=== PATIENT | female | born 1940 | race Caucasian/White ===

== ENCOUNTER 2017-10-14 11:41 | Inpatient (IN) | payer MEDICARE, OTHER ==
[~2017-10-14] VITALS: Ht 165.1 cm; Wt 55.3 kg
[2017-10-14] VITALS (7 sets, daily range): BP systolic 140–175; BP diastolic 68–95; PULSE 86–112; RESP 16–20; TEMP 97.1–98.3; O2SAT 94–99
[~2017-10-14 11:41] MED LIST: ASPI325T PO; HYDR12.57 PO; PRAV40TA2 PO
[2017-10-14] MEDS ORDERED: SODIUM CHLOR 0.9% 1000 ML INJ 800 ML IV ONE (11:57)
[2017-10-14] MEDS ORDERED: SODIUM CHLOR 0.9% 1000 ML INJ 1,000 ML IV ONE (11:57)
--- NOTE | 2017-10-14 12:09 | PD ---
HPI Chief Complaint: General Weakness Time Seen by Provider: 11:57 Travel History International Travel<30 days: No Contact w/Intl Traveler<30days: No Traveled to known affect area: No History of Present Illness HPI Patient is 77-year-old female brought into the emergency department via EMS for evaluation of generalized weakness. Per their report she has been laying on her couch for the last 7 days unable to get up because she has been weak. Apparently either patient or daughter called 911. Patient states that she has not been cleaned in several days. Patient denies any pain at this time. Patient states she has not been eating well. EMS reported that living conditions were suboptimal at best. Patient smelled of feces and urine on arrival. PFSH Past Medical History Cerebrovascular Accident: Yes Tubal Ligation: Yes Past Surgical History Tonsillectomy: Yes Social History Alcohol Use: No Tobacco Use: No (quit several years ago) Substance Use: No Allergies-Medications (Allergen,Severity, Reaction): Coded Allergies: No Known Allergies (Unverified Allergy, Unknown, 10/14/17) Reported Meds & Prescriptions Reported Meds & Active Scripts Active Reported Aspirin 325 Mg Tab (Aspirin) 325 Mg Tab 325 Mg PO DAILY Pravachol 40 Mg Tab (Pravastatin Sodium) 40 Mg Tab 40 Mg PO DAILY Microzide 12.5 Mg Cap (Hydrochlorothiazide) 12.5 Mg Cap 25 Mg PO DAILY Review of Systems ROS Limitations: Poor Historian Except as stated in HPI: all other systems reviewed are Neg General / Constitutional: Positive: Other (decreased oral intake), No: Fever, Chills HENT: No: Headaches Cardiovascular: No: Chest Pain or Discomfort Respiratory: No: Shortness of Breath Gastrointestinal: No: Nausea, Vomiting, Abdominal Pain Skin: Positive Other (skin breakdown to buttocks) Neurologic: Positive: Weakness Physical Exam Narrative GENERAL: Thin, disheveled, cachectic elderly female. Resting in no acute distress. SKIN: Purple discoloration to right toes, skin break down noted to the left buttock and right buttock. HEAD: Atraumatic. Normocephalic. EYES: Pupils equal and round. No scleral icterus. No injection or drainage. ENT: No nasal bleeding or discharge. Mucous membranes pink and moist. NECK: Trachea midline. No JVD. CARDIOVASCULAR: Regular rate and rhythm. RESPIRATORY: No accessory muscle use. Clear to auscultation. Breath sounds equal bilaterally. GASTROINTESTINAL: Abdomen soft, non-tender, nondistended. Hepatic and splenic margins not palpable. MUSCULOSKELETAL: Extremities without clubbing, cyanosis, or edema. No obvious deformities. NEUROLOGICAL: Awake and alert, oriented to self and place. No obvious cranial nerve deficits. Motor grossly within normal limits. Five out of 5 muscle strength in the arms and legs. Normal speech. PSYCHIATRIC: Appropriate mood and affect; insight and judgment normal. Data Data Last Documented VS Vital Signs Date Time Temp Pulse Resp B/P (MAP) Pulse Ox O2 Delivery O2 Flow Rate FiO2 10/14/17 14:07 98.3 91 17 140/95 (110) 99 Room Air Orders Orders Sepsis Workup Initiated (10/14/17 ) Electrocardiogram (10/14/17 11:57) Complete Blood Count With Diff (10/14/17 11:57) Comprehensive Metabolic Panel (10/14/17 11:57) Prothrombin Time / Inr (Pt) (10/14/17 11:57) Act Partial Throm Time (Ptt) (10/14/17 11:57) Lactic Acid Sepsis Protocol (10/14/17 11:57) Magnesium (Mg) (10/14/17 11:57) Urinalysis - C+S If Indicated (10/14/17 11:57) Blood Culture (10/14/17 11:57) Chest, Single Ap (10/14/17 11:57) Blood Glucose (10/14/17 11:57) Ecg Monitoring (10/14/17 11:57) Iv Access Insert/Monitor (10/14/17 11:57) Oximetry (10/14/17 11:57) Oxygen Administration (10/14/17 11:57) Sodium Chlor 0.9% 1000 Ml Inj (Ns 1000 M (10/14/17 11:57) Sodium Chlor 0.9% 1000 Ml Inj (Ns 1000 M (10/14/17 11:57) Urine Culture (10/14/17 12:00) Piperacil-Tazo 4.5 Gm Premix (Zosyn 4.5 (10/14/17 12:52) Vancomycin Inj (Vancomycin Inj) (10/14/17 13:15) Creatine Kinase (Cpk) (10/14/17 14:42) Admit Order (Ed Use Only) (10/14/17 14:42) Solid Waste [employer] / Telemetry [id number] (10/14/17 14:42) Vital Signs (Adult) Q4H (10/14/17 14:42) Activity Bed Rest (10/14/17 14:42) Notify Dr: Other (10/14/17 14:42) Diet Regular Basic (10/14/17 Dinner) Labs Laboratory Tests Test 10/14/17 12:00 10/14/17 12:05 10/14/17 13:20 Urine Color LIGHT-RED Urine Turbidity HAZY Urine pH 5.5 Urine Specific [place] 1.024 Urine Protein 30 mg/dL Urine Glucose (UA) NEG mg/dL Urine Ketones 10 mg/dL Urine Occult Blood NEG Urine Nitrite POS Urine Bilirubin NEG Urine Urobilinogen 2.0 MG/DL Urine Leukocyte Esterase MOD Urine RBC 3 /hpf Urine WBC 21 /hpf Urine Squamous Epithelial Cells 2 /hpf Urine Amorphous Sediment OCC Urine Bacteria MANY /hpf Urine Mucus MANY /lpf Microscopic Urinalysis Comment CATH-CULTURE IND White Blood Count 23.2 TH/MM3 Red Blood Count 8.36 MIL/MM3 Hemoglobin 19.3 GM/DL Hematocrit 59.6 % Mean Corpuscular Volume 68.8 FL Mean Corpuscular Hemoglobin 22.3 PG Mean Corpuscular Hemoglobin Concent 32.4 % Red Cell Distribution Width 18.8 % Platelet Count 675 TH/MM3 Mean Platelet Volume 8.2 FL Neutrophils (%) (Auto) 90.5 % Lymphocytes (%) (Auto) 3.1 % Monocytes (%) (Auto) 5.4 % Eosinophils (%) (Auto) 0.9 % Basophils (%) (Auto) 0.1 % Neutrophils # (Auto) 21.0 TH/MM3 Lymphocytes # (Auto) 0.7 TH/MM3 Monocytes # (Auto) 1.2 TH/MM3 Eosinophils # (Auto) 0.2 TH/MM3 Basophils # (Auto) 0.0 TH/MM3 CBC Comment AUTO DIFF Differential Comment AUTO DIFF CONFIRMED Toxic Vacuolation PRESENT Platelet Estimate HIGH Platelet Morphology Comment ENLARGED Prothrombin Time 17.5 SEC Prothromb Time International Ratio 1.7 RATIO Activated Partial Thromboplast Time 29.9 SEC Lactic Acid Level 1.3 mmol/L Blood Urea Nitrogen 11 MG/DL Creatinine 0.73 MG/DL Random Glucose 88 MG/DL Total Protein 7.1 GM/DL Albumin 2.3 GM/DL Calcium Level 8.1 MG/DL Magnesium Level 1.9 MG/DL Alkaline Phosphatase 100 U/L Aspartate Amino Transf (AST/SGOT) 18 U/L Alanine Aminotransferase (ALT/SGPT) 9 U/L Total Bilirubin 0.9 MG/DL Sodium Level 136 MEQ/L Potassium Level 3.6 MEQ/L Chloride Level 102 MEQ/L Carbon Dioxide Level 27.9 MEQ/L Anion Gap 6 MEQ/L Estimat Glomerular Filtration Rate 78 ML/MIN MDM Medical Decision Making Medical Screen Exam Complete: Yes Emergency Medical Condition: Yes Medical Record Reviewed: Yes Interpretation(s) Last Impressions Chest X-Ray 10/14/17 1157 Signed Impressions: Service Date/Time: Saturday, October 14, 2017 13:26 - CONCLUSION: No acute cardiopulmonary disease. Lorenzo Ponce MD Laboratory Tests Test 10/14/17 12:00 10/14/17 12:05 10/14/17 13:20 Urine Color LIGHT-RED Urine Turbidity HAZY Urine pH 5.5 Urine Specific [place] 1.024 Urine Protein 30 mg/dL Urine Glucose (UA) NEG mg/dL Urine Ketones 10 mg/dL Urine Occult Blood NEG Urine Nitrite POS Urine Bilirubin NEG Urine Urobilinogen 2.0 MG/DL Urine Leukocyte Esterase MOD Urine RBC 3 /hpf Urine WBC 21 /hpf Urine Squamous Epithelial Cells 2 /hpf Urine Amorphous Sediment OCC Urine Bacteria MANY /hpf Urine Mucus MANY /lpf Microscopic Urinalysis Comment CATH-CULTURE IND White Blood Count 23.2 TH/MM3 Red Blood Count 8.36 MIL/MM3 Hemoglobin 19.3 GM/DL Hematocrit 59.6 % Mean Corpuscular Volume 68.8 FL Mean Corpuscular Hemoglobin 22.3 PG Mean Corpuscular Hemoglobin Concent 32.4 % Red Cell Distribution Width 18.8 % Platelet Count 675 TH/MM3 Mean Platelet Volume 8.2 FL Neutrophils (%) (Auto) 90.5 % Lymphocytes (%) (Auto) 3.1 % Monocytes (%) (Auto) 5.4 % Eosinophils (%) (Auto) 0.9 % Basophils (%) (Auto) 0.1 % Neutrophils # (Auto) 21.0 TH/MM3 Lymphocytes # (Auto) 0.7 TH/MM3 Monocytes # (Auto) 1.2 TH/MM3 Eosinophils # (Auto) 0.2 TH/MM3 Basophils # (Auto) 0.0 TH/MM3 CBC Comment AUTO DIFF Differential Comment AUTO DIFF CONFIRMED Toxic Vacuolation PRESENT Platelet Estimate HIGH Platelet Morphology Comment ENLARGED Prothrombin Time 17.5 SEC Prothromb Time International Ratio 1.7 RATIO Activated Partial Thromboplast Time 29.9 SEC Lactic Acid Level 1.3 mmol/L Blood Urea Nitrogen 11 MG/DL Creatinine 0.73 MG/DL Random Glucose 88 MG/DL Total Protein 7.1 GM/DL Albumin 2.3 GM/DL Calcium Level 8.1 MG/DL Magnesium Level 1.9 MG/DL Alkaline Phosphatase 100 U/L Aspartate Amino Transf (AST/SGOT) 18 U/L Alanine Aminotransferase (ALT/SGPT) 9 U/L Total Bilirubin 0.9 MG/DL Sodium Level 136 MEQ/L Potassium Level 3.6 MEQ/L Chloride Level 102 MEQ/L Carbon Dioxide Level 27.9 MEQ/L Anion Gap 6 MEQ/L Estimat Glomerular Filtration Rate 78 ML/MIN Vital Signs Date Time Temp Pulse Resp B/P (MAP) Pulse Ox O2 Delivery O2 Flow Rate FiO2 10/14/17 14:07 98.3 91 17 140/95 (110) 99 Room Air 10/14/17 13:02 95 Room Air 10/14/17 12:03 99 Room Air 10/14/17 12:03 111 18 99 Room Air 10/14/17 11:51 98.2 112 18 147/93 (111) 97 Vital Signs Date Time Temp Pulse Resp B/P (MAP) Pulse Ox O2 Delivery O2 Flow Rate FiO2 10/14/17 11:51 98.2 112 18 147/93 (111) 97 Differential Diagnosis Sepsis versus UTI versus metabolic abnormality versus neglect versus other Narrative Course Patient presented via EMS for evaluation of generalized weakness that is ongoing for at least the last 7 days. Patient is given bedbound, unable to get up. On arrival she was considerably soiled, stool in her adult diaper was caked to patient's skin. There is skin breakdown noted to her buttocks. She is tachycardic, likely secondary to dehydration however sepsis workup was initiated. Patient's heart rate is 116 vital signs are otherwise stable at this time. Patient has not been to [facility] since 2011, medical records reviewed. Initial EKG shows sinus tachycardia with occasional PVCs. Rate is 111, this was reviewed by my attending physician. Chest x-ray shows no acute disease CBC with a white count of 23.2 with left shift. H&H is 19.3/59.6 Lactic acid 1.3 Urinalysis is consistent with a urinary tract infection. Zosyn and vancomycin ordered. Reflex culture is pending. Coags reviewed, INR 1.7, PT 17.5 Patient meet sepsis criteria, patient will be admitted. Discussed with Dr. Liao who accepted admission. Orders placed. Sepsis Criteria SIRS Criteria (2 or more): Heart rate over 90, WBC > 55315, < 4000 or > 10% bands Sepsis Criteria (SIRS+source): Infect source susp/known Diagnosis Primary Impression: Sepsis Qualified Codes: A41.9 - Sepsis, unspecified organism Additional Impressions: UTI (urinary tract infection) Qualified Codes: N39.0 - Urinary tract infection, site not specified; R31.9 - Hematuria, unspecified Generalized weakness Total self-care deficit Admitting Information Admitting Physician Requests: Admit Condition: Stable Kait Martins Oct 14, 2017 12:09
[2017-10-14 12:42] LABS: BASOPHIL % 0.1 % (0.0-2.0); EOSINOPHIL # 0.2 TH/MM3 (0-0.4); EOSINOPHIL % 0.9 % (0.0-4.0); HEMATOCRIT 59.6 % (35.0-46.0); HEMOGLOBIN 19.3 GM/DL (11.6-15.3); LYMPH % 3.1 % (9.0-44.0); LYMPHOCYTE # 0.7 TH/MM3 (1.0-4.8); MEAN CELL VOLUME 68.8 FL (80.0-100.0); MEAN CORPUSCULAR HEMOGLOBIN 22.3 PG (27.0-34.0); MEAN CORPUSCULAR HGB CONC 32.4 % (32.0-36.0); MEAN PLATELET VOLUME 8.2 FL (7.0-11.0); MONO % 5.4 % (0.0-8.0); MONOCYTE # 1.2 TH/MM3 (0-0.9); NEUT % 90.5 % (16.0-70.0); PLATELET COUNT 675 TH/MM3 (150-450); RED CELL DISTRIBUTION WIDTH 18.8 % (11.6-17.2); WHITE BLOOD COUNT 23.2 TH/MM3 (4.0-11.0)
[2017-10-14 12:46] LABS: AMORPHOUS SEDIMENT, URINE OCC; BACTERIA, URINE MANY /hpf; BILIRUBIN, URINE NEG (NEG); BLOOD, URINE NEG (NEG); GLUCOSE,URINE NEG (NEG); KETONE, URINE 10 mg/dL (NEG); MUCUS URINE MANY /lpf (OCC); NITRITE,URINE POS (NEG); PH, URINE 5.5 (5.0-8.5); SQUAMOUS EPITHELIAL CELL URINE 2 /hpf (0-5); URINE LEUKOCYTE ESTERASE MOD (NEG)
[2017-10-14 12:47] LABS: URINE COLOR LIGHT-RED (YELLW/STRAW)
[2017-10-14 12:48] LABS: INTERNATIONAL NORMALIZED RATIO 1.7 RATIO; PROTHROMBIN TIME - PATIENT 17.5 SEC (9.8-11.6)
[2017-10-14] MEDS ORDERED: PIPERACIL-TAZO 4.5 GM PREMIX 100 ML IV STA (12:52)
[2017-10-14 12:55] LABS: RED BLOOD COUNT 8.36 MIL/MM3 (4.00-5.30)
[2017-10-14 13:01] LABS: ALKALINE PHOSPHATASE 100 U/L (45-117); TOTAL BILIRUBIN ADULT 0.9 MG/DL (0.2-1.0); TOTAL PROTEIN 7.1 GM/DL (6.4-8.2)
[2017-10-14] MEDS ORDERED: VANCOMYCIN INJ 1,000 MG in SODIUM CHLOR 0.9% 250 ML INJ 250 ML IV ONE (13:15)
[2017-10-14 13:28] LABS: TOXIC VACUOLATION PRESENT (NONE SEEN)
[2017-10-14 13:50] LABS: ALT (GPT) 9 U/L (10-53)
--- NOTE | 2017-10-14 13:55 | RADRPT ---
EXAM DATE/TIME: 10/14/2017 13:26 [facility] COMPARISON: No previous studies available for comparison. INDICATIONS : Cough, weakness. MEDICAL HISTORY : Unobtainable SURGICAL HISTORY : None. ENCOUNTER: Initial ACUITY: 1 day PAIN SCORE: 0/10 LOCATION: Bilateral chest FINDINGS: The heart and mediastinal structures are normal. The pulmonary vascular pattern is normal. The lungs are clear. CONCLUSION: No acute cardiopulmonary disease. Lorenzo Ponce MD on October 14, 2017 at 13:51 Board Certified Radiologist. This report was verified electronically.
[2017-10-14 14:02] LABS: BLOOD UREA NITROGEN 11 MG/DL (7-18); CREATININE 0.73 MG/DL (0.50-1.00); GLOMERULAR FILTRATION RATE 78 ML/MIN (>89)
[2017-10-14 14:03] LABS: ALBUMIN 2.3 GM/DL (3.4-5.0); AST (GOT) 18 U/L (15-37); CALCIUM 8.1 MG/DL (8.5-10.1); GLUCOSE,RANDOM 88 MG/DL (74-106); MAGNESIUM 1.9 MG/DL (1.5-2.5); SODIUM (NA) 136 MEQ/L (136-145)
[2017-10-14 14:04] LABS: BICARBONATE 27.9 MEQ/L (21.0-32.0); CHLORIDE 102 MEQ/L (98-107)
--- NOTE | 2017-10-14 14:43 | PD ---
Data Data Last Documented VS Vital Signs Date Time Temp Pulse Resp B/P (MAP) Pulse Ox O2 Delivery O2 Flow Rate FiO2 10/14/17 14:07 98.3 91 17 140/95 (110) 99 Room Air Orders Orders Sepsis Workup Initiated (10/14/17 ) Electrocardiogram (10/14/17 11:57) Complete Blood Count With Diff (10/14/17 11:57) Comprehensive Metabolic Panel (10/14/17 11:57) Prothrombin Time / Inr (Pt) (10/14/17 11:57) Act Partial Throm Time (Ptt) (10/14/17 11:57) Lactic Acid Sepsis Protocol (10/14/17 11:57) Magnesium (Mg) (10/14/17 11:57) Urinalysis - C+S If Indicated (10/14/17 11:57) Blood Culture (10/14/17 11:57) Chest, Single Ap (10/14/17 11:57) Blood Glucose (10/14/17 11:57) Ecg Monitoring (10/14/17 11:57) Iv Access Insert/Monitor (10/14/17 11:57) Oximetry (10/14/17 11:57) Oxygen Administration (10/14/17 11:57) Sodium Chlor 0.9% 1000 Ml Inj (Ns 1000 M (10/14/17 11:57) Sodium Chlor 0.9% 1000 Ml Inj (Ns 1000 M (10/14/17 11:57) Urine Culture (10/14/17 12:00) Piperacil-Tazo 4.5 Gm Premix (Zosyn 4.5 (10/14/17 12:52) Vancomycin Inj (Vancomycin Inj) (10/14/17 13:15) Labs Laboratory Tests Test 10/14/17 12:00 10/14/17 12:05 10/14/17 13:20 Urine Color LIGHT-RED Urine Turbidity HAZY Urine pH 5.5 Urine Specific [place] 1.024 Urine Protein 30 mg/dL Urine Glucose (UA) NEG mg/dL Urine Ketones 10 mg/dL Urine Occult Blood NEG Urine Nitrite POS Urine Bilirubin NEG Urine Urobilinogen 2.0 MG/DL Urine Leukocyte Esterase MOD Urine RBC 3 /hpf Urine WBC 21 /hpf Urine Squamous Epithelial Cells 2 /hpf Urine Amorphous Sediment OCC Urine Bacteria MANY /hpf Urine Mucus MANY /lpf Microscopic Urinalysis Comment CATH-CULTURE IND White Blood Count 23.2 TH/MM3 Red Blood Count 8.36 MIL/MM3 Hemoglobin 19.3 GM/DL Hematocrit 59.6 % Mean Corpuscular Volume 68.8 FL Mean Corpuscular Hemoglobin 22.3 PG Mean Corpuscular Hemoglobin Concent 32.4 % Red Cell Distribution Width 18.8 % Platelet Count 675 TH/MM3 Mean Platelet Volume 8.2 FL Neutrophils (%) (Auto) 90.5 % Lymphocytes (%) (Auto) 3.1 % Monocytes (%) (Auto) 5.4 % Eosinophils (%) (Auto) 0.9 % Basophils (%) (Auto) 0.1 % Neutrophils # (Auto) 21.0 TH/MM3 Lymphocytes # (Auto) 0.7 TH/MM3 Monocytes # (Auto) 1.2 TH/MM3 Eosinophils # (Auto) 0.2 TH/MM3 Basophils # (Auto) 0.0 TH/MM3 CBC Comment AUTO DIFF Differential Comment AUTO DIFF CONFIRMED Toxic Vacuolation PRESENT Platelet Estimate HIGH Platelet Morphology Comment ENLARGED Prothrombin Time 17.5 SEC Prothromb Time International Ratio 1.7 RATIO Activated Partial Thromboplast Time 29.9 SEC Lactic Acid Level 1.3 mmol/L Blood Urea Nitrogen 11 MG/DL Creatinine 0.73 MG/DL Random Glucose 88 MG/DL Total Protein 7.1 GM/DL Albumin 2.3 GM/DL Calcium Level 8.1 MG/DL Magnesium Level 1.9 MG/DL Alkaline Phosphatase 100 U/L Aspartate Amino Transf (AST/SGOT) 18 U/L Alanine Aminotransferase (ALT/SGPT) 9 U/L Total Bilirubin 0.9 MG/DL Sodium Level 136 MEQ/L Potassium Level 3.6 MEQ/L Chloride Level 102 MEQ/L Carbon Dioxide Level 27.9 MEQ/L Anion Gap 6 MEQ/L Estimat Glomerular Filtration Rate 78 ML/MIN [facility] Supervised Visit with [facility]IE[facility]: Yes Narrative Course The history, exam, and medical decision-making in the associated mid-level provider note were completed with my assistance. I reviewed and agree with the findings presented. I attest that I had a [id number] encounter with the patient on the same day, and personally performed and documented my assessment and findings in the medical record. *My assessment and Findings: 77-year-old woman with worsening weakness for the past week, hasn't moved off the couch, family called EMS. EMS is worried about the living conditions. Patient was found with skin wounds in the posterior on her posterior with caked feces there is well. Labs are remarkable for leukocytosis. Chemistries are unremarkable. UA shows pyuria. She appeared dehydrated. Met sepsis criteria. Was treated with flank and Zosyn. She is a little bit confused. No other evidence of trauma. We'll add a total CK. Jose Luis Arnett MD Oct 14, 2017 14:43
[2017-10-14] MEDS ORDERED: MAGNESIUM HYDROXIDE SUSP 30 ML CUP PO PRN (16:00)
[2017-10-14] MEDS ORDERED: SODIUM CHLOR 0.9% 1000 ML INJ 1,000 ML IV SCH (16:00)
[2017-10-14] MEDS ORDERED: SENNOSIDES 8.6 MG TAB PO PRN (16:00)
[2017-10-14] MEDS ORDERED: BISACODYL 10 MG SUPP RECTAL PRN (16:00)
[2017-10-14] MEDS ORDERED: LACTULOSE SYRUP 20 GM/30 ML CUP PO PRN (16:00)
[2017-10-14] MEDS ORDERED: SODIUM CHLORIDE 0.9% FLUSH 10 ML FLUSH IV FLUSH PRN (16:00)
[2017-10-14] MEDS ORDERED: TEMAZEPAM 15 MG CAP PO PRN (16:00)
[2017-10-14] MEDS ORDERED: ONDANSETRON HCL 4 MG/2 ML VIAL IVP PRN (16:00)
[2017-10-14] MEDS ORDERED: NALOXONE HCL 0.4 MG/ML AMP IV PUSH PRN (16:00)
--- NOTE | 2017-10-14 16:49 | HHI.HP ---
[facility] Primary Care Physician No Primary Care Physician Admission Diagnosis sepsis/uti Diagnoses: Chief Complaint: generalized weakness Travel History International Travel<30 Days: No Contact w/Intl Traveler <30 Da: No Traveled to Known Affected Are: No History of Present Illness Patient is 77-year-old female with PMH of HTN, HLD brought into the emergency department via EMS for evaluation of generalized weakness. Patient is a poor historian. Per their report she has been laying on her couch for the last 7 days unable to get up because she has been weak. Apparently either patient or daughter called 911. Patient states that she has not been cleaned in several days. Patient states she has not been eating well. EMS reported that living conditions were suboptimal at best. Patient smelled of feces and urine on arrival. Further work up reveals UTI with sepsis. Started on abb after cultures obtained. Patient also was noted with discolored LE bluish discoloration, cold LE , and no pulses detected by US. Ao run off ordered and also vascular surgeon consulted for further eval. Review of Systems ROS Limitations: Clinical Condition, Poor Historian Except as stated in HPI: all other systems reviewed are Neg Past Family Social History Past Medical History HLD, HTN Past Surgical History Tubal ligation 1982 Tonsillectomy as a child Reported Medications Reported Meds & Active Scripts Active Allergies: Coded Allergies: No Known Allergies (Unverified Allergy, Unknown, 10/14/17) Family History None Social History Tobacco: 1/2 ppd since 20 yrs of age, says she stopped in her "70's Alcohol: 2 beers every couple weeks Drugs: Marijuana in her 20's Physical Exam Vital Signs Vital Signs Date Time Temp Pulse Resp B/P (MAP) Pulse Ox O2 Delivery O2 Flow Rate FiO2 10/14/17 16:00 97.1 90 18 155/84 (107) 96 10/14/17 15:49 10/14/17 15:00 86 20 144/68 (93) 96 Room Air 10/14/17 14:07 98.3 91 17 140/95 (110) 99 Room Air 10/14/17 13:02 95 Room Air 10/14/17 12:03 99 Room Air 10/14/17 12:03 111 18 99 Room Air 10/14/17 11:51 98.2 112 18 147/93 (111 97 Physical Exam GENERAL: This is a skinny 77 yo f, well-nourished, well-developed patient, in no apparent distress. SKIN: BL LE toes with cyanosis, cold and no pulses detected. Cool and dry. HEAD: Atraumatic. Normocephalic. No temporal or scalp tenderness. EYES: Pupils equal round and reactive. Extraocular motions intact. No scleral icterus. No injection or drainage. ENT: Nose without bleeding, purulent drainage or septal hematoma. Throat without erythema, tonsillar hypertrophy or exudate. Uvula midline. Airway patent. NECK: Trachea midline. No JVD or lymphadenopathy. Supple, nontender, no meningeal signs. CARDIOVASCULAR: Regular rate and rhythm without murmurs, gallops, or rubs. RESPIRATORY: Clear to auscultation. Breath sounds equal bilaterally. No wheezes , rales, or rhonchi. GASTROINTESTINAL: Abdomen soft, non-tender, nondistended. No hepato-splenomegaly , or palpable masses. No guarding. MUSCULOSKELETAL: Extremities without clubbing, cyanosis, or edema. No joint tenderness, effusion, or edema noted. No calf tenderness. Negative Homans sign bilaterally. NEUROLOGICAL: Awake and alert. Cranial nerves II through XII intact. Motor and sensory grossly within normal limits. Five out of 5 muscle strength in all muscle groups. Normal speech. Laboratory Laboratory Tests Test 10/14/17 12:00 10/14/17 12:05 10/14/17 13:20 Urine Color LIGHT-RED Urine Turbidity HAZY Urine pH 5.5 Urine Specific Oakman 1.024 Urine Protein 30 Urine Glucose (UA) NEG Urine Ketones 10 Urine Occult Blood NEG Urine Nitrite POS Urine Bilirubin NEG Urine Urobilinogen 2.0 Urine Leukocyte Esterase MOD Urine RBC 3 Urine WBC 21 Urine Squamous Epithelial Cells 2 Urine Amorphous Sediment OCC Urine Bacteria MANY Urine Mucus MANY Microscopic Urinalysis Comment CATH-CULTURE IND White Blood Count 23.2 Red Blood Count 8.36 Hemoglobin 19.3 Hematocrit 59.6 Mean Corpuscular Volume 68.8 Mean Corpuscular Hemoglobin 22.3 Mean Corpuscular Hemoglobin Concent 32.4 Red Cell Distribution Width 18.8 Platelet Count 675 Mean Platelet Volume 8.2 Neutrophils (%) (Auto) 90.5 Lymphocytes (%) (Auto) 3.1 Monocytes (%) (Auto) 5.4 Eosinophils (%) (Auto) 0.9 Basophils (%) (Auto) 0.1 Neutrophils # (Auto) 21.0 Lymphocytes # (Auto) 0.7 Monocytes # (Auto) 1.2 Eosinophils # (Auto) 0.2 Basophils # (Auto) 0.0 CBC Comment AUTO DIFF Differential Comment AUTO DIFF CONFIRMED Toxic Vacuolation PRESENT Platelet Estimate HIGH Platelet Morphology Comment ENLARGED Prothrombin Time 17.5 Prothromb Time International Ratio 1.7 Activated Partial Thromboplast Time 29.9 Lactic Acid Level 1.3 Blood Urea Nitrogen 11 Creatinine 0.73 Random Glucose 88 Total Protein 7.1 Albumin 2.3 Calcium Level 8.1 Magnesium Level 1.9 Alkaline Phosphatase 100 Aspartate Amino Transf (AST/SGOT) 18 Alanine Aminotransferase (ALT/SGPT) 9 Total Bilirubin 0.9 Sodium Level 136 Potassium Level 3.6 Chloride Level 102 Carbon Dioxide Level 27.9 Anion Gap 6 Estimat Glomerular Filtration Rate 78 Total Creatine Kinase 81 Date/Time Source Procedure Growth Status 10/14/17 12:20 Blood Peripheral Aerobic Blood Culture Pending Received 10/14/17 12:20 Blood Peripheral Anaerobic Blood Culture Pending Received 10/14/17 12:00 Urine Catheterized Urine Urine Culture Pending Received Result Diagram: 10/14/17 1205 10/14/17 1320 Imaging Last Impressions Chest X-Ray 10/14/17 1157 Signed Impressions: Service Date/Time: Saturday, October 14, 2017 13:26 - CONCLUSION: No acute cardiopulmonary disease. Lorenzo Ponce MD Caprini VTE Risk Assessment Caprini VTE Risk Assessment: Mod/High Risk (score >= 2) Caprini Risk Assessment Model Point Value = 1 Point Value = 2 Point Value = 3 Point Value = 5 Age 41-60 Minor surgery BMI > 25 kg/m2 Swollen legs Varicose veins or History of unexplained or recurrent spontaneous Oral contraceptives or hormone replacement Sepsis (< 1 month) Serious lung disease, including pneumonia (< 1 month) Abnormal pulmonary function Acute myocardial infarction Congestive heart failure (< 1 month) History of inflammatory bowel disease Medical patient at bed rest Age 61-74 Arthroscopic surgery Major open surgery (> 45 min) Laparoscopic surgery (> 45 min) Malignancy Confined to bed (> 72 hours) Immobilizing plaster cast Central venous access Age >= 75 History of VTE Family history of VTE Factor V Leiden Prothrombin [id number] Lupus anticoagulant Anticardiolipin antibodies Elevated serum homocysteine Heparin-induced thrombocytopenia Other congenital or acquired thrombophilia Stroke (< 1 month) Elective arthroplasty Hip, pelvis, or leg fracture Acute spinal cord injury (< 1 month) Prophylaxis Regimen Total Risk Factor Score Risk Level Prophylaxis Regimen 0-1 Low Early ambulation 2 Moderate Order ONE of the following: *Sequential Compression Device (SCD) *Heparin 5000 units SQ BID 3-4 Higher Order ONE of the following medications: *Heparin 5000 units SQ TID *Enoxaparin/Lovenox 40 mg SQ daily (WT < 150 kg, CrCl > 30 mL/min) *Enoxaparin/Lovenox 30 mg SQ daily (WT < 150 kg, CrCl > 10-29 mL/min) *Enoxaparin/Lovenox 30 mg SQ BID (WT < 150 kg, CrCl > 30 mL/min) AND/OR *Sequential Compression Device (SCD) 5 or more Highest Order ONE of the following medications: *Heparin 5000 units SQ TID (Preferred with Epidurals) *Enoxaparin/Lovenox 40 mg SQ daily (WT < 150 kg, CrCl > 30 mL/min) *Enoxaparin/Lovenox 30 mg SQ daily (WT < 150 kg, CrCl > 10-29 mL/min) *Enoxaparin/Lovenox 30 mg SQ BID (WT < 150 kg, CrCl > 30 mL/min) AND *Sequential Compression Device (SCD) Assessment and Plan Assessment and Plan Sepsis ( UTI, tachycardia, leukocytosis ) UTI (urinary tract infection) Generalized weakness Dehydration Total self-care deficit Bilateral LE discoloration and unable to feel DP pulses. Patient with pain and cold extremities. Will do CTA Ao run off and will consult vascular surgery Started on antibiotic Rocephin IV . Received vanco and zosyn in the ED. Received bolus of NS in the eD. Continue IVF. Monitor VS closely. Urine cultures blood cx are pending Initial EKG shows sinus tachycardia with occasional PVCs. Rate is 111, this was reviewed by my attending physician. Chest x-ray shows no acute disease Restart home meds as appropriate patient says she currently doesn't take any meds. Repeat labs cbc, bmp tomorrow Consult PT for eval Consult case management for DC plan DVT ppx lovenox Discussed Condition With patient. nurse, ED physician /PA Physician Certification 2 Midnight Certification Type: Admission for Inpatient Services Order for Inpatient Services The services are ordered in accordance with Medicare regulations or non- Medicare payer requirements, as applicable. In the case of services not specified as inpatient-only, they are appropriately provided as inpatient services in accordance with the 2-midnight benchmark. Estimated LOS (days): 3 days is the estimated time the patient will need to remain in the hospital, assuming treatment plan goals are met and no additional complications. Post-Hospital Plan: Not yet determined Sruthi Liao MD Oct 14, 2017 16:49
[2017-10-14] MEDS ORDERED: ENOXAPARIN SODIUM 40 MG/0.4 ML SYRINGE SQ SCH (17:00)
[2017-10-14] MEDS: cefTRIAXone INJ 1,000 MG in SODIUM CHLORIDE 0.9% INJ 100 ML IV SCH (17:25)
[2017-10-14] MEDS ORDERED: IOHEXOL 350 MG/ML 10 ML VIAL (for RAD DIAG) IVCONTRAST ONE (18:02)
--- NOTE | 2017-10-14 21:02 | RADRPT ---
EXAM DATE/TIME: 10/14/2017 17:47 [facility] COMPARISON: No previous studies available for comparison. INDICATIONS : Right leg pain; evaluate for occlusion. IV CONTRAST: 100 cc Omnipaque 350 (iohexol) IV RADIATION DOSE: 2.3 CTDIvol (mGy) MEDICAL HISTORY : Cerebrovascular disease. SURGICAL HISTORY : Tubal ligation. ENCOUNTER: Initial ACUITY: 1 month PAIN SCALE: 7/10 LOCATION: Right lower leg TECHNIQUE: Volumetric scanning was performed using a multi-row detector CT scanner. The data was post processed with a variety of visualization algorithms including full volume maximum intensity projection, multi -planar sliding thin slab reformation, curved planar reformation, and surface rendering techniques. Using automated exposure control and adjustment of the mA and/or kV according to patient size, radiat ion dose was kept as low as reasonably achievable to obtain optimal diagnostic quality images. DICO M format image data is available electronically for review and comparison. FINDINGS: There are atherosclerotic changes seen throughout the arterial system. The abdominal aorta measures up to 2.9 cm. At the distal infrarenal abdominal aorta thrombus occupies more than half of the lumen . The functional lumen is seen at the left lateral aspect of the distal abdominal aorta. There is a therosclerotic change at the common iliac arteries bilaterally. A significant stenosis is not seen a t this level is not seen. There does appear to be severe stenosis and possible occlusion at the orig in of the right internal iliac artery. There is mild plaque seen at the right external iliac artery. There is a severe stenosis at the distal left external iliac artery. There is atherosclerotic change seen at the common femoral arteries bilaterally being more severe on the right. There is a severe stenosis at the right common femoral artery narrowing the lumen by appr oximately 80%. There is severe narrowing of the proximal right profunda femoris artery. There is ab rupt occlusion of the proximal right superficial femoral artery. Flow in the thigh is continues thro ugh collaterals in the profunda femoris artery distribution. There is reconstitution of the distal p opliteal artery at the level of the distal femur via collaterals. There is a normal trifurcation. T he right anterior tibial artery can be traced to the ankle. The posterior tibial and peritoneal daniel everardo can be seen to the distal lower leg but can not clearly be traced into the foot. Again noted is the mild stenosis at the left common femoral artery. There is occlusion of the proxim al left superficial femoral artery. The popliteal artery is patent throughout. There is reconstitut ion of the distal superficial femoral artery at the level of the distal femoral shaft. The popliteal artery is patent. There is a severe stenosis at the mid popliteal artery. The lumen is narrowed by over 75%. The more distal popliteal artery is patent. The anterior and posterior tibial artery cou ld be traced to the foot. The peritoneal artery can be traced to the ankle region. Atherosclerotic calcifications are seen throughout the origins of the vessels in the upper abdomen. There does appear to be at least a moderate stenosis at the origin of the right renal artery. The le ft renal artery appears patent. The celiac, SMA and JUN are patent. There is a mild hiatal hernia. The liver, spleen, pancreas and kidneys appear grossly normal. The a drenal glands are grossly normal. The pelvic structures appear intact. The patient does have a Fole y catheter in the urinary bladder. There is degenerative change in the lumbar spine. CONCLUSION: 1. Atherosclerotic changes seen throughout the arterial system, including borderline aneurysmal dilat ion of the infrarenal abdominal aorta with prominent mural thrombus. 2. Atherosclerotic change in the external iliac and common femoral arteries bilaterally as described above. 3. Occlusion of the superficial femoral arteries bilaterally with reconstitution distally. The recon stitution is higher on the left side. 4. Normal trifurcation vessels seen on the left side. 5. Diminished flow seen at the right trifurcation vessels. The vessels can only be well seen on the delayed images. The vessels can not be traced into the foot. Anselmo Mcadams MD on October 14, 2017 at 19:28 Board Certified Radiologist. This report was verified electronically.
[2017-10-14] MEDS ORDERED: cloNIDine HCL 0.1 MG TAB PO ONE (21:15)
--- NOTE | 2017-10-14 21:25 | RADRPT ---
EXAM DATE/TIME: 10/14/2017 20:48 [facility] COMPARISON: No previous studies available for comparison. INDICATIONS : Bilateral leg pain. MEDICAL HISTORY : Stroke. SURGICAL HISTORY : Tonsillectomy.Tubal ligation. ENCOUNTER: Initial ACUITY: 1 week PAIN SCORE: 3/10 LOCATION: Bilateral legs. TECHNIQUE: Venous ultrasound of the left and right leg was performed from the inguinal ligament to the proximal calf. Real-time, color Doppler and spectral tracing, compression and augmentation techniques were us ed. FINDINGS: RIGHT LEG: There is normal compressibility of the deep venous system from the inguinal region to the proximal ca lf. No echogenic clot is seen in the lumen of the common femoral, femoral, popliteal, and posterior tibial veins. There is a normal response of the venous system to proximal and distal augmentation an d respiration. LEFT LEG: There is normal compressibility of the deep venous system from the inguinal region to the proximal ca lf. No echogenic clot is seen in the lumen of the common femoral, femoral, popliteal, and posterior tibial veins. There is a normal response of the venous system to proximal and distal augmentation an d respiration. CONCLUSION: No DVT. Anselmo Mcadams MD on October 14, 2017 at 21:23 Board Certified Radiologist. This report was verified electronically.
[2017-10-14] MEDS: DOCUSATE SODIUM 50 MG/SENNA 8.6 MG TAB PO SCH (22:05)
[2017-10-14] MEDS: SODIUM CHLORIDE 0.9% FLUSH 10 ML FLUSH IV FLUSH SCH (22:06)
[2017-10-15] VITALS (7 sets, daily range): BP systolic 110–161; BP diastolic 59–98; PULSE 84–123; RESP 16–21; TEMP 97.4–98.8; O2SAT 92–94
--- NOTE | 2017-10-15 03:14 | RADRPT ---
EXAM DATE/TIME: 10/15/2017 02:34 [facility] COMPARISON: CHEST SINGLE AP, October 14, 2017, 13:26. INDICATIONS : New onset of congestion. MEDICAL HISTORY : Cerebrovascular disease. SURGICAL HISTORY : Tubal ligation. ENCOUNTER: Subsequent ACUITY: 1 day PAIN SCORE: 0/10 LOCATION: Bilateral chest FINDINGS: The heart size is normal. There is alveolar density seen at the right base. The lobe lung is clear. CONCLUSION: Increased density at the right base likely representing mild atelectasis or consolidation. Anselmo Mcadams MD on October 15, 2017 at 3:11 Board Certified Radiologist. This report was verified electronically.
[2017-10-15] MEDS ORDERED: FUROSEMIDE 40 MG/4 ML VIAL IV PUSH ONE (03:45)
[2017-10-15] MEDS ORDERED: RESP: ALBUTEROL 2.5 MG/IPRATROPIUM 0.5 MG NEB (PRN) NEB (04:00)
[2017-10-15 04:59] LABS: AUTOMATED NEUTROPHIL # 24.3 TH/MM3 (1.8-7.7); BASOPHIL % 0.1 % (0.0-2.0); EOSINOPHIL # 0.2 TH/MM3 (0-0.4); EOSINOPHIL % 0.8 % (0.0-4.0); HEMATOCRIT 56.4 % (35.0-46.0); HEMOGLOBIN 18.2 GM/DL (11.6-15.3); LYMPH % 2.5 % (9.0-44.0); LYMPHOCYTE # 0.7 TH/MM3 (1.0-4.8); MEAN CELL VOLUME 69.5 FL (80.0-100.0); MEAN CORPUSCULAR HEMOGLOBIN 22.5 PG (27.0-34.0); MEAN CORPUSCULAR HGB CONC 32.3 % (32.0-36.0); MEAN PLATELET VOLUME 8.5 FL (7.0-11.0); MONO % 4.7 % (0.0-8.0); MONOCYTE # 1.2 TH/MM3 (0-0.9); NEUT % 91.9 % (16.0-70.0); PLATELET COUNT 620 TH/MM3 (150-450); RED BLOOD COUNT 8.12 MIL/MM3 (4.00-5.30); RED CELL DISTRIBUTION WIDTH 18.4 % (11.6-17.2); WHITE BLOOD COUNT 26.4 TH/MM3 (4.0-11.0)
[2017-10-15 05:27] LABS: CALCIUM 8.5 MG/DL (8.5-10.1); CREATININE 0.62 MG/DL (0.50-1.00); MAGNESIUM 1.9 MG/DL (1.5-2.5)
[2017-10-15 06:03] LABS: BANDS 15 % (0-6); LYMPHOCYTES 2 % (9-44); MONOCYTES 6 % (0-8); NEUTROPHIL # MANUAL DIFF 23.8 TH/MM3 (1.8-7.7); POLYS (SEG NEUTROPHILS) 75 % (16-70); TOXIC GRANULATION 1+ (NORMAL)
[2017-10-15 06:04] LABS: TOXIC VACUOLATION PRESENT (NONE SEEN)
--- NOTE | 2017-10-15 06:10 | RADRPT ---
EXAM DATE/TIME: 10/15/2017 05:41 [facility] COMPARISON: No previous studies available for comparison. INDICATIONS : Altered mental status. RADIATION DOSE: 33.01 CTDIvol (mGy) MEDICAL HISTORY : Cerebrovascular disease. SURGICAL HISTORY : Tubal ligation. ENCOUNTER: Initial ACUITY: 1 day PAIN SCALE: Non-responsive LOCATION: cranial TECHNIQUE: Multiple contiguous axial images were obtained of the head. Using automated exposure control and adj ustment of the mA and/or kV according to patient size, radiation dose was kept as low as reasonably a chievable to obtain optimal diagnostic quality images. DICOM format image data is available electro nically for review and comparison. FINDINGS: CEREBRUM: There is low density seen in the right posterior parietal lobe and extending into the posterior right temporal lobe and lateral right occipital lobe. This clearly involves the white matter and the guallpa matter in this region. There is a smaller area of low density seen in the posterior left parietal lob e. These are thought to be from prior infarctions. There is low-density seen throughout the cerebral white matter likely secondary to small vessel ischemic change. There are lacunar infarcts at the righ t centrum semiovale and the left basal ganglia. There is expansion of the left lateral ventricle. The re is 2 mm of [id number] midline shift. The basal cisterns are open. No evidence of midline shift, mass lesion, hemorrhage or acute infarction. No extra-axial fluid collections are seen. The cortica l sulci are widened. POSTERIOR FOSSA: The cerebellum and brainstem are intact. The 4th ventricle is midline. The cerebellopontine angle i s unremarkable. EXTRACRANIAL: The visualized portion of the orbits is intact. There is a small osteoma in the right frontal sinus. There is minimal mucosal disease at the sphenoid sinus. SKULL: The calvaria is intact. No evidence of skull fracture. CONCLUSION: 1. Bilateral suspected areas of encephalomalacia being more prominent on the right. 2. Suspected small vessel ischemic change throughout the white matter. 3. Atrophy. 4. Acute area of hemorrhage or mass effect is not seen. Anselmo Mcadams MD on October 15, 2017 at 6:01 Board Certified Radiologist. This report was verified electronically.
[2017-10-15 07:21] LABS: INTERNATIONAL NORMALIZED RATIO 1.5 RATIO; PROTHROMBIN TIME - PATIENT 14.7 SEC (9.8-11.6)
[2017-10-15] MEDS: HEPARIN-D5W 25,000 U/250 ML 250 ML IV PRN (07:51)
--- NOTE | 2017-10-15 08:57 | PD.CAR.PN ---
CVT Progress Note Subjective/Hospital Course: Referral received Full consult to follow Severe for peripheral vascular disease will require reconstruction Thanks J Objective: Vital Signs Date Time Temp Pulse Resp B/P (MAP) Pulse Ox O2 Delivery O2 Flow Rate FiO2 10/15/17 08:00 97.5 108 18 133/64 (87) 93 10/15/17 04:36 107 158/86 (110) 10/15/17 02:25 123 21 158/98 (118) 93 10/15/17 00:00 98.8 108 18 161/88 (112) 92 10/14/17 21:51 98.2 109 16 175/92 (119) 94 10/14/17 20:00 103 10/14/17 16:00 97.1 90 18 155/84 (107) 96 10/14/17 15:49 10/14/17 15:00 86 20 144/68 (93) 96 Room Air 10/14/17 14:07 98.3 91 17 140/95 (110) 99 Room Air 10/14/17 13:02 95 Room Air 10/14/17 12:03 99 Room Air 10/14/17 12:03 111 18 99 Room Air 10/14/17 11:51 98.2 112 18 147/93 (111) 97 Labs: Laboratory Tests Test 10/15/17 04:40 10/15/17 06:48 White Blood Count 26.4 TH/MM3 (4.0-11.0) Red Blood Count 8.12 MIL/MM3 (4.00-5.30) Hemoglobin 18.2 GM/DL (11.6-15.3) Hematocrit 56.4 % (35.0-46.0) Mean Corpuscular Volume 69.5 FL (80.0-100.0) Mean Corpuscular Hemoglobin 22.5 PG (27.0-34.0) Mean Corpuscular Hemoglobin Concent 32.3 % (32.0-36.0) Red Cell Distribution Width 18.4 % (11.6-17.2) Platelet Count 620 TH/MM3 (150-450) Mean Platelet Volume 8.5 FL (7.0-11.0) Neutrophils (%) (Auto) 91.9 % (16.0-70.0) Lymphocytes (%) (Auto) 2.5 % (9.0-44.0) Monocytes (%) (Auto) 4.7 % (0.0-8.0) Eosinophils (%) (Auto) 0.8 % (0.0-4.0) Basophils (%) (Auto) 0.1 % (0.0-2.0) Neutrophils # (Auto) 24.3 TH/MM3 (1.8-7.7) Lymphocytes # (Auto) 0.7 TH/MM3 (1.0-4.8) Monocytes # (Auto) 1.2 TH/MM3 (0-0.9) Eosinophils # (Auto) 0.2 TH/MM3 (0-0.4) Basophils # (Auto) 0.0 TH/MM3 (0-0.2) CBC Comment AUTO DIFF Differential Total Cells Counted 100 Neutrophils % (Manual) 75 % (16-70) Band Neutrophils % 15 % (0-6) Lymphocytes % 2 % (9-44) Monocytes % 6 % (0-8) Eosinophils % 2 % (0-4) Neutrophils # (Manual) 23.8 TH/MM3 (1.8-7.7) Differential Comment FINAL DIFF MANUAL Toxic Granulation 1+ (NORMAL) Toxic Vacuolation PRESENT (NONE SEEN) Platelet Estimate HIGH (NORMAL) Platelet Morphology Comment ENLARGED (NORMAL) Blood Urea Nitrogen 6 MG/DL (7-18) Creatinine 0.62 MG/DL (0.50-1.00) Random Glucose 104 MG/DL (74-106) Calcium Level 8.5 MG/DL (8.5-10.1) Magnesium Level 1.9 MG/DL (1.5-2.5) Sodium Level 136 MEQ/L (136-145) Potassium Level 3.6 MEQ/L (3.5-5.1) Chloride Level 103 MEQ/L (98-107) Carbon Dioxide Level 21.0 MEQ/L (21.0-32.0) Anion Gap 12 MEQ/L (5-15) Estimat Glomerular Filtration Rate 94 ML/MIN (>89) B-Type Natriuretic Peptide 2380 PG/ML (0-100) Thyroid Stimulating Hormone 3rd Gen 0.737 uIU/ML (0.358-3.740) Prothrombin Time 14.7 SEC (9.8-11.6) Prothromb Time International Ratio 1.5 RATIO Activated Partial Thromboplast Time 32.0 SEC (24.3-30.1) Result Diagram: 10/15/17 0440 10/15/17 0440 Walter Fernandes MD Oct 15, 2017 08:57
[2017-10-15] MEDS: DOCUSATE SODIUM 50 MG/SENNA 8.6 MG TAB PO SCH ×2 (09:29→22:32)
[2017-10-15] MEDS: SODIUM CHLORIDE 0.9% FLUSH 10 ML FLUSH IV FLUSH SCH ×2 (09:30→22:32)
--- NOTE | 2017-10-15 12:03 | HHI.PR ---
Subjective Remarks Patient is 77-year-old female with PMH of HTN, HLD brought into the emergency department via EMS for evaluation of generalized weakness. Patient is a poor historian. Per their report she has been laying on her couch for the last 7 days unable to get up because she has been weak. Apparently either patient or daughter called 911. Patient states that she has not been cleaned in several days. Patient states she has not been eating well. EMS reported that living conditions were suboptimal at best. Patient smelled of feces and urine on arrival. Further work up reveals UTI with sepsis. Started on abb after cultures obtained. Patient also was noted with discolored LE bluish discoloration, cold LE , and no pulses detected by US. Ao run off ordered and also vascular surgeon consulted for further eval. 10-[address] YOO WILL NEED SURGERY LATER THIS WEEK DW RN AND PT AND CM NO CURRENT COMPLAINTS HAS PACHECO IN PLACE AM LABS WILL NEED SNF AT DC Objective Vitals Vital Signs Date Time Temp Pulse Resp B/P (MAP) Pulse Ox O2 Delivery O2 Flow Rate FiO2 10/15/17 08:00 97.5 108 18 133/64 (87) 93 10/15/17 04:36 107 158/86 (110) 10/15/17 02:25 123 21 158/98 (118) 93 10/15/17 00:00 98.8 108 18 161/88 (112) 92 10/14/17 21:51 98.2 109 16 175/92 (119) 94 10/14/17 20:00 103 10/14/17 16:00 97.1 90 18 155/84 (107) 96 10/14/17 15:49 10/14/17 15:00 86 20 144/68 (93) 96 Room Air 10/14/17 14:07 98.3 91 17 140/95 (110) 99 Room Air 10/14/17 13:02 95 Room Air 10/14/17 12:03 99 Room Air 10/14/17 12:03 111 18 99 Room Air 10/14/17 11:51 98.2 112 18 147/93 (111) 97 I/O 10/14/17 10/14/17 10/14/17 10/15/17 10/15/17 10/15/17 07:00 15:00 23:00 07:00 15:00 23:00 Intake Total 1150 ml 800 ml Output Total 300 ml 1800 ml Balance 850 ml -1000 ml Intake Oral 100 ml IV Total 1050 ml 800 ml Output Urine Total 300 ml 1800 ml # Bowel Movements 0 0 Result Diagram: 10/15/17 0440 10/15/17 0440 Other Results Laboratory Tests Test 10/14/17 12:00 10/14/17 12:05 10/14/17 13:20 10/15/17 04:40 Urine Color LIGHT-RED Urine Turbidity HAZY Urine pH 5.5 Urine Specific [place] 1.024 Urine Protein 30 mg/dL Urine Glucose (UA) NEG mg/dL Urine Ketones 10 mg/dL Urine Occult Blood NEG Urine Nitrite POS Urine Bilirubin NEG Urine Urobilinogen 2.0 MG/DL Urine Leukocyte Esterase MOD Urine RBC 3 /hpf Urine WBC 21 /hpf Urine Squamous Epithelial Cells 2 /hpf Urine Amorphous Sediment OCC Urine Bacteria MANY /hpf Urine Mucus MANY /lpf Microscopic Urinalysis Comment CATH-CULTURE IND White Blood Count 23.2 TH/MM3 26.4 TH/MM3 Red Blood Count 8.36 MIL/MM3 8.12 MIL/MM3 Hemoglobin 19.3 GM/DL 18.2 GM/DL Hematocrit 59.6 % 56.4 % Mean Corpuscular Volume 68.8 FL 69.5 FL Mean Corpuscular Hemoglobin 22.3 PG 22.5 PG Mean Corpuscular Hemoglobin Concent 32.4 % 32.3 % Red Cell Distribution Width 18.8 % 18.4 % Platelet Count 675 TH/MM3 620 TH/MM3 Mean Platelet Volume 8.2 FL 8.5 FL Neutrophils (%) (Auto) 90.5 % 91.9 % Lymphocytes (%) (Auto) 3.1 % 2.5 % Monocytes (%) (Auto) 5.4 % 4.7 % Eosinophils (%) (Auto) 0.9 % 0.8 % Basophils (%) (Auto) 0.1 % 0.1 % Neutrophils # (Auto) 21.0 TH/MM3 24.3 TH/MM3 Lymphocytes # (Auto) 0.7 TH/MM3 0.7 TH/MM3 Monocytes # (Auto) 1.2 TH/MM3 1.2 TH/MM3 Eosinophils # (Auto) 0.2 TH/MM3 0.2 TH/MM3 Basophils # (Auto) 0.0 TH/MM3 0.0 TH/MM3 CBC Comment AUTO DIFF AUTO DIFF Differential Comment AUTO DIFF CONFIRMED FINAL DIFF MANUAL Toxic Vacuolation PRESENT PRESENT Platelet Estimate HIGH HIGH Platelet Morphology Comment ENLARGED ENLARGED Prothrombin Time 17.5 SEC Prothromb Time International Ratio 1.7 RATIO Activated Partial Thromboplast Time 29.9 SEC Lactic Acid Level 1.3 mmol/L Blood Urea Nitrogen 11 MG/DL 6 MG/DL Creatinine 0.73 MG/DL 0.62 MG/DL Random Glucose 88 MG/DL 104 MG/DL Total Protein 7.1 GM/DL Albumin 2.3 GM/DL Calcium Level 8.1 MG/DL 8.5 MG/DL Magnesium Level 1.9 MG/DL 1.9 MG/DL Alkaline Phosphatase 100 U/L Aspartate Amino Transf (AST/SGOT) 18 U/L Alanine Aminotransferase (ALT/SGPT) 9 U/L Total Bilirubin 0.9 MG/DL Sodium Level 136 MEQ/L 136 MEQ/L Potassium Level 3.6 MEQ/L 3.6 MEQ/L Chloride Level 102 MEQ/L 103 MEQ/L Carbon Dioxide Level 27.9 MEQ/L 21.0 MEQ/L Anion Gap 6 MEQ/L 12 MEQ/L Estimat Glomerular Filtration Rate 78 ML/MIN 94 ML/MIN Total Creatine Kinase 81 U/L Differential Total Cells Counted 100 Neutrophils % (Manual) 75 % Band Neutrophils % 15 % Lymphocytes % 2 % Monocytes % 6 % Eosinophils % 2 % Neutrophils # (Manual) 23.8 TH/MM3 Toxic Granulation 1+ B-Type Natriuretic Peptide 2380 PG/ML Thyroid Stimulating Hormone 3rd Gen 0.737 uIU/ML Test 10/15/17 06:48 Prothrombin Time 14.7 SEC Prothromb Time International Ratio 1.5 RATIO Activated Partial Thromboplast Time 32.0 SEC Imaging Last Impressions Head CT 10/15/17 0000 Signed Impressions: Service Date/Time: Sunday, October 15, 2017 05:41 - CONCLUSION: 1. Bilateral suspected areas of encephalomalacia being more prominent on the right. 2. Suspected small vessel ischemic change throughout the white matter. 3. Atrophy. 4. Acute area of hemorrhage or mass effect is not seen. Anselmo Mcadams MD Chest X-Ray 10/15/17 0000 Signed Impressions: Service Date/Time: Sunday, October 15, 2017 02:34 - CONCLUSION: Increased density at the right base likely representing mild atelectasis or consolidation. Anselmo Mcadams MD Lower Extremity Ultrasound 10/14/17 0000 Signed Impressions: Service Date/Time: Saturday, October 14, 2017 20:48 - CONCLUSION: No DVT. Anselmo Mcadams MD Aorta w/Runoff CTA 10/14/17 0000 Signed Impressions: Service Date/Time: Saturday, October 14, 2017 17:47 - CONCLUSION: 1. 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 2. Atherosclerotic change in the external iliac and common femoral arteries bilaterally as described above. 3. Occlusion of the superficial femoral arteries bilaterally with reconstitution distally. The reconstitution is higher on the left side. 4. Normal trifurcation vessels seen on the left side. 5. Diminished flow seen at the right trifurcation vessels. The vessels can only be well seen on the delayed images. The vessels can not be traced into the foot. Anselmo Mcadams MD Objective Remarks GENERAL: Awake and alert very soft-spoken but somewhat confused appears stated age some confusion SKIN: Cool and dry. Decreased warmth in bilateral lower extremities HEAD: Atraumatic. Normocephalic. EYES: Pupils equal and round. No scleral icterus. No injection or drainage. ENT: No nasal bleeding or discharge. Mucous membranes pink and moist. Tongue is midline NECK: Trachea midline. No JVD. Supple CARDIOVASCULAR: Regular rate and rhythm. S1-S2 no S3 or S4 no heave or thrill or rub or gallop RESPIRATORY: No accessory muscle use. Clear to auscultation. Breath sounds equal bilaterally. GASTROINTESTINAL: Abdomen soft, non-tender, nondistended. Hepatic and splenic margins not palpable. MUSCULOSKELETAL: Extremities without clubbing or edema. No obvious deformities. Has some decreased peripheral pulses and some cyanosis in bilateral lower extremities NEUROLOGICAL: Awake and alert. No obvious cranial nerve deficits. Motor grossly within normal limits. 4 out of 5 muscle strength in the arms and legs. Normal speech. PSYCHIATRIC: INAppropriate mood and affect; insight and judgment ABnormal. Medications and IVs Current Medications Sodium Chloride 1,000 ml @ 1,000 mls/hr Q1H ONCE IV Last administered on 10/14 13:04; Start 10/14/17 at 11:57; Stop 10/14/17 at 12:56; Status DC Sodium Chloride 800 ml @ 1,000 mls/hr Q48M ONCE IV Last administered on 13:04; Start 10/14/17 at 11:57; Stop 10/14/17 at 12:44; Status DC Piperacillin Sod/ Tazobactam Sod 100 ml @ 200 mls/hr ONCE STAT IV Last administered on 10/14/17 13:11; Start 10/14/17 at 12:52; Stop 10/14/17 at 13 :21; Status DC Vancomycin HCl 1000 mg/Sodium Chloride 250 ml @ 250 mls/hr ONCE ONCE IV Last administered on 10/14/17 14:07; Start 10/14/17 at 13:15; Stop 10/14/17 at 14 :14; Status DC Ceftriaxone Sodium 1000 mg/ Sodium Chloride 100 ml @ 200 mls/hr Q24H IV Last administered on 10/14/17 17:25; Start 10/14/17 at 16:00 Sodium Chloride 1,000 ml @ 100 mls/hr Q10H IV Last administered on 10/14/17 16:00; Start 10/14/17 at 16:00; Stop 10/15/17 at 03:41; Status DC Sodium Chloride (NS Flush) 2 ml UNSCH PRN IV FLUSH FLUSH AFTER USING IV ACCESS ; Start 10/14/17 at 16:00 Sodium Chloride (NS Flush) 2 ml BID IV FLUSH Last administered on 10/15/17 09 :30; Start 10/14/17 at 21:00 Acetaminophen (Tylenol) 650 mg Q4H PRN PO TEMP > 100.4; Start 10/14/17 at 16: 00 Ondansetron HCl (Zofran Inj) 4 mg Q6H PRN IVP NAUSEA OR VOMITING; Start at 16:00 Temazepam (Restoril) 15 mg HS PRN PO INSOMNIA; Start 10/14/17 at 16:00 Enoxaparin Sodium (Lovenox Inj) 40 mg Q24H SQ Last administered on 10/14/17 18:47; Start 10/14/17 at 17:00 Naloxone HCl (Narcan Inj) 0.4 mg UNSCH PRN IV PUSH SEE LABEL COMMENTS; Start 10/14/17 at 16:00 Senna/Docusate Sodium (Rosalie-Colace) 1 tab BID PO Last administered on 09:29; Start 10/14/17 at 21:00 Magnesium Hydroxide (Milk Of Magnesia Liq) 30 ml Q12H PRN PO Mild constipation ; Start 10/14/17 at 16:00 Sennosides (Senokot) 17.2 mg Q12H PRN PO Moderate constipation; Start at 16:00 Bisacodyl (Dulcolax Supp) 10 mg DAILY PRN RECTAL SEVERE CONSITIPATION; Start 10/14/17 at 16:00 Lactulose (Lactulose Liq) 30 ml DAILY PRN PO SEVERE CONSITIPATION; Start 10/14 at 16:00 Iohexol (Omnipaque 350 Inj) 100 ml STK-MED ONCE IVCONTRAST Last administered on 10/14/17 18:02; Start 10/14/17 at 18:02; Stop 10/14/17 at 18:07; Status DC Clonidine (Catapres) 0.1 mg ONCE ONCE PO Last administered on 10/14/17 22:05 ; Start 10/14/17 at 21:15; Stop 10/14/17 at 21:26; Status DC Furosemide (Lasix Inj) 40 mg ONCE ONCE IV PUSH Last administered on 04:03; Start 10/15/17 at 03:45; Stop 10/15/17 at 03:47; Status DC Albuterol/ Ipratropium (Duoneb Neb) 1 ampule Q4HR NEB PRN NEB SOB/WHEEZING; Start 10/15/17 at 04:00 Heparin Sodium/ Dextrose 250 ml @ 10 mls/hr TITRATE PRN IV Coagulation Management Last administered on 10/15/17 07:51; Start 10/15/17 at 06:30 Urinary Catheter: Yes Assessment to: Continue Pacheco insert reason: Obstruction/Retention A/P Assessment and Plan Bilateral LE discoloration and unable to feel DP pulses. Patient with pain and cold extremities. Will do CTA Ao run off and will consult vascular surgery discussed with Dr. YOO WILL NEED SURGERY Started on antibiotic Rocephin IV . Received vanco and zosyn in the ED. Received bolus of NS in the eD. Continue IVF. Monitor VS closely. Urine cultures blood cx are pending Initial EKG shows sinus tachycardia with occasional PVCs. Rate is 111, this was reviewed Chest x-ray shows no acute disease Restart home meds as appropriate patient says she currently doesn't take any meds. Repeat labs cbc, CMP tomorrow Consult PT for eval CONSULT OT Consult case management for DC plan DVT ppx lovenox Discharge Planning WILL NEED SNF AT DC Kuldeep Lyn DO Oct 15, 2017 12:03
--- NOTE | 2017-10-15 13:19 | MB ---
cc: WALTER CHRISTENSEN MD DATE OF CONSULTATION: 10/15/[address] Christnesen, Vascular Surgery REASON FOR CONSULTATION Ischemia of both legs, right more than left, sepsis. HISTORY OF PRESENT ILLNESS This 77-year-old lady was admitted through the emergency room yesterday for generalized weakness. The patient is a very poor historian, barely says anything. Apparently, she was at home for the last week or so barely doing anything, too weak to get up or eat or drink. The patient came to the hospital dirty, smelling of feces and urine. She was diagnosed with sepsis based in the urinary tract infection. At the time of arrival she was noted to have cyanotic discoloration of the right foot and hence, the consultation. PAST MEDICAL HISTORY 1. Hypertension. 2. Hyperlipidemia. PAST SURGICAL HISTORY 1. Tonsillectomy. 2. Tubal ligation. MEDICATIONS Unknown. ALLERGIES Unknown. SOCIAL HISTORY The patient is not following up with doctors. She apparently smoked about one pack a day since age of 20 and stopped somewhere in the 70s. PHYSICAL EXAMINATION GENERAL: Physical examination reveals a 77-year-old lady, emaciated, sort of weak, gaunt, grayish-appearing, normocephalic. HEAD: No trauma to the head. EYES: Pupils equally reactive. Extraocular muscles intact. NECK: Bilateral carotid pulses and bilateral carotid bruits about 3-6. CHEST: Bilateral breath sounds, decreased over both lung manzano. The patient clearly has advanced COPD. HEART: Appears to be regular rhythm. ABDOMEN: Soft. No rebound or guarding. No masses. EXTREMITIES: The patient does not have any palpable pulses. She has dopplerable femoral pulses bilateral, dopplerable weak popliteal pulses bilateral and then dopplerable dorsalis pedis posterior tibial on the left, on the right only posterior tibial. Foot is cyanotic on the right with decreased capillary refill and obviously involved with severe peripheral vascular changes. On the left the patient has also decreased capillary refill but less prominent. NEUROLOGIC: Neurologically grossly the patient is intact. Moving all four extremities. However, does not say much and is a very poor historian. IMPRESSION AND RECOMMENDATIONS Patient with severe peripheral vascular changes, manifested right more than left. On the CTA with runoff the patient has near occlusion of both common femoral arteries and then occlusion of the SFAs bilateral with reconstitution of popliteals. She has two-vessel runoff on each side and on the right side anterior tibial I do not see actually. 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 At this point the patient has bigger and serious problems with urosepsis. As soon as that is resolved somewhat, the patient may be a candidate for vascular reconstruction. This is nothing that we can do endovascularly, so the patient may need a fem-pop bypass, however, we have to get her in better shape. She has to be hydrated, prepared, infection eradicated. I will continue to follow the patient with you and when she is ready we will go ahead with it. Critical care time 40 minutes. Walter PAYTON/ZEVL /12:54 PM /1:01 PM MAX
[2017-10-15] MEDS: CLOPIDOGREL 75 MG TAB PO SCH (13:40)
--- NOTE | 2017-10-15 15:39 | EKG ---
Date Performed: 10/15/2017 Time Performed: 13:32:40 PTAGE: 77 years EKG: Sinus rhythm WITH OCCASIONAL SUPRAVENTRICULAR PREMATURE COMPLEXES POSSIBLE LEFT ATRIAL ENLARGEMENT ST DEVIATION A ND MODERATE T-WAVE ABNORMALITY, CONSIDER INFERIOR ISCHEMIA ABNORMAL ECG Compared to PREVIOUS TRACING , nonspecific ST & T-waves once again noted. Heart rate has slowed somew hat. PREVIOUS TRACIN10/14/2017 12.09 DOCTOR: Brianna Cabrera Interpretating Date/Time 10/15/2017 15:38:55
--- NOTE | 2017-10-15 15:39 | EKG ---
Date Performed: 10/14/2017 Time Performed: 12:09:01 PTAGE: 77 years EKG: SINUS TACHYCARDIA WITH OCCASIONAL VENTRICULAR PREMATURE COMPLEXES POSSIBLE LEFT ATRIAL ENLA RGEMENT ST DEVIATION AND MODERATE T-WAVE ABNORMALITY, CONSIDER INFERIOR ISCHEMIA ABNORMAL ECG Compare d to PREVIOUS TRACING , there is now evidence of sinus tachycardia with possible ischemic ST & T-wave changes inferiorly and anterolaterally. PREVIOUS TRACIN09/30/2012 00.11 DOCTOR: Brianna Cabrera Interpretating Date/Time 10/15/2017 15:37:27
[2017-10-15] MEDS: cefTRIAXone INJ 1,000 MG in SODIUM CHLORIDE 0.9% INJ 100 ML IV SCH (16:22)
[2017-10-15] MEDS ORDERED: ENOXAPARIN SODIUM 40 MG/0.4 ML SYRINGE SQ SCH (17:00)
--- NOTE | 2017-10-15 18:30 | PD.CONS ---
Consult Service Palliative Care . Consult Requested By ZEE Thomas . Primary Care Physician No Primary Care Physician . Reason for Consultation a. To assist with evaluation and management of symptoms including: right lower extremity pain; dyspnea; confusion; generalized weakness b. To assist medical decision maker(s) with: better understanding of current medical conditions; weighing benefits/burdens of medical treatment options; making medical treatment decisions. . HPI History of Present Illness The patient is a poor historian. No available friends/family to provide additional information at time of my visit. I am not sure how accurate/reliable the history is that I obtained from the patient. When I try and get a history from the patient she is quite unclear on the timing /duration of the symptoms that brought her here into the hospital. She apparently has been having some significant pain in the right lower extremity for some timepossibly weeks to months. This became worse and worse and was also accompanied by generalized weakness. At some point she became unable to ambulate from bed to bathroom and became bedbound. She says her daughter-- Yajaira -- lives with her most of the time and when she couldn't get up to use the bathroom, they would use adult diapers. The patient indicated that she was the one who did not want to come to the hospital earlier. Apparently things became so challenging at home that eventually someone in the household activated EMS. I don't believe there is anyone else in the home and the paramedics arrived. The patient was not oriented to month or year for the paramedics but otherwise was able to give some history. She told them that she had been bedbound for 7 days. She was quite soft spoken with slow motor movements but no facial droop, arm drift, or slurred speech when they saw her. She was extremely tenderh in the lower extremities right more than left. The apartment was apparently quite cluttered. The patient had been incontinent of urine and bowel. She had not been eating well. On my interview, the patient tells me she has had no other pain other than the pain in the lower extremities. She tells me that the left lower extremity does not hurt at all and that her symptoms are just on the right side. She is unable to quantify the pain. She says she has no pain in the thigh or knee; all of the pain feels like it's in the muscle of the calf. Movement and touch make the pain worse. Keeping quite still mitigates the pain. Patient also reported that she has had some shortness of breath which has developed over the last days. She has also developed a nonproductive cough. Exertion makes the shortness of breath worse. Patient reports that she still has some residual weakness from her stroke. Vital signs upon arrival to the emergency department are as follows: Temperature 98.3; pulse 91; respiratory rate 17; blood pressure 140/95; pulse oximetry 99% on room air. Physical examination by the emergency criminal justice department chair noted the following: Patient was thin, disheveled, cachectic and in no acute distress. Lower extremities were cyanotic. There is skin breakdown to the left buttock and right buttock. Heart rate was regular. Lungs were clear. There is 5 out of 5 muscle strength in the arms and legs. Initial diagnostic testing included the following: * Urinalysis was positive for nitrites, protein, leukocyte esterase. There were 21 WBC/hpf. * CBC showed WBC 23.2; hemoglobin 19.3; MCV 68.8; platelet count 675. * Coagulation profile showed PT 17.5; INR 1.7; PTT 29.9 * Chemistries revealed lactic acid 1.3; BUN 11; creatinine 0.73; glucose 88; calcium 8.1; magnesium 1.9; sodium 136; potassium 3.6; chloride 102; CO2 27.9; anion gap 6; GFR 78 * Liver function tests showed total bilirubin 0.9; AST 18; ALT 9; alkaline phosphatase 100; total protein 7.1; albumin 2.3 * Chest x-ray showed no acute cardiopulmonary disease * Initial EKG showed sinus tachycardia with occasional PVCs with a rate of 111. * Lower extremity ultrasound was negative for DVT. * Head CT showed some bilateral suspected areas of encephalomalacia worse on the right. There is suspected small vessel ischemic changes throughout the white matter. Atrophy was present. No acute area of hemorrhage or mass effect was seen. * Aorta CT angiogram showed the following atherosclerotic changes were seen throughout the entire arterial system; there was occlusion of the superficial femoral arteries bilaterally with reconstitution distally; it was diminished flow seen at the right trifurcation vessels.: The patient met sepsis criteria. She was given fluid and started on intravenous antibiotics in the emergency department. She was admitted to the hospitalist service. Vascular surgery was consulted. Vascular surgery felt she had severe peripheral vascular disease worse on the right. He noted near occlusion of both common femoral arteries and an occlusion of the SFA with reconstitution of the popliteal. He felt her vascular problems were not amenable to endovascular procedures and that she would need a femoropopliteal bypass. And, this could only be considered once the patient overcomes the current infection and becomes stronger. . Function/Cognitive Trajectory Patient is a poor historian and I have no contact information for friends/ family... The patient was apparently bedbound for up to 7 days according to her. It is unclear how long she was having difficulty walking but it sounds like at least weeks or months. She says she does not have a cane or a walker at home. She indicates that prior to becoming bedbound she was toileting herself. She has not been able to bathe or shower on her own for an unknown period of time but would give herself "sponge baths." Though she tells me she lives with her daughter, Yajaira, this is also very confusing. She makes it sound like the daughter can be gone for days at a time. When she is gone, the patient would be able to prepare her own food. She does say her appetite has been less and that she has lost an unknown amount of weight. Again, this history is quite confusing and I'm not sure how reliable it is. . Review of Systems ROS Limitations: Clinical Condition (patient is intermittently confused and a poor historian.) Constitutional: COMPLAINS OF: Fatigue, Weight loss, Change in appetite, Pain, Generalized weakness, DENIES: Fever, Weight gain Endocrine: DENIES: Heat/cold intolerance, Polydipsia, Polyuria, Polyphagia Eyes: COMPLAINS OF: Vision loss Ears, nose, mouth, throat: DENIES: Hearing loss, Throat pain, Running Nose, Epistaxis Respiratory: COMPLAINS OF: Cough, Shortness of breath, DENIES: Apneas, Snoring , Wheezing, Hemoptysis, Sputum production Cardiovascular: COMPLAINS OF: Dyspnea on Exertion, Claudication, DENIES: Chest pain, Palpitations, Syncope, Lower Extremity Edema Gastrointestinal: DENIES: Abdominal pain, Black stools, Bloody stools, Constipation, Diarrhea, Nausea, Vomiting, Difficulty Swallowing Genitourinary: COMPLAINS OF: Urinary incontinence, DENIES: Hematuria, Dysuria Musculoskeletal: COMPLAINS OF: Muscle aches, DENIES: Joint pain, Joint Swelling , Back pain Integumentary: COMPLAINS OF: Abnormal pigmentation Hematologic/Lymphatics: DENIES: Bruising Immunologic/Allergic: DENIES: Eczema Neurologic: COMPLAINS OF: Abnormal gait, Poor Balance, DENIES: Headache, Paresthesias, Seizures, Tremor Psychiatric: COMPLAINS OF: Confusion, DENIES: Anxiety, Depression, Hallucinations Past Family Social History Coded Allergies: No Known Allergies (Unverified Allergy, Unknown, 10/14/17) Past Medical History * Hyperlipidemia * Hypertension . Past Surgical History Tubal ligation 1982 Tonsillectomy as a child . Reported Medications Patient takes no regular medications. . Current Medications Medications (Trade) Dose Ordered Sig/Sina Route Start Time Stop Time Status Last Admin Ceftriaxone Sodium 1000 mg/ Sodium Chloride 100 ml @ 200 mls/hr Q24H IV 10/14/17 16:00 10/15/17 16:22 (NS Flush) 2 ml UNSCH PRN IV FLUSH 10/14/17 16:00 (NS Flush) 2 ml BID IV FLUSH 10/14/17 21:00 10/15/17 09:30 (Tylenol) 650 mg Q4H PRN PO 10/14/17 16:00 (Zofran Inj) 4 mg Q6H PRN IVP 10/14/17 16:00 (Restoril) 15 mg HS PRN PO 10/14/17 16:00 (Narcan Inj) 0.4 mg UNSCH PRN IV PUSH 10/14/17 16:00 (Rosalie-Colace) 1 tab BID PO 10/14/17 21:00 10/15/17 09:29 (Milk Of Magnesia Liq) 30 ml Q12H PRN PO 10/14/17 16:00 (Senokot) 17.2 mg Q12H PRN PO 10/14/17 16:00 (Dulcolax Supp) 10 mg DAILY PRN RECTAL 10/14/17 16:00 (Lactulose Liq) 30 ml DAILY PRN PO 10/14/17 16:00 (Duoneb Neb) 1 ampule Q4HR NEB PRN NEB 10/15/17 04:00 Heparin Sodium/ Dextrose 250 ml @ 10 mls/hr TITRATE PRN IV 10/15/17 06:30 10/15/17 07:51 (Plavix) 75 mg DAILY PO 10/15/17 12:00 10/15/17 13:40 . Family History Patient reports that her father from cancer caused by his working in the [employer]. She reports her mother of "natural causes" at age 90. She has a brother and a sister both of whom are alive. She does not know their health status. . Substance Use Tobacco: Patient was a one pack per day smoker from her teen years up until her 70s. She is no longer smoking. Alcohol: No history of abuse. Normally less than 1 beer per week as an adult. Prescription med abuse:No known history of abuse. Illicits: No known use of illicits. . Psychosocial History The patient reports she is originally from [place]. She is uncertain when she moved to [place]. She initially said 1948 but she also had no idea what year it was now. The patient says she graduated from high school. 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 Patient reports she was twice. She was 2 and 1. Patient reports she has 6 children. She is uncertain how many grandchildren she has. She is uncertain where 5 of her 6 children currently live. She tells me she, herself, lives with her daughter Yajaira. . Spiritual/Cultural Factors Patient reports that temple is important to her. She is not a member of a nguyen community at this time. She identifies herself as Church. She does not care one way or another if a engineering program manager visits her in the hospital. . Living Will: Never completed Health Care Surrogate: Never completed Durable Power of Special Technical Operations Officer: Never completed Date completed: According to the patient, she has never completed an advanced directive. . Health Care Surrogate(s): According to patient, she has never designated in writing a health care surrogate. . Documented care wishes: Per the patient, she has no written documentation of her healthcare preferences/ goals/wishes. . Today's verbally stated goals: Patient's goals are currently somewhat ambiguous. She seems to indicate she would not want to be resuscitated if her heart would stop poor lungs would stop. On the other hand she seems very interested in having her vascular surgery. I'm unclear if she can fully weight the benefits and burdens of treatment options at this time. . Family/friends goals: Unable to contact any family/friends at this time. . Ethical and Legal Issues The patient is able to answer some questions perfectly appropriately but she seems confused at times. I would recommend that we locate a legal decision- maker as soon as possible and have decision-making be "shared" with the patient and that decision maker until such time that the patient's "capacity" is more certain. . Physical Exam Vital Signs Date Time Temp Pulse Resp B/P (MAP) Pulse Ox O2 Delivery O2 Flow Rate FiO2 10/15/17 16:00 98.4 84 17 110/59 (76) 92 10/15/17 12:00 98.8 100 18 124/60 (81) 92 10/15/17 08:00 97.5 108 18 133/64 (87) 93 10/15/17 04:36 107 158/86 (110) 10/15/17 02:25 123 21 158/98 (118) 93 10/15/17 00:00 98.8 108 18 161/88 (112) 92 10/14/17 21:51 98.2 109 16 175/92 (119) 94 10/14/17 20:00 103 . Exam CONSTITUTIONAL/GENERAL: This is a thin, pale, elderly female who is in no apparent distress until one touches her right lower extremity or she moves that extremity. Disoriented to time. TUBES/LINES/DRAINS: Fabian catheter; peripheral IV SKIN: No jaundice, rashes, or lesions. Ischemic changes in the right foot. No wounds seen anteriorly. Skin temperature appropriate. Not diaphoretic. HEAD: Atraumatic. Normocephalic. EYES: Pupils equal and round and reactive. Extraocular motions intact. No scleral icterus. No injection or drainage. Fundi not examined. ENT: Hearing grossly normal. Nose without bleeding or purulent drainage. Throat without visible erythema, exudates, masses, or lesions. NECK: Trachea midline. Supple, nontender. No palpable thyroid enlargement or nodularity. CARDIOVASCULAR: Normal rate; irregular rhythm. No murmurs, gallops, or rubs. No JVD. Unable to palpate extremities in the ankles and feet. RESPIRATORY/CHEST: Symmetric, unlabored respirations. Breath sounds equal bilaterally but diminished throughout.. No wheezes, rales, or rhonchi. GASTROINTESTINAL: Abdomen soft, non-tender, nondistended. No hepato-splenomegaly , or palpable masses. No guarding. Bowel sounds present. GENITOURINARY: Without palpable bladder distension. Fabian catheter in place. MUSCULOSKELETAL: Extremities without clubbing or edema. Right foot is cyanotic appearing. Decreased capillary refill in both feet. Entire right calf is exquisitely tender to touch without palpable cord. LYMPHATICS: No palpable cervical or supraclavicular adenopathy. NEUROLOGICAL: Awake and alert. Motor and sensory grossly within normal limits. Follows commands. Disoriented to time. Intermittently confused. Moves all extremities. PSYCHIATRIC: No obvious anxiety/depression. no apparent hallucinations or other psychotic thought process. . Diagnostic Tests Laboratory Laboratory Tests Test 10/14/17 12:00 10/14/17 12:05 10/14/17 13:20 10/15/17 04:40 Urine Color LIGHT-RED (YELLW/STRAW) Urine Turbidity HAZY (CLEAR) Urine pH 5.5 (5.0-8.5) Urine Specific [place] 1.024 (1.002-1.035) Urine Protein 30 mg/dL (NEG-TRACE) Urine Glucose (UA) NEG mg/dL (NEG) Urine Ketones 10 mg/dL (NEG) Urine Occult Blood NEG (NEG) Urine Nitrite POS (NEG) Urine Bilirubin NEG (NEG) Urine Urobilinogen 2.0 MG/DL (LESS THAN Urine Leukocyte Esterase MOD (NEG) Urine RBC 3 /hpf (0-3) Urine WBC 21 /hpf (0-5) Urine Squamous Epithelial Cells 2 /hpf (0-5) Urine Amorphous Sediment OCC Urine Bacteria MANY /hpf (NONE) Urine Mucus MANY /lpf (OCC) Microscopic Urinalysis Comment CATH-CULTURE IND White Blood Count 23.2 TH/MM3 (4.0-11.0) 26.4 TH/MM3 (4.0-11.0) Red Blood Count 8.36 MIL/MM3 (4.00-5.30) 8.12 MIL/MM3 (4.00-5.30) Hemoglobin 19.3 GM/DL (11.6-15.3) 18.2 GM/DL (11.6-15.3) Hematocrit 59.6 % (35.0-46.0) 56.4 % (35.0-46.0) Mean Corpuscular Volume 68.8 FL (80.0-100.0) 69.5 FL (80.0-100.0) Mean Corpuscular Hemoglobin 22.3 PG (27.0-34.0) 22.5 PG (27.0-34.0) Mean Corpuscular Hemoglobin Concent 32.4 % (32.0-36.0) 32.3 % (32.0-36.0) Red Cell Distribution Width 18.8 % (11.6-17.2) 18.4 % (11.6-17.2) Platelet Count 675 TH/MM3 (150-450) 620 TH/MM3 (150-450) Mean Platelet Volume 8.2 FL (7.0-11.0) 8.5 FL (7.0-11.0) Neutrophils (%) (Auto) 90.5 % (16.0-70.0) 91.9 % (16.0-70.0) Lymphocytes (%) (Auto) 3.1 % (9.0-44.0) 2.5 % (9.0-44.0) Monocytes (%) (Auto) 5.4 % (0.0-8.0) 4.7 % (0.0-8.0) Eosinophils (%) (Auto) 0.9 % (0.0-4.0) 0.8 % (0.0-4.0) Basophils (%) (Auto) 0.1 % (0.0-2.0) 0.1 % (0.0-2.0) Neutrophils # (Auto) 21.0 TH/MM3 (1.8-7.7) 24.3 TH/MM3 (1.8-7.7) Lymphocytes # (Auto) 0.7 TH/MM3 (1.0-4.8) 0.7 TH/MM3 (1.0-4.8) Monocytes # (Auto) 1.2 TH/MM3 (0-0.9) 1.2 TH/MM3 (0-0.9) Eosinophils # (Auto) 0.2 TH/MM3 (0-0.4) 0.2 TH/MM3 (0-0.4) Basophils # (Auto) 0.0 TH/MM3 (0-0.2) 0.0 TH/MM3 (0-0.2) CBC Comment AUTO DIFF AUTO DIFF Differential Comment AUTO DIFF CONFIRMED FINAL DIFF MANUAL Toxic Vacuolation PRESENT (NONE SEEN) PRESENT (NONE SEEN) Platelet Estimate HIGH (NORMAL) HIGH (NORMAL) Platelet Morphology Comment ENLARGED (NORMAL) ENLARGED (NORMAL) Prothrombin Time 17.5 SEC (9.8-11.6) Prothromb Time International Ratio 1.7 RATIO Activated Partial Thromboplast Time 29.9 SEC (24.3-30.1) Lactic Acid Level 1.3 mmol/L (0.4-2.0) Blood Urea Nitrogen 11 MG/DL (7-18) 6 MG/DL (7-18) Creatinine 0.73 MG/DL (0.50-1.00) 0.62 MG/DL (0.50-1.00) Random Glucose 88 MG/DL (74-106) 104 MG/DL (74-106) Total Protein 7.1 GM/DL (6.4-8.2) Albumin 2.3 GM/DL (3.4-5.0) Calcium Level 8.1 MG/DL (8.5-10.1) 8.5 MG/DL (8.5-10.1) Magnesium Level 1.9 MG/DL (1.5-2.5) 1.9 MG/DL (1.5-2.5) Alkaline Phosphatase 100 U/L (45-117) Aspartate Amino Transf (AST/SGOT) 18 U/L (15-37) Alanine Aminotransferase (ALT/SGPT) 9 U/L (10-53) Total Bilirubin 0.9 MG/DL (0.2-1.0) Sodium Level 136 MEQ/L (136-145) 136 MEQ/L (136-145) Potassium Level 3.6 MEQ/L (3.5-5.1) 3.6 MEQ/L (3.5-5.1) Chloride Level 102 MEQ/L (98-107) 103 MEQ/L (98-107) Carbon Dioxide Level 27.9 MEQ/L (21.0-32.0) 21.0 MEQ/L (21.0-32.0) Anion Gap 6 MEQ/L (5-15) 12 MEQ/L (5-15) Estimat Glomerular Filtration Rate 78 ML/MIN (>89) 94 ML/MIN (>89) Total Creatine Kinase 81 U/L (26-192) Differential Total Cells Counted 100 Neutrophils % (Manual) 75 % (16-70) Band Neutrophils % 15 % (0-6) Lymphocytes % 2 % (9-44) Monocytes % 6 % (0-8) Eosinophils % 2 % (0-4) Neutrophils # (Manual) 23.8 TH/MM3 (1.8-7.7) Toxic Granulation 1+ (NORMAL) B-Type Natriuretic Peptide 2380 PG/ML (0-100) Thyroid Stimulating Hormone 3rd Gen 0.737 uIU/ML (0.358-3.740) Test 10/15/17 06:48 10/15/17 13:55 10/15/17 15:02 Prothrombin Time 14.7 SEC (9.8-11.6) Prothromb Time International Ratio 1.5 RATIO Activated Partial Thromboplast Time 32.0 SEC (24.3-30.1) 44.6 SEC (24.3-30.1) 36.6 SEC (24.3-30.1) . Result Diagram: 10/15/170 10/15/17 0440 Microbiology Microbiology Date/Time Source Procedure Growth Status 10/14/17 12:20 Blood Peripheral Aerobic Blood Culture - Preliminary NO GROWTH IN 1 DAY Resulted 10/14/17 12:20 Blood Peripheral Anaerobic Blood Culture - Preliminary NO GROWTH IN 1 DAY Resulted 10/14/17 12:05 Blood Peripheral Aerobic Blood Culture - Preliminary NO GROWTH IN 1 DAY Resulted 10/14/17 12:05 Blood Peripheral Anaerobic Blood Culture - Preliminary NO GROWTH IN 1 DAY Resulted 10/14/17 12:00 Urine Catheterized Urine Urine Culture - Preliminary Gram Negative Petar Resulted . Imaging Last Impressions Head CT 10/15/17 0000 Signed Impressions: Service Date/Time: Sunday, October 15, 2017 05:41 - CONCLUSION: 1. Bilateral suspected areas of encephalomalacia being more prominent on the right. 2. Suspected small vessel ischemic change throughout the white matter. 3. Atrophy. 4. Acute area of hemorrhage or mass effect is not seen. Anselmo Mcadams MD Chest X-Ray 10/15/17 0000 Signed Impressions: Service Date/Time: Sunday, October 15, 2017 02:34 - CONCLUSION: Increased density at the right base likely representing mild atelectasis or consolidation. Anselmo Mcadams MD Lower Extremity Ultrasound 10/14/17 0000 Signed Impressions: Service Date/Time: Saturday, October 14, 2017 20:48 - CONCLUSION: No DVT. Anselmo Mcadams MD Aorta w/Runoff CTA 10/14/17 0000 Signed Impressions: Service Date/Time: Saturday, October 14, 2017 17:47 - CONCLUSION: 1. 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 2. Atherosclerotic change in the external iliac and common femoral arteries bilaterally as described above. 3. Occlusion of the superficial femoral arteries bilaterally with reconstitution distally. The reconstitution is higher on the left side. 4. Normal trifurcation vessels seen on the left side. 5. Diminished flow seen at the right trifurcation vessels. The vessels can only be well seen on the delayed images. The vessels can not be traced into the foot. Anselmo Mcadams MD . Patient/Family Conference Present at Family Conference: I have no contact information for friends or family. I attempted to get as much history as possible from the patient herself. . Family Conference Time (mins): 25 (Spoke with patient for about 25 minutes at the bedside not including the time of the physical examination.) Family Conference Location: Bedside Issues Discussed: * Palliative care role, purpose, approach * Additional medical, psychosocial, and spiritual history * Patients general health, functional status, and cognitive changes in the months leading up to the current hospitalization * Patient understanding of the current medical problems * Patient understanding of prognosis * Patients goals of care * Current medical treatment options and benefits/burdens of those options . Assessment and Plan Disease Oriented Problem List: (1) Sepsis (2) UTI (urinary tract infection) (3) Peripheral vascular disease (4) Microcytosis (5) Polycythemia (6) Thrombocytosis (7) Hypoalbuminemia (8) Elevated brain natriuretic peptide (BNP) level (9) Stroke Symptom Scale: (1) Confusion 0-10 Scale: Unable to quantify Comment: See assessment (2) Pain 0-10 Scale: Unable to quantify Comment: See assessment (3) Cough 0-10 Scale: Unable to quantify (4) Dyspnea 0-10 Scale: Unable to quantify Comment: See assessment (5) Generalized weakness 0-10 Scale: Unable to quantify Comment: See assessment Pertinent Non-Medical Issues Psychosocial: Reportedly lives with daughter in crowded, cluttered apartment. 6 children altogether but patient can't tell me what state they are in. Spiritual: Church. Not particularly interested in asbestos microscopist visits. Legal: No known advance directives. Ethical issues impacting care: Patient's capacity is questionable. Recommend at least shared decision making until she is cognitively clearer or we see that goals/preferences are consistent. . Important Contacts Yajaira Jung (daughter) : ? phone number . Prognosis It is unclear to what extent patient's current status is due to her peripheral vascular disease and to what extent there are other factors. Might some of her confusion be due to vascular dementia (she is post stroke). She has elevated Hg , elevated platelets, and microcytosis. Does she have polycythemia? Will she get well enough to be a candidate for vascular surgery? If she decides she does NOT want surgery, then she will likely remain bedbound and continue to lose weight. In that case life expectancy would likely be less than 6 months. . Code Status: Full Code Plan == Decision making: Patient's capacity to make her own health care decisions is questionable. She answers some questions appropriately, but does not know what year it is, is unsure what states her children live in, and is a very poor historian in terms of how long she has had difficulty walking or how long she has had leg pain. It is unclear to what extent her cognitive issues are due to acute illness vs chronic condition. At this point in time I would recommend shared decision making with proxy or proxies. The patient was unclear who she wanted to serve as her health care surrogate even though she lives with her daughter. She reports that she has 6 children. The daughter does not have a phone number for me to call per patient and there is no number in the chart. == Code Status: FULL CODE -- Patient gives mixed messages regarding resuscitation status. She indicates she would not want to be resuscitated but indicates she would want the vascular surgery and I'm not certain she is able to weight the benfits /burdens of her options. For that reason, I believe she should remain FULL CODE until we are certain of her capacity or we have a proxy participating in the decision making. == Goals of medical treatment: Given the above, I recommend that goals remain aggressive until such time as patient becomes cognitively clearer and/or we have a legal decision maker to participate in the decision making. == Symptoms: * Right lower extremity pain: This appears to be entirely due to ischemia. It is worse with movement. Most of her pain is in the calf. She denies joint pain. She can't quantify the pain. Just touching the right calf is painful for her. Patient currently has no scheduled pain medications ordered. I do not believe she will be able to ask for pain meds. Recommend scheduling at least acetaminophen 650 mg q 8 hours around the clock. * Dyspnea: She reports this is a new symptom. She has some shortness of breath at rest, but even more with exertion. She can't quantify this symptom. BNP was 2380 on 10/15/17 (she received subtantial fluids in the ED) suggesting a component of CHF. CXR suggests possible RLL consolidation. May want to consider a one time diuretic in case the ER fluids caused an overload. She has a prn nebulizer order -- would recommend scheduling q 8 hours while awake in addition to the prn. * Cough: She has a new non-productive cough with possible RLL consolidation. May want to do swallow study to rule out dysphagia and risk of aspiration. * Generalized weakness: Both weakness and right lower extremity pain seemed to make her bedbound in the days leading up to hospital admission. She still has some residual weakness from her stroke in 2011. * Confusion: Unclear to what extent this is acute due to her clinical condition or is more chronic. Will re-assess. Hopefully, we can contact family who will provide data on her baseline cognitive status. == She has hematologic findings that may need further evaluation -- elevated Hg , microcytosis, thrombocytosis. Might she have polycythemia? Evaluation might be important in deciding if she would be a candidate for vascular surgery and her life expectancy with or without the surgery. == Will have palliative care nursing home social worker collaborate with case management to try and get contact information for daughter or any other children. == If patient becomes cognitively clear, we will try and get her to complete health care surrogate forms and we will re-visit resuscitation wishes. If she doesn't clear, we need to identify the appropriate proxy or proxies and speak to them about resuscitation status and goals. == Palliative care will continue to follow to assist with symptom management and to further clarify goals of medical treatment as the clinical course evolves. . Thank you for the opportunity to participate in the care of Ms. Escobar. . Attestation To help prompt me to consider important information that might be impacting today's encounter and assessment, information from prior notes written by myself or my colleagues may have been "brought forward" into today's note. My signature on this note, however, is an attestation that I personally performed the exam, history, and/or decision-making noted today, and, unless otherwise indicated, the interactions with patient, family, and staff as well as the review of records all occurred today. I also attest that the listed assessment and stated plan reflect my best clinical judgment today based on the combination of historical information, prior notes, and today's exam/ interactions. When time spent is documented, it refers only to time spent today by the signer, or if indicated, combined time spent today by collaborating physician/nurse practitioner. . Maurice Lake MD Oct 15, 2017 18:30
[2017-10-16] VITALS: BP 119/85; PULSE 80; RESP 20; TEMP 96; O2SAT 99
[2017-10-16 03:59] LABS: AUTOMATED NEUTROPHIL # 17.2 TH/MM3 (1.8-7.7); BASOPHIL # 0.2 TH/MM3 (0-0.2); BASOPHIL % 0.8 % (0.0-2.0); EOSINOPHIL # 0.4 TH/MM3 (0-0.4); EOSINOPHIL % 1.9 % (0.0-4.0); HEMATOCRIT 51.3 % (35.0-46.0); HEMOGLOBIN 17.3 GM/DL (11.6-15.3); LYMPH % 6.3 % (9.0-44.0); LYMPHOCYTE # 1.3 TH/MM3 (1.0-4.8); MEAN CELL VOLUME 68.4 FL (80.0-100.0); MEAN CORPUSCULAR HGB CONC 33.6 % (32.0-36.0); MEAN PLATELET VOLUME 8.8 FL (7.0-11.0); MONO % 5.5 % (0.0-8.0); MONOCYTE # 1.1 TH/MM3 (0-0.9); NEUT % 85.5 % (16.0-70.0); PLATELET COUNT 568 TH/MM3 (150-450); RED CELL DISTRIBUTION WIDTH 18.6 % (11.6-17.2); WHITE BLOOD COUNT 20.1 TH/MM3 (4.0-11.0)
[2017-10-16 04:00] VITALS: BP 137/70; PULSE 89; RESP 20; TEMP 96.2; O2SAT 93
[2017-10-16 04:20] LABS: ALBUMIN 2.3 GM/DL (3.4-5.0); ALT (GPT) 9 U/L (10-53); AST (GOT) 20 U/L (15-37); BICARBONATE 26.5 MEQ/L (21.0-32.0); BLOOD UREA NITROGEN 8 MG/DL (7-18); CALCIUM 8.6 MG/DL (8.5-10.1); CHLORIDE 99 MEQ/L (98-107); GLOMERULAR FILTRATION RATE 97 ML/MIN (>89); GLUCOSE,RANDOM 105 MG/DL (74-106); MAGNESIUM 1.9 MG/DL (1.5-2.5); PHOSPHORUS 2.8 MG/DL (2.5-4.9); SODIUM (NA) 135 MEQ/L (136-145)
[2017-10-16 04:29] LABS: ALKALINE PHOSPHATASE 79 U/L (45-117); TOTAL BILIRUBIN ADULT 0.7 MG/DL (0.2-1.0); TOTAL PROTEIN 5.7 GM/DL (6.4-8.2)
[2017-10-16 05:30] LABS: BANDS 9 % (0-6); LYMPHOCYTES 6 % (9-44); MONOCYTES 4 % (0-8); MYELOCYTES 1 % (0-0); NEUTROPHIL # MANUAL DIFF 18.1 TH/MM3 (1.8-7.7); POLYS (SEG NEUTROPHILS) 80 % (16-70)
[2017-10-16 05:31] LABS: TOXIC VACUOLATION PRESENT (NONE SEEN)
[2017-10-16 05:34] LABS: ACANTHOCYTES OCC (NORMAL)
[2017-10-16 08:00] VITALS: BP 137/74; PULSE 81; RESP 16; TEMP 97.7; O2SAT 94
[2017-10-16] MEDS: HEPARIN-D5W 25,000 U/250 ML 250 ML IV PRN (09:00)
[2017-10-16] MEDS: SODIUM CHLORIDE 0.9% FLUSH 10 ML FLUSH IV FLUSH SCH ×2 (09:00→21:00)
[2017-10-16] MEDS: DOCUSATE SODIUM 50 MG/SENNA 8.6 MG TAB PO SCH ×2 (09:03→21:00)
[2017-10-16] MEDS: CLOPIDOGREL 75 MG TAB PO SCH (09:03)
--- NOTE | 2017-10-16 10:03 | HHI.HCPN ---
Palliative care consulted to assist with goals of care. No contact information for patient's daughter (Yajaira Jung) or other family. Completed social media and google search. Google search produced possible phone number , #[phone]. Attempted to contact, no answer, number just rings then rings busy/ disconnected. Accurints possibly needed to locate family members and contact information. Little Delcid, MAURY Oct 16, 2017 10:03
[2017-10-16 12:00] VITALS: BP 131/65; PULSE 87; RESP 18; TEMP 98.5; O2SAT 92
--- NOTE | 2017-10-16 14:49 | HHI.PR ---
Subjective Remarks Patient is 77-year-old female with PMH of HTN, HLD brought into the emergency department via EMS for evaluation of generalized weakness. Patient is a poor historian. Per their report she has been laying on her couch for the last 7 days unable to get up because she has been weak. Apparently either patient or daughter called 911. Patient states that she has not been cleaned in several days. Patient states she has not been eating well. EMS reported that living conditions were suboptimal at best. Patient smelled of feces and urine on arrival. Further work up reveals UTI with sepsis. Started on abb after cultures obtained. Patient also was noted with discolored LE bluish discoloration, cold LE , and no pulses detected by US. Ao run off ordered and also vascular surgeon consulted for further eval. 10-[address] YOO WILL NEED SURGERY LATER THIS WEEK DW RN AND PT AND CM NO CURRENT COMPLAINTS HAS PACHECO IN PLACE AM LABS WILL NEED SNF AT [facility] 10-16 has been seen by palliative care, they are not able to locate any family at this time yet Patient will need surgery likely femoropopliteal bypass Discussed with patient and RN Complains of some pain in the right lower extremity A.m. labs Continue on Rocephin for UTI Objective Vitals Vital Signs Date Time Temp Pulse Resp B/P (MAP) Pulse Ox O2 Delivery O2 Flow Rate FiO2 10/16/17 12:00 98.5 87 18 131/65 (87) 92 10/16/17 08:00 97.7 81 16 137/74 (95) 94 10/16/17 04:00 96.2 89 20 137/70 (92) 93 10/16/17 00:00 96.0 80 20 119/85 (96) 99 10/15/17 20:00 97.4 92 16 119/64 (82) 94 10/15/17 16:00 98.4 84 17 110/59 (76) 92 I/O 10/15/17 10/15/17 10/15/17 10/16/17 10/16/17 10/16/17 07:00 15:00 23:00 07:00 15:00 23:00 Intake Total 800 ml 1140 ml 240 ml Output Total 1800 ml 475 ml Balance -1000 ml 665 ml 240 ml Intake Oral 1040 ml 240 ml IV Total 800 ml 100 ml Output Urine Total 1800 ml 475 ml # Voids 50 # Bowel Movements 0 1 Result Diagram: 10/16/17 0343 10/16/17 0343 Other Results Laboratory Tests Test 10/14/17 12:00 10/14/17 12:05 10/14/17 13:20 10/15/17 04:40 Urine Color LIGHT-RED Urine Turbidity HAZY Urine pH 5.5 Urine Specific [place] 1.024 Urine Protein 30 mg/dL Urine Glucose (UA) NEG mg/dL Urine Ketones 10 mg/dL Urine Occult Blood NEG Urine Nitrite POS Urine Bilirubin NEG Urine Urobilinogen 2.0 MG/DL Urine Leukocyte Esterase MOD Urine RBC 3 /hpf Urine WBC 21 /hpf Urine Squamous Epithelial Cells 2 /hpf Urine Amorphous Sediment OCC Urine Bacteria MANY /hpf Urine Mucus MANY /lpf Microscopic Urinalysis Comment CATH-CULTURE IND White Blood Count 23.2 TH/MM3 26.4 TH/MM3 Red Blood Count 8.36 MIL/MM3 8.12 MIL/MM3 Hemoglobin 19.3 GM/DL 18.2 GM/DL Hematocrit 59.6 % 56.4 % Mean Corpuscular Volume 68.8 FL 69.5 FL Mean Corpuscular Hemoglobin 22.3 PG 22.5 PG Mean Corpuscular Hemoglobin Concent 32.4 % 32.3 % Red Cell Distribution Width 18.8 % 18.4 % Platelet Count 675 TH/MM3 620 TH/MM3 Mean Platelet Volume 8.2 FL 8.5 FL Neutrophils (%) (Auto) 90.5 % 91.9 % Lymphocytes (%) (Auto) 3.1 % 2.5 % Monocytes (%) (Auto) 5.4 % 4.7 % Eosinophils (%) (Auto) 0.9 % 0.8 % Basophils (%) (Auto) 0.1 % 0.1 % Neutrophils # (Auto) 21.0 TH/MM3 24.3 TH/MM3 Lymphocytes # (Auto) 0.7 TH/MM3 0.7 TH/MM3 Monocytes # (Auto) 1.2 TH/MM3 1.2 TH/MM3 Eosinophils # (Auto) 0.2 TH/MM3 0.2 TH/MM3 Basophils # (Auto) 0.0 TH/MM3 0.0 TH/MM3 CBC Comment AUTO DIFF AUTO DIFF Differential Comment AUTO DIFF CONFIRMED FINAL DIFF MANUAL Toxic Vacuolation PRESENT PRESENT Platelet Estimate HIGH HIGH Platelet Morphology Comment ENLARGED ENLARGED Prothrombin Time 17.5 SEC Prothromb Time International Ratio 1.7 RATIO Activated Partial Thromboplast Time 29.9 SEC Lactic Acid Level 1.3 mmol/L Blood Urea Nitrogen 11 MG/DL 6 MG/DL Creatinine 0.73 MG/DL 0.62 MG/DL Random Glucose 88 MG/DL 104 MG/DL Total Protein 7.1 GM/DL Albumin 2.3 GM/DL Calcium Level 8.1 MG/DL 8.5 MG/DL Magnesium Level 1.9 MG/DL 1.9 MG/DL Alkaline Phosphatase 100 U/L Aspartate Amino Transf (AST/SGOT) 18 U/L Alanine Aminotransferase (ALT/SGPT) 9 U/L Total Bilirubin 0.9 MG/DL Sodium Level 136 MEQ/L 136 MEQ/L Potassium Level 3.6 MEQ/L 3.6 MEQ/L Chloride Level 102 MEQ/L 103 MEQ/L Carbon Dioxide Level 27.9 MEQ/L 21.0 MEQ/L Anion Gap 6 MEQ/L 12 MEQ/L Estimat Glomerular Filtration Rate 78 ML/MIN 94 ML/MIN Total Creatine Kinase 81 U/L Differential Total Cells Counted 100 Neutrophils % (Manual) 75 % Band Neutrophils % 15 % Lymphocytes % 2 % Monocytes % 6 % Eosinophils % 2 % Neutrophils # (Manual) 23.8 TH/MM3 Toxic Granulation 1+ B-Type Natriuretic Peptide 2380 PG/ML Thyroid Stimulating Hormone 3rd Gen 0.737 uIU/ML Test 10/15/17 06:48 10/15/17 13:55 10/15/17 15:02 10/15/17 18:44 Prothrombin Time 14.7 SEC Prothromb Time International Ratio 1.5 RATIO Activated Partial Thromboplast Time 32.0 SEC 44.6 SEC 36.6 SEC 36.4 SEC Test 10/16/17 03:43 10/16/17 11:05 White Blood Count 20.1 TH/MM3 Red Blood Count 7.50 MIL/MM3 Hemoglobin 17.3 GM/DL Hematocrit 51.3 % Mean Corpuscular Volume 68.4 FL Mean Corpuscular Hemoglobin 23.0 PG Mean Corpuscular Hemoglobin Concent 33.6 % Red Cell Distribution Width 18.6 % Platelet Count 568 TH/MM3 Mean Platelet Volume 8.8 FL Neutrophils (%) (Auto) 85.5 % Lymphocytes (%) (Auto) 6.3 % Monocytes (%) (Auto) 5.5 % Eosinophils (%) (Auto) 1.9 % Basophils (%) (Auto) 0.8 % Neutrophils # (Auto) 17.2 TH/MM3 Lymphocytes # (Auto) 1.3 TH/MM3 Monocytes # (Auto) 1.1 TH/MM3 Eosinophils # (Auto) 0.4 TH/MM3 Basophils # (Auto) 0.2 TH/MM3 CBC Comment AUTO DIFF Differential Total Cells Counted 100 Neutrophils % (Manual) 80 % Band Neutrophils % 9 % Lymphocytes % 6 % Monocytes % 4 % Neutrophils # (Manual) 18.1 TH/MM3 Myelocytes 1 % Differential Comment FINAL DIFF MANUAL Atypical Lymphocytes % Toxic Vacuolation PRESENT Platelet Estimate HIGH Platelet Morphology Comment ENLARGED Crenated Cell 1+ Acanthocytes OCC Activated Partial Thromboplast Time 53.0 SEC 38.6 SEC Blood Urea Nitrogen 8 MG/DL Creatinine 0.60 MG/DL Random Glucose 105 MG/DL Total Protein 5.7 GM/DL Albumin 2.3 GM/DL Calcium Level 8.6 MG/DL Phosphorus Level 2.8 MG/DL Magnesium Level 1.9 MG/DL Alkaline Phosphatase 79 U/L Aspartate Amino Transf (AST/SGOT) 20 U/L Alanine Aminotransferase (ALT/SGPT) 9 U/L Total Bilirubin 0.7 MG/DL Sodium Level 135 MEQ/L Potassium Level 3.3 MEQ/L Chloride Level 99 MEQ/L Carbon Dioxide Level 26.5 MEQ/L Anion Gap 10 MEQ/L Estimat Glomerular Filtration Rate 97 ML/MIN Free Thyroxine 1.90 NG/DL Thyroid Stimulating Hormone 3rd Gen 1.180 uIU/ML Imaging Last Impressions Head CT 10/15/17 0000 Signed Impressions: Service Date/Time: Sunday, October 15, 2017 05:41 - CONCLUSION: 1. Bilateral suspected areas of encephalomalacia being more prominent on the right. 2. Suspected small vessel ischemic change throughout the white matter. 3. Atrophy. 4. Acute area of hemorrhage or mass effect is not seen. Anselmo Mcadams MD Chest X-Ray 10/15/17 0000 Signed Impressions: Service Date/Time: Sunday, October 15, 2017 02:34 - CONCLUSION: Increased density at the right base likely representing mild atelectasis or consolidation. Anselmo Mcadams MD Lower Extremity Ultrasound 10/14/17 0000 Signed Impressions: Service Date/Time: Saturday, October 14, 2017 20:48 - CONCLUSION: No DVT. Anselmo Mcadams MD Aorta w/Runoff CTA 10/14/17 0000 Signed Impressions: Service Date/Time: Saturday, October 14, 2017 17:47 - CONCLUSION: 1. 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 2. Atherosclerotic change in the external iliac and common femoral arteries bilaterally as described above. 3. Occlusion of the superficial femoral arteries bilaterally with reconstitution distally. The reconstitution is higher on the left side. 4. Normal trifurcation vessels seen on the left side. 5. Diminished flow seen at the right trifurcation vessels. The vessels can only be well seen on the delayed images. The vessels can not be traced into the foot. Anselmo Mcadams MD Objective Remarks GENERAL: Awake and alert very soft-spoken but somewhat confused appears stated age some confusion SKIN: Cool and dry. Decreased warmth in bilateral lower extremities HEAD: Atraumatic. Normocephalic. EYES: Pupils equal and round. No scleral icterus. No injection or drainage. ENT: No nasal bleeding or discharge. Mucous membranes pink and moist. Tongue is midline NECK: Trachea midline. No JVD. Supple CARDIOVASCULAR: Regular rate and rhythm. S1-S2 no S3 or S4 no heave or thrill or rub or gallop RESPIRATORY: No accessory muscle use. Clear to auscultation. Breath sounds equal bilaterally. GASTROINTESTINAL: Abdomen soft, non-tender, nondistended. Hepatic and splenic margins not palpable. MUSCULOSKELETAL: Extremities without clubbing or edema. No obvious deformities. Has some decreased peripheral pulses and some cyanosis in bilateral lower extremities NEUROLOGICAL: Awake and alert. No obvious cranial nerve deficits. Motor grossly within normal limits. 4 out of 5 muscle strength in the arms and legs. Normal speech. PSYCHIATRIC: INAppropriate mood and affect; insight and judgment ABnormal. Procedures RORY GONZALEZ Signed EXAM DATE/TIME: 10/14/2017 17:47 [facility] COMPARISON: No previous studies available for comparison. INDICATIONS : Right leg pain; evaluate for occlusion. IV CONTRAST: 100 cc Omnipaque 350 (iohexol) IV RADIATION DOSE: 2.3 CTDIvol (mGy) MEDICAL HISTORY : Cerebrovascular disease. SURGICAL HISTORY : Tubal ligation. ENCOUNTER: Initial ACUITY: 1 month PAIN SCALE: 7/10 LOCATION: Right lower leg TECHNIQUE: Volumetric scanning was performed using a multi-row detector CT scanner. The data was post processed with a variety of visualization algorithms including full volume maximum intensity projection, multi-planar sliding thin slab reformation, curved planar reformation, and surface rendering techniques. Using automated exposure control and adjustment of the mA and/or kV according to patient size, radiation dose was kept as low as reasonably achievable to obtain optimal diagnostic quality images. DICOM format image data is available electronically for review and comparison. FINDINGS: There are atherosclerotic changes seen throughout the arterial system. The abdominal aorta measures up to 2.9 cm. At the distal infrarenal abdominal aorta thrombus occupies more than half of the lumen. The functional lumen is seen at the left lateral aspect of the distal abdominal aorta. There is atherosclerotic change at the common iliac arteries bilaterally. A significant stenosis is not seen at this level is not seen. There does appear to be severe stenosis and possible occlusion at the origin of the right internal iliac artery. There is mild plaque seen at the right external iliac artery. There is a severe stenosis at the distal left external iliac artery. There is atherosclerotic change seen at the common femoral arteries bilaterally being more severe on the right. There is a severe stenosis at the right common femoral artery narrowing the lumen by approximately 80%. There is severe narrowing of the proximal right profunda femoris artery. There is abrupt occlusion of the proximal right superficial femoral artery. Flow in the thigh is continues through collaterals in the profunda femoris artery distribution. There is reconstitution of the distal popliteal artery at the level of the distal femur via collaterals. There is a normal trifurcation. The right anterior tibial artery can be traced to the ankle. The posterior tibial and peritoneal arteries can be seen to the distal lower leg but can not clearly be traced into the foot. Again noted is the mild stenosis at the left common femoral artery. There is occlusion of the proximal left superficial femoral artery. The popliteal artery is patent throughout. There is reconstitution of the distal superficial femoral artery at the level of the distal femoral shaft. The popliteal artery is patent. There is a severe stenosis at the mid popliteal artery. The lumen is narrowed by over 75%. The more distal popliteal artery is patent. The anterior and posterior tibial artery could be traced to the foot. The peritoneal artery can be traced to the ankle region. Atherosclerotic calcifications are seen throughout the origins of the vessels in the upper abdomen. There does appear to be at least a moderate stenosis at the origin of the right renal artery. The left renal artery appears patent. The celiac, SMA and JUN are patent. There is a mild hiatal hernia. The liver, spleen, pancreas and kidneys appear grossly normal. The adrenal glands are grossly normal. The pelvic structures appear intact. The patient does have a Pacheco catheter in the urinary bladder. There is degenerative change in the lumbar spine. CONCLUSION: 1. 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 2. Atherosclerotic change in the external iliac and common femoral arteries bilaterally as described above. 3. Occlusion of the superficial femoral arteries bilaterally with reconstitution distally. The reconstitution is higher on the left side. 4. Normal trifurcation vessels seen on the left side. 5. Diminished flow seen at the right trifurcation vessels. The vessels can only be well seen on the delayed images. The vessels can not be traced into the foot. Anselmo Mcadams MD on October 14, 2017 at 19:28 Board Certified Radiologist. This report was verified electronically. Medications and IVs Current Medications Sodium Chloride 1,000 ml @ 1,000 mls/hr Q1H ONCE IV Last administered on 10/14 13:04; Start 10/14/17 at 11:57; Stop 10/14/17 at 12:56; Status DC Sodium Chloride 800 ml @ 1,000 mls/hr Q48M ONCE IV Last administered on 13:04; Start 10/14/17 at 11:57; Stop 10/14/17 at 12:44; Status DC Piperacillin Sod/ Tazobactam Sod 100 ml @ 200 mls/hr ONCE STAT IV Last administered on 10/14/17 13:11; Start 10/14/17 at 12:52; Stop 10/14/17 at 13 :21; Status DC Vancomycin HCl 1000 mg/Sodium Chloride 250 ml @ 250 mls/hr ONCE ONCE IV Last administered on 10/14/17 14:07; Start 10/14/17 at 13:15; Stop 10/14/17 at 14 :14; Status DC Ceftriaxone Sodium 1000 mg/ Sodium Chloride 100 ml @ 200 mls/hr Q24H IV Last administered on 10/15/17 16:22; Start 10/14/17 at 16:00 Sodium Chloride 1,000 ml @ 100 mls/hr Q10H IV Last administered on 10/14/17 16:00; Start 10/14/17 at 16:00; Stop 10/15/17 at 03:41; Status DC Sodium Chloride (NS Flush) 2 ml UNSCH PRN IV FLUSH FLUSH AFTER USING IV ACCESS ; Start 10/14/17 at 16:00 Sodium Chloride (NS Flush) 2 ml BID IV FLUSH Last administered on 10/15/17 22 :32; Start 10/14/17 at 21:00 Acetaminophen (Tylenol) 650 mg Q4H PRN PO TEMP > 100.4; Start 10/14/17 at 16: 00 Ondansetron HCl (Zofran Inj) 4 mg Q6H PRN IVP NAUSEA OR VOMITING; Start at 16:00 Temazepam (Restoril) 15 mg HS PRN PO INSOMNIA; Start 10/14/17 at 16:00 Enoxaparin Sodium (Lovenox Inj) 40 mg Q24H SQ Last administered on 10/14/17 18:47; Start 10/14/17 at 17:00; Stop 10/15/17 at 12:27; Status DC Naloxone HCl (Narcan Inj) 0.4 mg UNSCH PRN IV PUSH SEE LABEL COMMENTS; Start 10/14/17 at 16:00 Senna/Docusate Sodium (Rosalie-Colace) 1 tab BID PO Last administered on 09:03; Start 10/14/17 at 21:00 Magnesium Hydroxide (Milk Of Magnesia Liq) 30 ml Q12H PRN PO Mild constipation ; Start 10/14/17 at 16:00 Sennosides (Senokot) 17.2 mg Q12H PRN PO Moderate constipation; Start at 16:00 Bisacodyl (Dulcolax Supp) 10 mg DAILY PRN RECTAL SEVERE CONSITIPATION; Start 10/14/17 at 16:00 Lactulose (Lactulose Liq) 30 ml DAILY PRN PO SEVERE CONSITIPATION; Start 10/14 at 16:00 Iohexol (Omnipaque 350 Inj) 100 ml STK-MED ONCE IVCONTRAST Last administered on 10/14/17 18:02; Start 10/14/17 at 18:02; Stop 10/14/17 at 18:07; Status DC Clonidine (Catapres) 0.1 mg ONCE ONCE PO Last administered on 10/14/17 22:05 ; Start 10/14/17 at 21:15; Stop 10/14/17 at 21:26; Status DC Furosemide (Lasix Inj) 40 mg ONCE ONCE IV PUSH Last administered on 04:03; Start 10/15/17 at 03:45; Stop 10/15/17 at 03:47; Status DC Albuterol/ Ipratropium (Duoneb Neb) 1 ampule Q4HR NEB PRN NEB SOB/WHEEZING; Start 10/15/17 at 04:00 Heparin Sodium/ Dextrose 250 ml @ 10 mls/hr TITRATE PRN IV Coagulation Management Last administered on 10/16/17 09:00; Start 10/15/17 at 06:30 Clopidogrel Bisulfate (Plavix) 75 mg DAILY PO Last administered on 10/16/17 09:03; Start 10/15/17 at 12:00 Enoxaparin Sodium (Lovenox Inj) 40 mg Q24H SQ ; Start 10/15/17 at 17:00; Stop 10/15/17 at 17:00; Status DC A/P Assessment and Plan Bilateral LE discoloration and unable to feel DP pulses. Patient with pain and cold extremities. Will do CTA Ao run off and will consult vascular surgery discussed with Dr. YOO WILL NEED SURGERY will need a femoropopliteal bypass Started on antibiotic Rocephin IV . Received vanco and zosyn in the ED. Received bolus of NS in the eD. Continue IVF. Monitor VS closely. Urine cultures shows Escherichia coli UTI sensitive to Rocephin which she is on Initial EKG shows sinus tachycardia with occasional PVCs. Rate is 111, this was reviewed Chest x-ray shows no acute disease Restart home meds as appropriate patient says she currently doesn't take any meds. Repeat labs cbc, CMP tomorrow Consult PT for eval CONSULT OT Consult case management for DC plan DVT ppx lovenox History of cerebrovascular accident with with sounds like probable chronic confusion Gait instability possibly secondary to cerebrovascular accident versus peripheral vascular occlusive disease Deconditioning Will need SNF and PT and OT Discharge Planning WILL NEED SNF AT [facility] Kuldeep Lyn DO Oct 16, 2017 14:49
[2017-10-16 16:00] VITALS: BP 129/67; PULSE 91; RESP 16; TEMP 97.3; O2SAT 92
--- NOTE | 2017-10-16 16:26 | ECHRPT ---
Indication: pre op for vascualr surgery CONCLUSIONS The left ventricular systolic function is normal with an estimated ejection fraction in the range of 55-60%. Trace mitral valve regurgitation. BP: 137 / 70 HR: 96 Rhythm: Sinus MEASUREMENTS (Male / Female) Normal Values Technical Quality:Fair 2D ECHO LV Diastolic Diameter PLAX 4.1 cm 4.2 - 5.9 / 3.9 - 5.3 cm LV Systolic Diameter PLAX 3.0 cm IVS Diastolic Thickness 0.9 cm 0.6 - 1.0 / 0.6 - 0.9 cm LVPW Diastolic Thickness 0.9 cm 0.6 - 1.0 / 0.6 - 0.9 cm LV Relative Wall Thickness 0.4 LVOT Diameter 1.7 cm M-MODE Aortic Root Diameter MM 2.8 cm LA Systolic Diameter MM 2.9 cm LA Ao Ratio MM 1.0 DOPPLER AV Peak Velocity 117.0 cm/s AV Peak Gradient 5.5 mmHg LVOT Peak Velocity 78.0 cm/s LVOT Peak Gradient 2.4 mmHg AV Area Cont Eq pk 1.5 cm Mitral E Point Velocity 92.8 cm/s Mitral A Point Velocity 86.4 cm/s Mitral E to A Ratio 1.1 LV E' Lateral Velocity 10.2 cm/s Mitral E to LV E' Lateral Ratio 9.1 LV E' Septal Velocity 4.7 cm/s Mitral E to LV E' Septal Ratio 19.8 PV Peak Velocity 105.0 cm/s PV Peak Gradient 4.4 mmHg FINDINGS LEFT VENTRICLE The left ventricular systolic function is normal with an estimated ejection fraction in the range of 55-60%. Wall thickness is normal. Normal left ventricular size. There was limited left ventricular wall motion assessment due to poor endocardial visualization. RIGHT VENTRICLE Grossly normal right ventricle. LEFT ATRIUM The left atrial size is normal. RIGHT ATRIUM The right atrial size is normal. ATRIAL SEPTUM Normal atrial septal thickness. AORTA The aortic root and proximal ascending aorta are not well visualized. MITRAL VALVE Structurally normal mitral valve. Mild mitral annular calcification. Trace mitral valve regurgitation. No mitral valve stenosis. AORTIC VALVE Probable trileaflet aortic valve. Mild thickening of the left coronary cusp No aortic valve regurgitation. No aortic valve stenosis. TRICUSPID VALVE Structurally normal tricuspid valve. No tricuspid valve stenosis or regurgitation. PULMONARY VALVE The pulmonary valve is not well visualized. VESSELS The inferior vena cava is normal in size. PERICARDIUM No pericardial effusion. Keegan Reese DO (Electronically Signed) Final Date:16 October 2017 16:25
[2017-10-16] MEDS: cefTRIAXone INJ 1,000 MG in SODIUM CHLORIDE 0.9% INJ 100 ML IV SCH (16:28)
[2017-10-16 16:32] LABS: HEMOGLOBIN A1C 5.5 % (4.3-6.0)
--- NOTE | 2017-10-16 18:41 | PD.CAR.PN ---
CVT Progress Note Subjective/Hospital Course: Referral received Full consult to follow Severe for peripheral vascular disease will require reconstruction Sol Abdullahi 10/16/17 As noted in my consultation this patient has bilateral severe peripheral vascular disease On top of that she is being treated for urosepsis and general decline Patient has not been in the hospital for 3 days and has gradually improved for her urosepsis based on clinical exam level of alertness and diagnostic studies Despite heparin drip the right leg is looking worse and worse and patient now has ischemia that needs attention in the resolution In the best of worlds I would like to wait another while to do the surgery considering patient's other issues but that this point if surgery is not performed patient is a very high risk of losing her leg I have reviewed patient's echocardiogram and studies and she is at this point moderate risk for vascular surgery but I believe options a limited and we have to go ahead with it. Therefore patient will be scheduled for common femoral endarterectomy and femoropopliteal bypass tomorrow I explained the risks and benefits of the procedure and all patient is very quiet she is clearly awake and alert and understands the discussion Have tried to reach her daughter however number is apparently disconnected Objective: Vital Signs Date Time Temp Pulse Resp B/P (MAP) Pulse Ox O2 Delivery O2 Flow Rate FiO2 10/16/17 16:00 97.3 91 16 129/67 (87) 92 10/16/17 12:00 98.5 87 18 131/65 (87) 92 10/16/17 08:00 97.7 81 16 137/74 (95) 94 10/16/17 04:00 96.2 89 20 137/70 (92) 93 10/16/17 00:00 96.0 80 20 119/85 (96) 99 10/15/17 20:00 97.4 92 16 119/64 (82) 94 Labs: Laboratory Tests Test 10/16/17 11:05 10/16/17 16:54 Activated Partial Thromboplast Time 38.6 SEC (24.3-30.1) 37.8 SEC (24.3-30.1) Result Diagram: 10/16/17 0343 10/16/17 0343 Walter Fernandes MD Oct 16, 2017 18:41
[2017-10-16 20:00] VITALS: BP 124/60; PULSE 85; RESP 16; TEMP 98; O2SAT 94
[2017-10-17] VITALS: BP 121/62; PULSE 80; RESP 16; TEMP 97.8; O2SAT 98
[2017-10-17 02:08] LABS: AUTOMATED NEUTROPHIL # 14.3 TH/MM3 (1.8-7.7); BASOPHIL # 0.1 TH/MM3 (0-0.2); BASOPHIL % 0.8 % (0.0-2.0); EOSINOPHIL # 0.5 TH/MM3 (0-0.4); HEMATOCRIT 53.2 % (35.0-46.0); HEMOGLOBIN 17.1 GM/DL (11.6-15.3); LYMPH % 8.6 % (9.0-44.0); LYMPHOCYTE # 1.5 TH/MM3 (1.0-4.8); MEAN CELL VOLUME 68.4 FL (80.0-100.0); MEAN CORPUSCULAR HEMOGLOBIN 21.9 PG (27.0-34.0); MEAN CORPUSCULAR HGB CONC 32.1 % (32.0-36.0); MEAN PLATELET VOLUME 8.9 FL (7.0-11.0); MONO % 5.3 % (0.0-8.0); MONOCYTE # 0.9 TH/MM3 (0-0.9); NEUT % 82.3 % (16.0-70.0); PLATELET COUNT 627 TH/MM3 (150-450); RED BLOOD COUNT 7.78 MIL/MM3 (4.00-5.30); RED CELL DISTRIBUTION WIDTH 18.2 % (11.6-17.2); WHITE BLOOD COUNT 17.4 TH/MM3 (4.0-11.0)
[2017-10-17 02:31] LABS: ALBUMIN 2.2 GM/DL (3.4-5.0); ALT (GPT) 9 U/L (10-53); AST (GOT) 14 U/L (15-37); BICARBONATE 29.4 MEQ/L (21.0-32.0); BLOOD UREA NITROGEN 12 MG/DL (7-18); CALCIUM 8.5 MG/DL (8.5-10.1); CHLORIDE 101 MEQ/L (98-107); CREATININE 0.61 MG/DL (0.50-1.00); GLOMERULAR FILTRATION RATE 95 ML/MIN (>89); GLUCOSE,RANDOM 108 MG/DL (74-106); PHOSPHORUS 3.4 MG/DL (2.5-4.9); SODIUM (NA) 137 MEQ/L (136-145)
[2017-10-17 02:33] LABS: ALKALINE PHOSPHATASE 71 U/L (45-117); TOTAL BILIRUBIN ADULT 0.4 MG/DL (0.2-1.0); TOTAL PROTEIN 5.5 GM/DL (6.4-8.2)
[2017-10-17 03:31] LABS: BANDS 15 % (0-6); BASOPHILS 1 % (0-2); LYMPHOCYTES 12 % (9-44); METAMYELOCYTES 1 % (0-1); MONOCYTES 1 % (0-8); POLYS (SEG NEUTROPHILS) 70 % (16-70)
[2017-10-17 04:00] VITALS: BP 127/63; PULSE 77; RESP 16; TEMP 96.4; O2SAT 96
[2017-10-17 07:54] VITALS: BP 150/85; PULSE 65; RESP 20; TEMP 97.6; O2SAT 93
[2017-10-17] MEDS: DOCUSATE SODIUM 50 MG/SENNA 8.6 MG TAB PO SCH ×2 (08:30→22:36)
[2017-10-17] MEDS: SODIUM CHLORIDE 0.9% FLUSH 10 ML FLUSH IV FLUSH SCH ×2 (08:30→22:37)
[2017-10-17] MEDS: CLOPIDOGREL 75 MG TAB PO SCH (08:30)
[2017-10-17] MEDS ORDERED: METOPROLOL TARTRATE 25 MG TAB PO PRN (12:15)
[2017-10-17] MEDS ORDERED: PROTAMINE SULFATE 50 MG/5 ML VIAL ONE (12:15)
[2017-10-17] MEDS ORDERED: SODIUM CHLORID 0.9% 500 ML IV PRN (12:15)
[2017-10-17] MEDS ORDERED: CHLORHEXIDINE GLUCONATE 2 % 1 PACK (2 CLOTHS) TOPICAL PRN (12:15)
[2017-10-17] MEDS ORDERED: POVIDONE IODINE 5% (ANTISEPSIS KIT) 4 APPLICATIONS EACH NARE PRN (12:15)
[2017-10-17] MEDS ORDERED: HEPARIN SODIUM - SQ 10,000 UNITS/ML VIAL ONE (12:15)
[2017-10-17] MEDS ORDERED: HEPARIN SODIUM - IV 10,000 UNITS/10 ML VIAL ONE (12:15)
[2017-10-17] MEDS ORDERED: LACTATED RINGER'S 1000 ML IV PRN (12:15)
--- NOTE | 2017-10-17 12:54 | PD.CAR.PN ---
CVT Progress Note Subjective/Hospital Course: Referral received Full consult to follow Severe for peripheral vascular disease will require reconstruction Sol Abdullahi 10/16/17 As noted in my consultation this patient has bilateral severe peripheral vascular disease On top of that she is being treated for urosepsis and general decline Patient has not been in the hospital for 3 days and has gradually improved for her urosepsis based on clinical exam level of alertness and diagnostic studies Despite heparin drip the right leg is looking worse and worse and patient now has ischemia that needs attention in the resolution In the best of worlds I would like to wait another while to do the surgery considering patient's other issues but that this point if surgery is not performed patient is a very high risk of losing her leg I have reviewed patient's echocardiogram and studies and she is at this point moderate risk for vascular surgery but I believe options a limited and we have to go ahead with it. Therefore patient will be scheduled for common femoral endarterectomy and femoropopliteal bypass tomorrow I explained the risks and benefits of the procedure and all patient is very quiet she is clearly awake and alert and understands the discussion Have tried to reach her daughter however number is apparently disconnected 09/2017 Patient originally scheduled for surgery today however EKG reveals some anterior ischemia in addition to inferior ischemia that was noted on previous EKG In discussion with the anesthesiologist the decision is made to postpone the surgery until patient can be worked up cardiac saavedra in more detail so we get a better picture on cardiac risk and possible remedy Right leg and foot are ischemic and the cyanotic however while this surgery is urgent it is not an emergent and cardiac issues trump any other issue right now We'll consult cardiology for full evaluation possible stress test Restart heparin All things equal once cardiac workup completed we'll proceed with vascular bypass and reconstruction on the right leg Objective: Vital Signs Date Time Temp Pulse Resp B/P (MAP) Pulse Ox O2 Delivery O2 Flow Rate FiO2 10/17/17 07:54 97.6 65 20 150/85 (106) 93 10/17/17 04:00 96.4 77 16 127/63 (84) 96 10/17/17 00:00 97.8 80 16 121/62 (81) 98 10/16/17 20:00 98.0 85 16 124/60 (81) 94 10/16/17 16:00 97.3 91 16 129/67 (87) 92 Labs: Laboratory Tests Test 10/17/17 01:44 10/17/17 10:52 White Blood Count 17.4 TH/MM3 (4.0-11.0) Red Blood Count 7.78 MIL/MM3 (4.00-5.30) Hemoglobin 17.1 GM/DL (11.6-15.3) Hematocrit 53.2 % (35.0-46.0) Mean Corpuscular Volume 68.4 FL (80.0-100.0) Mean Corpuscular Hemoglobin 21.9 PG (27.0-34.0) Mean Corpuscular Hemoglobin Concent 32.1 % (32.0-36.0) Red Cell Distribution Width 18.2 % (11.6-17.2) Platelet Count 627 TH/MM3 (150-450) Mean Platelet Volume 8.9 FL (7.0-11.0) Neutrophils (%) (Auto) 82.3 % (16.0-70.0) Lymphocytes (%) (Auto) 8.6 % (9.0-44.0) Monocytes (%) (Auto) 5.3 % (0.0-8.0) Eosinophils (%) (Auto) 3.0 % (0.0-4.0) Basophils (%) (Auto) 0.8 % (0.0-2.0) Neutrophils # (Auto) 14.3 TH/MM3 (1.8-7.7) Lymphocytes # (Auto) 1.5 TH/MM3 (1.0-4.8) Monocytes # (Auto) 0.9 TH/MM3 (0-0.9) Eosinophils # (Auto) 0.5 TH/MM3 (0-0.4) Basophils # (Auto) 0.1 TH/MM3 (0-0.2) CBC Comment AUTO DIFF Differential Total Cells Counted 100 Neutrophils % (Manual) 70 % (16-70) Band Neutrophils % 15 % (0-6) Lymphocytes % 12 % (9-44) Monocytes % 1 % (0-8) Basophils % 1 % (0-2) Neutrophils # (Manual) 15.0 TH/MM3 (1.8-7.7) Metamyelocytes 1 % (0-1) Differential Comment FINAL DIFF MANUAL Platelet Estimate HIGH (NORMAL) Platelet Morphology Comment ENLARGED (NORMAL) Activated Partial Thromboplast Time 60.5 SEC (24.3-30.1) 29.4 SEC (24.3-30.1) Blood Urea Nitrogen 12 MG/DL (7-18) Creatinine 0.61 MG/DL (0.50-1.00) Random Glucose 108 MG/DL (74-106) Total Protein 5.5 GM/DL (6.4-8.2) Albumin 2.2 GM/DL (3.4-5.0) Calcium Level 8.5 MG/DL (8.5-10.1) Phosphorus Level 3.4 MG/DL (2.5-4.9) Magnesium Level 2.0 MG/DL (1.5-2.5) Alkaline Phosphatase 71 U/L (45-117) Aspartate Amino Transf (AST/SGOT) 14 U/L (15-37) Alanine Aminotransferase (ALT/SGPT) 9 U/L (10-53) Total Bilirubin 0.4 MG/DL (0.2-1.0) Sodium Level 137 MEQ/L (136-145) Potassium Level 3.3 MEQ/L (3.5-5.1) Chloride Level 101 MEQ/L (98-107) Carbon Dioxide Level 29.4 MEQ/L (21.0-32.0) Anion Gap 7 MEQ/L (5-15) Estimat Glomerular Filtration Rate 95 ML/MIN (>89) Result Diagram: 10/17/17 0144 10/17/17 0144 Walter Fernandes MD Oct 17, 2017 12:54
--- NOTE | 2017-10-17 14:49 | HHI.PR ---
Subjective Remarks Patient is 77-year-old female with PMH of HTN, HLD brought into the emergency department via EMS for evaluation of generalized weakness. Patient is a poor historian. Per their report she has been laying on her couch for the last 7 days unable to get up because she has been weak. Apparently either patient or daughter called 911. Patient states that she has not been cleaned in several days. Patient states she has not been eating well. EMS reported that living conditions were suboptimal at best. Patient smelled of feces and urine on arrival. Further work up reveals UTI with sepsis. Started on abb after cultures obtained. Patient also was noted with discolored LE bluish discoloration, cold LE , and no pulses detected by US. Ao run off ordered and also vascular surgeon consulted for further eval. 10-[address] YOO WILL NEED SURGERY LATER THIS WEEK DW RN AND PT AND CM NO CURRENT COMPLAINTS HAS PACHECO IN PLACE AM LABS WILL NEED SNF AT [place] 10-16 has been seen by palliative care, they are not able to locate any family at this time yet Patient will need surgery likely femoropopliteal bypass Discussed with patient and RN Complains of some pain in the right lower extremity A.m. labs Continue on Rocephin for UTI 10-17 WAS TO HAVE SURGERY BUT WAS NOT CLEARED BY ANESTHESIA HAD ABNORMAL EKG SO SURGERY WAS PUT ON HOLD AND CARDIOLOGY WAS CONSULTED GEORGE RN AND PT AND CM Objective Vitals Vital Signs Date Time Temp Pulse Resp B/P (MAP) Pulse Ox O2 Delivery O2 Flow Rate FiO2 10/17/17 07:54 97.6 65 20 150/85 (106) 93 10/17/17 04:00 96.4 77 16 127/63 (84) 96 10/17/17 00:00 97.8 80 16 121/62 (81) 98 10/16/17 20:00 98.0 85 16 124/60 (81) 94 10/16/17 16:00 97.3 91 16 129/67 (87) 92 I/O 10/16/17 10/16/17 10/16/17 10/17/17 10/17/17 10/17/17 07:00 15:00 23:00 07:00 15:00 23:00 Intake Total 240 ml 480 ml 280 ml Output Total 500 ml 800 ml Balance 240 ml -20 ml -520 ml Intake Oral 240 ml 480 ml 280 ml Output Urine Total 500 ml 800 ml # Voids 50 # Bowel Movements 1 0 Result Diagram: 10/17/17 0144 10/17/17 0144 Other Results Laboratory Tests Test 10/15/17 04:40 10/15/17 06:48 10/15/17 13:55 10/15/17 15:02 White Blood Count 26.4 TH/MM3 Red Blood Count 8.12 MIL/MM3 Hemoglobin 18.2 GM/DL Hematocrit 56.4 % Mean Corpuscular Volume 69.5 FL Mean Corpuscular Hemoglobin 22.5 PG Mean Corpuscular Hemoglobin Concent 32.3 % Red Cell Distribution Width 18.4 % Platelet Count 620 TH/MM3 Mean Platelet Volume 8.5 FL Neutrophils (%) (Auto) 91.9 % Lymphocytes (%) (Auto) 2.5 % Monocytes (%) (Auto) 4.7 % Eosinophils (%) (Auto) 0.8 % Basophils (%) (Auto) 0.1 % Neutrophils # (Auto) 24.3 TH/MM3 Lymphocytes # (Auto) 0.7 TH/MM3 Monocytes # (Auto) 1.2 TH/MM3 Eosinophils # (Auto) 0.2 TH/MM3 Basophils # (Auto) 0.0 TH/MM3 CBC Comment AUTO DIFF Differential Total Cells Counted 100 Neutrophils % (Manual) 75 % Band Neutrophils % 15 % Lymphocytes % 2 % Monocytes % 6 % Eosinophils % 2 % Neutrophils # (Manual) 23.8 TH/MM3 Differential Comment FINAL DIFF MANUAL Toxic Granulation 1+ Toxic Vacuolation PRESENT Platelet Estimate HIGH Platelet Morphology Comment ENLARGED Blood Urea Nitrogen 6 MG/DL Creatinine 0.62 MG/DL Random Glucose 104 MG/DL Calcium Level 8.5 MG/DL Magnesium Level 1.9 MG/DL Sodium Level 136 MEQ/L Potassium Level 3.6 MEQ/L Chloride Level 103 MEQ/L Carbon Dioxide Level 21.0 MEQ/L Anion Gap 12 MEQ/L Estimat Glomerular Filtration Rate 94 ML/MIN B-Type Natriuretic Peptide 2380 PG/ML Thyroid Stimulating Hormone 3rd Gen 0.737 uIU/ML Prothrombin Time 14.7 SEC Prothromb Time International Ratio 1.5 RATIO Activated Partial Thromboplast Time 32.0 SEC 44.6 SEC 36.6 SEC Test 10/15/17 18:44 10/16/17 03:43 10/16/17 11:05 10/16/17 16:54 Activated Partial Thromboplast Time 36.4 SEC 53.0 SEC 38.6 SEC 37.8 SEC White Blood Count 20.1 TH/MM3 Red Blood Count 7.50 MIL/MM3 Hemoglobin 17.3 GM/DL Hematocrit 51.3 % Mean Corpuscular Volume 68.4 FL Mean Corpuscular Hemoglobin 23.0 PG Mean Corpuscular Hemoglobin Concent 33.6 % Red Cell Distribution Width 18.6 % Platelet Count 568 TH/MM3 Mean Platelet Volume 8.8 FL Neutrophils (%) (Auto) 85.5 % Lymphocytes (%) (Auto) 6.3 % Monocytes (%) (Auto) 5.5 % Eosinophils (%) (Auto) 1.9 % Basophils (%) (Auto) 0.8 % Neutrophils # (Auto) 17.2 TH/MM3 Lymphocytes # (Auto) 1.3 TH/MM3 Monocytes # (Auto) 1.1 TH/MM3 Eosinophils # (Auto) 0.4 TH/MM3 Basophils # (Auto) 0.2 TH/MM3 CBC Comment AUTO DIFF Differential Total Cells Counted 100 Neutrophils % (Manual) 80 % Band Neutrophils % 9 % Lymphocytes % 6 % Monocytes % 4 % Neutrophils # (Manual) 18.1 TH/MM3 Myelocytes 1 % Differential Comment FINAL DIFF MANUAL Atypical Lymphocytes % Toxic Vacuolation PRESENT Platelet Estimate HIGH Platelet Morphology Comment ENLARGED Crenated Cell 1+ Acanthocytes OCC Blood Urea Nitrogen 8 MG/DL Creatinine 0.60 MG/DL Random Glucose 105 MG/DL Total Protein 5.7 GM/DL Albumin 2.3 GM/DL Calcium Level 8.6 MG/DL Phosphorus Level 2.8 MG/DL Magnesium Level 1.9 MG/DL Alkaline Phosphatase 79 U/L Aspartate Amino Transf (AST/SGOT) 20 U/L Alanine Aminotransferase (ALT/SGPT) 9 U/L Total Bilirubin 0.7 MG/DL Sodium Level 135 MEQ/L Potassium Level 3.3 MEQ/L Chloride Level 99 MEQ/L Carbon Dioxide Level 26.5 MEQ/L Anion Gap 10 MEQ/L Estimat Glomerular Filtration Rate 97 ML/MIN Hemoglobin A1c 5.5 % Free Thyroxine 1.90 NG/DL Thyroid Stimulating Hormone 3rd Gen 1.180 uIU/ML Test 10/17/17 01:44 10/17/17 10:52 White Blood Count 17.4 TH/MM3 Red Blood Count 7.78 MIL/MM3 Hemoglobin 17.1 GM/DL Hematocrit 53.2 % Mean Corpuscular Volume 68.4 FL Mean Corpuscular Hemoglobin 21.9 PG Mean Corpuscular Hemoglobin Concent 32.1 % Red Cell Distribution Width 18.2 % Platelet Count 627 TH/MM3 Mean Platelet Volume 8.9 FL Neutrophils (%) (Auto) 82.3 % Lymphocytes (%) (Auto) 8.6 % Monocytes (%) (Auto) 5.3 % Eosinophils (%) (Auto) 3.0 % Basophils (%) (Auto) 0.8 % Neutrophils # (Auto) 14.3 TH/MM3 Lymphocytes # (Auto) 1.5 TH/MM3 Monocytes # (Auto) 0.9 TH/MM3 Eosinophils # (Auto) 0.5 TH/MM3 Basophils # (Auto) 0.1 TH/MM3 CBC Comment AUTO DIFF Differential Total Cells Counted 100 Neutrophils % (Manual) 70 % Band Neutrophils % 15 % Lymphocytes % 12 % Monocytes % 1 % Basophils % 1 % Neutrophils # (Manual) 15.0 TH/MM3 Metamyelocytes 1 % Differential Comment FINAL DIFF MANUAL Platelet Estimate HIGH Platelet Morphology Comment ENLARGED Activated Partial Thromboplast Time 60.5 SEC 29.4 SEC Blood Urea Nitrogen 12 MG/DL Creatinine 0.61 MG/DL Random Glucose 108 MG/DL Total Protein 5.5 GM/DL Albumin 2.2 GM/DL Calcium Level 8.5 MG/DL Phosphorus Level 3.4 MG/DL Magnesium Level 2.0 MG/DL Alkaline Phosphatase 71 U/L Aspartate Amino Transf (AST/SGOT) 14 U/L Alanine Aminotransferase (ALT/SGPT) 9 U/L Total Bilirubin 0.4 MG/DL Sodium Level 137 MEQ/L Potassium Level 3.3 MEQ/L Chloride Level 101 MEQ/L Carbon Dioxide Level 29.4 MEQ/L Anion Gap 7 MEQ/L Estimat Glomerular Filtration Rate 95 ML/MIN Imaging Last Impressions Head CT 10/15/17 0000 Signed Impressions: Service Date/Time: Sunday, October 15, 2017 05:41 - CONCLUSION: 1. Bilateral suspected areas of encephalomalacia being more prominent on the right. 2. Suspected small vessel ischemic change throughout the white matter. 3. Atrophy. 4. Acute area of hemorrhage or mass effect is not seen. Anselmo Mcadams MD Chest X-Ray 10/15/17 0000 Signed Impressions: Service Date/Time: Sunday, October 15, 2017 02:34 - CONCLUSION: Increased density at the right base likely representing mild atelectasis or consolidation. Asnelmo Mcadams MD Lower Extremity Ultrasound 10/14/17 0000 Signed Impressions: Service Date/Time: Saturday, October 14, 2017 20:48 - CONCLUSION: No DVT. Anselmo Mcadams MD Aorta w/Runoff CTA 10/14/17 0000 Signed Impressions: Service Date/Time: Saturday, October 14, 2017 17:47 - CONCLUSION: 1. 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 2. Atherosclerotic change in the external iliac and common femoral arteries bilaterally as described above. 3. Occlusion of the superficial femoral arteries bilaterally with reconstitution distally. The reconstitution is higher on the left side. 4. Normal trifurcation vessels seen on the left side. 5. Diminished flow seen at the right trifurcation vessels. The vessels can only be well seen on the delayed images. The vessels can not be traced into the foot. Anselmo Mcadams MD Objective Remarks GENERAL: Awake and alert very soft-spoken but somewhat confused appears stated age some confusion SKIN: Cool and dry. Decreased warmth in bilateral lower extremities HEAD: Atraumatic. Normocephalic. EYES: Pupils equal and round. No scleral icterus. No injection or drainage. ENT: No nasal bleeding or discharge. Mucous membranes pink and moist. Tongue is midline NECK: Trachea midline. No JVD. Supple CARDIOVASCULAR: Regular rate and rhythm. S1-S2 no S3 or S4 no heave or thrill or rub or gallop RESPIRATORY: No accessory muscle use. Clear to auscultation. Breath sounds equal bilaterally. GASTROINTESTINAL: Abdomen soft, non-tender, nondistended. Hepatic and splenic margins not palpable. MUSCULOSKELETAL: Extremities without clubbing or edema. No obvious deformities. Has some decreased peripheral pulses and some cyanosis in bilateral lower extremities NEUROLOGICAL: Awake and alert. No obvious cranial nerve deficits. Motor grossly within normal limits. 4 out of 5 muscle strength in the arms and legs. Normal speech. PSYCHIATRIC: INAppropriate mood and affect; insight and judgment ABnormal. Procedures RORY GONZALEZ Signed EXAM DATE/TIME: 10/14/2017 17:47 [facility] COMPARISON: No previous studies available for comparison. INDICATIONS : Right leg pain; evaluate for occlusion. IV CONTRAST: 100 cc Omnipaque 350 (iohexol) IV RADIATION DOSE: 2.3 CTDIvol (mGy) MEDICAL HISTORY : Cerebrovascular disease. SURGICAL HISTORY : Tubal ligation. ENCOUNTER: Initial ACUITY: 1 month PAIN SCALE: 7/10 LOCATION: Right lower leg TECHNIQUE: Volumetric scanning was performed using a multi-row detector CT scanner. The data was post processed with a variety of visualization algorithms including full volume maximum intensity projection, multi-planar sliding thin slab reformation, curved planar reformation, and surface rendering techniques. Using automated exposure control and adjustment of the mA and/or kV according to patient size, radiation dose was kept as low as reasonably achievable to obtain optimal diagnostic quality images. DICOM format image data is available electronically for review and comparison. FINDINGS: There are atherosclerotic changes seen throughout the arterial system. The abdominal aorta measures up to 2.9 cm. At the distal infrarenal abdominal aorta thrombus occupies more than half of the lumen. The functional lumen is seen at the left lateral aspect of the distal abdominal aorta. There is atherosclerotic change at the common iliac arteries bilaterally. A significant stenosis is not seen at this level is not seen. There does appear to be severe stenosis and possible occlusion at the origin of the right internal iliac artery. There is mild plaque seen at the right external iliac artery. There is a severe stenosis at the distal left external iliac artery. There is atherosclerotic change seen at the common femoral arteries bilaterally being more severe on the right. There is a severe stenosis at the right common femoral artery narrowing the lumen by approximately 80%. There is severe narrowing of the proximal right profunda femoris artery. There is abrupt occlusion of the proximal right superficial femoral artery. Flow in the thigh is continues through collaterals in the profunda femoris artery distribution. There is reconstitution of the distal popliteal artery at the level of the distal femur via collaterals. There is a normal trifurcation. The right anterior tibial artery can be traced to the ankle. The posterior tibial and peritoneal arteries can be seen to the distal lower leg but can not clearly be traced into the foot. Again noted is the mild stenosis at the left common femoral artery. There is occlusion of the proximal left superficial femoral artery. The popliteal artery is patent throughout. There is reconstitution of the distal superficial femoral artery at the level of the distal femoral shaft. The popliteal artery is patent. There is a severe stenosis at the mid popliteal artery. The lumen is narrowed by over 75%. The more distal popliteal artery is patent. The anterior and posterior tibial artery could be traced to the foot. The peritoneal artery can be traced to the ankle region. Atherosclerotic calcifications are seen throughout the origins of the vessels in the upper abdomen. There does appear to be at least a moderate stenosis at the origin of the right renal artery. The left renal artery appears patent. The celiac, SMA and JUN are patent. There is a mild hiatal hernia. The liver, spleen, pancreas and kidneys appear grossly normal. The adrenal glands are grossly normal. The pelvic structures appear intact. The patient does have a Pacheco catheter in the urinary bladder. There is degenerative change in the lumbar spine. CONCLUSION: 1. 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 2. Atherosclerotic change in the external iliac and common femoral arteries bilaterally as described above. 3. Occlusion of the superficial femoral arteries bilaterally with reconstitution distally. The reconstitution is higher on the left side. 4. Normal trifurcation vessels seen on the left side. 5. Diminished flow seen at the right trifurcation vessels. The vessels can only be well seen on the delayed images. The vessels can not be traced into the foot. Anselmo Mcadams MD on October 14, 2017 at 19:28 Board Certified Radiologist. This report was verified electronically. Medications and IVs Current Medications Sodium Chloride 1,000 ml @ 1,000 mls/hr Q1H ONCE IV Last administered on 10/14 13:04; Start 10/14/17 at 11:57; Stop 10/14/17 at 12:56; Status DC Sodium Chloride 800 ml @ 1,000 mls/hr Q48M ONCE IV Last administered on 13:04; Start 10/14/17 at 11:57; Stop 10/14/17 at 12:44; Status DC Piperacillin Sod/ Tazobactam Sod 100 ml @ 200 mls/hr ONCE STAT IV Last administered on 10/14/17 13:11; Start 10/14/17 at 12:52; Stop 10/14/17 at 13 :21; Status DC Vancomycin HCl 1000 mg/Sodium Chloride 250 ml @ 250 mls/hr ONCE ONCE IV Last administered on 10/14/17 14:07; Start 10/14/17 at 13:15; Stop 10/14/17 at 14 :14; Status DC Ceftriaxone Sodium 1000 mg/ Sodium Chloride 100 ml @ 200 mls/hr Q24H IV Last administered on 10/16/17 16:28; Start 10/14/17 at 16:00 Sodium Chloride 1,000 ml @ 100 mls/hr Q10H IV Last administered on 10/14/17 16:00; Start 10/14/17 at 16:00; Stop 10/15/17 at 03:41; Status DC Sodium Chloride (NS Flush) 2 ml UNSCH PRN IV FLUSH FLUSH AFTER USING IV ACCESS ; Start 10/14/17 at 16:00 Sodium Chloride (NS Flush) 2 ml BID IV FLUSH Last administered on 10/17/17 08 :30; Start 10/14/17 at 21:00 Acetaminophen (Tylenol) 650 mg Q4H PRN PO TEMP > 100.4; Start 10/14/17 at 16: 00 Ondansetron HCl (Zofran Inj) 4 mg Q6H PRN IVP NAUSEA OR VOMITING; Start at 16:00 Temazepam (Restoril) 15 mg HS PRN PO INSOMNIA; Start 10/14/17 at 16:00 Enoxaparin Sodium (Lovenox Inj) 40 mg Q24H SQ Last administered on 10/14/17 18:47; Start 10/14/17 at 17:00; Stop 10/15/17 at 12:27; Status DC Naloxone HCl (Narcan Inj) 0.4 mg UNSCH PRN IV PUSH SEE LABEL COMMENTS; Start 10/14/17 at 16:00 Senna/Docusate Sodium (Rosalie-Colace) 1 tab BID PO Last administered on 09:03; Start 10/14/17 at 21:00 Magnesium Hydroxide (Milk Of Magnesia Liq) 30 ml Q12H PRN PO Mild constipation ; Start 10/14/17 at 16:00 Sennosides (Senokot) 17.2 mg Q12H PRN PO Moderate constipation; Start at 16:00 Bisacodyl (Dulcolax Supp) 10 mg DAILY PRN RECTAL SEVERE CONSITIPATION; Start 10/14/17 at 16:00 Lactulose (Lactulose Liq) 30 ml DAILY PRN PO SEVERE CONSITIPATION; Start 10/14 at 16:00 Iohexol (Omnipaque 350 Inj) 100 ml STK-MED ONCE IVCONTRAST Last administered on 10/14/17 18:02; Start 10/14/17 at 18:02; Stop 10/14/17 at 18:07; Status DC Clonidine (Catapres) 0.1 mg ONCE ONCE PO Last administered on 10/14/17 22:05 ; Start 10/14/17 at 21:15; Stop 10/14/17 at 21:26; Status DC Furosemide (Lasix Inj) 40 mg ONCE ONCE IV PUSH Last administered on 04:03; Start 10/15/17 at 03:45; Stop 10/15/17 at 03:47; Status DC Albuterol/ Ipratropium (Duoneb Neb) 1 ampule Q4HR NEB PRN NEB SOB/WHEEZING; Start 10/15/17 at 04:00 Heparin Sodium/ Dextrose 250 ml @ 10 mls/hr TITRATE PRN IV Coagulation Management Last administered on 10/16/17 09:00; Start 10/15/17 at 06:30 Clopidogrel Bisulfate (Plavix) 75 mg DAILY PO Last administered on 10/16/17 09:03; Start 10/15/17 at 12:00 Enoxaparin Sodium (Lovenox Inj) 40 mg Q24H SQ ; Start 10/15/17 at 17:00; Stop 10/15/17 at 17:00; Status DC Lactated Ringer's 1,000 ml @ 30 mls/hr Q24H PRN IV SEE LABEL COMMENTS; Start 10/17/17 at 12:15; Stop 10/17/17 at 12:57; Status DC Sodium Chloride 500 ml @ 30 mls/hr [id number] PRN IV SEE LABEL COMMENTS; Start at 12:15; Stop 10/17/17 at 14:23; Status DC Metoprolol Tartrate (Lopressor) 25 mg INDUSTRIAL [employer]S TECHNICIAN PRN PO SEE LABEL COMMENTS; Start 10/17/17 at 12:15; Stop 10/20/17 at 12:14 Povidone Iodine (Betadine 5% Antisepsis Kit) 1 applic [employer]USTRIAL CONTROLS TECHNICIAN PRN EACH NARE SEE LABEL COMMENTS; Start 10/17/17 at 12:15; Stop 10/20/17 at 12:14 Chlorhexidine Gluconate (Chlorhexidine 2% Cloth) 3 pack INDUSTRIAL CONTROLS TECHNICIAN PRN TOPICAL SEE LABEL COMMENTS; Start 10/17/17 at 12:15; Stop 10/20/17 at 12:14 Heparin Sodium (Porcine) (Heparin Inj) 10,000 units STK-MED ONCE .ROUTE ; Start 10/17/17 at 12:15; Stop 10/17/17 at 12:16; Status DC Heparin Sodium (Porcine) (Heparin Inj) 10,000 units STK-MED ONCE .ROUTE ; Start 10/17/17 at 12:15; Stop 10/17/17 at 12:16; Status DC Protamine Sulfate (Protamine Sulfate Inj) 50 mg STK-MED ONCE .ROUTE ; Start at 12:15; Stop 10/17/17 at 12:16; Status DC Lactated Ringer's 1,000 ml @ 80 mls/hr [id number] IV ; Start 10/17/17 at 13:00 Urinary Catheter: No Vascular Central Line Catheter: No A/P Assessment and Plan Bilateral LE discoloration and unable to feel DP pulses. Patient with pain and cold extremities. Will do CTA Ao run off and will consult vascular surgery discussed with Dr. YOO WILL NEED SURGERY will need a femoropopliteal bypass Started on antibiotic Rocephin IV . Received vanco and zosyn in the ED. Received bolus of NS in the eD. Continue IVF. Monitor VS closely. Urine cultures shows Escherichia coli UTI sensitive to Rocephin which she is on Initial EKG shows sinus tachycardia with occasional PVCs. Rate is 111, this was reviewed Chest x-ray shows no acute disease Restart home meds as appropriate patient says she currently doesn't take any meds. Repeat labs cbc, CMP tomorrow Consult PT for eval CONSULT OT Consult case management for DC plan DVT ppx lovenox History of cerebrovascular accident with with sounds like probable chronic confusion Gait instability possibly secondary to cerebrovascular accident versus peripheral vascular occlusive disease HAD ABNORMAL EKG- CARDIOLOGY WAS CONSULTED- SURGERY PLACED ON HOLD DW RN AND PT AND CASE MANAGEMENT WILL NEED CARDIAC CLEARANCE BEFORE SURGERY Deconditioning Will need SNF and PT and OT Discharge Planning WILL NEED SNF AT [place] Kuldeep Lyn DO Oct 17, 2017 14:48
[2017-10-17] MEDS ORDERED: POTASSIUM CHLORIDE 20 MEQ CONTROLLED RELEASE TAB PO ONE (15:00)
--- NOTE | 2017-10-17 15:06 | HHI.HCPN ---
Reason for visit a. To assist with evaluation and management of symptoms including: right lower extremity pain; dyspnea; confusion; generalized weakness b. To assist medical decision maker(s) with: better understanding of current medical conditions; weighing benefits/burdens of medical treatment options; making medical treatment decisions. . Subjective/Interval History Patient remains confused. Could not remember date, month year. When ask when did she come to [place], she stated [birth year]. Told patient date a dn ask patient to remember date. Ask patient to spell the word "WORLD" and then backwards. Reacess if she could remember date, and she could not. Patient remains to be painful especially int he right ext, and patient would need vascular surgery. Cardiac consult started. We have still been unable to find family. Family/friend interactions unable to find family. Advance Directives Living Will: Never completed Health Care Surrogate: Never completed Durable Power of Well Flow Operator: Never completed Advance Directive Specifics Date completed: According to the patient, she has never completed an advanced directive. . Health Care Surrogate(s): According to patient, she has never designated in writing a health care surrogate. . Documented care wishes: Per the patient, she has no written documentation of her healthcare preferences/ goals/wishes. . Objective Vital Signs Date Time Temp Pulse Resp B/P (MAP) Pulse Ox O2 Delivery O2 Flow Rate FiO2 10/17/17 07:54 97.6 65 20 150/85 (106) 93 10/17/17 04:00 96.4 77 16 127/63 (84) 96 10/17/17 00:00 97.8 80 16 121/62 (81) 98 10/16/17 20:00 98.0 85 16 124/60 (81) 94 10/16/17 16:00 97.3 91 16 129/67 (87) 92 Intake & Output 10/17/17 10/17/17 07:00 19:00 Intake Total 280 ml Output Total 800 ml Balance -520 ml Intake Oral 280 ml Output Urine Total 800 ml # Bowel Movements 0 Physical Exam CONSTITUTIONAL/GENERAL: This is a thin, pale, elderly female who is in no apparent distress until one touches her right lower extremity or she moves that extremity. Disoriented to time, and place. TUBES/LINES/DRAINS: Fabian catheter; peripheral IV SKIN: No jaundice, rashes, or lesions. Ischemic changes in the right foot. No wounds seen anteriorly. Skin temperature appropriate. Not diaphoretic. HEAD: Atraumatic. Normocephalic. EYES: Pupils equal and round and reactive. Extraocular motions intact. No scleral icterus. No injection or drainage. Fundi not examined. ENT: Hearing grossly normal. Nose without bleeding or purulent drainage. Throat without visible erythema, exudates, masses, or lesions. NECK: Trachea midline. Supple, nontender. No palpable thyroid enlargement or nodularity. CARDIOVASCULAR: Normal rate; irregular rhythm. No murmurs, gallops, or rubs. No JVD. Unable to palpate extremities in the ankles and feet. RESPIRATORY/CHEST: Symmetric, unlabored respirations. Breath sounds equal bilaterally but diminished throughout.. No wheezes, rales, or rhonchi. GASTROINTESTINAL: Abdomen soft, non-tender, nondistended. No hepato-splenomegaly , or palpable masses. No guarding. Bowel sounds present. GENITOURINARY: Without palpable bladder distension. Afbian catheter in place. MUSCULOSKELETAL: Extremities without clubbing or edema. Right foot is cyanotic appearing. Decreased capillary refill in both feet. Entire right calf is exquisitely tender to touch without palpable cord. LYMPHATICS: No palpable cervical or supraclavicular adenopathy. NEUROLOGICAL: Awake and alert. Motor and sensory grossly within normal limits. Follows commands. Disoriented to time. Confused. Moves all extremities. PSYCHIATRIC: No obvious anxiety/depression. no apparent hallucinations or other psychotic thought process. . Diagnostic Tests Laboratory Laboratory Tests Test 10/15/17 04:40 10/15/17 06:48 10/15/17 13:55 10/15/17 15:02 White Blood Count 26.4 TH/MM3 (4.0-11.0) Red Blood Count 8.12 MIL/MM3 (4.00-5.30) Hemoglobin 18.2 GM/DL (11.6-15.3) Hematocrit 56.4 % (35.0-46.0) Mean Corpuscular Volume 69.5 FL (80.0-100.0) Mean Corpuscular Hemoglobin 22.5 PG (27.0-34.0) Mean Corpuscular Hemoglobin Concent 32.3 % (32.0-36.0) Red Cell Distribution Width 18.4 % (11.6-17.2) Platelet Count 620 TH/MM3 (150-450) Mean Platelet Volume 8.5 FL (7.0-11.0) Neutrophils (%) (Auto) 91.9 % (16.0-70.0) Lymphocytes (%) (Auto) 2.5 % (9.0-44.0) Monocytes (%) (Auto) 4.7 % (0.0-8.0) Eosinophils (%) (Auto) 0.8 % (0.0-4.0) Basophils (%) (Auto) 0.1 % (0.0-2.0) Neutrophils # (Auto) 24.3 TH/MM3 (1.8-7.7) Lymphocytes # (Auto) 0.7 TH/MM3 (1.0-4.8) Monocytes # (Auto) 1.2 TH/MM3 (0-0.9) Eosinophils # (Auto) 0.2 TH/MM3 (0-0.4) Basophils # (Auto) 0.0 TH/MM3 (0-0.2) CBC Comment AUTO DIFF Differential Total Cells Counted 100 Neutrophils % (Manual) 75 % (16-70) Band Neutrophils % 15 % (0-6) Lymphocytes % 2 % (9-44) Monocytes % 6 % (0-8) Eosinophils % 2 % (0-4) Neutrophils # (Manual) 23.8 TH/MM3 (1.8-7.7) Differential Comment FINAL DIFF MANUAL Toxic Granulation 1+ (NORMAL) Toxic Vacuolation PRESENT (NONE SEEN) Platelet Estimate HIGH (NORMAL) Platelet Morphology Comment ENLARGED (NORMAL) Blood Urea Nitrogen 6 MG/DL (7-18) Creatinine 0.62 MG/DL (0.50-1.00) Random Glucose 104 MG/DL (74-106) Calcium Level 8.5 MG/DL (8.5-10.1) Magnesium Level 1.9 MG/DL (1.5-2.5) Sodium Level 136 MEQ/L (136-145) Potassium Level 3.6 MEQ/L (3.5-5.1) Chloride Level 103 MEQ/L (98-107) Carbon Dioxide Level 21.0 MEQ/L (21.0-32.0) Anion Gap 12 MEQ/L (5-15) Estimat Glomerular Filtration Rate 94 ML/MIN (>89) B-Type Natriuretic Peptide 2380 PG/ML (0-100) Thyroid Stimulating Hormone 3rd Gen 0.737 uIU/ML (0.358-3.740) Prothrombin Time 14.7 SEC (9.8-11.6) Prothromb Time International Ratio 1.5 RATIO Activated Partial Thromboplast Time 32.0 SEC (24.3-30.1) 44.6 SEC (24.3-30.1) 36.6 SEC (24.3-30.1) Test 10/15/17 18:44 10/16/17 03:43 10/16/17 11:05 10/16/17 16:54 Activated Partial Thromboplast Time 36.4 SEC (24.3-30.1) 53.0 SEC (24.3-30.1) 38.6 SEC (24.3-30.1) 37.8 SEC (24.3-30.1) White Blood Count 20.1 TH/MM3 (4.0-11.0) Red Blood Count 7.50 MIL/MM3 (4.00-5.30) Hemoglobin 17.3 GM/DL (11.6-15.3) Hematocrit 51.3 % (35.0-46.0) Mean Corpuscular Volume 68.4 FL (80.0-100.0) Mean Corpuscular Hemoglobin 23.0 PG (27.0-34.0) Mean Corpuscular Hemoglobin Concent 33.6 % (32.0-36.0) Red Cell Distribution Width 18.6 % (11.6-17.2) Platelet Count 568 TH/MM3 (150-450) Mean Platelet Volume 8.8 FL (7.0-11.0) Neutrophils (%) (Auto) 85.5 % (16.0-70.0) Lymphocytes (%) (Auto) 6.3 % (9.0-44.0) Monocytes (%) (Auto) 5.5 % (0.0-8.0) Eosinophils (%) (Auto) 1.9 % (0.0-4.0) Basophils (%) (Auto) 0.8 % (0.0-2.0) Neutrophils # (Auto) 17.2 TH/MM3 (1.8-7.7) Lymphocytes # (Auto) 1.3 TH/MM3 (1.0-4.8) Monocytes # (Auto) 1.1 TH/MM3 (0-0.9) Eosinophils # (Auto) 0.4 TH/MM3 (0-0.4) Basophils # (Auto) 0.2 TH/MM3 (0-0.2) CBC Comment AUTO DIFF Differential Total Cells Counted 100 Neutrophils % (Manual) 80 % (16-70) Band Neutrophils % 9 % (0-6) Lymphocytes % 6 % (9-44) Monocytes % 4 % (0-8) Neutrophils # (Manual) 18.1 TH/MM3 (1.8-7.7) Myelocytes 1 % (0-0) Differential Comment FINAL DIFF MANUAL Atypical Lymphocytes % (0-0) Toxic Vacuolation PRESENT (NONE SEEN) Platelet Estimate HIGH (NORMAL) Platelet Morphology Comment ENLARGED (NORMAL) Crenated Cell 1+ (NORMAL) Acanthocytes OCC (NORMAL) Blood Urea Nitrogen 8 MG/DL (7-18) Creatinine 0.60 MG/DL (0.50-1.00) Random Glucose 105 MG/DL (74-106) Total Protein 5.7 GM/DL (6.4-8.2) Albumin 2.3 GM/DL (3.4-5.0) Calcium Level 8.6 MG/DL (8.5-10.1) Phosphorus Level 2.8 MG/DL (2.5-4.9) Magnesium Level 1.9 MG/DL (1.5-2.5) Alkaline Phosphatase 79 U/L (45-117) Aspartate Amino Transf (AST/SGOT) 20 U/L (15-37) Alanine Aminotransferase (ALT/SGPT) 9 U/L (10-53) Total Bilirubin 0.7 MG/DL (0.2-1.0) Sodium Level 135 MEQ/L (136-145) Potassium Level 3.3 MEQ/L (3.5-5.1) Chloride Level 99 MEQ/L (98-107) Carbon Dioxide Level 26.5 MEQ/L (21.0-32.0) Anion Gap 10 MEQ/L (5-15) Estimat Glomerular Filtration Rate 97 ML/MIN (>89) Hemoglobin A1c 5.5 % (4.3-6.0) Free Thyroxine 1.90 NG/DL (0.76-1.46) Thyroid Stimulating Hormone 3rd Gen 1.180 uIU/ML (0.358-3.740) Test 10/17/17 01:44 10/17/17 10:52 White Blood Count 17.4 TH/MM3 (4.0-11.0) Red Blood Count 7.78 MIL/MM3 (4.00-5.30) Hemoglobin 17.1 GM/DL (11.6-15.3) Hematocrit 53.2 % (35.0-46.0) Mean Corpuscular Volume 68.4 FL (80.0-100.0) Mean Corpuscular Hemoglobin 21.9 PG (27.0-34.0) Mean Corpuscular Hemoglobin Concent 32.1 % (32.0-36.0) Red Cell Distribution Width 18.2 % (11.6-17.2) Platelet Count 627 TH/MM3 (150-450) Mean Platelet Volume 8.9 FL (7.0-11.0) Neutrophils (%) (Auto) 82.3 % (16.0-70.0) Lymphocytes (%) (Auto) 8.6 % (9.0-44.0) Monocytes (%) (Auto) 5.3 % (0.0-8.0) Eosinophils (%) (Auto) 3.0 % (0.0-4.0) Basophils (%) (Auto) 0.8 % (0.0-2.0) Neutrophils # (Auto) 14.3 TH/MM3 (1.8-7.7) Lymphocytes # (Auto) 1.5 TH/MM3 (1.0-4.8) Monocytes # (Auto) 0.9 TH/MM3 (0-0.9) Eosinophils # (Auto) 0.5 TH/MM3 (0-0.4) Basophils # (Auto) 0.1 TH/MM3 (0-0.2) CBC Comment AUTO DIFF Differential Total Cells Counted 100 Neutrophils % (Manual) 70 % (16-70) Band Neutrophils % 15 % (0-6) Lymphocytes % 12 % (9-44) Monocytes % 1 % (0-8) Basophils % 1 % (0-2) Neutrophils # (Manual) 15.0 TH/MM3 (1.8-7.7) Metamyelocytes 1 % (0-1) Differential Comment FINAL DIFF MANUAL Platelet Estimate HIGH (NORMAL) Platelet Morphology Comment ENLARGED (NORMAL) Activated Partial Thromboplast Time 60.5 SEC (24.3-30.1) 29.4 SEC (24.3-30.1) Blood Urea Nitrogen 12 MG/DL (7-18) Creatinine 0.61 MG/DL (0.50-1.00) Random Glucose 108 MG/DL (74-106) Total Protein 5.5 GM/DL (6.4-8.2) Albumin 2.2 GM/DL (3.4-5.0) Calcium Level 8.5 MG/DL (8.5-10.1) Phosphorus Level 3.4 MG/DL (2.5-4.9) Magnesium Level 2.0 MG/DL (1.5-2.5) Alkaline Phosphatase 71 U/L (45-117) Aspartate Amino Transf (AST/SGOT) 14 U/L (15-37) Alanine Aminotransferase (ALT/SGPT) 9 U/L (10-53) Total Bilirubin 0.4 MG/DL (0.2-1.0) Sodium Level 137 MEQ/L (136-145) Potassium Level 3.3 MEQ/L (3.5-5.1) Chloride Level 101 MEQ/L (98-107) Carbon Dioxide Level 29.4 MEQ/L (21.0-32.0) Anion Gap 7 MEQ/L (5-15) Estimat Glomerular Filtration Rate 95 ML/MIN (>89) Result Diagram: 10/17/17 0144 10/17/17 0144 Imaging Last Impressions Head CT 10/15/17 0000 Signed Impressions: Service Date/Time: Sunday, October 15, 2017 05:41 - CONCLUSION: 1. Bilateral suspected areas of encephalomalacia being more prominent on the right. 2. Suspected small vessel ischemic change throughout the white matter. 3. Atrophy. 4. Acute area of hemorrhage or mass effect is not seen. Anselmo Mcadams MD Chest X-Ray 10/15/17 0000 Signed Impressions: Service Date/Time: Sunday, October 15, 2017 02:34 - CONCLUSION: Increased density at the right base likely representing mild atelectasis or consolidation. Anselmo Mcadams MD Lower Extremity Ultrasound 10/14/17 0000 Signed Impressions: Service Date/Time: Saturday, October 14, 2017 20:48 - CONCLUSION: No DVT. Anselmo Mcadams MD Aorta w/Runoff CTA 10/14/17 0000 Signed Impressions: Service Date/Time: Saturday, October 14, 2017 17:47 - CONCLUSION: 1. 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 2. Atherosclerotic change in the external iliac and common femoral arteries bilaterally as described above. 3. Occlusion of the superficial femoral arteries bilaterally with reconstitution distally. The reconstitution is higher on the left side. 4. Normal trifurcation vessels seen on the left side. 5. Diminished flow seen at the right trifurcation vessels. The vessels can only be well seen on the delayed images. The vessels can not be traced into the foot. Anselmo Mcadams MD Assessment and Plan Disease Oriented Problem List: (1) Sepsis (2) UTI (urinary tract infection) (3) Peripheral vascular disease (4) Microcytosis (5) Polycythemia (6) Thrombocytosis (7) Hypoalbuminemia (8) Elevated brain natriuretic peptide (BNP) level (9) Stroke Symptom Scale: (1) Confusion 0-10 Scale: Unable to quantify Comment: See assessment (2) Pain 0-10 Scale: Unable to quantify Comment: See assessment (3) Cough 0-10 Scale: Unable to quantify (4) Dyspnea 0-10 Scale: Unable to quantify Comment: See assessment (5) Generalized weakness 0-10 Scale: Unable to quantify Comment: See assessment Pertinent Non-Medical Issues Psychosocial: Reportedly lives with daughter in crowded, cluttered apartment. 6 children altogether but patient can't tell me what state they are in. Spiritual: Episcopalian. Not particularly interested in varnish dipper visits. Legal: No known advance directives. Ethical issues impacting care: Patient's capacity is questionable. Recommend at least shared decision making until she is cognitively clearer or we see that goals/preferences are consistent. . Important Contacts Yajaira Jung (daughter) : ? phone number . Prognosis It is unclear to what extent patient's current status is due to her peripheral vascular disease and to what extent there are other factors. Might some of her confusion be due to vascular dementia (she is post stroke). She has elevated Hg , elevated platelets, and microcytosis. Does she have polycythemia? Will she get well enough to be a candidate for vascular surgery? If she decides she does NOT want surgery, then she will likely remain bedbound and continue to lose weight. In that case life expectancy would likely be less than 6 months. . Code Status: Full Code Plan == Decision making: Patient still does not have capacity to make medical decisions. == Code Status: FULL CODE -- == Goals of medical treatment: Given the above, I recommend that goals remain aggressive until family could be found. == Symptoms: * Right lower extremity pain: This appears to be entirely due to ischemia. It is worse with movement. Most of her pain is in the calf. She denies joint pain. She can't quantify the pain. Just touching the right calf is painful for her. Patient currently has no scheduled pain medications ordered. Pt would need surgery. PRN available * Generalized weakness: Both weakness and right lower extremity pain seemed to make her bedbound in the days leading up to hospital admission. She still has some residual weakness from her stroke in 2011. * Confusion: Unclear to what extent this is acute due to her clinical condition or is more chronic. Will re-assess == She has hematologic findings that may need further evaluation -- elevated Hg , microcytosis, thrombocytosis. Might she have polycythemia? Evaluation might be important in deciding if she would be a candidate for vascular surgery and her life expectancy with or without the surgery. == Will have palliative care geriatric social worker collaborate with case management to try and get contact information for daughter or any other children. == If patient becomes cognitively clear, we will try and get her to complete health care surrogate forms and we will re-visit resuscitation wishes. If she doesn't clear, we need to identify the appropriate proxy or proxies and speak to them about resuscitation status and goals. == Palliative care will continue to follow to assist with symptom management and to further clarify goals of medical treatment as the clinical course evolves. .d/w with surgeon. Nixon Medina MD Oct 17, 2017 15:06
[2017-10-17] MEDS: HEPARIN-D5W 25,000 U/250 ML 250 ML IV PRN (15:38)
[2017-10-17] MEDS: cefTRIAXone INJ 1,000 MG in SODIUM CHLORIDE 0.9% INJ 100 ML IV SCH (15:40)
[2017-10-17 16:00] VITALS: BP 146/70; PULSE 98; RESP 16; TEMP 98.1; O2SAT 92
[2017-10-17 20:09] VITALS: BP 146/75; PULSE 88; RESP 16; TEMP 98.1; O2SAT 95
[2017-10-18 01:13] VITALS: BP 152/89; PULSE 84; RESP 16; TEMP 97.6; O2SAT 95
[2017-10-18 04:35] VITALS: BP 152/85; PULSE 82; RESP 18; TEMP 97.8; O2SAT 96
--- NOTE | 2017-10-18 05:50 | MB ---
cc: RODRÍGUEZ RIGGS DATE OF CONSULTATION 10/17/2017 HISTORY OF PRESENT ILLNESS A 77-year-old white female with a history of hypertension and dyslipidemia, was brought with generalized weakness, poor nutrition, unable to take care of herself. She was found to have severe peripheral vascular disease with near occlusion of the both common femoral arteries, occlusion of the SFA. She was diagnosed with urosepsis. Dr. Fernandes was consulted for Vascular Surgery. She complains of right lower extremity pain. She denies any angina. She was seen by Anesthesia but was found to have abnormal EKG and cardiology consultation was requested. She denies any dyspnea or angina at this time. PAST MEDICAL HISTORY Positive for hypertension. Dyslipidemia. ALLERGIES None. PAST SURGICAL HISTORY History of tubal ligation. Tonsillectomy. ALLERGIES None. SOCIAL HISTORY The patient used to smoke in the past. She does not drink alcohol. FAMILY HISTORY Negative. REVIEW OF SYSTEMS Otherwise negative. PHYSICAL EXAMINATION VITAL SIGNS: Blood pressure 146/70, pulse 98 and regular. HEENT: Negative. NECK: 2+ carotid upstrokes. No bruits. LUNGS: Clear. HEART: Regular with systolic murmur, no gallop or rub. ABDOMEN: Soft. EXTREMITIES: Without edema. Absent distal pulses. NEUROLOGIC EXAM: Grossly nonfocal. EKG Reviewed and showed sinus tachycardia, LVH and diffuse ST-T changes. LABS Hemoglobin 17.1, potassium 3.3, creatinine 0.6. AST 14, ALT 9. BNP 2380. ECHOCARDIOGRAM Reviewed and showed preserved left ventricular systolic function with an ejection fraction of 55-60% with no WMA. DIAGNOSES 1. Abnormal EKG. 2. Severe peripheral vascular disease. 3. Hypertension. 4. Dyslipidemia. 5. Sepsis. 6. UTI. 7. Poor nutrition. DISPOSITION The patient was found to have severe peripheral vascular disease. Vascular surgery considered in the near future. EKG was found to be abnormal by Anesthesia and further cardiac evaluation requested. Her echocardiogram showed preserved left ventricular function. She will be scheduled for adenosine myocardial perfusion study tomorrow to assess for ischemia. I will follow her for Cardiology during her hospitalization. Rodríguez Riggs MD OShane/SSB /6:16 PM /5:26 AM MAX
[2017-10-18 07:13] LABS: AUTOMATED NEUTROPHIL # 16.2 TH/MM3 (1.8-7.7); BASOPHIL # 0.1 TH/MM3 (0-0.2); BASOPHIL % 0.6 % (0.0-2.0); EOSINOPHIL # 0.5 TH/MM3 (0-0.4); EOSINOPHIL % 2.7 % (0.0-4.0); HEMOGLOBIN 17.6 GM/DL (11.6-15.3); LYMPH % 5.7 % (9.0-44.0); LYMPHOCYTE # 1.1 TH/MM3 (1.0-4.8); MEAN CELL VOLUME 69.1 FL (80.0-100.0); MEAN CORPUSCULAR HEMOGLOBIN 22.1 PG (27.0-34.0); MEAN PLATELET VOLUME 9.2 FL (7.0-11.0); MONO % 3.8 % (0.0-8.0); MONOCYTE # 0.7 TH/MM3 (0-0.9); NEUT % 87.2 % (16.0-70.0); PLATELET COUNT 788 TH/MM3 (150-450); RED BLOOD COUNT 7.96 MIL/MM3 (4.00-5.30); RED CELL DISTRIBUTION WIDTH 18.2 % (11.6-17.2); WHITE BLOOD COUNT 18.6 TH/MM3 (4.0-11.0)
[2017-10-18 07:24] LABS: ALBUMIN 2.3 GM/DL (3.4-5.0); AST (GOT) 16 U/L (15-37); BICARBONATE 26.4 MEQ/L (21.0-32.0); BLOOD UREA NITROGEN 6 MG/DL (7-18); CALCIUM 8.6 MG/DL (8.5-10.1); CHLORIDE 101 MEQ/L (98-107); CREATININE 0.59 MG/DL (0.50-1.00); GLOMERULAR FILTRATION RATE 99 ML/MIN (>89); GLUCOSE,RANDOM 94 MG/DL (74-106); SODIUM (NA) 136 MEQ/L (136-145)
[2017-10-18 07:25] LABS: ALT (GPT) 10 U/L (10-53); PHOSPHORUS 3.1 MG/DL (2.5-4.9)
[2017-10-18 07:27] LABS: ALKALINE PHOSPHATASE 82 U/L (45-117); TOTAL BILIRUBIN ADULT 0.4 MG/DL (0.2-1.0); TOTAL PROTEIN 5.8 GM/DL (6.4-8.2)
[2017-10-18 08:00] VITALS: BP 149/76; PULSE 84; RESP 15; TEMP 98.4; O2SAT 90
[2017-10-18] MEDS: DOCUSATE SODIUM 50 MG/SENNA 8.6 MG TAB PO SCH ×2 (08:38→21:46)
[2017-10-18] MEDS: SODIUM CHLORIDE 0.9% FLUSH 10 ML FLUSH IV FLUSH SCH ×2 (08:38→21:46)
[2017-10-18] MEDS: CLOPIDOGREL 75 MG TAB PO SCH (08:40)
[2017-10-18 08:53] LABS: BANDS 13 % (0-6); BASOPHILS 2 % (0-2); LYMPHOCYTES 1 % (9-44); MONOCYTES 2 % (0-8); NEUTROPHIL # MANUAL DIFF 17.7 TH/MM3 (1.8-7.7); POLYS (SEG NEUTROPHILS) 82 % (16-70)
[2017-10-18 08:56] LABS: OVALOCYTES 1+ (NORMAL)
[2017-10-18] MEDS: HEPARIN-D5W 25,000 U/250 ML 250 ML IV PRN (10:33)
[2017-10-18] MEDS ORDERED: REGADENOSON INJ 0.4 MG/5 ML SYR ONE (11:34)
--- NOTE | 2017-10-18 12:17 | HHI.PR ---
Subjective Remarks Patient is 77-year-old female with PMH of HTN, HLD brought into the emergency department via EMS for evaluation of generalized weakness. Patient is a poor historian. Per their report she has been laying on her couch for the last 7 days unable to get up because she has been weak. Apparently either patient or daughter called 911. Patient states that she has not been cleaned in several days. Patient states she has not been eating well. EMS reported that living conditions were suboptimal at best. Patient smelled of feces and urine on arrival. Further work up reveals UTI with sepsis. Started on abb after cultures obtained. Patient also was noted with discolored LE bluish discoloration, cold LE , and no pulses detected by US. Ao run off ordered and also vascular surgeon consulted for further eval. 10-[address] YOO WILL NEED SURGERY LATER THIS WEEK GEORGE RN AND PT AND CM NO CURRENT COMPLAINTS HAS PACHECO IN PLACE AM LABS WILL NEED SNF AT [place] 10-16 has been seen by palliative care, they are not able to locate any family at this time yet Patient will need surgery likely femoropopliteal bypass Discussed with patient and RN Complains of some pain in the right lower extremity A.m. labs Continue on Rocephin for UTI 10-17 WAS TO HAVE SURGERY BUT WAS NOT CLEARED BY ANESTHESIA HAD ABNORMAL EKG SO SURGERY WAS PUT ON HOLD AND CARDIOLOGY WAS CONSULTED GEORGE RN AND PT AND CM 10-18 patient is to go for nuclear stress test today per cardiology Depending on results we'll determine her clearance by cardiology Surgery is obviously on hold at this time Will need femoropopliteal bypass more than likely No current complaints Objective Vitals Vital Signs Date Time Temp Pulse Resp B/P (MAP) Pulse Ox O2 Delivery O2 Flow Rate FiO2 10/18/17 08:00 98.4 84 15 149/76 (100) 90 10/18/17 04:35 97.8 82 18 152/85 (107) 96 10/18/17 01:13 97.6 84 16 152/89 (110) 95 10/17/17 20:09 98.1 88 16 146/75 (98) 95 10/17/17 16:00 98.1 98 16 146/70 (95) 92 I/O 10/17/17 10/17/17 10/17/17 10/18/17 10/18/17 10/18/17 06:59 14:59 22:59 06:59 14:59 22:59 Intake Total 280 ml 620 ml Output Total 800 ml 600 ml Balance -520 ml 20 ml Intake Oral 280 ml 620 ml Output Urine Total 800 ml 600 ml # Bowel Movements 0 2 Result Diagram: 10/18/1762710/18/17627 Other Results Laboratory Tests Test 10/15/17 13:55 10/15/17 15:02 10/15/17 18:44 10/16/17 03:43 Activated Partial Thromboplast Time 44.6 SEC 36.6 SEC 36.4 SEC 53.0 SEC White Blood Count 20.1 TH/MM3 Red Blood Count 7.50 MIL/MM3 Hemoglobin 17.3 GM/DL Hematocrit 51.3 % Mean Corpuscular Volume 68.4 FL Mean Corpuscular Hemoglobin 23.0 PG Mean Corpuscular Hemoglobin Concent 33.6 % Red Cell Distribution Width 18.6 % Platelet Count 568 TH/MM3 Mean Platelet Volume 8.8 FL Neutrophils (%) (Auto) 85.5 % Lymphocytes (%) (Auto) 6.3 % Monocytes (%) (Auto) 5.5 % Eosinophils (%) (Auto) 1.9 % Basophils (%) (Auto) 0.8 % Neutrophils # (Auto) 17.2 TH/MM3 Lymphocytes # (Auto) 1.3 TH/MM3 Monocytes # (Auto) 1.1 TH/MM3 Eosinophils # (Auto) 0.4 TH/MM3 Basophils # (Auto) 0.2 TH/MM3 CBC Comment AUTO DIFF Differential Total Cells Counted 100 Neutrophils % (Manual) 80 % Band Neutrophils % 9 % Lymphocytes % 6 % Monocytes % 4 % Neutrophils # (Manual) 18.1 TH/MM3 Myelocytes 1 % Differential Comment FINAL DIFF MANUAL Atypical Lymphocytes % Toxic Vacuolation PRESENT Platelet Estimate HIGH Platelet Morphology Comment ENLARGED Crenated Cell 1+ Acanthocytes OCC Blood Urea Nitrogen 8 MG/DL Creatinine 0.60 MG/DL Random Glucose 105 MG/DL Total Protein 5.7 GM/DL Albumin 2.3 GM/DL Calcium Level 8.6 MG/DL Phosphorus Level 2.8 MG/DL Magnesium Level 1.9 MG/DL Alkaline Phosphatase 79 U/L Aspartate Amino Transf (AST/SGOT) 20 U/L Alanine Aminotransferase (ALT/SGPT) 9 U/L Total Bilirubin 0.7 MG/DL Sodium Level 135 MEQ/L Potassium Level 3.3 MEQ/L Chloride Level 99 MEQ/L Carbon Dioxide Level 26.5 MEQ/L Anion Gap 10 MEQ/L Estimat Glomerular Filtration Rate 97 ML/MIN Hemoglobin A1c 5.5 % Free Thyroxine 1.90 NG/DL Thyroid Stimulating Hormone 3rd Gen 1.180 uIU/ML Test 10/16/17 11:05 10/16/17 16:54 10/17/17 01:44 10/17/17 10:52 Activated Partial Thromboplast Time 38.6 SEC 37.8 SEC 60.5 SEC 29.4 SEC White Blood Count 17.4 TH/MM3 Red Blood Count 7.78 MIL/MM3 Hemoglobin 17.1 GM/DL Hematocrit 53.2 % Mean Corpuscular Volume 68.4 FL Mean Corpuscular Hemoglobin 21.9 PG Mean Corpuscular Hemoglobin Concent 32.1 % Red Cell Distribution Width 18.2 % Platelet Count 627 TH/MM3 Mean Platelet Volume 8.9 FL Neutrophils (%) (Auto) 82.3 % Lymphocytes (%) (Auto) 8.6 % Monocytes (%) (Auto) 5.3 % Eosinophils (%) (Auto) 3.0 % Basophils (%) (Auto) 0.8 % Neutrophils # (Auto) 14.3 TH/MM3 Lymphocytes # (Auto) 1.5 TH/MM3 Monocytes # (Auto) 0.9 TH/MM3 Eosinophils # (Auto) 0.5 TH/MM3 Basophils # (Auto) 0.1 TH/MM3 CBC Comment AUTO DIFF Differential Total Cells Counted 100 Neutrophils % (Manual) 70 % Band Neutrophils % 15 % Lymphocytes % 12 % Monocytes % 1 % Basophils % 1 % Neutrophils # (Manual) 15.0 TH/MM3 Metamyelocytes 1 % Differential Comment FINAL DIFF MANUAL Platelet Estimate HIGH Platelet Morphology Comment ENLARGED Blood Urea Nitrogen 12 MG/DL Creatinine 0.61 MG/DL Random Glucose 108 MG/DL Total Protein 5.5 GM/DL Albumin 2.2 GM/DL Calcium Level 8.5 MG/DL Phosphorus Level 3.4 MG/DL Magnesium Level 2.0 MG/DL Alkaline Phosphatase 71 U/L Aspartate Amino Transf (AST/SGOT) 14 U/L Alanine Aminotransferase (ALT/SGPT) 9 U/L Total Bilirubin 0.4 MG/DL Sodium Level 137 MEQ/L Potassium Level 3.3 MEQ/L Chloride Level 101 MEQ/L Carbon Dioxide Level 29.4 MEQ/L Anion Gap 7 MEQ/L Estimat Glomerular Filtration Rate 95 ML/MIN Test 10/17/17 16:20 10/18/17 06:28 Activated Partial Thromboplast Time 33.8 SEC 58.4 SEC White Blood Count 18.6 TH/MM3 Red Blood Count 7.96 MIL/MM3 Hemoglobin 17.6 GM/DL Hematocrit 55.0 % Mean Corpuscular Volume 69.1 FL Mean Corpuscular Hemoglobin 22.1 PG Mean Corpuscular Hemoglobin Concent 32.0 % Red Cell Distribution Width 18.2 % Platelet Count 788 TH/MM3 Mean Platelet Volume 9.2 FL Neutrophils (%) (Auto) 87.2 % Lymphocytes (%) (Auto) 5.7 % Monocytes (%) (Auto) 3.8 % Eosinophils (%) (Auto) 2.7 % Basophils (%) (Auto) 0.6 % Neutrophils # (Auto) 16.2 TH/MM3 Lymphocytes # (Auto) 1.1 TH/MM3 Monocytes # (Auto) 0.7 TH/MM3 Eosinophils # (Auto) 0.5 TH/MM3 Basophils # (Auto) 0.1 TH/MM3 CBC Comment AUTO DIFF Differential Total Cells Counted 100 Neutrophils % (Manual) 82 % Band Neutrophils % 13 % Lymphocytes % 1 % Monocytes % 2 % Basophils % 2 % Neutrophils # (Manual) 17.7 TH/MM3 Differential Comment FINAL DIFF MANUAL Platelet Estimate HIGH Platelet Morphology Comment NORMAL Ovalocytes 1+ Blood Urea Nitrogen 6 MG/DL Creatinine 0.59 MG/DL Random Glucose 94 MG/DL Total Protein 5.8 GM/DL Albumin 2.3 GM/DL Calcium Level 8.6 MG/DL Phosphorus Level 3.1 MG/DL Magnesium Level 2.0 MG/DL Alkaline Phosphatase 82 U/L Aspartate Amino Transf (AST/SGOT) 16 U/L Alanine Aminotransferase (ALT/SGPT) 10 U/L Total Bilirubin 0.4 MG/DL Sodium Level 136 MEQ/L Potassium Level 3.6 MEQ/L Chloride Level 101 MEQ/L Carbon Dioxide Level 26.4 MEQ/L Anion Gap 9 MEQ/L Estimat Glomerular Filtration Rate 99 ML/MIN Imaging Last Impressions Head CT 10/15/17 0000 Signed Impressions: Service Date/Time: Sunday, October 15, 2017 05:41 - CONCLUSION: 1. Bilateral suspected areas of encephalomalacia being more prominent on the right. 2. Suspected small vessel ischemic change throughout the white matter. 3. Atrophy. 4. Acute area of hemorrhage or mass effect is not seen. Anselmo Mcadams MD Chest X-Ray 10/15/17 0000 Signed Impressions: Service Date/Time: Sunday, October 15, 2017 02:34 - CONCLUSION: Increased density at the right base likely representing mild atelectasis or consolidation. Anselmo Mcadams MD Lower Extremity Ultrasound 10/14/17 0000 Signed Impressions: Service Date/Time: Saturday, October 14, 2017 20:48 - CONCLUSION: No DVT. Anselmo Mcadams MD Aorta w/Runoff CTA 10/14/17 0000 Signed Impressions: Service Date/Time: Saturday, October 14, 2017 17:47 - CONCLUSION: 1. 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 2. Atherosclerotic change in the external iliac and common femoral arteries bilaterally as described above. 3. Occlusion of the superficial femoral arteries bilaterally with reconstitution distally. The reconstitution is higher on the left side. 4. Normal trifurcation vessels seen on the left side. 5. Diminished flow seen at the right trifurcation vessels. The vessels can only be well seen on the delayed images. The vessels can not be traced into the foot. Anselmo Mcadams MD Objective Remarks GENERAL: Awake and alert very soft-spoken but somewhat confused appears stated age some confusion SKIN: Cool and dry. Decreased warmth in bilateral lower extremities HEAD: Atraumatic. Normocephalic. EYES: Pupils equal and round. No scleral icterus. No injection or drainage. ENT: No nasal bleeding or discharge. Mucous membranes pink and moist. Tongue is midline NECK: Trachea midline. No JVD. Supple CARDIOVASCULAR: Regular rate and rhythm. S1-S2 no S3 or S4 no heave or thrill or rub or gallop RESPIRATORY: No accessory muscle use. Clear to auscultation. Breath sounds equal bilaterally. GASTROINTESTINAL: Abdomen soft, non-tender, nondistended. Hepatic and splenic margins not palpable. MUSCULOSKELETAL: Extremities without clubbing or edema. No obvious deformities. Has some decreased peripheral pulses and some cyanosis in bilateral lower extremities NEUROLOGICAL: Awake and alert. No obvious cranial nerve deficits. Motor grossly within normal limits. 4 out of 5 muscle strength in the arms and legs. Normal speech. PSYCHIATRIC: INAppropriate mood and affect; insight and judgment ABnormal. Procedures TERESITA GONZALEZE Signed EXAM DATE/TIME: 10/14/2017 17:47 [facility] COMPARISON: No previous studies available for comparison. INDICATIONS : Right leg pain; evaluate for occlusion. IV CONTRAST: 100 cc Omnipaque 350 (iohexol) IV RADIATION DOSE: 2.3 CTDIvol (mGy) MEDICAL HISTORY : Cerebrovascular disease. SURGICAL HISTORY : Tubal ligation. ENCOUNTER: Initial ACUITY: 1 month PAIN SCALE: 7/10 LOCATION: Right lower leg TECHNIQUE: Volumetric scanning was performed using a multi-row detector CT scanner. The data was post processed with a variety of visualization algorithms including full volume maximum intensity projection, multi-planar sliding thin slab reformation, curved planar reformation, and surface rendering techniques. Using automated exposure control and adjustment of the mA and/or kV according to patient size, radiation dose was kept as low as reasonably achievable to obtain optimal diagnostic quality images. DICOM format image data is available electronically for review and comparison. FINDINGS: There are atherosclerotic changes seen throughout the arterial system. The abdominal aorta measures up to 2.9 cm. At the distal infrarenal abdominal aorta thrombus occupies more than half of the lumen. The functional lumen is seen at the left lateral aspect of the distal abdominal aorta. There is atherosclerotic change at the common iliac arteries bilaterally. A significant stenosis is not seen at this level is not seen. There does appear to be severe stenosis and possible occlusion at the origin of the right internal iliac artery. There is mild plaque seen at the right external iliac artery. There is a severe stenosis at the distal left external iliac artery. There is atherosclerotic change seen at the common femoral arteries bilaterally being more severe on the right. There is a severe stenosis at the right common femoral artery narrowing the lumen by approximately 80%. There is severe narrowing of the proximal right profunda femoris artery. There is abrupt occlusion of the proximal right superficial femoral artery. Flow in the thigh is continues through collaterals in the profunda femoris artery distribution. There is reconstitution of the distal popliteal artery at the level of the distal femur via collaterals. There is a normal trifurcation. The right anterior tibial artery can be traced to the ankle. The posterior tibial and peritoneal arteries can be seen to the distal lower leg but can not clearly be traced into the foot. Again noted is the mild stenosis at the left common femoral artery. There is occlusion of the proximal left superficial femoral artery. The popliteal artery is patent throughout. There is reconstitution of the distal superficial femoral artery at the level of the distal femoral shaft. The popliteal artery is patent. There is a severe stenosis at the mid popliteal artery. The lumen is narrowed by over 75%. The more distal popliteal artery is patent. The anterior and posterior tibial artery could be traced to the foot. The peritoneal artery can be traced to the ankle region. Atherosclerotic calcifications are seen throughout the origins of the vessels in the upper abdomen. There does appear to be at least a moderate stenosis at the origin of the right renal artery. The left renal artery appears patent. The celiac, SMA and JUN are patent. There is a mild hiatal hernia. The liver, spleen, pancreas and kidneys appear grossly normal. The adrenal glands are grossly normal. The pelvic structures appear intact. The patient does have a Pacheco catheter in the urinary bladder. There is degenerative change in the lumbar spine. CONCLUSION: 1. 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 2. Atherosclerotic change in the external iliac and common femoral arteries bilaterally as described above. 3. Occlusion of the superficial femoral arteries bilaterally with reconstitution distally. The reconstitution is higher on the left side. 4. Normal trifurcation vessels seen on the left side. 5. Diminished flow seen at the right trifurcation vessels. The vessels can only be well seen on the delayed images. The vessels can not be traced into the foot. Anselmo Mcadams MD on October 14, 2017 at 19:28 Board Certified Radiologist. This report was verified electronically. Medications and IVs Current Medications Sodium Chloride 1,000 ml @ 1,000 mls/hr Q1H ONCE IV Last administered on 10/14 13:04; Start 10/14/17 at 11:57; Stop 10/14/17 at 12:56; Status DC Sodium Chloride 800 ml @ 1,000 mls/hr Q48M ONCE IV Last administered on 13:04; Start 10/14/17 at 11:57; Stop 10/14/17 at 12:44; Status DC Piperacillin Sod/ Tazobactam Sod 100 ml @ 200 mls/hr ONCE STAT IV Last administered on 10/14/17 13:11; Start 10/14/17 at 12:52; Stop 10/14/17 at 13 :21; Status DC Vancomycin HCl 1000 mg/Sodium Chloride 250 ml @ 250 mls/hr ONCE ONCE IV Last administered on 10/14/17 14:07; Start 10/14/17 at 13:15; Stop 10/14/17 at 14 :14; Status DC Ceftriaxone Sodium 1000 mg/ Sodium Chloride 100 ml @ 200 mls/hr Q24H IV Last administered on 10/17/17 15:40; Start 10/14/17 at 16:00 Sodium Chloride 1,000 ml @ 100 mls/hr Q10H IV Last administered on 10/14/17 16:00; Start 10/14/17 at 16:00; Stop 10/15/17 at 03:41; Status DC Sodium Chloride (NS Flush) 2 ml UNSCH PRN IV FLUSH FLUSH AFTER USING IV ACCESS ; Start 10/14/17 at 16:00 Sodium Chloride (NS Flush) 2 ml BID IV FLUSH Last administered on 10/17/17 22 :37; Start 10/14/17 at 21:00 Acetaminophen (Tylenol) 650 mg Q4H PRN PO TEMP > 100.4; Start 10/14/17 at 16: 00 Ondansetron HCl (Zofran Inj) 4 mg Q6H PRN IVP NAUSEA OR VOMITING; Start at 16:00 Temazepam (Restoril) 15 mg HS PRN PO INSOMNIA; Start 10/14/17 at 16:00 Enoxaparin Sodium (Lovenox Inj) 40 mg Q24H SQ Last administered on 10/14/17 18:47; Start 10/14/17 at 17:00; Stop 10/15/17 at 12:27; Status DC Naloxone HCl (Narcan Inj) 0.4 mg UNSCH PRN IV PUSH SEE LABEL COMMENTS; Start 10/14/17 at 16:00 Senna/Docusate Sodium (Rosalie-Colace) 1 tab BID PO Last administered on 22:36; Start 10/14/17 at 21:00 Magnesium Hydroxide (Milk Of Magnesia Liq) 30 ml Q12H PRN PO Mild constipation ; Start 10/14/17 at 16:00 Sennosides (Senokot) 17.2 mg Q12H PRN PO Moderate constipation; Start at 16:00 Bisacodyl (Dulcolax Supp) 10 mg DAILY PRN RECTAL SEVERE CONSITIPATION; Start 10/14/17 at 16:00 Lactulose (Lactulose Liq) 30 ml DAILY PRN PO SEVERE CONSITIPATION; Start 10/14 at 16:00 Iohexol (Omnipaque 350 Inj) 100 ml STK-MED ONCE IVCONTRAST Last administered on 10/14/17 18:02; Start 10/14/17 at 18:02; Stop 10/14/17 at 18:07; Status DC Clonidine (Catapres) 0.1 mg ONCE ONCE PO Last administered on 10/14/17 22:05 ; Start 10/14/17 at 21:15; Stop 10/14/17 at 21:26; Status DC Furosemide (Lasix Inj) 40 mg ONCE ONCE IV PUSH Last administered on 04:03; Start 10/15/17 at 03:45; Stop 10/15/17 at 03:47; Status DC Albuterol/ Ipratropium (Duoneb Neb) 1 ampule Q4HR NEB PRN NEB SOB/WHEEZING; Start 10/15/17 at 04:00 Heparin Sodium/ Dextrose 250 ml @ 10 mls/hr TITRATE PRN IV Coagulation Management Last administered on 10/18/17 10:33; Start 10/15/17 at 06:30 Clopidogrel Bisulfate (Plavix) 75 mg DAILY PO Last administered on 10/18/17 08:40; Start 10/15/17 at 12:00 Enoxaparin Sodium (Lovenox Inj) 40 mg Q24H SQ ; Start 10/15/17 at 17:00; Stop 10/15/17 at 17:00; Status DC Lactated Ringer's 1,000 ml @ 30 mls/hr Q24H PRN IV SEE LABEL COMMENTS; Start 10/17/17 at 12:15; Stop 10/17/17 at 12:57; Status DC Sodium Chloride 500 ml @ 30 mls/hr [id number] PRN IV SEE LABEL COMMENTS; Start at 12:15; Stop 10/17/17 at 14:23; Status DC Metoprolol Tartrate (Lopressor) 25 mg VALANCE CUTTER PRN PO SEE LABEL COMMENTS; Start 10/17/17 at 12:15; Stop 10/20/17 at 12:14 Povidone Iodine (Betadine 5% Antisepsis Kit) 1 applic VALANCE CUTTER PRN EACH NARE SEE LABEL COMMENTS; Start 10/17/17 at 12:15; Stop 10/20/17 at 12:14 Chlorhexidine Gluconate (Chlorhexidine 2% Cloth) 3 pack VALANCE CUTTER PRN TOPICAL SEE LABEL COMMENTS; Start 10/17/17 at 12:15; Stop 10/20/17 at 12:14 Heparin Sodium (Porcine) (Heparin Inj) 10,000 units STK-MED ONCE .ROUTE ; Start 10/17/17 at 12:15; Stop 10/17/17 at 12:16; Status DC Heparin Sodium (Porcine) (Heparin Inj) 10,000 units STK-MED ONCE .ROUTE ; Start 10/17/17 at 12:15; Stop 10/17/17 at 12:16; Status DC Protamine Sulfate (Protamine Sulfate Inj) 50 mg STK-MED ONCE .ROUTE ; Start at 12:15; Stop 10/17/17 at 12:16; Status DC Lactated Ringer's 1,000 ml @ 80 mls/hr [id number] IV ; Start 10/17/17 at 13:00 Potassium Chloride (KCl) 40 meq ONCE ONCE PO Last administered on 10/17/17t 15:39; Start 10/17/17 at 15:00; Stop 10/17/17 at 15:01; Status DC Regadenoson (Lexiscan Inj) 0.4 mg STK-MED ONCE .ROUTE Last administered on t 11:34; Start 10/18/17 at 11:34; Stop 10/18/17 at 11:35; Status DC A/P Assessment and Plan Bilateral LE discoloration and unable to feel DP pulses. Patient with pain and cold extremities. Will do CTA Ao run off and will consult vascular surgery discussed with Dr. YOO WILL NEED SURGERY will need a femoropopliteal bypass Started on antibiotic Rocephin IV . Received vanco and zosyn in the ED. Received bolus of NS in the eD. Continue IVF. Monitor VS closely. Urine cultures shows Escherichia coli UTI sensitive to Rocephin which she is on Initial EKG shows sinus tachycardia with occasional PVCs. Rate is 111, this was reviewed Chest x-ray shows no acute disease Restart home meds as appropriate patient says she currently doesn't take any meds. Repeat labs cbc, CMP tomorrow Consult PT for eval CONSULT OT Consult case management for DC plan DVT ppx lovenox History of cerebrovascular accident with with sounds like probable chronic confusion Gait instability possibly secondary to cerebrovascular accident versus peripheral vascular occlusive disease HAD ABNORMAL EKG- CARDIOLOGY WAS CONSULTED- SURGERY PLACED ON HOLD DW RN AND PT AND CASE MANAGEMENT WILL NEED CARDIAC CLEARANCE BEFORE SURGERY--adding stress test today OCTOBER 18 Deconditioning Will need SNF and PT and OT Discharge Planning WILL NEED SNF AT DC Kuldeep Lyn DO Oct 18, 2017 12:17
--- NOTE | 2017-10-18 13:34 | RADRPT ---
EXAM DATE/TIME: 10/18/2017 11:26 [facility] COMPARISON: No previous studies available for comparison. INDICATIONS : General weakness and failure to thrive for one week. Abnormal EKG. DOSE: 25.3 mCi Tc99m Myoview at stress. 8.5 mCi Tc99m Myoview at rest. 0.4 mg Lexiscan STRESS SYMPTOMS: Shortness of breath. EJECTION FRACTION: 38% MEDICAL HISTORY : Hypertension. Stroke SURGICAL HISTORY : Tonsillectomy. Tubal ligation. ENCOUNTER: Initial ACUITY: 1 day PAIN SCALE: 0/10 LOCATION: chest TECHNIQUE: The patient underwent pharmacologic stress with infusion of prescribed dose. Continuous ECG tracing was monitored during stress. Gated SPECT imaging was performed after stress and conventional SPECT i maging was performed at rest. The examination was performed on a SPECT/CT scanner, both attenuation and non-corrected datasets were reviewed. FINDINGS: DISTRIBUTION: The maximum perfused segment at stress is in the <anterolateral> wall. PERFUSION STUDY: There is marked decreased perfusion in the lateral wall and the posterior wall. No evidence of ischem ia or redistribution. GATED STUDY: Global hypokinesis with some mild dyskinesia of the apex.. CONCLUSION: Suspected infarcts of the right coronary and circumflex global decreased perfusion fixed at rest. No obvious ischemia. RISK CATEGORY: Intermediate (1-3% Annual Mortality Rate) Jose Luis Ray MD on October 18, 2017 at 13:30 Board Certified Radiologist. This report was verified electronically.
[2017-10-18 16:00] VITALS: BP 159/67; PULSE 87; RESP 16; TEMP 98.5; O2SAT 91
[2017-10-18] MEDS: cefTRIAXone INJ 1,000 MG in SODIUM CHLORIDE 0.9% INJ 100 ML IV SCH (16:03)
--- NOTE | 2017-10-18 17:14 | PD.CAR.PN ---
CVT Progress Note Subjective/Hospital Course: Referral received Full consult to follow Severe for peripheral vascular disease will require reconstruction Sol Abdullahi 10/16/17 As noted in my consultation this patient has bilateral severe peripheral vascular disease On top of that she is being treated for urosepsis and general decline Patient has not been in the hospital for 3 days and has gradually improved for her urosepsis based on clinical exam level of alertness and diagnostic studies Despite heparin drip the right leg is looking worse and worse and patient now has ischemia that needs attention in the resolution In the best of worlds I would like to wait another while to do the surgery considering patient's other issues but that this point if surgery is not performed patient is a very high risk of losing her leg I have reviewed patient's echocardiogram and studies and she is at this point moderate risk for vascular surgery but I believe options a limited and we have to go ahead with it. Therefore patient will be scheduled for common femoral endarterectomy and femoropopliteal bypass tomorrow I explained the risks and benefits of the procedure and all patient is very quiet she is clearly awake and alert and understands the discussion Have tried to reach her daughter however number is apparently disconnected 09/2017 Patient originally scheduled for surgery today however EKG reveals some anterior ischemia in addition to inferior ischemia that was noted on previous EKG In discussion with the anesthesiologist the decision is made to postpone the surgery until patient can be worked up cardiac saavedra in more detail so we get a better picture on cardiac risk and possible remedy Right leg and foot are ischemic and the cyanotic however while this surgery is urgent it is not an emergent and cardiac issues trump any other issue right now We'll consult cardiology for full evaluation possible stress test Restart heparin All things equal once cardiac workup completed we'll proceed with vascular bypass and reconstruction on the right leg 10/18/17 Right leg and foot remain ischemic and cyanotic Discussed with Dr. Canales This patient will lose her leg if for no surgery is done in next few days. On the other hand patient has significant coronary artery disease and major other comorbidities and hence the high risk Dr. Canales we'll proceed with cardiac catheterization through the left leg and based on that will decide which way to go There is of course a good chance the patient will be candidate for any surgery and that his then the rendering but we should make every effort to make patient at least be able to sustain a limb saving operation. On the other hand limb saving operation has not much value if patient loses her life in the process and therefore every effort should be made to get patient in shape good enough to tolerate surgery Objective: Vital Signs Date Time Temp Pulse Resp B/P (MAP) Pulse Ox O2 Delivery O2 Flow Rate FiO2 10/18/17 16:00 98.5 87 16 159/67 (97) 91 10/18/17 08:00 98.4 84 15 149/76 (100) 90 10/18/17 04:35 97.8 82 18 152/85 (107) 96 10/18/17 01:13 97.6 84 16 152/89 (110) 95 10/17/17 20:09 98.1 88 16 146/75 (98) 95 Labs: Laboratory Tests Test 10/18/17 06:28 10/18/17 14:23 White Blood Count 18.6 TH/MM3 (4.0-11.0) Red Blood Count 7.96 MIL/MM3 (4.00-5.30) Hemoglobin 17.6 GM/DL (11.6-15.3) Hematocrit 55.0 % (35.0-46.0) Mean Corpuscular Volume 69.1 FL (80.0-100.0) Mean Corpuscular Hemoglobin 22.1 PG (27.0-34.0) Mean Corpuscular Hemoglobin Concent 32.0 % (32.0-36.0) Red Cell Distribution Width 18.2 % (11.6-17.2) Platelet Count 788 TH/MM3 (150-450) Mean Platelet Volume 9.2 FL (7.0-11.0) Neutrophils (%) (Auto) 87.2 % (16.0-70.0) Lymphocytes (%) (Auto) 5.7 % (9.0-44.0) Monocytes (%) (Auto) 3.8 % (0.0-8.0) Eosinophils (%) (Auto) 2.7 % (0.0-4.0) Basophils (%) (Auto) 0.6 % (0.0-2.0) Neutrophils # (Auto) 16.2 TH/MM3 (1.8-7.7) Lymphocytes # (Auto) 1.1 TH/MM3 (1.0-4.8) Monocytes # (Auto) 0.7 TH/MM3 (0-0.9) Eosinophils # (Auto) 0.5 TH/MM3 (0-0.4) Basophils # (Auto) 0.1 TH/MM3 (0-0.2) CBC Comment AUTO DIFF Differential Total Cells Counted 100 Neutrophils % (Manual) 82 % (16-70) Band Neutrophils % 13 % (0-6) Lymphocytes % 1 % (9-44) Monocytes % 2 % (0-8) Basophils % 2 % (0-2) Neutrophils # (Manual) 17.7 TH/MM3 (1.8-7.7) Differential Comment FINAL DIFF MANUAL Platelet Estimate HIGH (NORMAL) Platelet Morphology Comment NORMAL (NORMAL) Ovalocytes 1+ (NORMAL) Activated Partial Thromboplast Time 58.4 SEC (24.3-30.1) 58.2 SEC (24.3-30.1) Blood Urea Nitrogen 6 MG/DL (7-18) Creatinine 0.59 MG/DL (0.50-1.00) Random Glucose 94 MG/DL (74-106) Total Protein 5.8 GM/DL (6.4-8.2) Albumin 2.3 GM/DL (3.4-5.0) Calcium Level 8.6 MG/DL (8.5-10.1) Phosphorus Level 3.1 MG/DL (2.5-4.9) Magnesium Level 2.0 MG/DL (1.5-2.5) Alkaline Phosphatase 82 U/L (45-117) Aspartate Amino Transf (AST/SGOT) 16 U/L (15-37) Alanine Aminotransferase (ALT/SGPT) 10 U/L (10-53) Total Bilirubin 0.4 MG/DL (0.2-1.0) Sodium Level 136 MEQ/L (136-145) Potassium Level 3.6 MEQ/L (3.5-5.1) Chloride Level 101 MEQ/L (98-107) Carbon Dioxide Level 26.4 MEQ/L (21.0-32.0) Anion Gap 9 MEQ/L (5-15) Estimat Glomerular Filtration Rate 99 ML/MIN (>89) Result Diagram: 10/18/1728 10/18/17 [id number] Walter Fernandes MD Oct 18, 2017 17:14
--- NOTE | 2017-10-18 17:33 | HHI.HCPN ---
Briefly spoke with rn case mgr regarding search for family. Number attempted earlier in week for daughter (Yajaira Jung) #[phone]. No return call and no contact made with multiple attempts. Psych consulted by attending MD to evaluate for Ms. Escobar's capacity to make her own medical decisions. Palliative care awaiting accurint results. Palliative care will continue to follow throughout hospitalization and address goals of care when medical decision maker is identified. Little Delcid, CELERY TIER Oct 18, 2017 17:33
--- NOTE | 2017-10-18 18:59 | PD.CARD.PN ---
Subjective Subjective Remarks No CP or SOB Objective Medications Current Medications Medications (Trade) Dose Ordered Sig/Sina Route Start Time Stop Time Status Last Admin Ceftriaxone Sodium 1000 mg/ Sodium Chloride 100 ml @ 200 mls/hr Q24H IV 10/14/17 16:00 10/18/17 16:03 (NS Flush) 2 ml UNSCH PRN IV FLUSH 10/14/17 16:00 (NS Flush) 2 ml BID IV FLUSH 10/14/17 21:00 10/17/17 22:37 (Tylenol) 650 mg Q4H PRN PO 10/14/17 16:00 (Zofran Inj) 4 mg Q6H PRN IVP 10/14/17 16:00 (Restoril) 15 mg HS PRN PO 10/14/17 16:00 (Narcan Inj) 0.4 mg UNSCH PRN IV PUSH 10/14/17 16:00 (Rosalie-Colace) 1 tab BID PO 10/14/17 21:00 10/17/17 22:36 (Milk Of Magnesia Liq) 30 ml Q12H PRN PO 10/14/17 16:00 (Senokot) 17.2 mg Q12H PRN PO 10/14/17 16:00 (Dulcolax Supp) 10 mg DAILY PRN RECTAL 10/14/17 16:00 (Lactulose Liq) 30 ml DAILY PRN PO 10/14/17 16:00 (Duoneb Neb) 1 ampule Q4HR NEB PRN NEB 10/15/17 04:00 Heparin Sodium/ Dextrose 250 ml @ 10 mls/hr TITRATE PRN IV 10/15/17 06:30 10/18/17 10:33 (Plavix) 75 mg DAILY PO 10/15/17 12:00 10/18/17 08:40 (Lopressor) 25 mg DEPARTMENT CLINICIAN PRN PO 10/17/17 12:15 10/20/17 12:14 (Betadine 5% Antisepsis Kit) 1 applic DEPARTMENT CLINICIAN PRN EACH NARE 10/17/17 12:15 10/20/17 12:14 (Chlorhexidine 2% Cloth) 3 pack DEPARTMENT CLINICIAN PRN TOPICAL 10/17/17 12:15 10/20/17 12:14 Lactated Ringer's 1,000 ml @ 80 mls/hr [id number] IV 10/17/17 13:00 Vital Signs / I&O Vital Signs Date Time Temp Pulse Resp B/P (MAP) Pulse Ox O2 Delivery O2 Flow Rate FiO2 10/18/17 16:00 98.5 87 16 159/67 (97) 91 10/18/17 08:00 98.4 84 15 149/76 (100) 90 10/18/17 04:35 97.8 82 18 152/85 (107) 96 10/18/17 01:13 97.6 84 16 152/89 (110) 95 10/17/17 20:09 98.1 88 16 146/75 (98) 95 I/O 10/17/17 10/17/17 10/17/17 10/18/17 10/18/17 10/18/17 07:00 15:00 23:00 07:00 15:00 23:00 Intake Total 280 ml 620 ml 480 ml Output Total 800 ml 600 ml 1375 ml Balance -520 ml 20 ml -895 ml Intake Oral 280 ml 620 ml 480 ml Output Urine Total 800 ml 600 ml 1375 ml # Bowel Movements 0 2 1 Physical Exam GENERAL: In NAD SKIN: Warm and dry. HEAD: Normocephalic. EYES: No scleral icterus. No injection or drainage. NECK: Supple, trachea midline. No JVD or lymphadenopathy. CARDIOVASCULAR: Regular rate and rhythm without murmurs, gallops, or rubs. RESPIRATORY: Breath sounds equal bilaterally. No accessory muscle use. GASTROINTESTINAL: Abdomen soft, non-tender, nondistended. MUSCULOSKELETAL: No cyanosis, or edema. Laboratory Laboratory Tests Test 10/18/17 06:28 10/18/17 14:23 White Blood Count 18.6 TH/MM3 Red Blood Count 7.96 MIL/MM3 Hemoglobin 17.6 GM/DL Hematocrit 55.0 % Mean Corpuscular Volume 69.1 FL Mean Corpuscular Hemoglobin 22.1 PG Mean Corpuscular Hemoglobin Concent 32.0 % Red Cell Distribution Width 18.2 % Platelet Count 788 TH/MM3 Mean Platelet Volume 9.2 FL Neutrophils (%) (Auto) 87.2 % Lymphocytes (%) (Auto) 5.7 % Monocytes (%) (Auto) 3.8 % Eosinophils (%) (Auto) 2.7 % Basophils (%) (Auto) 0.6 % Neutrophils # (Auto) 16.2 TH/MM3 Lymphocytes # (Auto) 1.1 TH/MM3 Monocytes # (Auto) 0.7 TH/MM3 Eosinophils # (Auto) 0.5 TH/MM3 Basophils # (Auto) 0.1 TH/MM3 CBC Comment AUTO DIFF Differential Total Cells Counted 100 Neutrophils % (Manual) 82 % Band Neutrophils % 13 % Lymphocytes % 1 % Monocytes % 2 % Basophils % 2 % Neutrophils # (Manual) 17.7 TH/MM3 Differential Comment FINAL DIFF MANUAL Platelet Estimate HIGH Platelet Morphology Comment NORMAL Ovalocytes 1+ Activated Partial Thromboplast Time 58.4 SEC 58.2 SEC Blood Urea Nitrogen 6 MG/DL Creatinine 0.59 MG/DL Random Glucose 94 MG/DL Total Protein 5.8 GM/DL Albumin 2.3 GM/DL Calcium Level 8.6 MG/DL Phosphorus Level 3.1 MG/DL Magnesium Level 2.0 MG/DL Alkaline Phosphatase 82 U/L Aspartate Amino Transf (AST/SGOT) 16 U/L Alanine Aminotransferase (ALT/SGPT) 10 U/L Total Bilirubin 0.4 MG/DL Sodium Level 136 MEQ/L Potassium Level 3.6 MEQ/L Chloride Level 101 MEQ/L Carbon Dioxide Level 26.4 MEQ/L Anion Gap 9 MEQ/L Estimat Glomerular Filtration Rate 99 ML/MIN Imaging Last 24 hours Impressions Myocardial Perfusion Scan Nuc Med 10/18/17 0000 Signed Impressions: Service Date/Time: September 11:26 - CONCLUSION: Suspected infarcts of the right coronary and circumflex global decreased perfusion fixed at rest. No obvious ischemia. RISK CATEGORY: Intermediate (1-3%% Annual Mortality Rate) Jose Luis Ray MD Assessment and Plan Problem List: (1) Peripheral vascular disease ICD Codes: I73.9 - Peripheral vascular disease, unspecified Status: Acute (2) CAD (coronary artery disease) ICD Codes: I25.10 - Atherosclerotic heart disease of [place] coronary artery without angina pectoris (3) Cardiomyopathy ICD Codes: I42.9 - Cardiomyopathy, unspecified Assessment and Plan Nuc ST with lateral and inferior perfusion defects with at least some reversibility. Proceed with cath and PCI if necessary tomorrow. This was discussed with the patient, she wishes to proceed. Rodríguez Garza MD Oct 18, 2017 18:59
[2017-10-18 20:00] VITALS: BP 142/75; PULSE 90; RESP 18; TEMP 97.3; O2SAT 92
[2017-10-19 01:00] VITALS: BP 140/74; PULSE 84; RESP 18; TEMP 98.9; O2SAT 94
[2017-10-19] MEDS ORDERED: LACTATED RINGER'S 1000 ML IV PRN (02:00)
[2017-10-19] MEDS ORDERED: POVIDONE IODINE 5% (ANTISEPSIS KIT) 4 APPLICATIONS EACH NARE PRN (02:00)
[2017-10-19] MEDS ORDERED: SODIUM CHLORID 0.9% 500 ML IV PRN (02:00)
[2017-10-19] MEDS ORDERED: CHLORHEXIDINE GLUCONATE 2 % 1 PACK (2 CLOTHS) TOPICAL PRN (02:00)
[2017-10-19 04:00] VITALS: BP 138/77; PULSE 85; RESP 18; TEMP 96.2; O2SAT 92
[2017-10-19] MEDS: HEPARIN-D5W 25,000 U/250 ML 250 ML IV PRN ×2 (06:19→18:00)
[2017-10-19 08:00] VITALS: BP 147/74; PULSE 72; RESP 19; TEMP 96.8; O2SAT 90
[2017-10-19] MEDS: SODIUM CHLORIDE 0.9% FLUSH 10 ML FLUSH IV FLUSH SCH ×2 (08:30→21:23)
[2017-10-19] MEDS: DOCUSATE SODIUM 50 MG/SENNA 8.6 MG TAB PO SCH ×2 (08:34→21:23)
[2017-10-19] MEDS: CLOPIDOGREL 75 MG TAB PO SCH ×2 (08:35→17:15)
[2017-10-19] MEDS ORDERED: HEPARIN-NS/PF INJ 1,000 ML ONE (09:34)
[2017-10-19] MEDS ORDERED: MIDAZOLAM HCL 2 MG/2 ML VIAL ONE (09:40)
--- NOTE | 2017-10-19 10:41 | CATHPROC ---
[employer] HIS Report Study Information Study Number Admission Scheduled Start Study Start [id number] Oct 14 2017 2:44PM 10/19/2017 Oct 19 2017 8:48AM [facility] Cardiac Catheterization Admit Source Facility Department Other [facility] - Branch Associate Physician and Clinical Staff Initial Rodríguez Salazar Key Ringer Paloma Gómez,SACHIN Other cathlab, cathlab Recorder Efraín Dodge RCIS(BS) Scrub Andres, Deborah,AUTOMATIC FOLDER SEAMER TECH2 Procedures Performed Procedure Location (Site) Vessel Name Angiogram LV LV Ventricle Coronary Angiograms LCA Left Coronary Coronary Angiograms RCA Right Coronary L Heart Cath Equipment Time Industrial Garage Servicer Description Size Mfg Part Number Used/Scraped TRANSDUCER, TRUWAVE [id number] 08:50 POWERS ALATORRE * Used W/STOCKCOCK *[id number] *[id number] [id number] *[id number] 08:50 [employer] INDUSTRIES PACK, CCL CUSTOM * Used *[id number] 08:50 [employer] PACER PEN, SKIN DUAL W/ RULER * Used *[id number] 09:40 MEDTRONIC JL 4.0 DXTERITY CATHETER FR 5 Used *[id number] 08:50 Array Bridge WIRE, 3MMJ .035 180CM 180CM Used *[id number] PROBE COVER, STERILE [id number] 08:50 [place] * Used ULTRASOUND W/ GEL *[id number] 08:50 NAMIC MANIFOLD, 4 PORT * Used *[id number] 08:50 NAMIC TUBING, HIGH PRESSURE 48" 48" Used *[id number] 08:50 NYCOMED OMNIPAQUE, 350 MG, 150ML 150ML [id number] Used 10:10 NYCOMED OMNIPAQUE, 350 MG, 150ML 150ML [id number] Used [id number] 08:50 QUIÑONEZ MEDICAL BLANKET,WARM AIR CCL * Used *[id number] 08:50 TERUMO MEDICAL SHEATH, FR5 TERUMO (10CM) FR 5 Used *[id number] 10:07 TERUMO MEDICAL SHEATH, FR5 TERUMO (25CM) FR 5 Used *[id number] History: Risk Factors Family History of Hypertension Dyslipidemia Previous [place] Previous Heart Failure Premature CAD Yes Yes No No No Prior Valve Prior PCI Prior CABG Surgery No No No Cerebrovascular Peripheral Artery Chronic Lung On Dialysis Diabetes Disease Disease Disease No No No No No History: Stress Tests Stress or Imaging Studies Performed Yes Standard Exercise Stress Test No Stress Echo No Stress Test SPECT Stress Test SPECT Result Stress Test SPECT Ischemia Risk/Extent Yes Positive High Stress Test CMR No Cardiac CTA Coronary Calcium Score No No Labs Hgb (g/dl) Hct (%) WBC (l/cumm) 11.60-17.00 35.00-51.00 4.00-11.00 19.3 56.4 26.4 Glucose (mg/dl) BUN (mg/dl) Creatinine (mg/dl) BUN:Creatinine (1:x) 74.00-106.00 7.00-18.00 0.50-1.30 10.00-20.00 104 6 0.6 10 Na (meq/l) K (meq/l) 136.00-145.00 3.50-5.10 136 3.6 INR (PTT:PT) 0.90-1.10 1.5 CPK-MB (ng/ML) 0.50-3.60 Not Drawn Medication Medication Total Dose (Bolus/Oral) Medication Total Dosage/Unit 1% XYLOCAINE 20 mL FENTANYL 100 mcg VERSED 2 mg Medications (Bolus/Oral) Medication Time Given Dosage/Unit Administered By Reason VERSED 10/19/2017 9:45:02 AM 0.5 mg Hesher, Paloma 0.5 mg VERSED given in lab by Paloma Gómez RN in Left Wrist via Peripheral IV. Ordered by Rodríguez Garza. FENTANYL 10/19/2017 9:46:02 AM 25 mcg Hesher, Paloma 25 mcg FENTANYL given in lab by Paloma Gómez RN in Left Wrist via Peripheral IV. Ordered by Rodríguez Dai. VERSED 10/19/2017 9:57:20 AM 0.5 mg Hesher, Paloma 0.5 mg VERSED given in lab by Paloma Gómez RN in Left Wrist via Peripheral IV. Ordered by Rodríguez Garza. FENTANYL 10/19/2017 9:58:02 AM 25 mcg Hesher, Paloma 25 mcg FENTANYL given in lab by Paloma Gómez RN in Left Wrist via Peripheral IV. Ordered by Rodríguez Dai. 10/19/2017 10:01:02 VERSED 0.5 mg Hesher, Paloma AM 0.5 mg VERSED given in lab by Paloma Gómez RN in Left Wrist via Peripheral IV. Ordered by Rodríguez Garza. 10/19/2017 10:02:02 FENTANYL 25 mcg Wicho Gómezon AM 25 mcg FENTANYL given in lab by Paloma Gómez RN in Left Wrist via Peripheral IV. Ordered by Rodríguez Dai. 10/19/2017 10:04:53 1% XYLOCAINE 20 mL Rodríguez Garza AM 20 mL 1% XYLOCAINE given in lab by Rodríguez Garza in Left Groin via Subcutaneous. Ordered by Rodríguez Garza. 10/19/2017 10:09:00 VERSED 0.5 mg Paloma Gómez AM 0.5 mg VERSED given in lab by Paloma Gómez RN in Left Wrist via Peripheral IV. Ordered by Rodríguez Garza. 10/19/2017 10:16:03 FENTANYL 25 mcg Paloma Gómez AM 25 mcg FENTANYL given in lab by Paloma Gómez RN in Left Wrist via Peripheral IV. Ordered by Rodríguez Dai. Medication (Drip) Medication Time Given Dosage/Unit Concentration/Unit Diluent (ml) Solution IV Solutions 10/19/2017 9:29:54 AM 0 mL (IV) 500 NaCl .9 Patient arrived on IV Solutions given by lennie hogue in Left Wrist via Peripheral IV. Pump/Drip Flow = 20 ml/hr using NaCl .9. Ordered by Rodríguez Garza. Initial Case Assessment Cardiovascular HR Rhythm NIBP Chest Pain 93 nsr 157/97 0 Edema Present Skin color Skin None Normal Warm Dry Circulatory - Right Pulses Dorsalis Pedis Femoral d 2 Scale (0,1,2,3,4,d) Circulatory - Left Pulses Dorsalis Pedis Femoral 2 2 Scale (0,1,2,3,4,d) Neurological State Oriented to time-place- Alert Moves all extremities person Respiration - General Respiration Rate SpO2 (%) O2 (lpm) (B/min) 15 95 2 Final Case Assessment Cardiovascular HR Rhythm NIBP Chest Pain 92 nsr 163/93 0 Edema Present Skin color Skin None Normal Warm Dry Circulatory - Right Pulses Dorsalis Pedis Femoral d 2 Scale (0,1,2,3,4,d) Circulatory - Left Pulses Dorsalis Pedis Femoral 0 2 Scale (0,1,2,3,4,d) Neurological State Oriented to time-place- Alert Moves all extremities person Respiration - General Respiration Rate SpO2 (%) O2 (lpm) (B/min) 15 95 2 Chronological Log Time Study Chronological Log 9:29:35 Patient arrived via Bed. Heparin drip DCed per MD upon excelsior picker 9:29:36 Patient Name, D.O.B, / Armband Verified By R.N. 9:29:36 Consent signed by the physician and the patient and verified by the Branch Associate staff. 9:29:37 Pre-op and post- op instructions given; patient acknowledges understanding of instructions. 9:29:37 Verbal Stimulation=2 Physical Stimulation=2 Airway=2 Respiration=2 TOTAL=8. (0=absent, 1=li mited, 2=present) 9:29:39 Presedation assessment performed by Branch Associate RN. 9:29:39 Immediate Presedation assesment performed by physician. 9:29:40 Patient has been NPO for More than 6Hrs. 9:29:41 Skin Breakdown- none per patient 9::42 Disposable Defibrillator Pads Placed On Patient. 9:29:43 Niels Prominences Protected 9:29:53 A # 20 IV was noted in the Wrist (left). Grade = 0 Patient arrived on IV Solutions given by cathlablennie in Left Wrist via Peripheral IV. Pump /Drip Flow = 20 ml/hr 9:29:54 using NaCl .9. Ordered by Rodríguez Garza. 9:29:55 History and physical on the chart or being dictated. 9:36:25 Reference ECG taken Vitals capture started with the following parameters, Patient=Adult, Interval=5 min, Initial Pr xaivuj=349 mmHg, 9:36:26 Deflation Rate=5 mmHg, Cuff placed on Left Arm Assessment: Initial Case, HR=93 BPM, Rhythm=nsr, CRXW=018/97 mmhg, Chest Pain=0, Edema=None, [place]=Normal, Skin = Warm, Dry Right Pulses: Demarcus Ped=d, Femoral=2 9:36:27 Left Pulses: Demarcus Ped=2, Femoral=2 Neurological: State=Alert, Ox3, LANDA Respiration: Resp=15 B/min, SpO2=95 %, O2=2 lpm 9:37:27 HR=88 bpm, EMMM=622/97 mmhg, SpO2=95.0 %, Resp=14 B/min, Pain=0, Donaldo=10, Mcintyre=2 9:40:43 Left groin prepped with 2% chlorhexidine, and draped after a 3 min. waiting time. 9:42:01 HR=84 bpm, LUXR=645/90 mmhg, SpO2=97.0 %, Resp=18 B/min, Pain=0, Donaldo=10, Mcintyre=2 9:45:01 MD paged 9:45:02 0.5 mg VERSED given in lab by Paloma Gómez, SACHIN in Left Wrist via Peripheral IV. Ordered by Rodríguez Garza. 9:46:02 25 mcg FENTANYL given in lab by Paloma Gómez RN in Left Wrist via Peripheral IV. Ordered by Rodríguez Garza. 9:47:02 HR=84 bpm, UOJT=608/91 mmhg, SpO2=98.0 %, Resp=16 B/min, Pain=0, Donaldo=10, Mcintyre=2 9:47:10 Pressure channel 1 zeroed. 9:52:01 HR=82 bpm, JYGD=063/92 mmhg, SpO2=98.0 %, Resp=14 B/min, Pain=0, Donaldo=10, Mcintyre=2 9:56:40 MD arrived. 9:56:43 Contrast Scanned 9:56:43 Immediate Presedation assesment performed by physician. 9:57:02 HR=83 bpm, QIBD=026/91 mmhg, SpO2=97.0 %, Resp=16 B/min, Pain=0, Donaldo=10, Mcintyre=2 9:57:20 0.5 mg VERSED given in lab by Paloma Gómez, SACHIN in Left Wrist via Peripheral IV. Ordered by Rodríguez Garza. 9:58:02 25 mcg FENTANYL given in lab by Paloma Gómez RN in Left Wrist via Peripheral IV. Ordered by Rodríguez Garza. 10:01:02 0.5 mg VERSED given in lab by Paloma Gómez, SACHIN in Left Wrist via Peripheral IV. Ordered b Rodríguez Ghosh. 10:02:01 HR=83 bpm, YXAX=532/87 mmhg, SpO2=96.0 %, Resp=16 B/min, Pain=0, Donaldo=10, Mcintyre=2 10:02:02 25 mcg FENTANYL given in lab by Paloma Gómez, RN in Left Wrist via Peripheral IV. Ordered by Rodríguez Garza. Time Out. Correct patient, correct procedure, correct physician, power injector loaded with con trast with surgical team 10:02:52 present. Time Out Concurred by MD and individual staff in procedure. 10:03:02 Case Start 10:04:53 20 mL 1% XYLOCAINE given in lab by Rodríguez Garza in Left Groin via Subcutaneous. Ordered by Rodríguez Garza. 10:04:59 Access site was Left Femoral Artery. 10:05:03 A SHEATH, FR5 TERUMO (25CM) FR 5 was advanced into the Fem Art (left) using the Percutaneou s technique. 10:05:55 Activated Clotting Time Drawn A PIGTAIL ANG. INFINITI CATHETER FR 5 was advanced over a wire. OMNIPAQUE, 350 MG, 150ML 150ML was used 10:06:54 for injections. 10:07:00 HR=89 bpm, IMAN=612/88 mmhg, SpO2=96.0 %, Resp=15 B/min, Pain=0, Donaldo=10, Mcintyre=2 10:09:00 0.5 mg VERSED given in lab by Paloma Góemz, SACHIN in Left Wrist via Peripheral IV. Ordered b y Rodríguez Garza. Recorded Pressure: LV, HR=83, Condition=Condition 1 10:09:51 (Left Ventricle) LV 154/13/20 10:10:00 The LV was injected at 10 cc/sec for a total of 30. OMNIPAQUE, 350 MG, 150ML 150ML used. 10:10:10 ACT (Normal Range 90-180) = 134 10:12:02 HR=90 bpm, BKVM=418/89 mmhg, SpO2=96.0 %, Resp=14 B/min, Pain=0, Donaldo=10, Mcintyre=2 Recorded Pressure: LV, Ao, HR=90, Condition=Condition 1 10:12:03 (Left Ventricle) LV 152/18/21, (Aorta) Ao 153/77/111 After removing the current catheter a JL 4.0 DXTERITY CATHETER FR 5 was advanced over a WIRE, 3 MMJ .035 180CM 10:12:54 180CM. Recorded Pressure: Ao, HR=90, Condition=Condition 1 10:13:39 (Aorta) Ao 154/77/111 10:13:49 The LCA was injected and visualized at various angles. OMNIPAQUE, 350 MG, 150ML 150ML used . 10:16:03 25 mcg FENTANYL given in lab by Paloma Gómez, RN in Left Wrist via Peripheral IV. Ordered by Rodríguez Garza. After removing the current catheter a AR MOD INFINITI CATHETER FR 5 was advanced over a WIRE, 3 MMJ .035 180CM 10:16:30 180CM. 10:17:01 HR=92 bpm, DEIQ=621/92 mmhg, SpO2=97.0 %, Resp=13 B/min, Pain=0, Donaldo=10, Mcintyre=2 10:17:01 The RCA was injected and visualized at various angles. OMNIPAQUE, 350 MG, 150ML 150ML used . 10:18:18 Catheter was removed A SHEATH, FR5 TERUMO (10CM) FR 5 was exchanged in the Fem Art (right). This was necessary in or jeison to achieve 10:19:24 vascular hemostasis. 10:21:30 An injection in the Fem Art (left) was made through the SHEATH, FR5 TERUMO (10CM) FR 5. 10:22:00 Case End 10:22:02 HR=95 bpm, LQSZ=020/93 mmhg, SpO2=97.0 %, Resp=12 B/min, Pain=0, Donaldo=10, Mcintyre=2 Assessment: Final Case, HR=92 BPM, Rhythm=nsr, VLPS=017/93 mmhg, Chest Pain=0, Edema=None, [place] r=Normal, Skin = Warm, Dry Right Pulses: Demarcus Ped=d, Femoral=2 10:25:07 Left Pulses: Demarcus Ped=0, Femoral=2 Neurological: State=Alert, Ox3, LANDA Respiration: Resp=15 B/min, SpO2=95 %, O2=2 lpm 10:25:18 Catheter(s) removed without difficulty 10:25:19 Sheath removed; pressure applied to access site. 10:25:21 No case complications noted. 10::22 Cine recording checked. ::25 Bedside Report will be given. 10:25:25 Contrast Scanned 10:25:32 Verbal Stimulation=2 Physical Stimulation=2 Airway=2 Respiration=2 TOTAL=8. (0=absent, 1=li mited, 2=present) 10:25:41 A Left Heart Cath was performed. 10:27:05 HR=90 bpm, STMT=023/92 mmhg, SpO2=96.0 %, Resp=15 B/min, Pain=0, Donaldo=10, Mcintyre=2 10:32:06 HR=83 bpm, FFJV=870/84 mmhg, SpO2=97.0 %, Resp=13 B/min, Pain=0, Donaldo=10, Mcintyre=2 10:37:05 HR=92 bpm, JLEQ=426/90 mmhg, SpO2=97.0 %, Resp=13 B/min, Pain=0, Donaldo=10, Mcintyre=2 10:41:27 Sterile dressing applied to site 10:41:29 Patient moved to stretcher 10:41:33 Vitals capture stopped. End Study - Contrast Media Used In Study Contrast Total Opened (mL) Total Used (mL) Total Wasted (mL) Omnipaque 60 60 0 End Study - Maximum Contrast Load Max Contrast Load (mL) 443.2 End Study - Radiation Exposure Fluoro Time (minutes) 1.5 End Study - Patient Disposition Complications Transferred To Interventional Outcome No Branch Associate Holding No attempt made
[2017-10-19] MEDS ORDERED: IOHEXOL 350 MG/ML 100 ML BTL (for Cath Lab) OTHER ONE (11:05)
[2017-10-19] MEDS ORDERED: PROTAMINE SULFATE 50 MG/5 ML VIAL ONE (12:26)
[2017-10-19] MEDS ORDERED: HEPARIN SODIUM - IV 10,000 UNITS/10 ML VIAL ONE (12:26)
[2017-10-19] MEDS ORDERED: HEPARIN SODIUM - SQ 10,000 UNITS/ML VIAL ONE (12:34)
[2017-10-19] MEDS ORDERED: NITROGLYCERIN INJ 5 ML ONE (12:44)
[2017-10-19] MEDS ORDERED: ceFAZolin INJ 1,000 MG VIAL IV ONE (13:45)
[2017-10-19] MEDS ORDERED: BUPIVACAINE/EPINEPHRINE 0.5% PF 30 ML VIAL INFIL ONE (14:39)
--- NOTE | 2017-10-19 15:01 | HHI.HCPN ---
Spoke with CM regarding attempting to locate patient's daughter. Apparently she has also been known to go by Yajaira Fisher. Google search provided same phone number previously attempted when searching for Yajaira Brargeena #[phone] . Social media search conducted, potential match found. Private message sent requesting call to further identify. John requested with additional information on daughter's potential last name. Palliative care will continue to follow and address goals of care when legal proxy decision maker is found or patient is able to make her own decisions. Little Delcid, PATTERN ROOM ATTENDANT Oct 19, 2017 15:01
[2017-10-19] MEDS ORDERED: DO NOT ADM ANY ANTICOAGULANT DRUGS PRN (15:15)
--- NOTE | 2017-10-19 15:45 | PD.PSY.CON ---
Provisional Diagnosis Admission Date Oct 14, 2017 at 14:44 [place]. Psychological factors affecting medical condition History of Present Illness Service Psychiatry Consult Requested By Dr. Lyn Reason for Consult decisional capacity Primary Care Physician No Primary Care Physician HPI Patient is a 77-year-old woman with a past medical history of hypertension, hyperlipidemia, brought in by EMS for generalized weakness and admitted to the medical floor for sepsis, dehydration, generalized weakness and total self-care deficit food during admission was found to have severe peripheral of vascular disease requiring femoropopliteal bypass surgery which psychiatry was consulted for decision capacity for the same. Patient this morning was taken to cardiac catheter lab for catheterization and was seen for this consult note patient was brought in to the recovery room at which time assess her for this capacity Be determined due to patient's current mental status secondary to recent menstruation anesthesia. Patient was unable to verbally express adequately answers to questioning and noted to be confused at this time. Due to patient's current mentals status patient is unable to participate effectively in assessment for decisional capacity and therefore will need to be deferred to healthcare surrogate at this time to assist in making appropriate decisions's regarding her medical care. Past Family Social History Coded Allergies: No Known Allergies (Unverified Allergy, Unknown, 10/14/17) Current Medications Medications (Trade) Dose Ordered Sig/Sina Route Start Time Stop Time Status Last Admin Ceftriaxone Sodium 1000 mg/ Sodium Chloride 100 ml @ 200 mls/hr Q24H IV 10/14/17 16:00 10/18/17 16:03 (NS Flush) 2 ml UNSCH PRN IV FLUSH 10/14/17 16:00 (NS Flush) 2 ml BID IV FLUSH 10/14/17 21:00 10/18/17 21:46 (Tylenol) 650 mg Q4H PRN PO 10/14/17 16:00 (Zofran Inj) 4 mg Q6H PRN IVP 10/14/17 16:00 (Restoril) 15 mg HS PRN PO 10/14/17 16:00 (Narcan Inj) 0.4 mg UNSCH PRN IV PUSH 10/14/17 16:00 (Rosalie-Colace) 1 tab BID PO 10/14/17 21:00 10/19/17 08:34 (Milk Of Magnesia Liq) 30 ml Q12H PRN PO 10/14/17 16:00 (Senokot) 17.2 mg Q12H PRN PO 10/14/17 16:00 (Dulcolax Supp) 10 mg DAILY PRN RECTAL 10/14/17 16:00 (Lactulose Liq) 30 ml DAILY PRN PO 10/14/17 16:00 (Duoneb Neb) 1 ampule Q4HR NEB PRN NEB 10/15/17 04:00 Heparin Sodium/ Dextrose 250 ml @ 10 mls/hr TITRATE PRN IV 10/15/17 06:30 10/19/17 06:19 (Plavix) 75 mg DAILY PO 10/15/17 12:00 10/19/17 08:35 (Lopressor) 25 mg STATION CASHIER PRN PO 10/17/17 12:15 10/20/17 12:14 (Betadine 5% Antisepsis Kit) 1 applic STATION CASHIER PRN EACH NARE 10/17/17 12:15 10/20/17 12:14 (Chlorhexidine 2% Cloth) 3 pack STATION CASHIER PRN TOPICAL 10/17/17 12:15 10/20/17 12:14 Lactated Ringer's 1,000 ml @ 80 mls/hr [id number] IV 10/17/17 13:00 Lactated Ringer's 1,000 ml @ 30 mls/hr Q24H PRN IV 10/19/17 02:00 10/22/17 01:59 Sodium Chloride 500 ml @ 30 mls/hr [id number] PRN IV 10/19/17 02:00 10/22/17 01:59 (Betadine 5% Antisepsis Kit) 1 applic STATION CASHIER PRN EACH NARE 10/19/17 02:00 10/22/17 01:59 (Chlorhexidine 2% Cloth) 3 pack STATION CASHIER PRN TOPICAL 10/19/17 02:00 10/22/17 01:59 Physical Exam Vital Signs Vital Signs Date Time Temp Pulse Resp B/P (MAP) Pulse Ox O2 Delivery O2 Flow Rate FiO2 10/19/17 10:50 94 Nasal Cannula 2.00 10/19/17 08:00 96.8 72 19 147/74 (98) I/O 10/19/17 10/19/17 10/20/17 08:00 16:00 00:00 Intake Total 1200 ml Output Total 600 ml 800 ml Balance -600 ml 400 ml Lab Results Date/Time Source Procedure Growth Status 10/14/17 12:20 Blood Peripheral Aerobic Blood Culture - Final NO GROWTH IN 5 DAYS Complete 10/14/17 12:20 Blood Peripheral Anaerobic Blood Culture - Final NO GROWTH IN 5 DAYS Complete 10/14/17 12:00 Urine Catheterized Urine Urine Culture - Final Escherichia Coli Complete Mental Status Examination Appearance: Appropriate Consciousness: Lethargic Orientation: Person Speech: Slow, Incoherent Language: Other (deficient at this time) Attention and Concentration: Inadequate Memory: Impaired Mood: Other (unable to return to the patient's current mental status) Affect: Other (appearing lethargic) Thought Process & Associations: Other Thought Content: Other Hallucination Type: None Delusion Type: None Insight: Poor Judgment: Poor (unable to assess suicidal homicidal ideations due to patient's current mental status status secondary to recent administration of anesthesia.) Assessment & Plan Problem List: (1) Psychological factors affecting medical condition ICD Codes: F54 - Psychological and behavioral factors associated with disorders or diseases classified elsewhere Assessment & Plan Patient this time is unable to participate effectively and assessment for decisional capacity. Patient likely require healthcare surrogate at this time to assist in making appropriate medical decisions regarding her care at this time. If decision for consent for surgery is required during the time were patient continues to be unable to participate in assessment for this capacity, decisions should be deferred to healthcare surrogate to assist in consent for treatment. Vincent Odell MD Oct 19, 2017 15:45
[2017-10-19] MEDS: cefTRIAXone INJ 1,000 MG in SODIUM CHLORIDE 0.9% INJ 100 ML IV SCH (17:00)
[2017-10-19 17:45] LABS: AUTOMATED NEUTROPHIL # 19.5 TH/MM3 (1.8-7.7); BASOPHIL # 0.1 TH/MM3 (0-0.2); BASOPHIL % 0.4 % (0.0-2.0); EOSINOPHIL # 0.3 TH/MM3 (0-0.4); EOSINOPHIL % 1.3 % (0.0-4.0); HEMATOCRIT 49.7 % (35.0-46.0); LYMPH % 3.9 % (9.0-44.0); LYMPHOCYTE # 0.8 TH/MM3 (1.0-4.8); MEAN CELL VOLUME 69.1 FL (80.0-100.0); MEAN CORPUSCULAR HEMOGLOBIN 22.2 PG (27.0-34.0); MEAN CORPUSCULAR HGB CONC 32.1 % (32.0-36.0); MEAN PLATELET VOLUME 8.6 FL (7.0-11.0); MONO % 3.6 % (0.0-8.0); MONOCYTE # 0.8 TH/MM3 (0-0.9); NEUT % 90.8 % (16.0-70.0); PLATELET COUNT 795 TH/MM3 (150-450); RED BLOOD COUNT 7.19 MIL/MM3 (4.00-5.30); RED CELL DISTRIBUTION WIDTH 18.9 % (11.6-17.2); WHITE BLOOD COUNT 21.5 TH/MM3 (4.0-11.0)
[2017-10-19 18:03] LABS: ALBUMIN 2.2 GM/DL (3.4-5.0); ALT (GPT) 12 U/L (10-53); AST (GOT) 14 U/L (15-37); BICARBONATE 26.7 MEQ/L (21.0-32.0); BLOOD UREA NITROGEN 5 MG/DL (7-18); CALCIUM 7.9 MG/DL (8.5-10.1); CHLORIDE 102 MEQ/L (98-107); CREATININE 0.55 MG/DL (0.50-1.00); GLOMERULAR FILTRATION RATE 107 ML/MIN (>89); GLUCOSE,RANDOM 108 MG/DL (74-106); MAGNESIUM 2.1 MG/DL (1.5-2.5); PHOSPHORUS 3.7 MG/DL (2.5-4.9); SODIUM (NA) 138 MEQ/L (136-145)
[2017-10-19 18:06] LABS: ALKALINE PHOSPHATASE 72 U/L (45-117); TOTAL BILIRUBIN ADULT 0.4 MG/DL (0.2-1.0); TOTAL PROTEIN 5.2 GM/DL (6.4-8.2)
[2017-10-19 18:35] VITALS: BP_SYST 154; BP_SYST 156; BP_DIAS 64; BP_DIAS 72; PULSE 98; RESP 15; TEMP 97.3; O2SAT 93
[2017-10-19 19:36] LABS: CHOLESTEROL/ HDL RATIO 3.01 RATIO; HDL CHOLESTEROL 34.8 MG/DL (40.0-60.0)
[2017-10-19 20:00] VITALS: BP 160/64; PULSE 89; PULSE 92; RESP 20; TEMP 98; O2SAT 100
[2017-10-19 22:00] VITALS: PULSE 103
[2017-10-19] MEDS: LACTATED RINGER'S 1000 ML INJ 1,000 ML IV SCH (22:00)
[2017-10-20] VITALS (9 sets, daily range): BP systolic 113–143; BP diastolic 57–79; PULSE 88–107; RESP 14–18; TEMP 97.8–99.2; O2SAT 91–98
[2017-10-20] MEDS: LACTATED RINGER'S 1000 ML INJ 1,000 ML IV SCH (03:30)
[2017-10-20 06:07] LABS: HEMATOCRIT 47.6 % (35.0-46.0); HEMOGLOBIN 15.7 GM/DL (11.6-15.3); MEAN CELL VOLUME 68.8 FL (80.0-100.0); MEAN CORPUSCULAR HEMOGLOBIN 22.7 PG (27.0-34.0); MEAN PLATELET VOLUME 8.8 FL (7.0-11.0); PLATELET COUNT 801 TH/MM3 (150-450); RED BLOOD COUNT 6.92 MIL/MM3 (4.00-5.30); RED CELL DISTRIBUTION WIDTH 18.5 % (11.6-17.2); WHITE BLOOD COUNT 22.7 TH/MM3 (4.0-11.0)
--- NOTE | 2017-10-20 08:54 | HHI.PR ---
Subjective Remarks DELAYED ENTRY NOTE FROM 10/19/2017 Patient is 77-year-old female with PMH of HTN, HLD brought into the emergency department via EMS for evaluation of generalized weakness. Patient is a poor historian. Per their report she has been laying on her couch for the last 7 days unable to get up because she has been weak. Apparently either patient or daughter called 911. Patient states that she has not been cleaned in several days. Patient states she has not been eating well. EMS reported that living conditions were suboptimal at best. Patient smelled of feces and urine on arrival. Further work up reveals UTI with sepsis. Started on abb after cultures obtained. Patient also was noted with discolored LE bluish discoloration, cold LE , and no pulses detected by US. Ao run off ordered and also vascular surgeon consulted for further eval. 10-[address] YOO WILL NEED SURGERY LATER THIS WEEK GEORGE RN AND PT AND CM NO CURRENT COMPLAINTS HAS PACHECO IN PLACE AM LABS WILL NEED SNF [place] 10-16 has been seen by palliative care, they are not able to locate any family at this time yet Patient will need surgery likely femoropopliteal bypass Discussed with patient and RN Complains of some pain in the right lower extremity A.m. labs Continue on Rocephin for UTI 10-17 WAS TO HAVE SURGERY BUT WAS NOT CLEARED BY ANESTHESIA HAD ABNORMAL EKG SO SURGERY WAS PUT ON HOLD AND CARDIOLOGY WAS CONSULTED GEORGE RN AND PT AND CM 10-18 patient is to go for nuclear stress test today per cardiology Depending on results we'll determine her clearance by cardiology Surgery is obviously on hold at this time Will need femoropopliteal bypass more than likely No current complaints 10/19: Seen in DOCU post heart catheter, stable no chest pain, febrile, discussed with Dr. Abdullahi [facility] on taking [facility] to [facility] possibly today Heart catheter initial verbal report is negative. Objective Vitals Vital Signs Date Time Temp Pulse Resp B/P (MAP) Pulse Ox O2 Delivery O2 Flow Rate FiO2 10/20/17 06:00 89 10/20/17 04:00 98.0 88 14 117/57 (77) 95 10/20/17 04:00 88 10/20/17 02:00 93 10/20/17 00:00 97.8 101 16 113/79 (90) 96 10/20/17 00:00 101 10/19/17 22:00 103 10/19/17 20:00 98.0 92 20 160/64 (96) 100 10/19/17 20:00 89 10/19/17 18:35 97.3 98 15 156/72 (100) 93 154/64 (94) 10/19/17 17:30 97.4 91 14 129/66 (87) 97 Nasal Cannula 3 10/19/17 17:00 88 13 128/64 (85) 96 Nasal Cannula 3 10/19/17 16:30 101 24 146/67 (93) 96 Nasal Cannula 3 10/19/17 16:00 88 13 155/79 (104) 98 Nasal Cannula 3 10/19/17 15:45 93 14 139/78 (98) 99 Nasal Cannula 3 10/19/17 15:30 96 14 144/72 (96) 100 Nasal Cannula 3 10/19/17 15:15 92 12 136/78 (97) 100 Nasal Cannula 3 10/19/17 15:12 96.7 93 12 135/78 (97) 100 Nasal Cannula 3 10/19/17 10:50 94 Nasal Cannula 2.00 I/O 10/19/17 10/19/17 10/19/17 10/20/17 10/20/17 10/20/17 07:00 15:00 23:00 07:00 15:00 23:00 Intake Total 1200 ml 320 ml Output Total 600 ml 800 ml 400 ml Balance -600 ml 400 ml -80 ml Intake Oral 320 ml Other 1200 ml Output Urine Total 600 ml 500 ml 400 ml Estimated Blood Loss 300 ml # Bowel Movements 0 Result Diagram: 10/20/17 0550 10/19/17 1726 Objective Remarks GENERAL: This is a well-nourished, well-developed patient, in no apparent distress. CARDIOVASCULAR: Regular rate and rhythm without murmurs, gallops, or rubs. RESPIRATORY: Clear to auscultation. Breath sounds equal bilaterally. No wheezes , rales, or rhonchi. GASTROINTESTINAL: Abdomen soft, non-tender, nondistended. Normal active bowel sounds MUSCULOSKELETAL: Extremities without clubbing, cyanosis, or edema. NEURO: Alert & Oriented x4 to person, place, time, situation. Moves all ext x4 Procedures RORY GONZALEZ Signed EXAM DATE/TIME: 10/14/2017 17:47 [place] COMPARISON: No previous studies available for comparison. INDICATIONS : Right leg pain; evaluate for occlusion. IV CONTRAST: 100 cc Omnipaque 350 (iohexol) IV RADIATION DOSE: 2.3 CTDIvol (mGy) MEDICAL HISTORY : Cerebrovascular disease. SURGICAL HISTORY : Tubal ligation. ENCOUNTER: Initial ACUITY: 1 month PAIN SCALE: 7/10 LOCATION: Right lower leg TECHNIQUE: Volumetric scanning was performed using a multi-row detector CT scanner. The data was post processed with a variety of visualization algorithms including full volume maximum intensity projection, multi-planar sliding thin slab reformation, curved planar reformation, and surface rendering techniques. Using automated exposure control and adjustment of the mA and/or kV according to patient size, radiation dose was kept as low as reasonably achievable to obtain optimal diagnostic quality images. DICOM format image data is available electronically for review and comparison. FINDINGS: There are atherosclerotic changes seen throughout the arterial system. The abdominal aorta measures up to 2.9 cm. At the distal infrarenal abdominal aorta thrombus occupies more than half of the lumen. The functional lumen is seen at the left lateral aspect of the distal abdominal aorta. There is atherosclerotic change at the common iliac arteries bilaterally. A significant stenosis is not seen at this level is not seen. There does appear to be severe stenosis and possible occlusion at the origin of the right internal iliac artery. There is mild plaque seen at the right external iliac artery. There is a severe stenosis at the distal left external iliac artery. There is atherosclerotic change seen at the common femoral arteries bilaterally being more severe on the right. There is a severe stenosis at the right common femoral artery narrowing the lumen by approximately 80%. There is severe narrowing of the proximal right profunda femoris artery. There is abrupt occlusion of the proximal right superficial femoral artery. Flow in the thigh is continues through collaterals in the profunda femoris artery distribution. There is reconstitution of the distal popliteal artery at the level of the distal femur via collaterals. There is a normal trifurcation. The right anterior tibial artery can be traced to the ankle. The posterior tibial and peritoneal arteries can be seen to the distal lower leg but can not clearly be traced into the foot. Again noted is the mild stenosis at the left common femoral artery. There is occlusion of the proximal left superficial femoral artery. The popliteal artery is patent throughout. There is reconstitution of the distal superficial femoral artery at the level of the distal femoral shaft. The popliteal artery is patent. There is a severe stenosis at the mid popliteal artery. The lumen is narrowed by over 75%. The more distal popliteal artery is patent. The anterior and posterior tibial artery could be traced to the foot. The peritoneal artery can be traced to the ankle region. Atherosclerotic calcifications are seen throughout the origins of the vessels in the upper abdomen. There does appear to be at least a moderate stenosis at the origin of the right renal artery. The left renal artery appears patent. The celiac, SMA and JUN are patent. There is a mild hiatal hernia. The liver, spleen, pancreas and kidneys appear grossly normal. The adrenal glands are grossly normal. The pelvic structures appear intact. The patient does have a Pacheco catheter in the urinary bladder. There is degenerative change in the lumbar spine. CONCLUSION: 1. 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 2. Atherosclerotic change in the external iliac and common femoral arteries bilaterally as described above. 3. Occlusion of the superficial femoral arteries bilaterally with reconstitution distally. The reconstitution is higher on the left side. 4. Normal trifurcation vessels seen on the left side. 5. Diminished flow seen at the right trifurcation vessels. The vessels can only be well seen on the delayed images. The vessels can not be traced into the foot. Anselmo Mcadams MD on October 14, 2017 at 19:28 Board Certified Radiologist. This report was verified electronically. A/P Assessment and Plan Peripheral arterial vascular disease with Bilateral LE discoloration and unable to feel DP pulses. Patient with pain and cold extremities. Status post CTA Ao run off, vascular surgery Dr. YOO FOLLOWING FOR femoropopliteal bypass Started on antibiotic Rocephin IV . Received vanco and zosyn in the ED. Received bolus of NS in the eD. Continue IVF. Monitor VS closely. Urine cultures shows Escherichia coli UTI sensitive to Rocephin Restart home meds as appropriate patient says she currently doesn't take any meds. Consult PT for eval CONSULT OT Consult case management for DC plan DVT ppx lovenox History of cerebrovascular accident Gait instability possibly secondary to cerebrovascular accident versus peripheral vascular occlusive disease Deconditioning Will need SNF and PT and OT Erik Alvarado MD Oct 20, 2017 08:53
[2017-10-20] MEDS: CLOPIDOGREL 75 MG TAB PO SCH (09:07)
[2017-10-20] MEDS: SODIUM CHLORIDE 0.9% FLUSH 10 ML FLUSH IV FLUSH SCH ×2 (09:07→21:02)
[2017-10-20] MEDS: DOCUSATE SODIUM 50 MG/SENNA 8.6 MG TAB PO SCH ×2 (09:07→21:02)
--- NOTE | 2017-10-20 10:39 | PD.CAR.PN ---
CVT Progress Note Subjective/Hospital Course: Referral received Full consult to follow Severe for peripheral vascular disease will require reconstruction Sol Abdullahi 10/16/17 As noted in my consultation this patient has bilateral severe peripheral vascular disease On top of that she is being treated for urosepsis and general decline Patient has not been in the hospital for 3 days and has gradually improved for her urosepsis based on clinical exam level of alertness and diagnostic studies Despite heparin drip the right leg is looking worse and worse and patient now has ischemia that needs attention in the resolution In the best of worlds I would like to wait another while to do the surgery considering patient's other issues but that this point if surgery is not performed patient is a very high risk of losing her leg I have reviewed patient's echocardiogram and studies and she is at this point moderate risk for vascular surgery but I believe options a limited and we have to go ahead with it. Therefore patient will be scheduled for common femoral endarterectomy and femoropopliteal bypass tomorrow I explained the risks and benefits of the procedure and all patient is very quiet she is clearly awake and alert and understands the discussion Have tried to reach her daughter however number is apparently disconnected 09/2017 Patient originally scheduled for surgery today however EKG reveals some anterior ischemia in addition to inferior ischemia that was noted on previous EKG In discussion with the anesthesiologist the decision is made to postpone the surgery until patient can be worked up cardiac saavedra in more detail so we get a better picture on cardiac risk and possible remedy Right leg and foot are ischemic and the cyanotic however while this surgery is urgent it is not an emergent and cardiac issues trump any other issue right now We'll consult cardiology for full evaluation possible stress test Restart heparin All things equal once cardiac workup completed we'll proceed with vascular bypass and reconstruction on the right leg 10/18/17 Right leg and foot remain ischemic and cyanotic Discussed with Dr. Canales This patient will lose her leg if for no surgery is done in next few days. On the other hand patient has significant coronary artery disease and major other comorbidities and hence the high risk Dr. Canales we'll proceed with cardiac catheterization through the left leg and based on that will decide which way to go There is of course a good chance the patient will be candidate for any surgery and that his then the rendering but we should make every effort to make patient at least be able to sustain a limb saving operation. On the other hand limb saving operation has not much value if patient loses her life in the process and therefore every effort should be made to get patient in shape good enough to tolerate surgery 10/20/17 Patient status post revascularization of the left leg Incision is clean and dry Patient has warm foot with normal capillary refill and strong dopplerable popliteal, dorsalis pedis posterior tibial pulses Right leg is still cyanotic and imminently at risk We'll give patient another day and address this tomorrow. Most likely all patient needs is iliofemoral endarterectomy and patch and during the surgery we will see if she needs a femoropopliteal bypass in addition but I would like to minimize the amount of surgery on this unfortunate lady Transfer to floor today Objective: Vital Signs Date Time Temp Pulse Resp B/P (MAP) Pulse Ox O2 Delivery O2 Flow Rate FiO2 10/20/17 10:00 101 10/20/17 08:00 98.5 97 16 130/59 (82) 98 10/20/17 08:00 97 10/20/17 06:00 89 10/20/17 04:00 98.0 88 14 117/57 (77) 95 10/20/17 04:00 88 10/20/17 02:00 93 10/20/17 00:00 97.8 101 16 113/79 (90) 96 10/20/17 00:00 101 10/19/17 22:00 103 10/19/17 20:00 98.0 92 20 160/64 (96) 100 10/19/17 20:00 89 10/19/17 18:35 97.3 98 15 156/72 (100) 93 154/64 (94) 10/19/17 17:30 97.4 91 14 129/66 (87) 97 Nasal Cannula 3 10/19/17 17:00 88 13 128/64 (85) 96 Nasal Cannula 3 10/19/17 16:30 101 24 146/67 (93) 96 Nasal Cannula 3 10/19/17 16:00 88 13 155/79 (104) 98 Nasal Cannula 3 10/19/17 15:45 93 14 139/78 (98) 99 Nasal Cannula 3 10/19/17 15:30 96 14 144/72 (96) 100 Nasal Cannula 3 10/19/17 15:15 92 12 136/78 (97) 100 Nasal Cannula 3 10/19/17 15:12 96.7 93 12 135/78 (97) 100 Nasal Cannula 3 10/19/17 10:50 94 Nasal Cannula 2.00 Labs: Laboratory Tests Test 10/20/17 00:05 10/20/17 05:50 Activated Partial Thromboplast Time 70.9 SEC (24.3-30.1) 88.8 SEC (24.3-30.1) White Blood Count 22.7 TH/MM3 (4.0-11.0) Red Blood Count 6.92 MIL/MM3 (4.00-5.30) Hemoglobin 15.7 GM/DL (11.6-15.3) Hematocrit 47.6 % (35.0-46.0) Mean Corpuscular Volume 68.8 FL (80.0-100.0) Mean Corpuscular Hemoglobin 22.7 PG (27.0-34.0) Mean Corpuscular Hemoglobin Concent 33.0 % (32.0-36.0) Red Cell Distribution Width 18.5 % (11.6-17.2) Platelet Count 801 TH/MM3 (150-450) Mean Platelet Volume 8.8 FL (7.0-11.0) Result Diagram: 10/20/17 0550 10/19/17 1726 (1) Peripheral vascular disease (2) CAD (coronary artery disease) (3) Cardiomyopathy Walter Fernandes MD Oct 20, 2017 10:39
[2017-10-20] MEDS: HEPARIN-D5W 25,000 U/250 ML 250 ML IV PRN (12:44)
--- NOTE | 2017-10-20 15:31 | PD.CARD.PN ---
Subjective Subjective Remarks No CP or SOB, tolerated surgery well Objective Medications Current Medications Medications (Trade) Dose Ordered Sig/Sina Route Start Time Stop Time Status Last Admin Ceftriaxone Sodium 1000 mg/ Sodium Chloride 100 ml @ 200 mls/hr Q24H IV 10/14/17 16:00 10/19/17 17:00 (NS Flush) 2 ml UNSCH PRN IV FLUSH 10/14/17 16:00 (NS Flush) 2 ml BID IV FLUSH 10/14/17 21:00 10/20/17 09:07 (Tylenol) 650 mg Q4H PRN PO 10/14/17 16:00 (Zofran Inj) 4 mg Q6H PRN IVP 10/14/17 16:00 (Restoril) 15 mg HS PRN PO 10/14/17 16:00 (Narcan Inj) 0.4 mg UNSCH PRN IV PUSH 10/14/17 16:00 (Rosalie-Colace) 1 tab BID PO 10/14/17 21:00 10/20/17 09:07 (Milk Of Magnesia Liq) 30 ml Q12H PRN PO 10/14/17 16:00 (Senokot) 17.2 mg Q12H PRN PO 10/14/17 16:00 (Dulcolax Supp) 10 mg DAILY PRN RECTAL 10/14/17 16:00 (Lactulose Liq) 30 ml DAILY PRN PO 10/14/17 16:00 (Duoneb Neb) 1 ampule Q4HR NEB PRN NEB 10/15/17 04:00 Heparin Sodium/ Dextrose 250 ml @ 10 mls/hr TITRATE PRN IV 10/15/17 06:30 10/20/17 12:44 Lactated Ringer's 1,000 ml @ 40 mls/hr Q24H IV 10/17/17 13:00 10/19/17 22:00 Lactated Ringer's 1,000 ml @ 30 mls/hr Q24H PRN IV 10/19/17 02:00 10/22/17 01:59 Sodium Chloride 500 ml @ 30 mls/hr [id number] PRN IV 10/19/17 02:00 10/22/17 01:59 (Betadine 5% Antisepsis Kit) 1 applic [employer] PRN EACH NARE 10/19/17 02:00 10/22/17 01:59 (Chlorhexidine 2% Cloth) 3 pack [employer] PRN TOPICAL 10/19/17 02:00 10/22/17 01:59 (Plavix) 75 mg DAILY PO 10/19/17 17:15 10/20/17 09:07 Vital Signs / I&O Vital Signs Date Time Temp Pulse Resp B/P (MAP) Pulse Ox O2 Delivery O2 Flow Rate FiO2 10/20/17 12:00 99 10/20/17 12:00 99.2 99 14 143/61 (88) 98 10/20/17 10:00 101 10/20/17 08:00 98.5 97 16 130/59 (82) 98 10/20/17 08:00 97 10/20/17 06:00 89 10/20/17 04:00 98.0 88 14 117/57 (77) 95 10/20/17 04:00 88 10/20/17 02:00 93 10/20/17 00:00 97.8 101 16 113/79 (90) 96 10/20/17 00:00 101 10/19/17 22:00 103 10/19/17 20:00 98.0 92 20 160/64 (96) 100 10/19/17 20:00 89 10/19/17 18:35 97.3 98 15 156/72 (100) 93 154/64 (94) 10/19/17 17:30 97.4 91 14 129/66 (87) 97 Nasal Cannula 3 10/19/17 17:00 88 13 128/64 (85) 96 Nasal Cannula 3 10/19/17 16:30 101 24 146/67 (93) 96 Nasal Cannula 3 10/19/17 16:00 88 13 155/79 (104) 98 Nasal Cannula 3 10/19/17 15:45 93 14 139/78 (98) 99 Nasal Cannula 3 10/19/17 15:30 96 14 144/72 (96) 100 Nasal Cannula 3 I/O 10/19/17 10/19/17 10/19/17 10/20/17 10/20/17 10/20/17 07:00 15:00 23:00 07:00 15:00 23:00 Intake Total 1200 ml 320 ml 235 ml Output Total 600 ml 800 ml 400 ml Balance -600 ml 400 ml -80 ml 235 ml Intake Oral 320 ml IV Total 235 ml Other 1200 ml Output Urine Total 600 ml 500 ml 400 ml Estimated Blood Loss 300 ml # Bowel Movements 0 Physical Exam GENERAL: In NAD SKIN: Warm and dry. HEAD: Normocephalic. EYES: No scleral icterus. No injection or drainage. NECK: Supple, trachea midline. No JVD or lymphadenopathy. CARDIOVASCULAR: Regular rate and rhythm without murmurs, gallops, or rubs. RESPIRATORY: Breath sounds equal bilaterally. No accessory muscle use. GASTROINTESTINAL: Abdomen soft, non-tender, nondistended. MUSCULOSKELETAL: No cyanosis, or edema. Laboratory Laboratory Tests Test 10/19/17 17:26 10/20/17 00:05 10/20/17 05:50 10/20/17 12:29 White Blood Count 21.5 TH/MM3 22.7 TH/MM3 Red Blood Count 7.19 MIL/MM3 6.92 MIL/MM3 Hemoglobin 16.0 GM/DL 15.7 GM/DL Hematocrit 49.7 % 47.6 % Mean Corpuscular Volume 69.1 FL 68.8 FL Mean Corpuscular Hemoglobin 22.2 PG 22.7 PG Mean Corpuscular Hemoglobin Concent 32.1 % 33.0 % Red Cell Distribution Width 18.9 % 18.5 % Platelet Count 795 TH/MM3 801 TH/MM3 Mean Platelet Volume 8.6 FL 8.8 FL Neutrophils (%) (Auto) 90.8 % Lymphocytes (%) (Auto) 3.9 % Monocytes (%) (Auto) 3.6 % Eosinophils (%) (Auto) 1.3 % Basophils (%) (Auto) 0.4 % Neutrophils # (Auto) 19.5 TH/MM3 Lymphocytes # (Auto) 0.8 TH/MM3 Monocytes # (Auto) 0.8 TH/MM3 Eosinophils # (Auto) 0.3 TH/MM3 Basophils # (Auto) 0.1 TH/MM3 CBC Comment DIFF FINAL Differential Comment Blood Urea Nitrogen 5 MG/DL Creatinine 0.55 MG/DL Random Glucose 108 MG/DL Total Protein 5.2 GM/DL Albumin 2.2 GM/DL Calcium Level 7.9 MG/DL Phosphorus Level 3.7 MG/DL Magnesium Level 2.1 MG/DL Alkaline Phosphatase 72 U/L Aspartate Amino Transf (AST/SGOT) 14 U/L Alanine Aminotransferase (ALT/SGPT) 12 U/L Total Bilirubin 0.4 MG/DL Sodium Level 138 MEQ/L Potassium Level 3.4 MEQ/L Chloride Level 102 MEQ/L Carbon Dioxide Level 26.7 MEQ/L Anion Gap 9 MEQ/L Estimat Glomerular Filtration Rate 107 ML/MIN Triglycerides Level 90 MG/DL Cholesterol Level 105 MG/DL LDL Cholesterol 52 MG/DL HDL Cholesterol 34.8 MG/DL Cholesterol/HDL Ratio 3.01 RATIO Activated Partial Thromboplast Time 70.9 SEC 88.8 SEC 61.7 SEC Assessment and Plan Problem List: (1) Peripheral vascular disease ICD Codes: I73.9 - Peripheral vascular disease, unspecified Status: Acute (2) CAD (coronary artery disease) ICD Codes: I25.10 - Atherosclerotic heart disease of [place] coronary artery without angina pectoris (3) Cardiomyopathy ICD Codes: I42.9 - Cardiomyopathy, unspecified Assessment and Plan Tolerated LLE revascularization well. Remains stable from cardiac standpoint. Continue current program. R LE revascularization planned as well. Rodríguez Garza MD Oct 20, 2017 15:31
--- NOTE | 2017-10-20 17:06 | HHI.PR ---
Subjective Remarks Patient just came to the 1700 floor, she told me "I guess I'm fine ", patient had a revascularization yesterday by Dr. Abdullahi, discussed with the nurse know right pulse today in the lower extremity, left pulse appreciated by Doppler She is afebrile, femoropopliteal surgery for Dr. Abdullahi Objective Vitals Vital Signs Date Time Temp Pulse Resp B/P (MAP) Pulse Ox O2 Delivery O2 Flow Rate FiO2 10/20/17 12:00 99 10/20/17 12:00 99.2 99 14 143/61 (88) 98 10/20/17 10:00 101 10/20/17 08:00 98.5 97 16 130/59 (82) 98 10/20/17 08:00 97 10/20/17 06:00 89 10/20/17 04:00 98.0 88 14 117/57 (77) 95 10/20/17 04:00 88 10/20/17 02:00 93 10/20/17 00:00 97.8 101 16 113/79 (90) 96 10/20/17 00:00 101 10/19/17 22:00 103 10/19/17 20:00 98.0 92 20 160/64 (96) 100 10/19/17 20:00 89 10/19/17 18:35 97.3 98 15 156/72 (100) 93 154/64 (94) 10/19/17 17:30 97.4 91 14 129/66 (87) 97 Nasal Cannula 3 I/O 10/19/17 10/19/17 10/19/17 10/20/17 10/20/17 10/20/17 07:00 15:00 23:00 07:00 15:00 23:00 Intake Total 1200 ml 320 ml 235 ml Output Total 600 ml 800 ml 400 ml Balance -600 ml 400 ml -80 ml 235 ml Intake Oral 320 ml IV Total 235 ml Other 1200 ml Output Urine Total 600 ml 500 ml 400 ml Estimated Blood Loss 300 ml # Bowel Movements 0 Result Diagram: 10/20/17 0550 10/19/17 7216 Objective Remarks GENERAL: This is a well-nourished, well-developed patient, in no apparent distress. CARDIOVASCULAR: Regular rate and rhythm without murmurs, gallops, or rubs. RESPIRATORY: Clear to auscultation. Breath sounds equal bilaterally. No wheezes , rales, or rhonchi. GASTROINTESTINAL: Abdomen soft, non-tender, nondistended. Normal active bowel sounds MUSCULOSKELETAL: Extremities without clubbing, cyanosis, or edema. NEURO: Alert & Oriented x4 to person, place, time, situation. Moves all ext x4 Procedures RORY GONZALEZ Signed EXAM DATE/TIME: 10/14/2017 17:47 [place] COMPARISON: No previous studies available for comparison. INDICATIONS : Right leg pain; evaluate for occlusion. IV CONTRAST: 100 cc Omnipaque 350 (iohexol) IV RADIATION DOSE: 2.3 CTDIvol (mGy) MEDICAL HISTORY : Cerebrovascular disease. SURGICAL HISTORY : Tubal ligation. ENCOUNTER: Initial ACUITY: 1 month PAIN SCALE: 7/10 LOCATION: Right lower leg TECHNIQUE: Volumetric scanning was performed using a multi-row detector CT scanner. The data was post processed with a variety of visualization algorithms including full volume maximum intensity projection, multi-planar sliding thin slab reformation, curved planar reformation, and surface rendering techniques. Using automated exposure control and adjustment of the mA and/or kV according to patient size, radiation dose was kept as low as reasonably achievable to obtain optimal diagnostic quality images. DICOM format image data is available electronically for review and comparison. FINDINGS: There are atherosclerotic changes seen throughout the arterial system. The abdominal aorta measures up to 2.9 cm. At the distal infrarenal abdominal aorta thrombus occupies more than half of the lumen. The functional lumen is seen at the left lateral aspect of the distal abdominal aorta. There is atherosclerotic change at the common iliac arteries bilaterally. A significant stenosis is not seen at this level is not seen. There does appear to be severe stenosis and possible occlusion at the origin of the right internal iliac artery. There is mild plaque seen at the right external iliac artery. There is a severe stenosis at the distal left external iliac artery. There is atherosclerotic change seen at the common femoral arteries bilaterally being more severe on the right. There is a severe stenosis at the right common femoral artery narrowing the lumen by approximately 80%. There is severe narrowing of the proximal right profunda femoris artery. There is abrupt occlusion of the proximal right superficial femoral artery. Flow in the thigh is continues through collaterals in the profunda femoris artery distribution. There is reconstitution of the distal popliteal artery at the level of the distal femur via collaterals. There is a normal trifurcation. The right anterior tibial artery can be traced to the ankle. The posterior tibial and peritoneal arteries can be seen to the distal lower leg but can not clearly be traced into the foot. Again noted is the mild stenosis at the left common femoral artery. There is occlusion of the proximal left superficial femoral artery. The popliteal artery is patent throughout. There is reconstitution of the distal superficial femoral artery at the level of the distal femoral shaft. The popliteal artery is patent. There is a severe stenosis at the mid popliteal artery. The lumen is narrowed by over 75%. The more distal popliteal artery is patent. The anterior and posterior tibial artery could be traced to the foot. The peritoneal artery can be traced to the ankle region. Atherosclerotic calcifications are seen throughout the origins of the vessels in the upper abdomen. There does appear to be at least a moderate stenosis at the origin of the right renal artery. The left renal artery appears patent. The celiac, SMA and JUN are patent. There is a mild hiatal hernia. The liver, spleen, pancreas and kidneys appear grossly normal. The adrenal glands are grossly normal. The pelvic structures appear intact. The patient does have a Fabian catheter in the urinary bladder. There is degenerative change in the lumbar spine. CONCLUSION: 1. 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 2. Atherosclerotic change in the external iliac and common femoral arteries bilaterally as described above. 3. Occlusion of the superficial femoral arteries bilaterally with reconstitution distally. The reconstitution is higher on the left side. 4. Normal trifurcation vessels seen on the left side. 5. Diminished flow seen at the right trifurcation vessels. The vessels can only be well seen on the delayed images. The vessels can not be traced into the foot. Anselmo Mcadams MD on October 14, 2017 at 19:28 Board Certified Radiologist. This report was verified electronically. On 10/[address] Abdullahi : Exploration of the left groin, left common femoral and external iliac artery. Endarterectomy and patch angioplasty. External and common artery thromboembolectomy, superficial femoral popliteal artery thromboembolectomy. Arteriogram. A/P Assessment and Plan 10/20: Patient status post revascularization, further intervention per CVS A/P: Peripheral arterial vascular disease with Bilateral LE discoloration and unable to feel DP pulses. Patient with pain and cold extremities. Status post CTA Ao run off, vascular surgery Dr. YOO FOLLOWING FOR femoropopliteal bypass Started on antibiotic Rocephin IV . Received vanco and zosyn in the ED. Received bolus of NS in the eD. Continue IVF. Monitor VS closely. Urine cultures shows Escherichia coli UTI sensitive to Rocephin Restart home meds as appropriate patient says she currently doesn't take any meds. Consult PT for eval CONSULT OT Consult case management for DC plan DVT ppx lovenox History of cerebrovascular accident Gait instability possibly secondary to cerebrovascular accident versus peripheral vascular occlusive disease Deconditioning Will need SNF and PT and OT Erik Alvarado MD Oct 20, 2017 17:06
[2017-10-20] MEDS: cefTRIAXone INJ 1,000 MG in SODIUM CHLORIDE 0.9% INJ 100 ML IV SCH (17:09)
[2017-10-21] VITALS (9 sets, daily range): BP systolic 90–193; BP diastolic 60–114; PULSE 86–165; RESP 18–26; TEMP 97.5–98.2; O2SAT 91–96
--- NOTE | 2017-10-21 06:56 | MA ---
cc: JOSE RIGGS MD DATE: 10/19/2017 INDICATIONS Abnormal nuclear myocardial perfusion study, coronary disease, peripheral vascular disease. PROCEDURE PERFORMED 1. Retrograde left heart catheterization with left ventriculography and selective coronary angiography. 2. Moderate sedation. ACCESS SITE Left femoral artery. EQUIPMENT USED 5-Lao pigtail catheter. JL-4 and AR modified coronary artery catheters. MEDICATIONS Versed IV Fentanyl IV. CONTRAST Omnipaque 60 cc COMPLICATIONS None. BLOOD LOSS Less than 10 cc. METHOD OF HEMOSTASIS Manual compression. HEMODYNAMICS Heart rate 90 beats per minute. Left ventricular end-diastolic pressure 18 mmHg. Left ventricle 153/18. Aorta 153/77/111. LEFT VENTRICULOGRAPHY Left ventricular ejection fraction 35%. Wall motion: Anteroapical hypokinesis. No mitral regurgitation. CORONARY ANGIOGRAPHY The left main coronary artery is patent. The left anterior descending artery is patent in the proximal portion, with 50% stenosis in the mid portion. D1 patent. Left circumflex artery patent. OM1 patent. Right coronary is a dominant vessel with total occlusion in the proximal portion. The distal vessel is filling by abundant [id number] collaterals. DIAGNOSIS 1. Coronary artery disease with total occlusion of the right coronary artery with distal vessel filling by abundant collaterals. 2. Moderate left ventricular dysfunction consistent with ischemic cardiomyopathy. DISPOSITION Ms. Escobar was found to have evidence of coronary artery disease and moderate left ventricular dysfunction. Her risk of surgery is increased but not prohibitive. I recommend to proceed with her vascular surgery as planned. MD ROBLES Batista/SILAS /10:24 AM /6:24 AM [facility]
[2017-10-21 08:00] LABS: HEMATOCRIT 48.8 % (35.0-46.0); HEMOGLOBIN 16.1 GM/DL (11.6-15.3); MEAN CELL VOLUME 68.9 FL (80.0-100.0); MEAN CORPUSCULAR HEMOGLOBIN 22.7 PG (27.0-34.0); MEAN PLATELET VOLUME 8.9 FL (7.0-11.0); PLATELET COUNT 868 TH/MM3 (150-450); RED CELL DISTRIBUTION WIDTH 18.8 % (11.6-17.2); WHITE BLOOD COUNT 22.2 TH/MM3 (4.0-11.0)
[2017-10-21 08:20] LABS: RED BLOOD COUNT 7.08 MIL/MM3 (4.00-5.30)
[2017-10-21] MEDS: DOCUSATE SODIUM 50 MG/SENNA 8.6 MG TAB PO SCH ×2 (09:47→19:51)
[2017-10-21] MEDS: SODIUM CHLORIDE 0.9% FLUSH 10 ML FLUSH IV FLUSH SCH ×2 (09:48→19:51)
[2017-10-21] MEDS: CLOPIDOGREL 75 MG TAB PO SCH (09:48)
--- NOTE | 2017-10-21 09:48 | PD.CAR.PN ---
CVT Progress Note Subjective/Hospital Course: Referral received Full consult to follow Severe for peripheral vascular disease will require reconstruction Sol Abdullahi 10/16/17 As noted in my consultation this patient has bilateral severe peripheral vascular disease On top of that she is being treated for urosepsis and general decline Patient has not been in the hospital for 3 days and has gradually improved for her urosepsis based on clinical exam level of alertness and diagnostic studies Despite heparin drip the right leg is looking worse and worse and patient now has ischemia that needs attention in the resolution In the best of worlds I would like to wait another while to do the surgery considering patient's other issues but that this point if surgery is not performed patient is a very high risk of losing her leg I have reviewed patient's echocardiogram and studies and she is at this point moderate risk for vascular surgery but I believe options a limited and we have to go ahead with it. Therefore patient will be scheduled for common femoral endarterectomy and femoropopliteal bypass tomorrow I explained the risks and benefits of the procedure and all patient is very quiet she is clearly awake and alert and understands the discussion Have tried to reach her daughter however number is apparently disconnected 09/2017 Patient originally scheduled for surgery today however EKG reveals some anterior ischemia in addition to inferior ischemia that was noted on previous EKG In discussion with the anesthesiologist the decision is made to postpone the surgery until patient can be worked up cardiac saavedra in more detail so we get a better picture on cardiac risk and possible remedy Right leg and foot are ischemic and the cyanotic however while this surgery is urgent it is not an emergent and cardiac issues trump any other issue right now We'll consult cardiology for full evaluation possible stress test Restart heparin All things equal once cardiac workup completed we'll proceed with vascular bypass and reconstruction on the right leg 10/18/17 Right leg and foot remain ischemic and cyanotic Discussed with Dr. Canales This patient will lose her leg if for no surgery is done in next few days. On the other hand patient has significant coronary artery disease and major other comorbidities and hence the high risk Dr. Canales we'll proceed with cardiac catheterization through the left leg and based on that will decide which way to go There is of course a good chance the patient will be candidate for any surgery and that his then the rendering but we should make every effort to make patient at least be able to sustain a limb saving operation. On the other hand limb saving operation has not much value if patient loses her life in the process and therefore every effort should be made to get patient in shape good enough to tolerate surgery 10/20/17 Patient status post revascularization of the left leg Incision is clean and dry Patient has warm foot with normal capillary refill and strong dopplerable popliteal, dorsalis pedis posterior tibial pulses Right leg is still cyanotic and imminently at risk We'll give patient another day and address this tomorrow. Most likely all patient needs is iliofemoral endarterectomy and patch and during the surgery we will see if she needs a femoropopliteal bypass in addition but I would like to minimize the amount of surgery on this unfortunate lady Transfer to floor today 10/21/17 Patient doing well at this time she is more alert and awake and conversing much better than she did in last few days Left femoral strong palpable pulse strong dopplerable popliteal dissolves pedis and posterior tibial pulses on the left Will give her few days respite between the general anesthesia sessions Patient is to undergo right femoral endarterectomy and possible bypass on Sunday After the surgery patient will probably need some detention/rehabilitation placement because obviously patient cannot go home and take care of herself Objective: Vital Signs Date Time Temp Pulse Resp B/P (MAP) Pulse Ox O2 Delivery O2 Flow Rate FiO2 10/21/17 08:00 98.2 112 18 174/81 (112) 91 10/20/17 20:00 97.9 107 16 126/70 (88) 91 10/20/17 16:00 98.6 93 18 126/69 (88) 98 10/20/17 12:00 99 10/20/17 12:00 99.2 99 14 143/61 (88) 98 10/20/17 10:00 101 Labs: Laboratory Tests Test 10/20/17 23:28 10/21/17 07:07 Activated Partial Thromboplast Time 54.8 SEC (24.3-30.1) 51.8 SEC (24.3-30.1) White Blood Count 22.2 TH/MM3 (4.0-11.0) Red Blood Count 7.08 MIL/MM3 (4.00-5.30) Hemoglobin 16.1 GM/DL (11.6-15.3) Hematocrit 48.8 % (35.0-46.0) Mean Corpuscular Volume 68.9 FL (80.0-100.0) Mean Corpuscular Hemoglobin 22.7 PG (27.0-34.0) Mean Corpuscular Hemoglobin Concent 33.0 % (32.0-36.0) Red Cell Distribution Width 18.8 % (11.6-17.2) Platelet Count 868 TH/MM3 (150-450) Mean Platelet Volume 8.9 FL (7.0-11.0) Result Diagram: 10/21/17 0707 10/19/17 1726 (1) Peripheral vascular disease (2) CAD (coronary artery disease) (3) Cardiomyopathy Walter Fernandes MD Oct 21, 2017 09:48
[2017-10-21] MEDS: HEPARIN-D5W 25,000 U/250 ML 250 ML IV PRN (09:50)
--- NOTE | 2017-10-21 10:08 | MP ---
cc: MD AMPARO,[facility] DATE OF SURGERY: 10/19/2017 PREOPERATIVE DIAGNOSIS: Severe peripheral vascular disease, both legs, status post cardiac catheterization to the left groin and acute occlusion of blood flow to the left leg. POSTOPERATIVE DIAGNOSIS: 1. Severe peripheral vascular disease, both legs, status post cardiac catheterization to the left groin and acute occlusion of blood flow to the left leg. 2. Near occlusion of the common femoral and external iliac arteries. 3. Thrombosis of the external iliac arteries, superficial femoral, and popliteal arteries. OPERATIVE PROCEDURE Exploration of the left groin, left common femoral and external iliac artery. Endarterectomy and patch angioplasty. External and common artery thromboembolectomy, superficial femoral popliteal artery thromboembolectomy. Arteriogram. SURGEON Dr. Fernandes. ANESTHESIA General. ESTIMATED BLOOD LOSS: 300 cc. DESCRIPTION OF PROCEDURE: The patient was prepped and draped in the usual fashion. Left groin incision made, deepened down to the level of the neurovascular bundle, common femoral, deep and superficial femoral arteries isolated. None of them have any pulse in it. Gaxiola retractor placed under inguinal ligament and inguinal ligament elevated, exposing the most distal portion, external iliac artery going over the pubic bone. Once this was done, there was an area where there is very weak pulse. Attempt was made to place a micro needle and micro wire, and then a sheath, which initially works. The glide wire is placed and arteriogram is obtained. The patient has diffuse clot throughout the vessel and then a fairly tight narrowing of the external iliac artery about three inches above the inguinal ligament. Because of the amount of clot in the vessel, it is impossible to put a stent or balloon. Decision was made to do this open. The vessels are isolated with vessel loops placed around them and then common femoral artery opened into the external iliac artery with Choi scissors. First a #4 Harley is placed distally into deep femoral artery and a large clot retrieved. At this point the femoral artery bleeds nicely back. Now the Harley is placed in superficial femoral artery and low and behold it goes all the way down into probably the posterior tibial artery half way cathed and then stops. This one is now retrieved and a huge amount of thromboembolic material is retrieved and in addition, a white thrombus which is probably the guide for all this occlusion. The patient must have been clotting this off for a long time slowly and finally came to a grinding halt as the cardiac catheterization was done. Heparinized saline is flushed down the vessels and the profunda clamp applied. The Harley is now placed proximally and all the way down up to the aorta and then withdrawn. There is a narrow area above-noted external iliac artery, here the Harley balloon had to be deflated and again inflated lower down, and that resulted in retrieval of a huge amount of thromboembolic material and suddenly a very brisk heaton of blood down. Decision was now made to do balloon angioplasty considering the vessel is open and the end of the sheath of the 6 [place] sheath is just at the location of the stenosis. It would be hard to pull it back because there is not much vessel left distally. Decision is made to leave this alone considering that there is a brisk flow down and perhaps address it when the right leg is reconstructed a few days from now and go up and over. Satinsky clamp is applied proximally and using [place] dissector, in the medial plane a huge plaque and external iliac and common femoral arteries is dissected and removed. Remaining surfaces is cleaned of any debris with heparinized saline and felt tips. Now an 8 millimeter x 8 centimeter bovine patch grafted used and sewn in with running 6-0 Prolene. Prior to completing the patch angioplasty, all vessels are flushed in usual fashion and angioplasty is completed and blood flow re-established. At this point the patient has bounding pulse in the femoral arteries and strong brisk dopplerable pulse distally. The left foot readily warms up and pinks up. The area is irrigated with copious amounts of saline and then closed in layers using 2-0 Vicryl and 4-0 Monocryl, benzoin and Steri-Strips applied. The patient taken from the operating room in stable condition and will be taken back to the OR a few days from now to address the right leg ischemia which was the initial problem and why the patient came to the hospital. Walter TOURE /4:52 PM /8:45 AM MAX
[2017-10-21] MEDS ORDERED: METOPROLOL TARTRATE 25 MG TAB PO SCH (11:30)
--- NOTE | 2017-10-21 14:43 | PD.WCN.NOT ---
Wound Consult Description: Consult ordered by Dr.Brenner PIÑA for buttocks Communicated with: Pura STEPHENSON [address] [place] , Recommendation: 1) Encourage patient to reposition/offload frequently do not use cloth chucks. 2) Cleanse bilateral buttocks/Rosalie area with warm soap and water,rinse and dry.Do not scrub skin 3) Applied Calazime Cream to bilateral buttocks BID or after bowel movement. Additional Information: Patient was seen today by policy writer typist on ,Pura STEPHENSON [address] present with Pharmacy Cashier.Patient alert in bed with no current complaint of discomfort/distress. Skin assessment perform Bilateral buttocks pink and blanchable at this time.Two areas of scar tissue noted but patient denies any knowledge of previous wounds to buttocks.Buttock and rosalie area cleansed with warm water dried Calazime applied.Cloth lorena removed from under patient moisture control pad applied under patient.Patient tolerated wound care well.Verbalized understanding of repositioning and offloading to prevent skin compromise.Patient will follow up with Palliative and Psychiatric care. Gamal Cordoba [facility] Oct 21, 2017 14:43
[2017-10-21] MEDS ORDERED: DILTIAZEM HCL 25 MG/5 ML VIAL IV ONE (15:15)
[2017-10-21] MEDS ORDERED: FUROSEMIDE 40 MG/5 ML UNIT DOSE CUP NG ONE (15:15)
[2017-10-21] MEDS: RESP: ALBUTEROL 2.5 MG/IPRATROPIUM 0.5 MG NEB (SCH) NEB ×2 (15:16→20:22)
--- NOTE | 2017-10-21 15:17 | HHI.PR ---
Subjective Remarks Resting in bed Afebrile overnight Objective Vitals Vital Signs Date Time Temp Pulse Resp B/P (MAP) Pulse Ox O2 Delivery O2 Flow Rate FiO2 10/21/17 12:00 97.5 119 20 179/99 (125) 91 10/21/17 08:00 98.2 112 18 174/81 (112) 91 10/20/17 20:00 97.9 107 16 126/70 (88) 91 10/20/17 16:00 98.6 93 18 126/69 (88) 98 I/O 10/20/17 10/20/17 10/20/17 10/21/17 10/21/17 10/21/17 07:00 15:00 23:00 07:00 15:00 23:00 Intake Total 320 ml 235 ml 360 ml 240 ml Output Total 400 ml 400 ml 650 ml Balance -80 ml 235 ml -40 ml -410 ml Intake Oral 320 ml 360 ml 240 ml IV Total 235 ml Output Urine Total 400 ml 400 ml 650 ml # Bowel Movements 0 Result Diagram: 10/21/17 0707 10/19/17 1726 Objective Remarks GENERAL: This is a well-nourished, well-developed patient, in no apparent distress. CARDIOVASCULAR: Regular rate and rhythm without murmurs, gallops, or rubs. RESPIRATORY: Clear to auscultation. Breath sounds equal bilaterally. No wheezes , rales, or rhonchi. GASTROINTESTINAL: Abdomen soft, non-tender, nondistended. Normal active bowel sounds MUSCULOSKELETAL: Extremities without clubbing, cyanosis, or edema. NEURO: Alert & Oriented x4 to person, place, time, situation. Moves all ext x4 Procedures RORY GONZALEZ Signed EXAM DATE/TIME: 10/14/2017 17:47 [facility] COMPARISON: No previous studies available for comparison. INDICATIONS : Right leg pain; evaluate for occlusion. IV CONTRAST: 100 cc Omnipaque 350 (iohexol) IV RADIATION DOSE: 2.3 CTDIvol (mGy) MEDICAL HISTORY : Cerebrovascular disease. SURGICAL HISTORY : Tubal ligation. ENCOUNTER: Initial ACUITY: 1 month PAIN SCALE: 7/10 LOCATION: Right lower leg TECHNIQUE: Volumetric scanning was performed using a multi-row detector CT scanner. The data was post processed with a variety of visualization algorithms including full volume maximum intensity projection, multi-planar sliding thin slab reformation, curved planar reformation, and surface rendering techniques. Using automated exposure control and adjustment of the mA and/or kV according to patient size, radiation dose was kept as low as reasonably achievable to obtain optimal diagnostic quality images. DICOM format image data is available electronically for review and comparison. FINDINGS: There are atherosclerotic changes seen throughout the arterial system. The abdominal aorta measures up to 2.9 cm. At the distal infrarenal abdominal aorta thrombus occupies more than half of the lumen. The functional lumen is seen at the left lateral aspect of the distal abdominal aorta. There is atherosclerotic change at the common iliac arteries bilaterally. A significant stenosis is not seen at this level is not seen. There does appear to be severe stenosis and possible occlusion at the origin of the right internal iliac artery. There is mild plaque seen at the right external iliac artery. There is a severe stenosis at the distal left external iliac artery. There is atherosclerotic change seen at the common femoral arteries bilaterally being more severe on the right. There is a severe stenosis at the right common femoral artery narrowing the lumen by approximately 80%. There is severe narrowing of the proximal right profunda femoris artery. There is abrupt occlusion of the proximal right superficial femoral artery. Flow in the thigh is continues through collaterals in the profunda femoris artery distribution. There is reconstitution of the distal popliteal artery at the level of the distal femur via collaterals. There is a normal trifurcation. The right anterior tibial artery can be traced to the ankle. The posterior tibial and peritoneal arteries can be seen to the distal lower leg but can not clearly be traced into the foot. Again noted is the mild stenosis at the left common femoral artery. There is occlusion of the proximal left superficial femoral artery. The popliteal artery is patent throughout. There is reconstitution of the distal superficial femoral artery at the level of the distal femoral shaft. The popliteal artery is patent. There is a severe stenosis at the mid popliteal artery. The lumen is narrowed by over 75%. The more distal popliteal artery is patent. The anterior and posterior tibial artery could be traced to the foot. The peritoneal artery can be traced to the ankle region. Atherosclerotic calcifications are seen throughout the origins of the vessels in the upper abdomen. There does appear to be at least a moderate stenosis at the origin of the right renal artery. The left renal artery appears patent. The celiac, SMA and JUN are patent. There is a mild hiatal hernia. The liver, spleen, pancreas and kidneys appear grossly normal. The adrenal glands are grossly normal. The pelvic structures appear intact. The patient does have a Fabian catheter in the urinary bladder. There is degenerative change in the lumbar spine. CONCLUSION: 1. 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 2. Atherosclerotic change in the external iliac and common femoral arteries bilaterally as described above. 3. Occlusion of the superficial femoral arteries bilaterally with reconstitution distally. The reconstitution is higher on the left side. 4. Normal trifurcation vessels seen on the left side. 5. Diminished flow seen at the right trifurcation vessels. The vessels can only be well seen on the delayed images. The vessels can not be traced into the foot. Anselmo Mcadams MD on October 14, 2017 at 19:28 Board Certified Radiologist. This report was verified electronically. On 10/[address] Abdullahi : Exploration of the left groin, left common femoral and external iliac artery. Endarterectomy and patch angioplasty. External and common artery thromboembolectomy, superficial femoral popliteal artery thromboembolectomy. Arteriogram. A/P Assessment and Plan 10/20: Patient status post revascularization, further intervention per CVS 10/21: Patient feels worse today, short of breath with some chest tightness, she is tachycardic in 1:30 to 140, hypertensive 210/111, will order stat chest x -ray, EKG, earlier I ordered Lopressor 25 mg to improve blood pressure and heart rate, stress nuclear testing showed suspected RCA infarct, cardiovascular surgery planning on possible right femoral endarterectomy on Sunday. Discussed with cardiology Dr. jones, will transfer to ICU A/P: Peripheral arterial vascular disease with Bilateral LE discoloration and unable to feel DP pulses. Patient with pain and cold extremities. Status post CTA Ao run off, vascular surgery Dr. YOO FOLLOWING FOR femoropopliteal bypass Started on antibiotic Rocephin IV . Received vanco and zosyn in the ED. Received bolus of NS in the eD. Continue IVF. Monitor VS closely. Urine cultures shows Escherichia coli UTI sensitive to Rocephin Restart home meds as appropriate patient says she currently doesn't take any meds. Consult PT for eval CONSULT OT Consult case management for DC plan DVT ppx lovenox History of cerebrovascular accident Gait instability possibly secondary to cerebrovascular accident versus peripheral vascular occlusive disease Deconditioning Will need SNF and PT and OT Erik Alvarado MD Oct 21, 2017 15:17
--- NOTE | 2017-10-21 15:50 | RADRPT ---
EXAM DATE/TIME: 10/21/2017 15:11 [facility] COMPARISON: CHEST SINGLE AP, October 15, 2017, 2:34. INDICATIONS : Shortness of breath- Tachycardia. MEDICAL HISTORY : Stroke. Hypertension SURGICAL HISTORY : Tonsillectomy. Tubal ligation. ENCOUNTER: Subsequent ACUITY: 1 day PAIN SCORE: Non-responsive. LOCATION: Bilateral chest FINDINGS: Single AP view of the chest. Increasing hazy opacity at the right lung base. Mild diffuse interstitia l opacity also slightly increased. Cardiomediastinal silhouette unchanged. No evidence of pneumothora x. CONCLUSION: Increasing hazy opacity at right lung base indicating either parenchymal consolidation or small pleur al effusion. There is also mild increase in bilateral diffuse interstitial opacity suggesting pulmona ry edema. Stalin Murphy MD on October 21, 2017 at 15:47 Board Certified Radiologist. This report was verified electronically.
--- NOTE | 2017-10-21 15:54 | EKG ---
Date Performed: 10/21/2017 Time Performed: 15:09:04 PTAGE: 77 years EKG: POSSIBLE SINUS TACHYCARDIA WITH OCCASIONAL PAC RIGHT AXIS DEVIATION SEPTAL MYOCARDIAL INFAR CTION , OF INDETERMINATE AGE ST DEVIATION AND MODERATE T-WAVE ABNORMALITY, CONSIDER INFERIOR ISCHEMIA ABNORMAL ECG PREVIOUS TRACING : 10/15/2017 13.32 Compared to previous tracing, heart rate has increased. DOCTOR: Tutu Mercer Interpretating Date/Time 10/21/2017 15:53:00
[2017-10-21] MEDS: LACTATED RINGER'S 1000 ML INJ 1,000 ML IV SCH ×2 (16:22→19:52)
[2017-10-21] MEDS: cefTRIAXone INJ 1,000 MG in SODIUM CHLORIDE 0.9% INJ 100 ML IV SCH (16:29)
--- NOTE | 2017-10-21 16:53 | PD.CARD.PN ---
Subjective Subjective Remarks A fib with RVR, severe hypertension, c/o SOB, no CP Objective Medications Current Medications Medications (Trade) Dose Ordered Sig/Sina Route Start Time Stop Time Status Last Admin Ceftriaxone Sodium 1000 mg/ Sodium Chloride 100 ml @ 200 mls/hr Q24H IV 10/14/17 16:00 10/21/17 16:29 (NS Flush) 2 ml UNSCH PRN IV FLUSH 10/14/17 16:00 (NS Flush) 2 ml BID IV FLUSH 10/14/17 21:00 10/21/17 09:48 (Tylenol) 650 mg Q4H PRN PO 10/14/17 16:00 (Zofran Inj) 4 mg Q6H PRN IVP 10/14/17 16:00 (Restoril) 15 mg HS PRN PO 10/14/17 16:00 (Narcan Inj) 0.4 mg UNSCH PRN IV PUSH 10/14/17 16:00 (Rosalie-Colace) 1 tab BID PO 10/14/17 21:00 10/21/17 09:47 (Milk Of Magnesia Liq) 30 ml Q12H PRN PO 10/14/17 16:00 (Senokot) 17.2 mg Q12H PRN PO 10/14/17 16:00 (Dulcolax Supp) 10 mg DAILY PRN RECTAL 10/14/17 16:00 (Lactulose Liq) 30 ml DAILY PRN PO 10/14/17 16:00 (Duoneb Neb) 1 ampule Q4HR NEB PRN NEB 10/15/17 04:00 Heparin Sodium/ Dextrose 250 ml @ 10 mls/hr TITRATE PRN IV 10/15/17 06:30 10/21/17 09:50 Lactated Ringer's 1,000 ml @ 40 mls/hr Q24H IV 10/17/17 13:00 10/20/17 03:30 Lactated Ringer's 1,000 ml @ 30 mls/hr Q24H PRN IV 10/19/17 02:00 10/22/17 01:59 Sodium Chloride 500 ml @ 30 mls/hr [id number] PRN IV 10/19/17 02:00 10/22/17 01:59 (Betadine 5% Antisepsis Kit) 1 applic HEAD OF BIOLOGY PRN EACH NARE 10/19/17 02:00 10/22/17 01:59 (Chlorhexidine 2% Cloth) 3 pack HEAD OF BIOLOGY PRN TOPICAL 10/19/17 02:00 10/22/17 01:59 (Plavix) 75 mg DAILY PO 10/19/17 17:15 10/21/17 09:48 (Lopressor) 25 mg Q12HR PO 10/21/17 11:30 10/21/17 14:46 (Duoneb Neb) 1 ampule QID NEB NEB 10/21/17 16:00 10/21/17 15:16 Vital Signs / I&O Vital Signs Date Time Temp Pulse Resp B/P (MAP) Pulse Ox O2 Delivery O2 Flow Rate FiO2 10/21/17 15:26 95 Venturi Mask 3.00 31 10/21/17 15:00 165 26 193/114 (140) 92 10/21/17 12:00 97.5 119 20 179/99 (125) 91 10/21/17 08:00 98.2 112 18 174/81 (112) 91 10/20/17 20:00 97.9 107 16 126/70 (88) 91 I/O 10/20/17 10/20/17 10/20/17 10/21/17 10/21/17 10/21/17 07:00 15:00 23:00 07:00 15:00 23:00 Intake Total 320 ml 235 ml 360 ml 240 ml Output Total 400 ml 400 ml 650 ml Balance -80 ml 235 ml -40 ml -410 ml Intake Oral 320 ml 360 ml 240 ml IV Total 235 ml Output Urine Total 400 ml 400 ml 650 ml # Bowel Movements 0 Physical Exam GENERAL: In mod resp distress SKIN: Warm and dry. HEAD: Normocephalic. EYES: No scleral icterus. No injection or drainage. NECK: Supple, trachea midline. No JVD or lymphadenopathy. CARDIOVASCULAR: Irregular rate and rhythm, tachycardic, without murmurs, gallops , or rubs. RESPIRATORY: Breath sounds equal bilaterally. Few rhonchi. GASTROINTESTINAL: Abdomen soft, non-tender, nondistended. MUSCULOSKELETAL: No cyanosis, or edema. Laboratory Laboratory Tests Test 10/20/17 23:28 10/21/17 07:07 Activated Partial Thromboplast Time 54.8 SEC 51.8 SEC White Blood Count 22.2 TH/MM3 Red Blood Count 7.08 MIL/MM3 Hemoglobin 16.1 GM/DL Hematocrit 48.8 % Mean Corpuscular Volume 68.9 FL Mean Corpuscular Hemoglobin 22.7 PG Mean Corpuscular Hemoglobin Concent 33.0 % Red Cell Distribution Width 18.8 % Platelet Count 868 TH/MM3 Mean Platelet Volume 8.9 FL Imaging Last 24 hours Impressions Chest X-Ray 10/21/17 0000 Signed Impressions: Service Date/Time: Saturday, October 21, 2017 15:11 - CONCLUSION: Increasing hazy opacity at right lung base indicating either parenchymal consolidation or small pleural effusion. There is also mild increase in bilateral diffuse interstitial opacity suggesting pulmonary edema. Stalin Murphy MD Assessment and Plan Problem List: (1) Peripheral vascular disease ICD Codes: I73.9 - Peripheral vascular disease, unspecified Status: Acute (2) CAD (coronary artery disease) ICD Codes: I25.10 - Atherosclerotic heart disease of [place] coronary artery without angina pectoris (3) Cardiomyopathy ICD Codes: I42.9 - Cardiomyopathy, unspecified (4) Atrial fibrillation ICD Codes: I48.91 - Unspecified atrial fibrillation (5) Hypertension ICD Codes: I10 - Essential (primary) hypertension Assessment and Plan AF w RVR, hypertension. Start dilt IV and drip for rate control. Transfer back to ICU. RLE revascularization later to prevent limb loss. Rodríguez Garza MD Oct 21, 2017 16:53
[2017-10-21] MEDS: DIGOXIN 0.125 MG TAB PO SCH (17:14)
[2017-10-21] MEDS: METOPROLOL TARTRATE 50 MG TAB PO SCH (19:48)
[2017-10-21 19:54] LABS: BICARBONATE 23.6 MEQ/L (21.0-32.0); CALCIUM 8.4 MG/DL (8.5-10.1); CREATININE 0.92 MG/DL (0.50-1.00)
[2017-10-22] VITALS (17 sets, daily range): BP systolic 101–118; BP diastolic 57–65; PULSE 81–112; RESP 12–26; TEMP 97.6–98.6; O2SAT 90–99
[2017-10-22 05:31] LABS: AUTOMATED NEUTROPHIL # 24.5 TH/MM3 (1.8-7.7); BASOPHIL # 0.1 TH/MM3 (0-0.2); BASOPHIL % 0.3 % (0.0-2.0); EOSINOPHIL # 0.3 TH/MM3 (0-0.4); HEMATOCRIT 47.9 % (35.0-46.0); HEMOGLOBIN 15.5 GM/DL (11.6-15.3); LYMPHOCYTE # 0.8 TH/MM3 (1.0-4.8); MEAN CELL VOLUME 68.1 FL (80.0-100.0); MEAN CORPUSCULAR HGB CONC 32.3 % (32.0-36.0); MEAN PLATELET VOLUME 8.7 FL (7.0-11.0); MONO % 4.3 % (0.0-8.0); MONOCYTE # 1.1 TH/MM3 (0-0.9); NEUT % 91.4 % (16.0-70.0); PLATELET COUNT 956 TH/MM3 (150-450); RED BLOOD COUNT 7.04 MIL/MM3 (4.00-5.30); WHITE BLOOD COUNT 26.8 TH/MM3 (4.0-11.0)
[2017-10-22 05:56] LABS: BICARBONATE 25.2 MEQ/L (21.0-32.0); CALCIUM 8.5 MG/DL (8.5-10.1); CREATININE 0.67 MG/DL (0.50-1.00)
[2017-10-22] MEDS: RESP: ALBUTEROL 2.5 MG/IPRATROPIUM 0.5 MG NEB (SCH) NEB ×4 (07:41→19:55)
[2017-10-22 08:09] LABS: BANDS 11 % (0-6); BASOPHILS 1 % (0-2); LYMPHOCYTES 1 % (9-44); MONOCYTES 2 % (0-8); NEUTROPHIL # MANUAL DIFF 25.7 TH/MM3 (1.8-7.7); POLYS (SEG NEUTROPHILS) 85 % (16-70); TOXIC VACUOLATION PRESENT (NONE SEEN)
[2017-10-22 08:10] LABS: OVALOCYTES 1+ (NORMAL)
[2017-10-22] MEDS: METOPROLOL TARTRATE 50 MG TAB PO SCH (08:33)
[2017-10-22] MEDS: DIGOXIN 0.125 MG TAB PO SCH (08:33)
[2017-10-22] MEDS: SODIUM CHLORIDE 0.9% FLUSH 10 ML FLUSH IV FLUSH SCH ×2 (08:33→21:00)
[2017-10-22] MEDS: CLOPIDOGREL 75 MG TAB PO SCH (08:33)
[2017-10-22] MEDS: DOCUSATE SODIUM 50 MG/SENNA 8.6 MG TAB PO SCH ×2 (08:33→21:29)
[2017-10-22] MEDS: HEPARIN-D5W 25,000 U/250 ML 250 ML IV PRN (10:30)
--- NOTE | 2017-10-22 12:14 | PD.CAR.PN ---
CVT Progress Note Subjective/Hospital Course: Referral received Full consult to follow Severe for peripheral vascular disease will require reconstruction Sol Abdullahi 10/16/17 As noted in my consultation this patient has bilateral severe peripheral vascular disease On top of that she is being treated for urosepsis and general decline Patient has not been in the hospital for 3 days and has gradually improved for her urosepsis based on clinical exam level of alertness and diagnostic studies Despite heparin drip the right leg is looking worse and worse and patient now has ischemia that needs attention in the resolution In the best of worlds I would like to wait another while to do the surgery considering patient's other issues but that this point if surgery is not performed patient is a very high risk of losing her leg I have reviewed patient's echocardiogram and studies and she is at this point moderate risk for vascular surgery but I believe options a limited and we have to go ahead with it. Therefore patient will be scheduled for common femoral endarterectomy and femoropopliteal bypass tomorrow I explained the risks and benefits of the procedure and all patient is very quiet she is clearly awake and alert and understands the discussion Have tried to reach her daughter however number is apparently disconnected 09/2017 Patient originally scheduled for surgery today however EKG reveals some anterior ischemia in addition to inferior ischemia that was noted on previous EKG In discussion with the anesthesiologist the decision is made to postpone the surgery until patient can be worked up cardiac saavedra in more detail so we get a better picture on cardiac risk and possible remedy Right leg and foot are ischemic and the cyanotic however while this surgery is urgent it is not an emergent and cardiac issues trump any other issue right now We'll consult cardiology for full evaluation possible stress test Restart heparin All things equal once cardiac workup completed we'll proceed with vascular bypass and reconstruction on the right leg 10/18/17 Right leg and foot remain ischemic and cyanotic Discussed with Dr. Canales This patient will lose her leg if for no surgery is done in next few days. On the other hand patient has significant coronary artery disease and major other comorbidities and hence the high risk Dr. Canales we'll proceed with cardiac catheterization through the left leg and based on that will decide which way to go There is of course a good chance the patient will be candidate for any surgery and that his then the rendering but we should make every effort to make patient at least be able to sustain a limb saving operation. On the other hand limb saving operation has not much value if patient loses her life in the process and therefore every effort should be made to get patient in shape good enough to tolerate surgery 10/20/17 Patient status post revascularization of the left leg Incision is clean and dry Patient has warm foot with normal capillary refill and strong dopplerable popliteal, dorsalis pedis posterior tibial pulses Right leg is still cyanotic and imminently at risk We'll give patient another day and address this tomorrow. Most likely all patient needs is iliofemoral endarterectomy and patch and during the surgery we will see if she needs a femoropopliteal bypass in addition but I would like to minimize the amount of surgery on this unfortunate lady Transfer to floor today 10/21/17 Patient doing well at this time she is more alert and awake and conversing much better than she did in last few days Left femoral strong palpable pulse strong dopplerable popliteal dissolves pedis and posterior tibial pulses on the left Will give her few days respite between the general anesthesia sessions Patient is to undergo right femoral endarterectomy and possible bypass on Sunday After the surgery patient will probably need some senior living/rehabilitation placement because obviously patient cannot go home and take care of herself 10/22/17 Patient doing okay at this time She is more alert and awake and answers questions appropriately and matter-of- fact asking questions about her legs Left leg is well-perfused incision is clean and dry Right leg on the other hand is cyanotic and purple as yesterday For right iliofemoral endarterectomy and possible femoropopliteal bypass tomorrow This lady is fairly significant risk patient however in absence of surgery she will lose right leg and chance of this is 100% Objective: Vital Signs Date Time Temp Pulse Resp B/P (MAP) Pulse Ox O2 Delivery O2 Flow Rate FiO2 10/22/17 10:00 105 10/22/17 08:00 100 10/22/17 08:00 97.6 100 17 118/58 (78) 90 10/22/17 07:42 94 Venturi Mask 50 10/22/17 07:00 100 10/22/17 07:00 97 Venturi Mask 6.00 40 10/22/17 06:00 87 10/22/17 04:00 98.1 90 16 102/57 (72) 94 10/22/17 04:00 90 10/22/17 02:00 86 10/22/17 00:00 98 10/22/17 00:00 98.0 98 12 101/60 (74) 92 10/21/17 23:00 96 10/21/17 22:00 98 10/21/17 20:24 96 Venturi Mask 31 10/21/17 20:00 87 10/21/17 20:00 97.5 87 24 90/60 (70) 92 Arterial Line 10/21/17 19:00 93 Venturi Mask 3.00 31 10/21/17 18:00 86 10/21/17 15:26 95 Venturi Mask 3.00 31 10/21/17 15:00 165 26 193/114 (140) 92 Labs: Laboratory Tests Test 10/22/17 04:50 10/22/17 11:15 White Blood Count 26.8 TH/MM3 (4.0-11.0) Red Blood Count 7.04 MIL/MM3 (4.00-5.30) Hemoglobin 15.5 GM/DL (11.6-15.3) Hematocrit 47.9 % (35.0-46.0) Mean Corpuscular Volume 68.1 FL (80.0-100.0) Mean Corpuscular Hemoglobin 22.0 PG (27.0-34.0) Mean Corpuscular Hemoglobin Concent 32.3 % (32.0-36.0) Red Cell Distribution Width 19.0 % (11.6-17.2) Platelet Count 956 TH/MM3 (150-450) Mean Platelet Volume 8.7 FL (7.0-11.0) Neutrophils (%) (Auto) 91.4 % (16.0-70.0) Lymphocytes (%) (Auto) 3.0 % (9.0-44.0) Monocytes (%) (Auto) 4.3 % (0.0-8.0) Eosinophils (%) (Auto) 1.0 % (0.0-4.0) Basophils (%) (Auto) 0.3 % (0.0-2.0) Neutrophils # (Auto) 24.5 TH/MM3 (1.8-7.7) Lymphocytes # (Auto) 0.8 TH/MM3 (1.0-4.8) Monocytes # (Auto) 1.1 TH/MM3 (0-0.9) Eosinophils # (Auto) 0.3 TH/MM3 (0-0.4) Basophils # (Auto) 0.1 TH/MM3 (0-0.2) CBC Comment AUTO DIFF Differential Total Cells Counted 100 Neutrophils % (Manual) 85 % (16-70) Band Neutrophils % 11 % (0-6) Lymphocytes % 1 % (9-44) Monocytes % 2 % (0-8) Basophils % 1 % (0-2) Neutrophils # (Manual) 25.7 TH/MM3 (1.8-7.7) Differential Comment FINAL DIFF MANUAL Toxic Vacuolation PRESENT (NONE SEEN) Platelet Estimate HIGH (NORMAL) Platelet Morphology Comment ENLARGED (NORMAL) Ovalocytes 1+ (NORMAL) Blood Urea Nitrogen 8 MG/DL (7-18) Creatinine 0.67 MG/DL (0.50-1.00) Random Glucose 107 MG/DL (74-106) Calcium Level 8.5 MG/DL (8.5-10.1) Sodium Level 137 MEQ/L (136-145) Potassium Level 3.3 MEQ/L (3.5-5.1) Chloride Level 99 MEQ/L (98-107) Carbon Dioxide Level 25.2 MEQ/L (21.0-32.0) Anion Gap 13 MEQ/L (5-15) Estimat Glomerular Filtration Rate 86 ML/MIN (>89) Activated Partial Thromboplast Time 60.9 SEC (24.3-30.1) Result Diagram: 10/22/17 0450 10/22/17 045 (1) Peripheral vascular disease (2) CAD (coronary artery disease) (3) Cardiomyopathy (4) Atrial fibrillation (5) Hypertension Walter Fernandes MD Oct 22, 2017 12:14
[2017-10-22] MEDS ORDERED: ALBUMIN 5% INJ 250 ML IV ONE (12:30)
[2017-10-22] MEDS ORDERED: METOPROLOL TARTRATE 25 MG TAB PO SCH (13:30)
[2017-10-22] MEDS ORDERED: RESP: ALBUTEROL 2.5 MG/IPRATROPIUM 0.5 MG NEB (PRN) INH (13:45)
[2017-10-22] MEDS ORDERED: Vancomycin Consult Pharmacy 1 EA OTHER SCH (13:45)
[2017-10-22] MEDS ORDERED: VANCOMYCIN INJ 1,000 MG in SODIUM CHLOR 0.9% 250 ML INJ 250 ML IV ONE (13:45)
--- NOTE | 2017-10-22 13:55 | HHI.PR ---
Subjective Remarks looking ill , despite denying cough or cp , however she is on 4 l nc [facility] to 26k, hb 15, bnp 1730 supposed to go [facility] , however she looks too sick and she is in hypoxia , i will work this up , I also d/w dr Amaya the health diagnostics teacher , pt may be transfered to his service if not improving Objective Vitals Vital Signs Date Time Temp Pulse Resp B/P (MAP) Pulse Ox O2 Delivery O2 Flow Rate FiO2 10/22/17 12:00 112 10/22/17 12:00 98.6 112 23 107/62 (77) 94 10/22/17 10:00 105 10/22/17 08:00 100 10/22/17 08:00 97.6 100 17 118/58 (78) 90 10/22/17 07:42 94 Venturi Mask 50 10/22/17 07:00 100 10/22/17 07:00 97 Venturi Mask 6.00 40 10/22/17 06:00 87 10/22/17 04:00 98.1 90 16 102/57 (72) 94 10/22/17 04:00 90 10/22/17 02:00 86 10/22/17 00:00 98 10/22/17 00:00 98.0 98 12 101/60 (74) 92 10/21/17 23:00 96 10/21/17 22:00 98 10/21/17 20:24 96 Venturi Mask 31 10/21/17 20:00 87 10/21/17 20:00 97.5 87 24 90/60 (70) 92 Arterial Line 10/21/17 19:00 93 Venturi Mask 3.00 31 10/21/17 18:00 86 10/21/17 15:26 95 Venturi Mask 3.00 31 10/21/17 15:00 165 26 193/114 (140) 92 I/O 10/21/17 10/21/17 10/21/17 10/22/17 10/22/17 10/22/17 07:00 15:00 23:00 07:00 15:00 23:00 Intake Total 240 ml 50 ml Output Total 650 ml 100 ml 325 ml Balance -410 ml -50 ml -325 ml Intake Oral 240 ml 50 ml Output Urine Total 650 ml 100 ml 325 ml # Bowel Movements 1 Result Diagram: 10/22/17 0450 10/22/17 045 Objective Remarks GENERAL: This is well-developed patient, in no apparent distress. CARDIOVASCULAR: Regular rate and rhythm without murmurs, gallops, or rubs. RESPIRATORY: bibasilar cracles . No wheezes, rales, or rhonchi. GASTROINTESTINAL: Abdomen soft, non-tender, nondistended. Normal active bowel sounds MUSCULOSKELETAL: Extremities without clubbing, cyanosis, or edema. NEURO: Alert & Oriented x4 to person, place, time, situation. Moves all ext x4 Procedures RORY GONZALEZ Signed EXAM DATE/TIME: 10/14/2017 17:47 [facility] COMPARISON: No previous studies available for comparison. INDICATIONS : Right leg pain; evaluate for occlusion. IV CONTRAST: 100 cc Omnipaque 350 (iohexol) IV RADIATION DOSE: 2.3 CTDIvol (mGy) MEDICAL HISTORY : Cerebrovascular disease. SURGICAL HISTORY : Tubal ligation. ENCOUNTER: Initial ACUITY: 1 month PAIN SCALE: 7/10 LOCATION: Right lower leg TECHNIQUE: Volumetric scanning was performed using a multi-row detector CT scanner. The data was post processed with a variety of visualization algorithms including full volume maximum intensity projection, multi-planar sliding thin slab reformation, curved planar reformation, and surface rendering techniques. Using automated exposure control and adjustment of the mA and/or kV according to patient size, radiation dose was kept as low as reasonably achievable to obtain optimal diagnostic quality images. DICOM format image data is available electronically for review and comparison. FINDINGS: There are atherosclerotic changes seen throughout the arterial system. The abdominal aorta measures up to 2.9 cm. At the distal infrarenal abdominal aorta thrombus occupies more than half of the lumen. The functional lumen is seen at the left lateral aspect of the distal abdominal aorta. There is atherosclerotic change at the common iliac arteries bilaterally. A significant stenosis is not seen at this level is not seen. There does appear to be severe stenosis and possible occlusion at the origin of the right internal iliac artery. There is mild plaque seen at the right external iliac artery. There is a severe stenosis at the distal left external iliac artery. There is atherosclerotic change seen at the common femoral arteries bilaterally being more severe on the right. There is a severe stenosis at the right common femoral artery narrowing the lumen by approximately 80%. There is severe narrowing of the proximal right profunda femoris artery. There is abrupt occlusion of the proximal right superficial femoral artery. Flow in the thigh is continues through collaterals in the profunda femoris artery distribution. There is reconstitution of the distal popliteal artery at the level of the distal femur via collaterals. There is a normal trifurcation. The right anterior tibial artery can be traced to the ankle. The posterior tibial and peritoneal arteries can be seen to the distal lower leg but can not clearly be traced into the foot. Again noted is the mild stenosis at the left common femoral artery. There is occlusion of the proximal left superficial femoral artery. The popliteal artery is patent throughout. There is reconstitution of the distal superficial femoral artery at the level of the distal femoral shaft. The popliteal artery is patent. There is a severe stenosis at the mid popliteal artery. The lumen is narrowed by over 75%. The more distal popliteal artery is patent. The anterior and posterior tibial artery could be traced to the foot. The peritoneal artery can be traced to the ankle region. Atherosclerotic calcifications are seen throughout the origins of the vessels in the upper abdomen. There does appear to be at least a moderate stenosis at the origin of the right renal artery. The left renal artery appears patent. The celiac, SMA and JUN are patent. There is a mild hiatal hernia. The liver, spleen, pancreas and kidneys appear grossly normal. The adrenal glands are grossly normal. The pelvic structures appear intact. The patient does have a Fabian catheter in the urinary bladder. There is degenerative change in the lumbar spine. CONCLUSION: 1. 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 2. Atherosclerotic change in the external iliac and common femoral arteries bilaterally as described above. 3. Occlusion of the superficial femoral arteries bilaterally with reconstitution distally. The reconstitution is higher on the left side. 4. Normal trifurcation vessels seen on the left side. 5. Diminished flow seen at the right trifurcation vessels. The vessels can only be well seen on the delayed images. The vessels can not be traced into the foot. Anselmo Mcadams MD on October 14, 2017 at 19:28 Board Certified Radiologist. This report was verified electronically. On 10/[address] Abdullahi : Exploration of the left groin, left common femoral and external iliac artery. Endarterectomy and patch angioplasty. External and common artery thromboembolectomy, superficial femoral popliteal artery thromboembolectomy. Arteriogram. A/P Assessment and Plan 10/20: Patient status post revascularization, further intervention per CVS 10/21: Patient feels worse today, short of breath with some chest tightness, she is tachycardic in 1:30 to 140, hypertensive 210/111, will order stat chest x -ray, EKG, earlier I ordered Lopressor 25 mg to improve blood pressure and heart rate, stress nuclear testing showed suspected RCA infarct, cardiovascular surgery planning on possible right femoral endarterectomy on Sunday. Discussed with cardiology Dr. jones, will transfer to ICU 10/22: pt looks sicker today , on 4 l o2 nc >>will check cxr, c diff , ua , will add vanco and zosyn for braod coverage for possible HCAP, d/w health diagnostics teacher for possible later transfer service . pt may need thoracenthesis prior to sx A/P: Peripheral arterial vascular disease with Bilateral LE discoloration and unable to feel DP pulses. Patient with pain and cold extremities. Status post CTA Ao run off, vascular surgery Dr. YOO FOLLOWING FOR femoropopliteal bypass Started on antibiotic Rocephin IV . Received vanco and zosyn in the ED. Received bolus of NS in the eD. Continue IVF. Monitor VS closely. Urine cultures shows Escherichia coli UTI sensitive to Rocephin Restart home meds as appropriate patient says she currently doesn't take any meds. Consult PT for eval CONSULT OT Consult case management for DC plan DVT ppx lovenox History of cerebrovascular accident Gait instability possibly secondary to cerebrovascular accident versus peripheral vascular occlusive disease Deconditioning Will need SNF and PT and OT Erik Alvarado MD Oct 22, 2017 13:55
[2017-10-22] MEDS ORDERED: POTASSIUM CHLORIDE 20 MEQ CONTROLLED RELEASE TAB PO ONE (14:00)
[2017-10-22] MEDS: PIPERACIL-TAZO 4.5 GM PREMIX 100 ML IV SCH ×2 (14:37→21:29)
--- NOTE | 2017-10-22 16:05 | RADRPT ---
EXAM DATE/TIME: 10/22/2017 15:44 [facility] COMPARISON: CTA RUNOFF W 3D RECON, October 14, 2017, 17:47. CHEST SINGLE AP, October 21, 2017, 15:11. INDICATIONS : Shortness of breath MEDICAL HISTORY : Stroke. Hypertension SURGICAL HISTORY : Tonsillectomy. Tubal ligation ENCOUNTER: Subsequent ACUITY: 2 days PAIN SCORE: Non-responsive. LOCATION: Bilateral chest FINDINGS: PA lateral views of the chest. Diffuse interstitial opacity lungs again seen along with mild hazy opa [place] at the lung bases. Small bilateral pleural effusions on the lateral view. Cardiomediastinal silh [place] unchanged. No evidence of pneumothorax. CONCLUSION: No significant change in bilateral interstitial opacities suggesting pulmonary edema. Small bilateral pleural effusions. Stalin Murphy MD on October 22, 2017 at 16:02 Board Certified Radiologist. This report was verified electronically.
[2017-10-22] MEDS: VANCOMYCIN INJ 750 MG in SODIUM CHLOR 0.9% 250 ML INJ 250 ML IV SCH (16:56)
[2017-10-22 20:25] LABS: BACTERIA, URINE OCC /hpf; BILIRUBIN, URINE NEG (NEG); BLOOD, URINE TRACE (NEG); GLUCOSE,URINE NEG (NEG); KETONE, URINE NEG (NEG); MUCUS URINE FEW /lpf (OCC); NITRITE,URINE NEG (NEG); SQUAMOUS EPITHELIAL CELL URINE <1 /hpf (0-5); TRANSITIONAL EPI CELLS, URINE <1 /hpf; URINE COLOR YELLOW (YELLW/STRAW); URINE LEUKOCYTE ESTERASE LARGE (NEG); WHITE BLOOD CELL CLUMPS RARE
[2017-10-22] MEDS: METOPROLOL TARTRATE 25 MG TAB PO SCH (21:29)
--- NOTE | 2017-10-22 21:37 | PD.CARD.PN ---
Subjective Subjective Remarks No SOB, no CP, feels better Objective Medications Current Medications Medications (Trade) Dose Ordered Sig/Sina Route Start Time Stop Time Status Last Admin (NS Flush) 2 ml UNSCH PRN IV FLUSH 10/14/17 16:00 (NS Flush) 2 ml BID IV FLUSH 10/14/17 21:00 10/22/17 08:33 (Tylenol) 650 mg Q4H PRN PO 10/14/17 16:00 (Zofran Inj) 4 mg Q6H PRN IVP 10/14/17 16:00 (Restoril) 15 mg HS PRN PO 10/14/17 16:00 (Narcan Inj) 0.4 mg UNSCH PRN IV PUSH 10/14/17 16:00 (Rosalie-Colace) 1 tab BID PO 10/14/17 21:00 10/22/17 21:29 (Milk Of Magnesia Liq) 30 ml Q12H PRN PO 10/14/17 16:00 (Senokot) 17.2 mg Q12H PRN PO 10/14/17 16:00 (Dulcolax Supp) 10 mg DAILY PRN RECTAL 10/14/17 16:00 (Lactulose Liq) 30 ml DAILY PRN PO 10/14/17 16:00 Heparin Sodium/ Dextrose 250 ml @ 10 mls/hr TITRATE PRN IV 10/15/17 06:30 Future Hold 10/22/17 10:30 Lactated Ringer's 1,000 ml @ 40 mls/hr Q24H IV 10/17/17 13:00 10/21/17 19:52 (Plavix) 75 mg DAILY PO 10/19/17 17:15 10/22/17 08:33 (Duoneb Neb) 1 ampule QID NEB NEB 10/21/17 16:00 10/22/17 19:55 (Lanoxin) 0.125 mg DAILY PO 10/21/17 17:00 10/22/17 08:33 Cefazolin Sodium 1000 mg/Sodium Chloride 100 ml @ 200 mls/hr HORIZONTAL DRILL OPERATOR IV 10/22/17 12:15 10/25/17 12:14 (Lopressor) 25 mg Q12HR PO 10/22/17 21:00 10/22/17 21:29 Piperacillin Sod/ Tazobactam Sod 100 ml @ 200 mls/hr Q6H IV 10/22/17 15:00 10/22/17 21:29 Pharmacy Profile Note 0 ml @ 0 mls/hr UNSCH OTHER 10/22/17 13:45 (Duoneb Neb) 1 ampule Q4HR NEB PRN INH 10/22/17 13:45 Vancomycin HCl 750 mg/Sodium Chloride 257.5 ml @ 250 mls/hr Q18H IV 10/22/17 16:00 10/22/17 16:56 Miscellaneous Information SPECIFIC LAB TO BE DRAWN:VANCO TROUGH DATE TO BE DR... ONCE ONCE .XX 10/24/17 21:45 10/24/17 21:46 Vital Signs / I&O Vital Signs Date Time Temp Pulse Resp B/P (MAP) Pulse Ox O2 Delivery O2 Flow Rate FiO2 10/22/17 19:56 95 Nasal Cannula 4.00 10/22/17 18:00 92 10/22/17 16:00 98.2 95 20 117/65 (82) 97 10/22/17 16:00 93 10/22/17 15:00 95 10/22/17 14:00 93 10/22/17 12:00 112 10/22/17 12:00 98.6 112 23 107/62 (77) 94 10/22/17 10:00 105 10/22/17 08:00 100 10/22/17 08:00 97.6 100 17 118/58 (78) 90 10/22/17 07:42 94 Venturi Mask 50 10/22/17 07:00 100 10/22/17 07:00 97 Venturi Mask 6.00 40 10/22/17 06:00 87 10/22/17 04:00 98.1 90 16 102/57 (72) 94 10/22/17 04:00 90 10/22/17 02:00 86 10/22/17 00:00 98 10/22/17 00:00 98.0 98 12 101/60 (74) 92 10/21/17 23:00 96 10/21/17 22:00 98 I/O 10/21/17 10/21/17 10/21/17 10/22/17 10/22/17 10/22/17 07:00 15:00 23:00 07:00 15:00 23:00 Intake Total 240 ml 50 ml 320 ml Output Total 650 ml 100 ml 325 ml 325 ml Balance -410 ml -50 ml -325 ml -5 ml Intake Oral 240 ml 50 ml 320 ml Output Urine Total 650 ml 100 ml 325 ml 325 ml # Bowel Movements 1 1 Physical Exam GENERAL: In mod resp distress SKIN: Warm and dry. HEAD: Normocephalic. EYES: No scleral icterus. No injection or drainage. NECK: Supple, trachea midline. No JVD or lymphadenopathy. CARDIOVASCULAR: Irregular rate and rhythm, tachycardic, without murmurs, gallops , or rubs. RESPIRATORY: Breath sounds equal bilaterally. Few rhonchi. GASTROINTESTINAL: Abdomen soft, non-tender, nondistended. MUSCULOSKELETAL: No cyanosis, or edema. Laboratory Laboratory Tests Test 10/22/17 04:50 10/22/17 11:15 10/22/17 14:00 10/22/17 16:45 White Blood Count 26.8 TH/MM3 Red Blood Count 7.04 MIL/MM3 Hemoglobin 15.5 GM/DL Hematocrit 47.9 % Mean Corpuscular Volume 68.1 FL Mean Corpuscular Hemoglobin 22.0 PG Mean Corpuscular Hemoglobin Concent 32.3 % Red Cell Distribution Width 19.0 % Platelet Count 956 TH/MM3 Mean Platelet Volume 8.7 FL Neutrophils (%) (Auto) 91.4 % Lymphocytes (%) (Auto) 3.0 % Monocytes (%) (Auto) 4.3 % Eosinophils (%) (Auto) 1.0 % Basophils (%) (Auto) 0.3 % Neutrophils # (Auto) 24.5 TH/MM3 Lymphocytes # (Auto) 0.8 TH/MM3 Monocytes # (Auto) 1.1 TH/MM3 Eosinophils # (Auto) 0.3 TH/MM3 Basophils # (Auto) 0.1 TH/MM3 CBC Comment AUTO DIFF Differential Total Cells Counted 100 Neutrophils % (Manual) 85 % Band Neutrophils % 11 % Lymphocytes % 1 % Monocytes % 2 % Basophils % 1 % Neutrophils # (Manual) 25.7 TH/MM3 Differential Comment FINAL DIFF MANUAL Toxic Vacuolation PRESENT Platelet Estimate HIGH Platelet Morphology Comment ENLARGED Ovalocytes 1+ Blood Urea Nitrogen 8 MG/DL Creatinine 0.67 MG/DL Random Glucose 107 MG/DL Calcium Level 8.5 MG/DL Sodium Level 137 MEQ/L Potassium Level 3.3 MEQ/L Chloride Level 99 MEQ/L Carbon Dioxide Level 25.2 MEQ/L Anion Gap 13 MEQ/L Estimat Glomerular Filtration Rate 86 ML/MIN Activated Partial Thromboplast Time 60.9 SEC Blood Gas Puncture Site RT RADIAL Blood Gas Patient Temperature 98.6 Blood Gas HCO3 27 mmol/L Blood Gas Base Excess 3.3 mmol/L Blood Gas Oxygen Saturation 94 % Arterial Blood pH 7.50 Arterial Blood Partial Pressure CO2 35 mmHg Arterial Blood Partial Pressure O2 81 mmHg Arterial Blood Oxygen Content 20.4 Vol % Arterial Blood Carboxyhemoglobin 1.4 % Arterial Blood Methemoglobin 0.9 % Blood Gas Hemoglobin 15.4 G/DL Oxygen Delivery Device NASAL CANNULA Blood Gas Liter Flow 4 L/M Lactic Acid Level 1.5 mmol/L Test 10/22/17 18:45 Urine Color YELLOW Urine Turbidity HAZY Urine pH 6.0 Urine Specific [place] 1.012 Urine Protein TRACE mg/dL Urine Glucose (UA) NEG mg/dL Urine Ketones NEG mg/dL Urine Occult Blood TRACE Urine Nitrite NEG Urine Bilirubin NEG Urine Urobilinogen LESS THAN 2.0 MG/DL Urine Leukocyte Esterase LARGE Urine RBC 22 /hpf Urine WBC 182 /hpf Urine WBC Clumps RARE Urine Squamous Epithelial Cells <1 /hpf Urine Transitional Epithelial Cells <1 /hpf Urine Bacteria OCC /hpf Urine Mucus FEW /lpf Urine Yeast with Hyphae FEW Urine Yeast (Budding) MANY Microscopic Urinalysis Comment CULTURE INDICATED Imaging Last 24 hours Impressions Chest X-Ray 10/22/17 0000 Signed Impressions: Service Date/Time: Sunday, October 22, 2017 15:44 - CONCLUSION: No significant change in bilateral interstitial opacities suggesting pulmonary edema. Small bilateral pleural effusions. Stalin Murphy MD Assessment and Plan Problem List: (1) Peripheral vascular disease ICD Codes: I73.9 - Peripheral vascular disease, unspecified Status: Acute (2) CAD (coronary artery disease) ICD Codes: I25.10 - Atherosclerotic heart disease of [place] coronary artery without angina pectoris (3) Cardiomyopathy ICD Codes: I42.9 - Cardiomyopathy, unspecified (4) Atrial fibrillation ICD Codes: I48.91 - Unspecified atrial fibrillation (5) Hypertension ICD Codes: I10 - Essential (primary) hypertension Assessment and Plan Rhythm stable. No angina or CHF exacerbation. Continue ICU monitoring. RLE revascularization tomorrow to prevent limb loss. Rodríguez Garza MD Oct 22, 2017 21:37
[2017-10-23] VITALS (14 sets, daily range): BP systolic 103–132; BP diastolic 48–80; PULSE 73–90; RESP 12–26; TEMP 97.5–98.4; O2SAT 91–99
[2017-10-23] MEDS: PIPERACIL-TAZO 4.5 GM PREMIX 100 ML IV SCH ×4 (02:38→21:27)
[2017-10-23 04:25] LABS: AUTOMATED NEUTROPHIL # 15.3 TH/MM3 (1.8-7.7); BASOPHIL # 0.2 TH/MM3 (0-0.2); BASOPHIL % 0.9 % (0.0-2.0); EOSINOPHIL # 0.5 TH/MM3 (0-0.4); HEMATOCRIT 42.2 % (35.0-46.0); HEMOGLOBIN 13.9 GM/DL (11.6-15.3); LYMPH % 4.3 % (9.0-44.0); LYMPHOCYTE # 0.8 TH/MM3 (1.0-4.8); MEAN CELL VOLUME 69.1 FL (80.0-100.0); MEAN CORPUSCULAR HEMOGLOBIN 22.7 PG (27.0-34.0); MEAN CORPUSCULAR HGB CONC 32.9 % (32.0-36.0); MEAN PLATELET VOLUME 8.8 FL (7.0-11.0); MONO % 5.1 % (0.0-8.0); MONOCYTE # 0.9 TH/MM3 (0-0.9); NEUT % 86.7 % (16.0-70.0); PLATELET COUNT 946 TH/MM3 (150-450); RED BLOOD COUNT 6.11 MIL/MM3 (4.00-5.30); RED CELL DISTRIBUTION WIDTH 19.4 % (11.6-17.2); WHITE BLOOD COUNT 17.7 TH/MM3 (4.0-11.0)
[2017-10-23] MEDS: RESP: ALBUTEROL 2.5 MG/IPRATROPIUM 0.5 MG NEB (SCH) NEB ×4 (07:56→20:32)
[2017-10-23] MEDS: METOPROLOL TARTRATE 25 MG TAB PO SCH ×2 (08:46→21:00)
[2017-10-23] MEDS: DOCUSATE SODIUM 50 MG/SENNA 8.6 MG TAB PO SCH ×2 (08:46→21:28)
[2017-10-23] MEDS: DIGOXIN 0.125 MG TAB PO SCH (08:46)
[2017-10-23] MEDS: CLOPIDOGREL 75 MG TAB PO SCH (08:47)
[2017-10-23] MEDS: SODIUM CHLORIDE 0.9% FLUSH 10 ML FLUSH IV FLUSH SCH ×2 (08:47→21:27)
[2017-10-23] MEDS ORDERED: FUROSEMIDE 20 MG/2 ML VIAL IV PUSH ONE (09:15)
--- NOTE | 2017-10-23 09:16 | HHI.PR ---
Subjective Remarks Follow up hypoxia, PAD. Patient states that she doesn't feel well today. Denies chest pain. Per nursing, she has a nonproductive cough. Objective Vitals Vital Signs Date Time Temp Pulse Resp B/P (MAP) Pulse Ox O2 Delivery O2 Flow Rate FiO2 10/23/17 07:57 95 Nasal Cannula 4.00 10/23/17 07:00 94 Nasal Cannula 4.00 10/23/17 07:00 88 10/23/17 06:00 80 10/23/17 04:00 98.1 85 13 114/69 (84) 95 10/23/17 04:00 81 10/23/17 02:00 79 10/23/17 00:00 83 10/23/17 00:00 83 10/23/17 00:00 98.4 84 26 103/57 (72) 99 10/22/17 23:00 95 10/22/17 22:00 81 10/22/17 20:00 98.0 94 26 102/58 (73) 99 10/22/17 20:00 90 10/22/17 20:00 95 Nasal Cannula 4.00 10/22/17 19:56 95 Nasal Cannula 4.00 10/22/17 18:00 92 10/22/17 16:00 98.2 95 20 117/65 (82) 97 10/22/17 16:00 93 10/22/17 15:00 95 10/22/17 14:00 93 10/22/17 12:00 112 10/22/17 12:00 98.6 112 23 107/62 (77) 94 10/22/17 10:00 105 I/O 10/22/17 10/22/17 10/22/17 10/23/17 10/23/17 10/23/17 07:00 15:00 23:00 07:00 15:00 23:00 Intake Total 420 ml 100 ml Output Total 325 ml 325 ml 450 ml Balance -325 ml 95 ml -350 ml Intake Oral 320 ml IV Total 100 ml 100 ml Output Urine Total 325 ml 325 ml 450 ml # Bowel Movements 1 1 1 Result Diagram: 10/23/17 0342 10/22/17 0450 Imaging Last Impressions Chest X-Ray 10/22/17 0000 Signed Impressions: Service Date/Time: Sunday, October 22, 2017 15:44 - CONCLUSION: No significant change in bilateral interstitial opacities suggesting pulmonary edema. Small bilateral pleural effusions. Stalin Murphy MD Myocardial Perfusion Scan Nuc Med 10/18/17 0000 Signed Impressions: Service Date/Time: September 11:26 - CONCLUSION: Suspected infarcts of the right coronary and circumflex global decreased perfusion fixed at rest. No obvious ischemia. RISK CATEGORY: Intermediate (1-3%% Annual Mortality Rate) Jose Luis Ray MD Head CT 10/15/17 0000 Signed Impressions: Service Date/Time: Sunday, October 15, 2017 05:41 - CONCLUSION: 1. Bilateral suspected areas of encephalomalacia being more prominent on the right. 2. Suspected small vessel ischemic change throughout the white matter. 3. Atrophy. 4. Acute area of hemorrhage or mass effect is not seen. Anselmo Mcadams MD Lower Extremity Ultrasound 10/14/17 0000 Signed Impressions: Service Date/Time: Saturday, October 14, 2017 20:48 - CONCLUSION: No DVT. Anselmo Mcadams MD Aorta w/Runoff CTA 10/14/17 0000 Signed Impressions: Service Date/Time: Saturday, October 14, 2017 17:47 - CONCLUSION: 1. 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 2. Atherosclerotic change in the external iliac and common femoral arteries bilaterally as described above. 3. Occlusion of the superficial femoral arteries bilaterally with reconstitution distally. The reconstitution is higher on the left side. 4. Normal trifurcation vessels seen on the left side. 5. Diminished flow seen at the right trifurcation vessels. The vessels can only be well seen on the delayed images. The vessels can not be traced into the foot. Anselmo Mcadams MD Objective Remarks General: Elderly female in no acute distress. Heart: Regular rate and rhythm. No murmur. Lungs: Bilateral crackles noted. Breathing is nonlabored. Abdomen: Soft, nontender, nondistended. Extremities: Right leg with purplish discoloration. Decreased pulses in the right lower extremity. Psych: Alert and oriented. Procedures 10/19/17 exploration of the left groin, left common femoral and external iliac artery. Endarterectomy and patch angioplasty. External and common artery thromboembolectomy, superficial femoral popliteal artery thromboembolectomy, arteriogram. Urinary Catheter: Yes Assessment to: Continue Fabian insert reason: Surgical/Invasive Proced Vascular Central Line Catheter: No A/P Assessment and Plan 1. Peripheral arterial disease: Status post surgical intervention on the left lower extremity with clinical improvement. Scheduled for right femoropopliteal bypass today. Appreciate vascular surgery management. 2. Cough, dyspnea: Continue antibiotic coverage of possible healthcare associated pneumonia. Continue supplemental oxygen, bronchodilators. 3. UTI: Urine culture shows Escherichia coli. Treated with Rocephin. 4. DVT prophylaxis: Heparin drip. 5. Deconditioning: Continue PT/OT. Will need SNF placement. 6. Leukocytosis: Possibly secondary to infection. WBCs trending down. 7. Hypokalemia: Recheck labs. Demetrius Mckeon MD Oct 23, 2017 09:16
[2017-10-23] MEDS: VANCOMYCIN INJ 750 MG in SODIUM CHLOR 0.9% 250 ML INJ 250 ML IV SCH (09:38)
[2017-10-23] MEDS ORDERED: PROTAMINE SULFATE 50 MG/5 ML VIAL ONE (11:55)
[2017-10-23] MEDS ORDERED: HEPARIN SODIUM - IV 10,000 UNITS/10 ML VIAL ONE (11:55)
[2017-10-23] MEDS ORDERED: HEPARIN SODIUM - SQ 10,000 UNITS/ML VIAL ONE (11:55)
[2017-10-23] MEDS ORDERED: BUPIVACAINE HCL PF 0.5% 30 ML VIAL ONE (11:55)
[2017-10-23] MEDS ORDERED: ceFAZolin INJ 1,000 MG VIAL ONE (11:57)
[2017-10-23] MEDS ORDERED: NEOSTIGMINE 5 MG/5 ML SYRINGE IV PUSH ONE (12:00)
[2017-10-23] MEDS ORDERED: LIDOCAINE HCL 1% PF 5 ML SYRINGE OTHER ONE (12:00)
[2017-10-23] MEDS ORDERED: ROCURONIUM INJ 50 MG/5 ML SYRINGE IV PUSH ONE (12:00)
[2017-10-23] MEDS ORDERED: PROPOFOL 200 MG/20 ML AMP IV ONE (12:00)
[2017-10-23] MEDS ORDERED: ONDANSETRON HCL 4 MG/2 ML VIAL IV ONE (12:00)
[2017-10-23] MEDS ORDERED: SODIUM CHLOR 0.9% 250 ML INJ 250 ML IV ONE (12:00)
[2017-10-23] MEDS ORDERED: SODIUM CHLORID 0.9% 500 ML INJ 500 ML IV ONE (12:00)
[2017-10-23] MEDS ORDERED: NORMOSOL R INJ 1,000 ML IV ONE (12:00)
[2017-10-23] MEDS ORDERED: PHENYLEPH/NS 1000 MCG/10 ML SYR IV ONE (12:00)
[2017-10-23] MEDS ORDERED: PHENYLEPHRINE HCL 10 MG/ML VIAL IV ONE (12:00)
[2017-10-23] MEDS ORDERED: GLYCOPYRROLATE 1 MG/5 ML SYRINGE IV PUSH ONE (12:00)
[2017-10-23] MEDS ORDERED: ACETAMINOPHEN 1000 MG/100 ML 100 ML IV ONE (14:17)
[2017-10-23 15:49] LABS: AUTOMATED NEUTROPHIL # 21.4 TH/MM3 (1.8-7.7); BASOPHIL # 0.1 TH/MM3 (0-0.2); BASOPHIL % 0.5 % (0.0-2.0); EOSINOPHIL # 0.7 TH/MM3 (0-0.4); EOSINOPHIL % 2.7 % (0.0-4.0); HEMOGLOBIN 13.7 GM/DL (11.6-15.3); LYMPH % 3.4 % (9.0-44.0); LYMPHOCYTE # 0.8 TH/MM3 (1.0-4.8); MEAN CELL VOLUME 69.2 FL (80.0-100.0); MEAN CORPUSCULAR HGB CONC 31.8 % (32.0-36.0); MEAN PLATELET VOLUME 8.4 FL (7.0-11.0); MONO % 5.3 % (0.0-8.0); MONOCYTE # 1.3 TH/MM3 (0-0.9); NEUT % 88.1 % (16.0-70.0); PLATELET COUNT 1085 TH/MM3 (150-450); RED BLOOD COUNT 6.22 MIL/MM3 (4.00-5.30); RED CELL DISTRIBUTION WIDTH 18.6 % (11.6-17.2); WHITE BLOOD COUNT 24.2 TH/MM3 (4.0-11.0)
[2017-10-23] MEDS ORDERED: POTASSIUM CHLORIDE 20 MEQ CONTROLLED RELEASE TAB PO ONE (16:00)
[2017-10-23] MEDS ORDERED: DO NOT ADM ANY ANTICOAGULANT DRUGS PRN (16:15)
[2017-10-23 16:31] LABS: BANDS 6 % (0-6); BASOPHILS 1 % (0-2); LYMPHOCYTES 2 % (9-44); MONOCYTES 8 % (0-8); NEUTROPHIL # MANUAL DIFF 20.6 TH/MM3 (1.8-7.7); POLYS (SEG NEUTROPHILS) 79 % (16-70)
[2017-10-23 16:33] LABS: OVALOCYTES 1+ (NORMAL)
--- NOTE | 2017-10-23 17:13 | MP ---
cc: SANDRA CHRISTENSEN MD DATE OF SURGERY 10/23/2017 PREOPERATIVE DIAGNOSIS Ischemia of the right leg, occlusion of the right common femoral artery and SFA. 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 POSTOPERATIVE DIAGNOSIS Ischemia of the right leg, occlusion of the right common femoral artery and SFA. 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 PROCEDURE Right external iliac-common femoral endarterectomy and patch angioplasty and right femoral-popliteal bypass, PTFE graft. SURGEON MD Dena ANESTHESIA General. ESTIMATED BLOOD LOSS About 200 cc. OPERATIVE PROCEDURE The patient is prepped and draped in the usual fashion. A right groin incision is made in oblique fashion and common femoral, deep femoral and superficial femoral arteries were isolated with sharp dissection and vessel loops placed around each respectively. A Duenas retractor is now used to get incision a little higher exposed and then the proximal external iliac artery exposed. There is a large plaque in external iliac artery and common femoral occluded completely. Above that there is an area of the external iliac that is fairly soft. Therefore decision was made to place clamp here. The patient is given 5000 units of heparin, then a Satinsky clamp is placed very proximally on the external iliac artery, about 2 inches above the inguinal ligament in the retroperitoneal space. The profunda clamp placed on the femoral artery and then incision made longitudinally with Choi scissors going from external iliac artery to common femoral artery. There is a huge plaque in there which is decaying, degenerative plaque with soft areas and firm areas which clearly had been flushing off. With a [place] dissector in the media plane, all the debris is dissected including the plaque and then small debris removed with heparinized saline with cells. Now flushing the Satinsky clamp, there is a brisk flow downward. The Satinsky is now repositioned. The superficial femoral artery is now attended and Harley is placed downward. A large amount of old clot is removed, but the SFA is occluded [facility] in the thigh and reopens at the popliteal space as noted on CT scan. Now popliteal incision is made in medial aspect and popliteal artery is isolated proximally and distally, a vessel loop placed around it. This was opened with Choi scissors after controlling the flow proximally with a bulldog and distally with a [place] clip. The vessel is opened; it appears to be nice and clean. The Harley is passed downward; it goes all the way down to the foot. An 8-mm x 40-cm [place] ringed graft is now passed from proximal to distal and then first the distal anastomosis is attended. The graft is cut at an under oblique angle with an 11 blade and sewn in with running 5-0 Prolene. The popliteal artery is released and graft is bled back, then flushed with heparinized saline and clamped allowing the natural blood flow to still persist. The proximal anastomosis is now created. Considering there is a long arteriotomy going from external iliac down through the common femoral artery, the graft is cut to size under very oblique angle to form patch. The profunda artery is once more irrigated with saline and bleeds back nicely. Now the graft is sewn in with running 5-0 Prolene and then blood flow was reestablished in the usual order and fashion. Minor bleeding is controlled with additional 5-0 Prolene and needle holes in the graft finally stopped bleeding after holding some pressure on it. Some FloSeal is placed over the anastomosis and some SNoW and then a TAD drain is placed in the right groin. Incision was closed with 0 Vicryl in layers and 4-0 Monocryl. The same is done with the popliteal incision. Prior to closing the popliteal pulse is checked and is brisk and it is also detectable in the anterior tibial artery. The incision is now closed again with 0 Vicryl and 4-0 Monocryl. The patient tolerated the procedure well. Sandra PAYTON/LIGIA /3:45 PM /4:46 PM
--- NOTE | 2017-10-23 19:50 | PD.CARD.PN ---
Subjective Subjective Remarks No SOB or CP, tolerated surgery well Objective Medications Current Medications Medications (Trade) Dose Ordered Sig/Sina Route Start Time Stop Time Status Last Admin (NS Flush) 2 ml UNSCH PRN IV FLUSH 10/14/17 16:00 (NS Flush) 2 ml BID IV FLUSH 10/14/17 21:00 10/22/17 08:33 (Tylenol) 650 mg Q4H PRN PO 10/14/17 16:00 (Zofran Inj) 4 mg Q6H PRN IVP 10/14/17 16:00 (Restoril) 15 mg HS PRN PO 10/14/17 16:00 (Narcan Inj) 0.4 mg UNSCH PRN IV PUSH 10/14/17 16:00 (Rosalie-Colace) 1 tab BID PO 10/14/17 21:00 10/23/17 08:46 (Milk Of Magnesia Liq) 30 ml Q12H PRN PO 10/14/17 16:00 (Senokot) 17.2 mg Q12H PRN PO 10/14/17 16:00 (Dulcolax Supp) 10 mg DAILY PRN RECTAL 10/14/17 16:00 (Lactulose Liq) 30 ml DAILY PRN PO 10/14/17 16:00 Lactated Ringer's 1,000 ml @ 40 mls/hr Q24H IV 10/17/17 13:00 10/21/17 19:52 (Plavix) 75 mg DAILY PO 10/19/17 17:15 10/22/17 08:33 (Duoneb Neb) 1 ampule QID NEB NEB 10/21/17 16:00 10/23/17 07:56 (Lanoxin) 0.125 mg DAILY PO 10/21/17 17:00 10/23/17 08:46 Cefazolin Sodium 1000 mg/Sodium Chloride 100 ml @ 200 mls/hr BEAM DYER IV 10/22/17 12:15 10/25/17 12:14 (Lopressor) 25 mg Q12HR PO 10/22/17 21:00 10/23/17 08:46 Piperacillin Sod/ Tazobactam Sod 100 ml @ 200 mls/hr Q6H IV 10/22/17 15:00 10/23/17 08:46 Pharmacy Profile Note 0 ml @ 0 mls/hr UNSCH OTHER 10/22/17 13:45 (Duoneb Neb) 1 ampule Q4HR NEB PRN INH 10/22/17 13:45 Vancomycin HCl 750 mg/Sodium Chloride 257.5 ml @ 250 mls/hr Q18H IV 10/22/17 16:00 10/23/17 09:38 Miscellaneous Information SPECIFIC LAB TO BE DRAWN:VANCO TROUGH DATE TO BE DR... ONCE ONCE .XX 10/24/17 21:45 10/24/17 21:46 Miscellaneous Information ALL NURSING DEPARTME... UNSCH PRN .XX 10/23/17 16:15 10/24/17 16:14 Vital Signs / I&O Vital Signs Date Time Temp Pulse Resp B/P (MAP) Pulse Ox O2 Delivery O2 Flow Rate FiO2 10/23/17 18:00 73 10/23/17 16:15 97.6 81 20 127/63 (84) 99 Nasal Cannula 2 10/23/17 16:00 97.6 75 12 112/59 (76) 91 115/48 (70) 10/23/17 16:00 75 10/23/17 16:00 81 20 129/61 (83) 100 Nasal Cannula 2 10/23/17 15:45 79 20 111/56 (74) 99 Nasal Cannula 2 10/23/17 15:30 80 20 124/66 (85) 96 Nasal Cannula 2 10/23/17 15:15 97.6 80 20 127/67 (87) 95 Nasal Cannula 2 10/23/17 11:31 98.3 80 17 133/72 (92) 95 10/23/17 11:29 95 Nasal Cannula 2 10/23/17 10:00 82 10/23/17 08:00 90 10/23/17 08:00 98.0 88 20 132/80 (97) 96 10/23/17 07:57 95 Nasal Cannula 4.00 10/23/17 07:00 94 Nasal Cannula 4.00 10/23/17 07:00 88 10/23/17 06:00 80 10/23/17 04:00 98.1 85 13 114/69 (84) 95 10/23/17 04:00 81 10/23/17 02:00 79 10/23/17 00:00 83 10/23/17 00:00 83 10/23/17 00:00 98.4 84 26 103/57 (72) 99 10/22/17 23:00 95 10/22/17 22:00 81 10/22/17 20:00 98.0 94 26 102/58 (73) 99 10/22/17 20:00 90 10/22/17 20:00 95 Nasal Cannula 4.00 10/22/17 19:56 95 Nasal Cannula 4.00 I/O 10/22/17 10/22/17 10/22/17 10/23/17 10/23/17 10/23/17 07:00 15:00 23:00 07:00 15:00 23:00 Intake Total 420 ml 100 ml 1700 ml Output Total 325 ml 325 ml 450 ml 850 ml 1965 ml Balance -325 ml 95 ml -350 ml -850 ml -265 ml Intake Oral 320 ml 200 ml IV Total 100 ml 100 ml Other 1500 ml Output Urine Total 325 ml 325 ml 450 ml 850 ml 1800 ml Drainage Total 15 ml Estimated Blood Loss 150 ml # Bowel Movements 1 1 1 1 Physical Exam GENERAL: In mod resp distress SKIN: Warm and dry. HEAD: Normocephalic. EYES: No scleral icterus. No injection or drainage. NECK: Supple, trachea midline. No JVD or lymphadenopathy. CARDIOVASCULAR: Irregular rate and rhythm, tachycardic, without murmurs, gallops , or rubs. RESPIRATORY: Breath sounds equal bilaterally. Few rhonchi. GASTROINTESTINAL: Abdomen soft, non-tender, nondistended. MUSCULOSKELETAL: No cyanosis, or edema. Laboratory Laboratory Tests Test 10/23/17 03:42 10/23/17 09:16 10/23/17 15:36 White Blood Count 17.7 TH/MM3 24.2 TH/MM3 Red Blood Count 6.11 MIL/MM3 6.22 MIL/MM3 Hemoglobin 13.9 GM/DL 13.7 GM/DL Hematocrit 42.2 % 43.0 % Mean Corpuscular Volume 69.1 FL 69.2 FL Mean Corpuscular Hemoglobin 22.7 PG 22.0 PG Mean Corpuscular Hemoglobin Concent 32.9 % 31.8 % Red Cell Distribution Width 19.4 % 18.6 % Platelet Count 946 TH/MM3 1085 TH/MM3 Mean Platelet Volume 8.8 FL 8.4 FL Neutrophils (%) (Auto) 86.7 % 88.1 % Lymphocytes (%) (Auto) 4.3 % 3.4 % Monocytes (%) (Auto) 5.1 % 5.3 % Eosinophils (%) (Auto) 3.0 % 2.7 % Basophils (%) (Auto) 0.9 % 0.5 % Neutrophils # (Auto) 15.3 TH/MM3 21.4 TH/MM3 Lymphocytes # (Auto) 0.8 TH/MM3 0.8 TH/MM3 Monocytes # (Auto) 0.9 TH/MM3 1.3 TH/MM3 Eosinophils # (Auto) 0.5 TH/MM3 0.7 TH/MM3 Basophils # (Auto) 0.2 TH/MM3 0.1 TH/MM3 CBC Comment DIFF FINAL AUTO DIFF Differential Comment FINAL DIFF MANUAL Activated Partial Thromboplast Time 30.2 SEC Potassium Level 3.5 MEQ/L Differential Total Cells Counted 100 Neutrophils % (Manual) 79 % Band Neutrophils % 6 % Lymphocytes % 2 % Monocytes % 8 % Eosinophils % 4 % Basophils % 1 % Neutrophils # (Manual) 20.6 TH/MM3 Platelet Estimate HIGH Platelet Morphology Comment ENLARGED Ovalocytes 1+ Assessment and Plan Problem List: (1) Peripheral vascular disease ICD Codes: I73.9 - Peripheral vascular disease, unspecified Status: Acute (2) CAD (coronary artery disease) ICD Codes: I25.10 - Atherosclerotic heart disease of [place] coronary artery without angina pectoris (3) Cardiomyopathy ICD Codes: I42.9 - Cardiomyopathy, unspecified (4) Atrial fibrillation ICD Codes: I48.91 - Unspecified atrial fibrillation (5) Hypertension ICD Codes: I10 - Essential (primary) hypertension Assessment and Plan No perioperative cardiac complications. Rhythm stable, no angina or CHF exacerbation. Continue ICU monitoring. Increase activity, PT. Rodríguez Garza MD Oct 23, 2017 19:50
[2017-10-23] MEDS: LACTATED RINGER'S 1000 ML INJ 1,000 ML IV SCH (21:19)
[2017-10-24] VITALS (10 sets, daily range): BP systolic 110–124; BP diastolic 55–76; PULSE 82–100; RESP 14–20; TEMP 97.5–98.4; O2SAT 90–99
[2017-10-24] MEDS: PIPERACIL-TAZO 4.5 GM PREMIX 100 ML IV SCH ×4 (02:57→20:02)
[2017-10-24] MEDS: VANCOMYCIN INJ 750 MG in SODIUM CHLOR 0.9% 250 ML INJ 250 ML IV SCH ×2 (04:24→22:55)
[2017-10-24 05:56] LABS: AUTOMATED NEUTROPHIL # 15.9 TH/MM3 (1.8-7.7); BASOPHIL # 0.1 TH/MM3 (0-0.2); BASOPHIL % 0.4 % (0.0-2.0); EOSINOPHIL # 0.5 TH/MM3 (0-0.4); EOSINOPHIL % 2.5 % (0.0-4.0); HEMOGLOBIN 12.6 GM/DL (11.6-15.3); LYMPH % 4.5 % (9.0-44.0); LYMPHOCYTE # 0.8 TH/MM3 (1.0-4.8); MEAN CELL VOLUME 69.3 FL (80.0-100.0); MEAN CORPUSCULAR HEMOGLOBIN 22.4 PG (27.0-34.0); MEAN CORPUSCULAR HGB CONC 32.3 % (32.0-36.0); MEAN PLATELET VOLUME 8.4 FL (7.0-11.0); MONO % 4.4 % (0.0-8.0); MONOCYTE # 0.8 TH/MM3 (0-0.9); NEUT % 88.2 % (16.0-70.0); PLATELET COUNT 866 TH/MM3 (150-450); RED BLOOD COUNT 5.62 MIL/MM3 (4.00-5.30); RED CELL DISTRIBUTION WIDTH 18.8 % (11.6-17.2)
[2017-10-24 06:21] LABS: BICARBONATE 27.1 MEQ/L (21.0-32.0); CREATININE 0.54 MG/DL (0.50-1.00); MAGNESIUM 2.1 MG/DL (1.5-2.5)
[2017-10-24] MEDS: RESP: ALBUTEROL 2.5 MG/IPRATROPIUM 0.5 MG NEB (SCH) NEB ×4 (07:53→19:12)
--- NOTE | 2017-10-24 08:22 | HHI.PR ---
Subjective Remarks Follow up hypoxia, PAD. Patient reports feeling much better today. Leg pain has improved following surgery. Denies chest pain, dyspnea, nausea, vomiting. Objective Vitals Vital Signs Date Time Temp Pulse Resp B/P (MAP) Pulse Ox O2 Delivery O2 Flow Rate FiO2 10/24/17 07:53 95 Nasal Cannula 3.00 10/24/17 06:00 85 10/24/17 04:00 82 18 119/55 (76) 99 10/24/17 04:00 82 10/24/17 02:00 86 10/24/17 00:00 88 10/24/17 00:00 88 16 115/55 (75) 96 10/23/17 23:00 86 10/23/17 22:00 90 10/23/17 20:32 96 Nasal Cannula 3.00 10/23/17 20:00 97.5 82 21 114/70 (85) 96 10/23/17 20:00 77 10/23/17 19:00 96 Nasal Cannula 3.00 10/23/17 18:00 73 10/23/17 16:15 97.6 81 20 127/63 (84) 99 Nasal Cannula 2 10/23/17 16:00 97.6 75 12 112/59 (76) 91 115/48 (70) 10/23/17 16:00 75 10/23/17 16:00 81 20 129/61 (83) 100 Nasal Cannula 2 10/23/17 15:45 79 20 111/56 (74) 99 Nasal Cannula 2 10/23/17 15:30 80 20 124/66 (85) 96 Nasal Cannula 2 10/23/17 15:15 97.6 80 20 127/67 (87) 95 Nasal Cannula 2 10/23/17 11:31 98.3 80 17 133/72 (92) 95 10/23/17 11:29 95 Nasal Cannula 2 10/23/17 10:00 82 I/O 10/23/17 10/23/17 10/23/17 10/24/17 10/24/17 10/24/17 07:00 15:00 23:00 07:00 15:00 23:00 Intake Total 100 ml 2150 ml 802 ml Output Total 450 ml 850 ml 1965 ml 345 ml Balance -350 ml -850 ml 185 ml 457 ml Intake Oral 200 ml 100 ml IV Total 100 ml 450 ml 702 ml Other 1500 ml Output Urine Total 450 ml 850 ml 1800 ml 300 ml Drainage Total 15 ml 45 ml Estimated Blood Loss 150 ml # Bowel Movements 1 1 0 Result Diagram: 10/24/17 0529 10/24/17 0529 Imaging Last Impressions Chest X-Ray 10/22/17 0000 Signed Impressions: Service Date/Time: Sunday, October 22, 2017 15:44 - CONCLUSION: No significant change in bilateral interstitial opacities suggesting pulmonary edema. Small bilateral pleural effusions. Stalin Murphy MD Myocardial Perfusion Scan Nuc Med 10/18/17 0000 Signed Impressions: Service Date/Time: September 11:26 - CONCLUSION: Suspected infarcts of the right coronary and circumflex global decreased perfusion fixed at rest. No obvious ischemia. RISK CATEGORY: Intermediate (1-3%% Annual Mortality Rate) Jose Luis Ray MD Head CT 10/15/17 0000 Signed Impressions: Service Date/Time: Sunday, October 15, 2017 05:41 - CONCLUSION: 1. Bilateral suspected areas of encephalomalacia being more prominent on the right. 2. Suspected small vessel ischemic change throughout the white matter. 3. Atrophy. 4. Acute area of hemorrhage or mass effect is not seen. Anselmo Mcadams MD Lower Extremity Ultrasound 10/14/17 0000 Signed Impressions: Service Date/Time: Saturday, October 14, 2017 20:48 - CONCLUSION: No DVT. Anselmo Mcadams MD Aorta w/Runoff CTA 10/14/17 0000 Signed Impressions: Service Date/Time: Saturday, October 14, 2017 17:47 - CONCLUSION: 1. 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 2. Atherosclerotic change in the external iliac and common femoral arteries bilaterally as described above. 3. Occlusion of the superficial femoral arteries bilaterally with reconstitution distally. The reconstitution is higher on the left side. 4. Normal trifurcation vessels seen on the left side. 5. Diminished flow seen at the right trifurcation vessels. The vessels can only be well seen on the delayed images. The vessels can not be traced into the foot. Anselmo Mcadams MD Objective Remarks General: Elderly female in no acute distress. Heart: Irregular rhythm. No murmur. Lungs: Scattered rhonchi. Breathing is nonlabored. Abdomen: Soft, nontender, nondistended. Extremities: No lower extremity edema. Psych: Alert and oriented. Procedures 10/19/17 exploration of the left groin, left common femoral and external iliac artery. Endarterectomy and patch angioplasty. External and common artery thromboembolectomy, superficial femoral popliteal artery thromboembolectomy, arteriogram. 10/23/17 Right external iliac-common femoral endarterectomy and patch angioplasty and right femoral-popliteal bypass, PTFE graft Urinary Catheter: No Vascular Central Line Catheter: No A/P Assessment and Plan 1. Peripheral arterial disease: Status post surgical intervention on the left lower extremity with clinical improvement. S/P right femoropopliteal bypass. Appreciate vascular surgery management. Pain is improved. 2. Cough, dyspnea: Continue antibiotic coverage of possible healthcare associated pneumonia. Continue supplemental oxygen, bronchodilators. 3. UTI: Urine culture shows Escherichia coli. Treated with Rocephin. 4. DVT prophylaxis: Heparin drip. 5. Deconditioning: Continue PT/OT. Will need SNF placement. 6. Leukocytosis: Possibly secondary to infection vs stress reaction. WBCs trending down. 7. Hypokalemia: Recheck labs. Demetrius Mckeon MD Oct 24, 2017 08:22
[2017-10-24] MEDS ORDERED: POTASSIUM CHLORIDE 20 MEQ CONTROLLED RELEASE TAB PO ONE (08:30)
[2017-10-24 08:40] LABS: BANDS 5 % (0-6); BASOPHILS 2 % (0-2); LYMPHOCYTES 3 % (9-44); MONOCYTES 3 % (0-8); MYELOCYTES 2 % (0-0); NEUTROPHIL # MANUAL DIFF 15.8 TH/MM3 (1.8-7.7); OVALOCYTES 1+ (NORMAL); POLYS (SEG NEUTROPHILS) 81 % (16-70)
[2017-10-24 08:41] LABS: BURR CELLS 1+ (NORMAL); KERATOCYTES OCC (NORMAL)
[2017-10-24] MEDS: SODIUM CHLORIDE 0.9% FLUSH 10 ML FLUSH IV FLUSH SCH ×2 (09:00→19:58)
[2017-10-24] MEDS: METOPROLOL TARTRATE 25 MG TAB PO SCH ×2 (09:13→20:02)
[2017-10-24] MEDS: CLOPIDOGREL 75 MG TAB PO SCH (09:13)
[2017-10-24] MEDS: DOCUSATE SODIUM 50 MG/SENNA 8.6 MG TAB PO SCH ×2 (09:13→19:58)
[2017-10-24] MEDS: DIGOXIN 0.125 MG TAB PO SCH (09:13)
--- NOTE | 2017-10-24 10:02 | PD.CAR.PN ---
CVT Progress Note Subjective/Hospital Course: Referral received Full consult to follow Severe for peripheral vascular disease will require reconstruction Sol Abdullahi 10/16/17 As noted in my consultation this patient has bilateral severe peripheral vascular disease On top of that she is being treated for urosepsis and general decline Patient has not been in the hospital for 3 days and has gradually improved for her urosepsis based on clinical exam level of alertness and diagnostic studies Despite heparin drip the right leg is looking worse and worse and patient now has ischemia that needs attention in the resolution In the best of worlds I would like to wait another while to do the surgery considering patient's other issues but that this point if surgery is not performed patient is a very high risk of losing her leg I have reviewed patient's echocardiogram and studies and she is at this point moderate risk for vascular surgery but I believe options a limited and we have to go ahead with it. Therefore patient will be scheduled for common femoral endarterectomy and femoropopliteal bypass tomorrow I explained the risks and benefits of the procedure and all patient is very quiet she is clearly awake and alert and understands the discussion Have tried to reach her daughter however number is apparently disconnected 09/2017 Patient originally scheduled for surgery today however EKG reveals some anterior ischemia in addition to inferior ischemia that was noted on previous EKG In discussion with the anesthesiologist the decision is made to postpone the surgery until patient can be worked up cardiac saavedra in more detail so we get a better picture on cardiac risk and possible remedy Right leg and foot are ischemic and the cyanotic however while this surgery is urgent it is not an emergent and cardiac issues trump any other issue right now We'll consult cardiology for full evaluation possible stress test Restart heparin All things equal once cardiac workup completed we'll proceed with vascular bypass and reconstruction on the right leg 10/18/17 Right leg and foot remain ischemic and cyanotic Discussed with Dr. Canales This patient will lose her leg if for no surgery is done in next few days. On the other hand patient has significant coronary artery disease and major other comorbidities and hence the high risk Dr. Canales we'll proceed with cardiac catheterization through the left leg and based on that will decide which way to go There is of course a good chance the patient will be candidate for any surgery and that his then the rendering but we should make every effort to make patient at least be able to sustain a limb saving operation. On the other hand limb saving operation has not much value if patient loses her life in the process and therefore every effort should be made to get patient in shape good enough to tolerate surgery 10/20/17 Patient status post revascularization of the left leg Incision is clean and dry Patient has warm foot with normal capillary refill and strong dopplerable popliteal, dorsalis pedis posterior tibial pulses Right leg is still cyanotic and imminently at risk We'll give patient another day and address this tomorrow. Most likely all patient needs is iliofemoral endarterectomy and patch and during the surgery we will see if she needs a femoropopliteal bypass in addition but I would like to minimize the amount of surgery on this unfortunate lady Transfer to floor today 10/21/17 Patient doing well at this time she is more alert and awake and conversing much better than she did in last few days Left femoral strong palpable pulse strong dopplerable popliteal dissolves pedis and posterior tibial pulses on the left Will give her few days respite between the general anesthesia sessions Patient is to undergo right femoral endarterectomy and possible bypass on Sunday After the surgery patient will probably need some senior care/rehabilitation placement because obviously patient cannot go home and take care of herself 10/22/17 Patient doing okay at this time She is more alert and awake and answers questions appropriately and matter-of- fact asking questions about her legs Left leg is well-perfused incision is clean and dry Right leg on the other hand is cyanotic and purple as yesterday For right iliofemoral endarterectomy and possible femoropopliteal bypass tomorrow This lady is fairly significant risk patient however in absence of surgery she will lose right leg and chance of this is 100% 10/24/17 Patient doing very well Status post right external iliac and common femoral endarterectomy and femoropopliteal bypass with a patch graft Incisions are clean and dry and patient is excellent flow to the foot with strong dopplerable pulses Both feet are warm and well perfused at this time We will leave TAD in for another day Transfer patient to floor Aggressive physical therapy out of bed Nothing to add to care from my point Objective: Vital Signs Date Time Temp Pulse Resp B/P (MAP) Pulse Ox O2 Delivery O2 Flow Rate FiO2 10/24/17 07:53 95 Nasal Cannula 3.00 10/24/17 06:00 85 10/24/17 04:00 82 18 119/55 (76) 99 10/24/17 04:00 82 10/24/17 02:00 86 10/24/17 00:00 88 10/24/17 00:00 88 16 115/55 (75) 96 10/23/17 23:00 86 10/23/17 22:00 90 10/23/17 20:32 96 Nasal Cannula 3.00 10/23/17 20:00 97.5 82 21 114/70 (85) 96 10/23/17 20:00 77 10/23/17 19:00 96 Nasal Cannula 3.00 10/23/17 18:00 73 10/23/17 16:15 97.6 81 20 127/63 (84) 99 Nasal Cannula 2 10/23/17 16:00 97.6 75 12 112/59 (76) 91 115/48 (70) 10/23/17 16:00 75 10/23/17 16:00 81 20 129/61 (83) 100 Nasal Cannula 2 10/23/17 15:45 79 20 111/56 (74) 99 Nasal Cannula 2 10/23/17 15:30 80 20 124/66 (85) 96 Nasal Cannula 2 10/23/17 15:15 97.6 80 20 127/67 (87) 95 Nasal Cannula 2 10/23/17 11:31 98.3 80 17 133/72 (92) 95 10/23/17 11:29 95 Nasal Cannula 2 Labs: Laboratory Tests Test 10/24/17 05:29 White Blood Count 18.0 TH/MM3 (4.0-11.0) Red Blood Count 5.62 MIL/MM3 (4.00-5.30) Hemoglobin 12.6 GM/DL (11.6-15.3) Hematocrit 39.0 % (35.0-46.0) Mean Corpuscular Volume 69.3 FL (80.0-100.0) Mean Corpuscular Hemoglobin 22.4 PG (27.0-34.0) Mean Corpuscular Hemoglobin Concent 32.3 % (32.0-36.0) Red Cell Distribution Width 18.8 % (11.6-17.2) Platelet Count 866 TH/MM3 (150-450) Mean Platelet Volume 8.4 FL (7.0-11.0) Neutrophils (%) (Auto) 88.2 % (16.0-70.0) Lymphocytes (%) (Auto) 4.5 % (9.0-44.0) Monocytes (%) (Auto) 4.4 % (0.0-8.0) Eosinophils (%) (Auto) 2.5 % (0.0-4.0) Basophils (%) (Auto) 0.4 % (0.0-2.0) Neutrophils # (Auto) 15.9 TH/MM3 (1.8-7.7) Lymphocytes # (Auto) 0.8 TH/MM3 (1.0-4.8) Monocytes # (Auto) 0.8 TH/MM3 (0-0.9) Eosinophils # (Auto) 0.5 TH/MM3 (0-0.4) Basophils # (Auto) 0.1 TH/MM3 (0-0.2) CBC Comment AUTO DIFF Differential Total Cells Counted 100 Neutrophils % (Manual) 81 % (16-70) Band Neutrophils % 5 % (0-6) Lymphocytes % 3 % (9-44) Monocytes % 3 % (0-8) Eosinophils % 4 % (0-4) Basophils % 2 % (0-2) Neutrophils # (Manual) 15.8 TH/MM3 (1.8-7.7) Myelocytes 2 % (0-0) Differential Comment FINAL DIFF MANUAL Atypical Lymphocytes % (0-0) Platelet Estimate HIGH (NORMAL) Platelet Morphology Comment ENLARGED (NORMAL) Ovalocytes 1+ (NORMAL) Viper Cells 1+ (NORMAL) Keratocytes OCC (NORMAL) Blood Urea Nitrogen 6 MG/DL (7-18) Creatinine 0.54 MG/DL (0.50-1.00) Random Glucose 89 MG/DL (74-106) Calcium Level 8.0 MG/DL (8.5-10.1) Magnesium Level 2.1 MG/DL (1.5-2.5) Sodium Level 138 MEQ/L (136-145) Potassium Level 3.4 MEQ/L (3.5-5.1) Chloride Level 104 MEQ/L (98-107) Carbon Dioxide Level 27.1 MEQ/L (21.0-32.0) Anion Gap 7 MEQ/L (5-15) Estimat Glomerular Filtration Rate 110 ML/MIN (>89) Result Diagram: 10/24/17 0529 10/24/17 0529 (1) Peripheral vascular disease (2) CAD (coronary artery disease) (3) Cardiomyopathy (4) Atrial fibrillation (5) Hypertension Walter Fernandes MD Oct 24, 2017 10:02
--- NOTE | 2017-10-24 14:24 | PD.CARD.PN ---
Subjective Subjective Remarks No SOB or CP, feels fine Objective Medications Current Medications Medications (Trade) Dose Ordered Sig/Sina Route Start Time Stop Time Status Last Admin (NS Flush) 2 ml UNSCH PRN IV FLUSH 10/14/17 16:00 (NS Flush) 2 ml BID IV FLUSH 10/14/17 21:00 10/24/17 09:00 (Tylenol) 650 mg Q4H PRN PO 10/14/17 16:00 (Zofran Inj) 4 mg Q6H PRN IVP 10/14/17 16:00 (Restoril) 15 mg HS PRN PO 10/14/17 16:00 (Narcan Inj) 0.4 mg UNSCH PRN IV PUSH 10/14/17 16:00 (Rosalie-Colace) 1 tab BID PO 10/14/17 21:00 10/24/17 09:13 (Milk Of Magnesia Liq) 30 ml Q12H PRN PO 10/14/17 16:00 (Senokot) 17.2 mg Q12H PRN PO 10/14/17 16:00 (Dulcolax Supp) 10 mg DAILY PRN RECTAL 10/14/17 16:00 (Lactulose Liq) 30 ml DAILY PRN PO 10/14/17 16:00 Lactated Ringer's 1,000 ml @ 40 mls/hr Q24H IV 10/17/17 13:00 10/21/17 19:52 (Plavix) 75 mg DAILY PO 10/19/17 17:15 10/24/17 09:13 (Duoneb Neb) 1 ampule QID NEB NEB 10/21/17 16:00 10/23/17 20:32 (Lanoxin) 0.125 mg DAILY PO 10/21/17 17:00 10/24/17 09:13 Cefazolin Sodium 1000 mg/Sodium Chloride 100 ml @ 200 mls/hr BREAKFAST AND ROOM ATTENDANT IV 10/22/17 12:15 10/25/17 12:14 (Lopressor) 25 mg Q12HR PO 10/22/17 21:00 10/24/17 09:13 Piperacillin Sod/ Tazobactam Sod 100 ml @ 200 mls/hr Q6H IV 10/22/17 15:00 10/24/17 09:12 Pharmacy Profile Note 0 ml @ 0 mls/hr UNSCH OTHER 10/22/17 13:45 (Duoneb Neb) 1 ampule Q4HR NEB PRN INH 10/22/17 13:45 Vancomycin HCl 750 mg/Sodium Chloride 257.5 ml @ 250 mls/hr Q18H IV 10/22/17 16:00 10/24/17 04:24 Miscellaneous Information SPECIFIC LAB TO BE DRAWN:[facility] TROUGH DATE TO BE DR... ONCE ONCE .XX 10/24/17 21:45 10/24/17 21:46 Miscellaneous Information ALL NURSING DEPARTME... UNSCH PRN .XX 10/23/17 16:15 10/24/17 16:14 Vital Signs / I&O Vital Signs Date Time Temp Pulse Resp B/P (MAP) Pulse Ox O2 Delivery O2 Flow Rate FiO2 10/24/17 10:00 83 10/24/17 08:00 98.4 85 14 118/76 (90) 96 10/24/17 08:00 82 10/24/17 07:53 95 Nasal Cannula 3.00 10/24/17 07:00 97 Room Air 10/24/17 06:00 85 10/24/17 04:00 82 18 119/55 (76) 99 10/24/17 04:00 82 10/24/17 02:00 86 10/24/17 00:00 88 10/24/17 00:00 88 16 115/55 (75) 96 10/23/17 23:00 86 10/23/17 22:00 90 10/23/17 20:32 96 Nasal Cannula 3.00 10/23/17 20:00 97.5 82 21 114/70 (85) 96 10/23/17 20:00 77 10/23/17 19:00 96 Nasal Cannula 3.00 10/23/17 18:00 73 10/23/17 16:15 97.6 81 20 127/63 (84) 99 Nasal Cannula 2 10/23/17 16:00 97.6 75 12 112/59 (76) 91 115/48 (70) 10/23/17 16:00 75 10/23/17 16:00 81 20 129/61 (83) 100 Nasal Cannula 2 10/23/17 15:45 79 20 111/56 (74) 99 Nasal Cannula 2 10/23/17 15:30 80 20 124/66 (85) 96 Nasal Cannula 2 10/23/17 15:15 97.6 80 20 127/67 (87) 95 Nasal Cannula 2 I/O 10/23/17 10/23/17 10/23/17 10/24/17 10/24/17 10/24/17 07:00 15:00 23:00 07:00 15:00 23:00 Intake Total 100 ml 2150 ml 802 ml Output Total 450 ml 850 ml 1965 ml 345 ml Balance -350 ml -850 ml 185 ml 457 ml Intake Oral 200 ml 100 ml IV Total 100 ml 450 ml 702 ml Other 1500 ml Output Urine Total 450 ml 850 ml 1800 ml 300 ml Drainage Total 15 ml 45 ml Estimated Blood Loss 150 ml # Bowel Movements 1 1 0 Physical Exam GENERAL: In NAD SKIN: Warm and dry. HEAD: Normocephalic. EYES: No scleral icterus. No injection or drainage. NECK: Supple, trachea midline. No JVD or lymphadenopathy. CARDIOVASCULAR: Irregular, without murmurs, gallops, or rubs. RESPIRATORY: Breath sounds equal bilaterally. Few rhonchi. GASTROINTESTINAL: Abdomen soft, non-tender, nondistended. MUSCULOSKELETAL: No cyanosis, or edema. Laboratory Laboratory Tests Test 10/23/17 15:36 10/24/17 05:29 White Blood Count 24.2 TH/MM3 18.0 TH/MM3 Red Blood Count 6.22 MIL/MM3 5.62 MIL/MM3 Hemoglobin 13.7 GM/DL 12.6 GM/DL Hematocrit 43.0 % 39.0 % Mean Corpuscular Volume 69.2 FL 69.3 FL Mean Corpuscular Hemoglobin 22.0 PG 22.4 PG Mean Corpuscular Hemoglobin Concent 31.8 % 32.3 % Red Cell Distribution Width 18.6 % 18.8 % Platelet Count 1085 TH/MM3 866 TH/MM3 Mean Platelet Volume 8.4 FL 8.4 FL Neutrophils (%) (Auto) 88.1 % 88.2 % Lymphocytes (%) (Auto) 3.4 % 4.5 % Monocytes (%) (Auto) 5.3 % 4.4 % Eosinophils (%) (Auto) 2.7 % 2.5 % Basophils (%) (Auto) 0.5 % 0.4 % Neutrophils # (Auto) 21.4 TH/MM3 15.9 TH/MM3 Lymphocytes # (Auto) 0.8 TH/MM3 0.8 TH/MM3 Monocytes # (Auto) 1.3 TH/MM3 0.8 TH/MM3 Eosinophils # (Auto) 0.7 TH/MM3 0.5 TH/MM3 Basophils # (Auto) 0.1 TH/MM3 0.1 TH/MM3 CBC Comment AUTO DIFF AUTO DIFF Differential Total Cells Counted 100 100 Neutrophils % (Manual) 79 % 81 % Band Neutrophils % 6 % 5 % Lymphocytes % 2 % 3 % Monocytes % 8 % 3 % Eosinophils % 4 % 4 % Basophils % 1 % 2 % Neutrophils # (Manual) 20.6 TH/MM3 15.8 TH/MM3 Differential Comment FINAL DIFF MANUAL FINAL DIFF MANUAL Platelet Estimate HIGH HIGH Platelet Morphology Comment ENLARGED ENLARGED Ovalocytes 1+ 1+ Myelocytes 2 % Atypical Lymphocytes % Brian Cells 1+ Keratocytes OCC Blood Urea Nitrogen 6 MG/DL Creatinine 0.54 MG/DL Random Glucose 89 MG/DL Calcium Level 8.0 MG/DL Magnesium Level 2.1 MG/DL Sodium Level 138 MEQ/L Potassium Level 3.4 MEQ/L Chloride Level 104 MEQ/L Carbon Dioxide Level 27.1 MEQ/L Anion Gap 7 MEQ/L Estimat Glomerular Filtration Rate 110 ML/MIN Assessment and Plan Problem List: (1) Peripheral vascular disease ICD Codes: I73.9 - Peripheral vascular disease, unspecified Status: Acute (2) CAD (coronary artery disease) ICD Codes: I25.10 - Atherosclerotic heart disease of [place] coronary artery without angina pectoris (3) Cardiomyopathy ICD Codes: I42.9 - Cardiomyopathy, unspecified (4) Atrial fibrillation ICD Codes: I48.91 - Unspecified atrial fibrillation (5) Hypertension ICD Codes: I10 - Essential (primary) hypertension Assessment and Plan Remains stable from cardiac standpoint after surgery. No angina or CHF exacerbation. Continue current program including risk factor modification. Increase activity, PT. Quadrmavis,Rodríguez PIÑA Oct 24, 2017 14:24
[2017-10-24] MEDS: ACETAMINOPHEN 325 MG TAB PO PRN ×2 (16:13→20:01)
--- NOTE | 2017-10-24 16:53 | HHI.HCPN ---
Reason for visit a. To assist with evaluation and management of symptoms including: right lower extremity pain; confusion; generalized weakness b. To assist medical decision maker(s) with: better understanding of current medical conditions; weighing benefits/burdens of medical treatment options; making medical treatment decisions. . Subjective/Interval History Follow up visit for symptom management and clarification of medical treatment goals. Patient remains somewhat confused. Oriented to person and place but did not know the date, month year. Patient told me she was from [place] originally. She states she has 6 children but does not no wear any of them are other than her daughter, Yajaira. Patient reportedly lives with her daughter (Yajaira), but she has been unreachable. Accurints report was requested on 10/16/17 for daughter, Yajaira Jung. [facility] [employer] [facility] did a wellness check but they were unable to locate the patient's daughter. Case management has been requested to rerun an accurints for the patient's daughter under the name Yajaira Thomson. Patient becomes tearful and appears distressed when discussing her daughter; she stated she did not want her daughter making decisions for her and she was not sure that she would want to live with her after rehabilitation. Afebrile. WBC elevated at 18.0. Follow-up chest x-ray on 10/22/2017 showed no significant change in bilateral interstitial opacities suggesting pulmonary edema, small bilateral pleural effusions. Urine culture growing Rae. Patient reporting moderate to severe pain in her right lower extremity. She is unable to use descriptive words to describe pain; pain is worse with movement and touch. Physical therapy reporting patient is painful with passive ROM but is not painful to bear weight. Patient currently has no medications available for pain management. Physical therapy and occupational therapy continue to follow; she has been accepted for admission to [facility] for rehabilitation upon discharge. . Advance Directives Living Will: Never completed Health Care Surrogate: Never completed Durable Power of Drapery Hemmer Automatic: Never completed Advance Directive Specifics Date completed: According to the patient, she has never completed an advanced directive. . Health Care Surrogate(s): According to patient, she has never designated in writing a health care surrogate. . Documented care wishes: Per the patient, she has no written documentation of her healthcare preferences/ goals/wishes. . Objective Vital Signs Date Time Temp Pulse Resp B/P (MAP) Pulse Ox O2 Delivery O2 Flow Rate FiO2 10/24/17 15:25 91 21 10/24/17 10:00 83 10/24/17 08:00 98.4 85 14 118/76 (90) 96 10/24/17 08:00 82 10/24/17 07:53 95 Nasal Cannula 3.00 10/24/17 07:00 97 Room Air 10/24/17 06:00 85 10/24/17 04:00 82 18 119/55 (76) 99 10/24/17 04:00 82 10/24/17 02:00 86 10/24/17 00:00 88 10/24/17 00:00 88 16 115/55 (75) 96 10/23/17 23:00 86 10/23/17 22:00 90 10/23/17 20:32 96 Nasal Cannula 3.00 10/23/17 20:00 97.5 82 21 114/70 (85) 96 10/23/17 20:00 77 10/23/17 19:00 96 Nasal Cannula 3.00 10/23/17 18:00 73 Intake & Output 10/24/17 10/24/17 07:00 19:00 Intake Total 902 ml Output Total 345 ml Balance 557 ml Intake Oral 100 ml IV Total 802 ml Output Urine Total 300 ml Drainage Total 45 ml # Bowel Movements 0 . Physical Exam CONSTITUTIONAL/GENERAL: This is a thin, pale, elderly female who is in no apparent distress. TUBES/LINES/DRAINS: Fabian catheter; peripheral IV SKIN: No jaundice, rashes, or lesions. Ecchymosis to bilateral upper extremities. Ischemic changes in the right foot. No wounds seen anteriorly. Skin temperature appropriate. Not diaphoretic. HEAD: Atraumatic. Normocephalic. EYES: Pupils equal and round and reactive. Extraocular motions intact. No scleral icterus. No injection or drainage. Fundi not examined. ENT: Hearing grossly normal. Nose without bleeding or purulent drainage. NECK: Trachea midline. Supple, nontender. No palpable thyroid enlargement or nodularity. CARDIOVASCULAR: Regular rate and rhythm. No murmurs, gallops, or rubs. No JVD. RESPIRATORY/CHEST: Symmetric, unlabored respirations. Breath sounds equal bilaterally but diminished throughout. No wheezes, rales, or rhonchi. GASTROINTESTINAL: Abdomen soft, non-tender, nondistended. No hepato-splenomegaly , or palpable masses. No guarding. Bowel sounds present. GENITOURINARY: Without palpable bladder distension. Catheter in place. MUSCULOSKELETAL: Trace edema in bilateral lower extremities. LYMPHATICS: No palpable cervical or supraclavicular adenopathy. NEUROLOGICAL: Awake and alert. Motor and sensory grossly within normal limits. Follows commands. Disoriented to time. Confused. Moves all extremities. PSYCHIATRIC: Tearful. No apparent hallucinations or other psychotic thought process. . Diagnostic Tests Laboratory Laboratory Tests Test 10/21/17 19:20 10/22/17 04:50 10/22/17 11:15 10/22/17 14:00 Blood Urea Nitrogen 7 MG/DL (7-18) 8 MG/DL (7-18) Creatinine 0.92 MG/DL (0.50-1.00) 0.67 MG/DL (0.50-1.00) Random Glucose 176 MG/DL (74-106) 107 MG/DL (74-106) Calcium Level 8.4 MG/DL (8.5-10.1) 8.5 MG/DL (8.5-10.1) Sodium Level 135 MEQ/L (136-145) 137 MEQ/L (136-145) Potassium Level 3.5 MEQ/L (3.5-5.1) 3.3 MEQ/L (3.5-5.1) Chloride Level 99 MEQ/L (98-107) 99 MEQ/L (98-107) Carbon Dioxide Level 23.6 MEQ/L (21.0-32.0) 25.2 MEQ/L (21.0-32.0) Anion Gap 12 MEQ/L (5-15) 13 MEQ/L (5-15) Estimat Glomerular Filtration Rate 59 ML/MIN (>89) 86 ML/MIN (>89) B-Type Natriuretic Peptide 1730 PG/ML (0-100) White Blood Count 26.8 TH/MM3 (4.0-11.0) Red Blood Count 7.04 MIL/MM3 (4.00-5.30) Hemoglobin 15.5 GM/DL (11.6-15.3) Hematocrit 47.9 % (35.0-46.0) Mean Corpuscular Volume 68.1 FL (80.0-100.0) Mean Corpuscular Hemoglobin 22.0 PG (27.0-34.0) Mean Corpuscular Hemoglobin Concent 32.3 % (32.0-36.0) Red Cell Distribution Width 19.0 % (11.6-17.2) Platelet Count 956 TH/MM3 (150-450) Mean Platelet Volume 8.7 FL (7.0-11.0) Neutrophils (%) (Auto) 91.4 % (16.0-70.0) Lymphocytes (%) (Auto) 3.0 % (9.0-44.0) Monocytes (%) (Auto) 4.3 % (0.0-8.0) Eosinophils (%) (Auto) 1.0 % (0.0-4.0) Basophils (%) (Auto) 0.3 % (0.0-2.0) Neutrophils # (Auto) 24.5 TH/MM3 (1.8-7.7) Lymphocytes # (Auto) 0.8 TH/MM3 (1.0-4.8) Monocytes # (Auto) 1.1 TH/MM3 (0-0.9) Eosinophils # (Auto) 0.3 TH/MM3 (0-0.4) Basophils # (Auto) 0.1 TH/MM3 (0-0.2) CBC Comment AUTO DIFF Differential Total Cells Counted 100 Neutrophils % (Manual) 85 % (16-70) Band Neutrophils % 11 % (0-6) Lymphocytes % 1 % (9-44) Monocytes % 2 % (0-8) Basophils % 1 % (0-2) Neutrophils # (Manual) 25.7 TH/MM3 (1.8-7.7) Differential Comment FINAL DIFF MANUAL Toxic Vacuolation PRESENT (NONE SEEN) Platelet Estimate HIGH (NORMAL) Platelet Morphology Comment ENLARGED (NORMAL) Ovalocytes 1+ (NORMAL) Activated Partial Thromboplast Time 60.9 SEC (24.3-30.1) Blood Gas Puncture Site RT RADIAL Blood Gas Patient Temperature 98.6 Blood Gas HCO3 27 mmol/L (22-26) Blood Gas Base Excess 3.3 mmol/L (-2-2) Blood Gas Oxygen Saturation 94 % (90-100) Arterial Blood pH 7.50 (7.380-7.420) Arterial Blood Partial Pressure CO2 35 mmHg (38-42) Arterial Blood Partial Pressure O2 81 mmHg (61-120) Arterial Blood Oxygen Content 20.4 Vol % (12.0-20.0) Arterial Blood Carboxyhemoglobin 1.4 % (0-4) Arterial Blood Methemoglobin 0.9 % (0-2) Blood Gas Hemoglobin 15.4 G/DL (12.0-16.0) Oxygen Delivery Device NASAL CANNULA Blood Gas Liter Flow 4 L/M Test 10/22/17 16:45 10/22/17 18:45 10/23/17 03:42 10/23/17 09:16 Lactic Acid Level 1.5 mmol/L (0.4-2.0) Urine Color YELLOW (YELLW/STRAW) Urine Turbidity HAZY (CLEAR) Urine pH 6.0 (5.0-8.5) Urine Specific [place] 1.012 (1.002-1.035) Urine Protein TRACE mg/dL (NEG-TRACE) Urine Glucose (UA) NEG mg/dL (NEG) Urine Ketones NEG mg/dL (NEG) Urine Occult Blood TRACE (NEG) Urine Nitrite NEG (NEG) Urine Bilirubin NEG (NEG) Urine Urobilinogen LESS THAN 2.0 MG/DL (LESS Urine Leukocyte Esterase LARGE (NEG) Urine RBC 22 /hpf (0-3) Urine WBC 182 /hpf (0-5) Urine WBC Clumps RARE (NONE) Urine Squamous Epithelial Cells <1 /hpf (0-5) Urine Transitional Epithelial Cells <1 /hpf (NONE) Urine Bacteria OCC /hpf (NONE) Urine Mucus FEW /lpf (OCC) Urine Yeast with Hyphae FEW (NONE) Urine Yeast (Budding) MANY (NONE) Microscopic Urinalysis Comment CULTURE INDICATED White Blood Count 17.7 TH/MM3 (4.0-11.0) Red Blood Count 6.11 MIL/MM3 (4.00-5.30) Hemoglobin 13.9 GM/DL (11.6-15.3) Hematocrit 42.2 % (35.0-46.0) Mean Corpuscular Volume 69.1 FL (80.0-100.0) Mean Corpuscular Hemoglobin 22.7 PG (27.0-34.0) Mean Corpuscular Hemoglobin Concent 32.9 % (32.0-36.0) Red Cell Distribution Width 19.4 % (11.6-17.2) Platelet Count 946 TH/MM3 (150-450) Mean Platelet Volume 8.8 FL (7.0-11.0) Neutrophils (%) (Auto) 86.7 % (16.0-70.0) Lymphocytes (%) (Auto) 4.3 % (9.0-44.0) Monocytes (%) (Auto) 5.1 % (0.0-8.0) Eosinophils (%) (Auto) 3.0 % (0.0-4.0) Basophils (%) (Auto) 0.9 % (0.0-2.0) Neutrophils # (Auto) 15.3 TH/MM3 (1.8-7.7) Lymphocytes # (Auto) 0.8 TH/MM3 (1.0-4.8) Monocytes # (Auto) 0.9 TH/MM3 (0-0.9) Eosinophils # (Auto) 0.5 TH/MM3 (0-0.4) Basophils # (Auto) 0.2 TH/MM3 (0-0.2) CBC Comment DIFF FINAL Differential Comment Activated Partial Thromboplast Time 30.2 SEC (24.3-30.1) Potassium Level 3.5 MEQ/L (3.5-5.1) Test 10/23/17 15:36 10/24/17 05:29 White Blood Count 24.2 TH/MM3 (4.0-11.0) 18.0 TH/MM3 (4.0-11.0) Red Blood Count 6.22 MIL/MM3 (4.00-5.30) 5.62 MIL/MM3 (4.00-5.30) Hemoglobin 13.7 GM/DL (11.6-15.3) 12.6 GM/DL (11.6-15.3) Hematocrit 43.0 % (35.0-46.0) 39.0 % (35.0-46.0) Mean Corpuscular Volume 69.2 FL (80.0-100.0) 69.3 FL (80.0-100.0) Mean Corpuscular Hemoglobin 22.0 PG (27.0-34.0) 22.4 PG (27.0-34.0) Mean Corpuscular Hemoglobin Concent 31.8 % (32.0-36.0) 32.3 % (32.0-36.0) Red Cell Distribution Width 18.6 % (11.6-17.2) 18.8 % (11.6-17.2) Platelet Count 1085 TH/MM3 (150-450) 866 TH/MM3 (150-450) Mean Platelet Volume 8.4 FL (7.0-11.0) 8.4 FL (7.0-11.0) Neutrophils (%) (Auto) 88.1 % (16.0-70.0) 88.2 % (16.0-70.0) Lymphocytes (%) (Auto) 3.4 % (9.0-44.0) 4.5 % (9.0-44.0) Monocytes (%) (Auto) 5.3 % (0.0-8.0) 4.4 % (0.0-8.0) Eosinophils (%) (Auto) 2.7 % (0.0-4.0) 2.5 % (0.0-4.0) Basophils (%) (Auto) 0.5 % (0.0-2.0) 0.4 % (0.0-2.0) Neutrophils # (Auto) 21.4 TH/MM3 (1.8-7.7) 15.9 TH/MM3 (1.8-7.7) Lymphocytes # (Auto) 0.8 TH/MM3 (1.0-4.8) 0.8 TH/MM3 (1.0-4.8) Monocytes # (Auto) 1.3 TH/MM3 (0-0.9) 0.8 TH/MM3 (0-0.9) Eosinophils # (Auto) 0.7 TH/MM3 (0-0.4) 0.5 TH/MM3 (0-0.4) Basophils # (Auto) 0.1 TH/MM3 (0-0.2) 0.1 TH/MM3 (0-0.2) CBC Comment AUTO DIFF AUTO DIFF Differential Total Cells Counted 100 100 Neutrophils % (Manual) 79 % (16-70) 81 % (16-70) Band Neutrophils % 6 % (0-6) 5 % (0-6) Lymphocytes % 2 % (9-44) 3 % (9-44) Monocytes % 8 % (0-8) 3 % (0-8) Eosinophils % 4 % (0-4) 4 % (0-4) Basophils % 1 % (0-2) 2 % (0-2) Neutrophils # (Manual) 20.6 TH/MM3 (1.8-7.7) 15.8 TH/MM3 (1.8-7.7) Differential Comment FINAL DIFF MANUAL FINAL DIFF MANUAL Platelet Estimate HIGH (NORMAL) HIGH (NORMAL) Platelet Morphology Comment ENLARGED (NORMAL) ENLARGED (NORMAL) Ovalocytes 1+ (NORMAL) 1+ (NORMAL) Myelocytes 2 % (0-0) Atypical Lymphocytes % (0-0) Brian Cells 1+ (NORMAL) Keratocytes OCC (NORMAL) Blood Urea Nitrogen 6 MG/DL (7-18) Creatinine 0.54 MG/DL (0.50-1.00) Random Glucose 89 MG/DL (74-106) Calcium Level 8.0 MG/DL (8.5-10.1) Magnesium Level 2.1 MG/DL (1.5-2.5) Sodium Level 138 MEQ/L (136-145) Potassium Level 3.4 MEQ/L (3.5-5.1) Chloride Level 104 MEQ/L (98-107) Carbon Dioxide Level 27.1 MEQ/L (21.0-32.0) Anion Gap 7 MEQ/L (5-15) Estimat Glomerular Filtration Rate 110 ML/MIN (>89) . Result Diagram: 10/24/17 0529 10/24/1729 Microbiology Microbiology Date/Time Source Procedure Growth Status 10/22/17 16:45 Blood Peripheral Aerobic Blood Culture - Preliminary NO GROWTH IN 2 DAYS Resulted 10/22/17 16:45 Blood Peripheral Anaerobic Blood Culture - Preliminary NO GROWTH IN 2 DAYS Resulted 10/22/17 16:40 Blood Peripheral Aerobic Blood Culture - Preliminary NO GROWTH IN 2 DAYS Resulted 10/22/17 16:40 Blood Peripheral Anaerobic Blood Culture - Preliminary NO GROWTH IN 2 DAYS Resulted 10/22/17 18:45 Urine Clean Catch Urine Culture - Final Rae Albicans Complete 10/22/17 18:45 Urine Clean Catch Legionella Antigen - Final PRESUMPTIVE NEGATIVE FOR LEGIONELLA P... Complete 10/22/17 18:45 Urine Clean Catch Streptococcus pneumoniae Antigen (M - Final PRESUMPTIVE NEGATIVE FOR STREPTOCOCCU... Complete . Imaging Last 72 hours Impressions Chest X-Ray 10/22/17 0000 Signed Impressions: Service Date/Time: Sunday, October 22, 2017 15:44 - CONCLUSION: No significant change in bilateral interstitial opacities suggesting pulmonary edema. Small bilateral pleural effusions. Stalin Murphy MD . Assessment and Plan Disease Oriented Problem List: (1) Sepsis (2) UTI (urinary tract infection) (3) Peripheral vascular disease (4) Microcytosis (5) Polycythemia (6) Thrombocytosis (7) Hypoalbuminemia (8) Elevated brain natriuretic peptide (BNP) level (9) Stroke Symptom Scale: (1) Pain 0-10 Scale: Unable to quantify Comment: See assessment (2) Dyspnea 0-10 Scale: Unable to quantify Comment: See assessment (3) Generalized weakness 0-10 Scale: Unable to quantify Comment: See assessment Pertinent Non-Medical Issues Psychosocial: Reportedly lives with daughter in crowded, cluttered apartment. 6 children altogether but patient can't tell me what state they are in. Spiritual: Pentecostalism. 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 Legal: No known advance directives. Ethical issues impacting care: Patient's capacity is questionable. Recommend at least shared decision making until she is cognitively clearer or we see that goals/preferences are consistent. . Important Contacts Yajaira Jung (daughter) : ? phone number . Prognosis It is unclear to what extent patient's current status is due to her peripheral vascular disease and to what extent there are other factors. Some of her confusion be due to vascular dementia (she is post stroke). Patient has been accepted to [facility] for rehab s/p vascular surgery. She risk for continued complications/setbacks. Code Status: Full Code Plan == Decision making: Patient still does not have capacity to make medical decisions. == Code Status: FULL CODE -- == AGGRESSIVE goals == Symptoms: * Right lower extremity pain: Patient reporting moderate to severe pain in her right lower extremity. She is unable to use descriptive words to describe pain; pain is worse with movement and touch. Physical therapy reporting patient is painful with passive ROM but is not painful to bear weight. * Generalized weakness: Both weakness and right lower extremity pain seemed to make her bedbound in the days leading up to hospital admission. She still has some residual weakness from her stroke in 2011. Physical therapy and occupational therapy continue to follow; she has been accepted for admission to [facility] for rehabilitation upon discharge. * Confusion: Unclear to what extent this is acute due to her clinical condition or is more chronic. 10/24/2017: Patient remains somewhat confused. Oriented to person and place but did not know the date, month year. == Patient remains somewhat confused. Oriented to person and place but did not know the date, month year. Patient told me she was from [place] originally. She states she has 6 children but does not no wear any of them are other than her daughter, Yajaira. Patient reportedly lives with her daughter (Yajaira), but she has been unreachable. Accurints report was requested on 10/16/17 for daughter, Yajaira Jung. [facility] Department did a wellness check but they were unable to locate the patient's daughter. Case management has been requested to rerun an accurints for the patient's daughter under the name Yajaira Thomson. Patient becomes tearful and appears distressed when discussing her daughter; she stated she did not want her daughter making decisions for her and she was not sure that she would want to live with her after rehabilitation. == If patient becomes cognitively clear, we will try and get her to complete health care surrogate forms and we will re-visit resuscitation wishes. If she doesn't clear, we need to identify the appropriate proxy or proxies and speak to them about resuscitation status and goals. == Palliative care will continue to follow to assist with symptom management and to further clarify goals of medical treatment as the clinical course evolves. Discussed with patient's nurse and Dr. Mckeon. Attestation To help prompt me to consider important information that might be impacting today's encounter and assessment, information from prior notes written by myself or my colleagues may have been "brought forward" into today's note. My signature on this note, however, is an attestation that I personally performed the exam, history, and/or decision-making noted today, and, unless otherwise indicated, the interactions with patient, family, and staff as well as the review of records all occurred today. I also attest that the listed assessment and stated plan reflect my best clinical judgment today based on the combination of historical information, prior notes, and today's exam/ interactions. When time spent is documented, it refers only to time spent today by the signer, or if indicated, combined time spent today by collaborating physician/nurse practitioner. . Edwige Fishman Oct 24, 2017 16:53
[2017-10-24] MEDS ORDERED: ATORVASTATIN 80 MG TAB PO SCH (21:00)
[2017-10-24] MEDS: LACTATED RINGER'S 1000 ML INJ 1,000 ML IV SCH (21:19)
[2017-10-24] MEDS ORDERED: PHARMACY ORDERED LAB ONE (21:45)
[2017-10-25] VITALS: BP 110/60; PULSE 81; RESP 20; TEMP 96.4; O2SAT 94
[2017-10-25] MEDS: PIPERACIL-TAZO 4.5 GM PREMIX 100 ML IV SCH ×2 (03:04→08:30)
[2017-10-25 04:53] LABS: AUTOMATED NEUTROPHIL # 18.1 TH/MM3 (1.8-7.7); BASOPHIL # 0.2 TH/MM3 (0-0.2); BASOPHIL % 1.1 % (0.0-2.0); EOSINOPHIL # 0.5 TH/MM3 (0-0.4); EOSINOPHIL % 2.4 % (0.0-4.0); HEMATOCRIT 43.6 % (35.0-46.0); HEMOGLOBIN 13.6 GM/DL (11.6-15.3); LYMPH % 4.1 % (9.0-44.0); LYMPHOCYTE # 0.9 TH/MM3 (1.0-4.8); MEAN CELL VOLUME 69.7 FL (80.0-100.0); MEAN CORPUSCULAR HEMOGLOBIN 21.7 PG (27.0-34.0); MEAN CORPUSCULAR HGB CONC 31.1 % (32.0-36.0); MEAN PLATELET VOLUME 8.7 FL (7.0-11.0); MONO % 4.6 % (0.0-8.0); MONOCYTE # 0.9 TH/MM3 (0-0.9); NEUT % 87.8 % (16.0-70.0); PLATELET COUNT 1045 TH/MM3 (150-450); RED BLOOD COUNT 6.26 MIL/MM3 (4.00-5.30); RED CELL DISTRIBUTION WIDTH 19.3 % (11.6-17.2); WHITE BLOOD COUNT 20.7 TH/MM3 (4.0-11.0)
[2017-10-25 05:16] LABS: BICARBONATE 25.4 MEQ/L (21.0-32.0); CALCIUM 8.2 MG/DL (8.5-10.1); CREATININE 0.51 MG/DL (0.50-1.00)
[2017-10-25 08:00] VITALS: BP 145/83; PULSE 93; RESP 18; TEMP 97.2; O2SAT 95
[2017-10-25] MEDS: RESP: ALBUTEROL 2.5 MG/IPRATROPIUM 0.5 MG NEB (SCH) NEB ×2 (08:01→11:57)
[2017-10-25 08:03] VITALS: O2SAT 96
[2017-10-25] MEDS: DIGOXIN 0.125 MG TAB PO SCH (08:29)
[2017-10-25] MEDS: METOPROLOL TARTRATE 25 MG TAB PO SCH (08:29)
[2017-10-25] MEDS: CLOPIDOGREL 75 MG TAB PO SCH (08:29)
[2017-10-25] MEDS: SODIUM CHLORIDE 0.9% FLUSH 10 ML FLUSH IV FLUSH SCH (08:30)
[2017-10-25] MEDS: DOCUSATE SODIUM 50 MG/SENNA 8.6 MG TAB PO SCH (08:30)
[2017-10-25] MEDS ORDERED: VANCOMYCIN 1,000 MG/NS 250 ML IV SCH ×2 (11:00)
[2017-10-25 12:00] VITALS: BP 140/75; PULSE 81; RESP 17; TEMP 97.3; O2SAT 97
--- NOTE | 2017-10-25 13:25 | HHI.DCPOC ---
Discharge Care Plan Diagnosis: (1) Psychological factors affecting medical condition (2) Peripheral vascular disease Goals to Promote Your Health * To prevent worsening of your condition and complications * To maintain your health at the optimal level Directions to Meet Your Goals Take your medications as prescribed Follow your dietary instruction Follow activity as directed Keep your appointments as scheduled Take your immunizations and boosters as scheduled If your symptoms worsen call your PCP, if no PCP go to Urgent Care Center or Emergency Room Smoking is Dangerous to Your Health. Avoid second hand smoke Call the 24-hour hour crisis hotline for domestic abuse at Stephanie Fox MD Oct 25, 2017 13:25
--- NOTE | 2017-10-25 13:28 | HHI.PYPN ---
Subjective Remarks Patient was seen today for psychiatric reevaluation. Case discussed with nursing charge and also with attending physician. Dr. Odell documentation reviewed. On psychiatric evaluation patient is poor historian, reticent, disorganized and confused. Patient doesn't know the reason she is in the hospital, she is just partially oriented in place, disoriented in time. Episodically agitated but not aggressive. On prior medications, sideeffects. Review of Systems Except as stated in HPI: all other systems reviewed are Neg Mental Status Examination Appearance: Appropriate Consciousness: Alert Orientation: Person Motor Activity: Other (hypoactive) Speech: Slow, Incoherent Language: Other (deficient at this time) Attention and Concentration: Inadequate Memory: Impaired Mood: Other (oppositional, distant) Affect: Flat Thought Process & Associations: Disorganized, Other Thought Content: Bizarre thinking, Delusional Hallucination Type: None Delusion Type: None Suicidal Ideation: No Suicidal Plan: No Suicidal Intention: No Homicidal Ideation: No Homicidal Plan: No Insight: Fair Judgment: Impulsive Results Labs Test 10/24/17 22:20 10/25/17 03:46 Vancomycin Level Trough 10.7 MCG/ML White Blood Count 20.7 TH/MM3 Red Blood Count 6.26 MIL/MM3 Hemoglobin 13.6 GM/DL Hematocrit 43.6 % Mean Corpuscular Volume 69.7 FL Mean Corpuscular Hemoglobin 21.7 PG Mean Corpuscular Hemoglobin Concent 31.1 % Red Cell Distribution Width 19.3 % Platelet Count 1045 TH/MM3 Mean Platelet Volume 8.7 FL Neutrophils (%) (Auto) 87.8 % Lymphocytes (%) (Auto) 4.1 % Monocytes (%) (Auto) 4.6 % Eosinophils (%) (Auto) 2.4 % Basophils (%) (Auto) 1.1 % Neutrophils # (Auto) 18.1 TH/MM3 Lymphocytes # (Auto) 0.9 TH/MM3 Monocytes # (Auto) 0.9 TH/MM3 Eosinophils # (Auto) 0.5 TH/MM3 Basophils # (Auto) 0.2 TH/MM3 CBC Comment DIFF FINAL Differential Comment Blood Urea Nitrogen 5 MG/DL Creatinine 0.51 MG/DL Random Glucose 86 MG/DL Calcium Level 8.2 MG/DL Sodium Level 139 MEQ/L Potassium Level 3.7 MEQ/L Chloride Level 104 MEQ/L Carbon Dioxide Level 25.4 MEQ/L Anion Gap 10 MEQ/L Estimat Glomerular Filtration Rate 117 ML/MIN Date/Time Source Procedure Growth Status 10/22/17 16:45 Blood Peripheral Aerobic Blood Culture - Preliminary NO GROWTH IN 3 DAYS Resulted 10/22/17 16:45 Blood Peripheral Anaerobic Blood Culture - Preliminary NO GROWTH IN 3 DAYS Resulted 10/22/17 18:45 Urine Clean Catch Urine Culture - Final Rae Albicans Complete Vitals/IOs Vital Signs Date Time Temp Pulse Resp B/P (MAP) Pulse Ox O2 Delivery O2 Flow Rate FiO2 10/25/17 12:00 97.3 81 17 140/75 (96) 97 10/25/17 08:03 Nasal Cannula 2.00 10/24/17 15:25 21 Intake and Output 10/25/17 10/25/17 10/26/17 08:00 16:00 00:00 Intake Total 497.5 ml Output Total 1300 ml 60 ml Balance -802.5 ml -60 ml Assessment & Plan Problem List: (1) Psychological factors affecting medical condition ICD Codes: F54 - Psychological and behavioral factors associated with disorders or diseases classified elsewhere Assessment & Plan: Patient remains disorganized, with flat affect, confused, unable to articulate reasonable statements. Given her story of self neglecting behavior and current medical status, patient represents danger to herself and she needs psychiatric admission for stabilization and safety. We'll start Seroquel 12.5 mg twice a day. Patient will be Shi acted and transferred to med psych. Assessment & Plan Estimated LOS: days Justification for Cont. Inpt. Patient needs psychiatric hospitalization for stabilization and safety. Declan Moeller MD Oct 25, 2017 13:28
[2017-10-25] MEDS ORDERED: SERO25TA PO (13:29)
[2017-10-25] MEDS ORDERED: DIGO0.12 PO (13:29)
[2017-10-25] MEDS ORDERED: REST15CA PO (13:29)
[2017-10-25] MEDS ORDERED: AUGM500T7 PO (13:29)
[2017-10-25] MEDS ORDERED: PLAV75TA29 PO (13:29)
[2017-10-25] MEDS ORDERED: METO25TA3 PO (13:29)
[2017-10-25] MEDS ORDERED: ATOR80TA45 PO (13:29)
[2017-10-25] MEDS ORDERED: PILL SPLITTER OTHER PRN (13:30)
--- NOTE | 2017-10-25 13:40 | HHI.DS ---
Discharge Summary Admission Date Oct 14, 2017 at 14:44 Discharge Date: Oct 25, 2017 Admitting Diagnosis sepsis/uti (1) UTI (urinary tract infection) ICD Code: N39.0 - Urinary tract infection, site not specified Status: Acute (2) Sepsis ICD Code: A41.9 - Sepsis, unspecified organism Status: Acute (3) Atrial fibrillation ICD Code: I48.91 - Unspecified atrial fibrillation (4) Peripheral vascular disease ICD Code: I73.9 - Peripheral vascular disease, unspecified Status: Acute Procedures 10/19/17 exploration of the left groin, left common femoral and external iliac artery. Endarterectomy and patch angioplasty. External and common artery thromboembolectomy, superficial femoral popliteal artery thromboembolectomy, arteriogram. 10/23/17 Right external iliac-common femoral endarterectomy and patch angioplasty and right femoral-popliteal bypass, PTFE graft Brief History - From Admission Patient is 77-year-old female with PMH of HTN, HLD brought into the emergency department via EMS for evaluation of generalized weakness. Patient is a poor historian. Per their report she has been laying on her couch for the last 7 days unable to get up because she has been weak. Apparently either patient or daughter called 911. Patient states that she has not been cleaned in several days. Patient states she has not been eating well. EMS reported that living conditions were suboptimal at best. Patient smelled of feces and urine on arrival. Further work up reveals UTI with sepsis. Started on abb after cultures obtained. Patient also was noted with discolored LE bluish discoloration, cold LE , and no pulses detected by US. Ao run off ordered and also vascular surgeon consulted for further eval. CBC/BMP: 10/25/17 0346 10/25/17 0346 Significant Findings Laboratory Tests Test 10/22/17 14:00 10/22/17 16:45 10/22/17 18:45 10/23/17 03:42 Blood Gas HCO3 27 mmol/L (22-26) Blood Gas Base Excess 3.3 mmol/L (-2-2) Arterial Blood pH 7.50 (7.380-7.420) Arterial Blood Partial Pressure CO2 35 mmHg (38-42) Arterial Blood Oxygen Content 20.4 Vol % (12.0-20.0) Urine Turbidity HAZY (CLEAR) Urine Occult Blood TRACE (NEG) Urine Leukocyte Esterase LARGE (NEG) Urine RBC 22 /hpf (0-3) Urine WBC 182 /hpf (0-5) Urine WBC Clumps RARE (NONE) Urine Bacteria OCC /hpf (NONE) Urine Mucus FEW /lpf (OCC) Urine Yeast with Hyphae FEW (NONE) Urine Yeast (Budding) MANY (NONE) White Blood Count 17.7 TH/MM3 (4.0-11.0) Red Blood Count 6.11 MIL/MM3 (4.00-5.30) Mean Corpuscular Volume 69.1 FL (80.0-100.0) Mean Corpuscular Hemoglobin 22.7 PG (27.0-34.0) Red Cell Distribution Width 19.4 % (11.6-17.2) Platelet Count 946 TH/MM3 (150-450) Neutrophils (%) (Auto) 86.7 % (16.0-70.0) Lymphocytes (%) (Auto) 4.3 % (9.0-44.0) Neutrophils # (Auto) 15.3 TH/MM3 (1.8-7.7) Lymphocytes # (Auto) 0.8 TH/MM3 (1.0-4.8) Eosinophils # (Auto) 0.5 TH/MM3 (0-0.4) Test 10/23/17 09:16 10/23/17 15:36 10/24/17 05:29 10/24/17 22:20 Activated Partial Thromboplast Time 30.2 SEC (24.3-30.1) White Blood Count 24.2 TH/MM3 (4.0-11.0) 18.0 TH/MM3 (4.0-11.0) Red Blood Count 6.22 MIL/MM3 (4.00-5.30) 5.62 MIL/MM3 (4.00-5.30) Mean Corpuscular Volume 69.2 FL (80.0-100.0) 69.3 FL (80.0-100.0) Mean Corpuscular Hemoglobin 22.0 PG (27.0-34.0) 22.4 PG (27.0-34.0) Mean Corpuscular Hemoglobin Concent 31.8 % (32.0-36.0) Red Cell Distribution Width 18.6 % (11.6-17.2) 18.8 % (11.6-17.2) Platelet Count 1085 TH/MM3 (150-450) 866 TH/MM3 (150-450) Neutrophils (%) (Auto) 88.1 % (16.0-70.0) 88.2 % (16.0-70.0) Lymphocytes (%) (Auto) 3.4 % (9.0-44.0) 4.5 % (9.0-44.0) Neutrophils # (Auto) 21.4 TH/MM3 (1.8-7.7) 15.9 TH/MM3 (1.8-7.7) Lymphocytes # (Auto) 0.8 TH/MM3 (1.0-4.8) 0.8 TH/MM3 (1.0-4.8) Monocytes # (Auto) 1.3 TH/MM3 (0-0.9) Eosinophils # (Auto) 0.7 TH/MM3 (0-0.4) 0.5 TH/MM3 (0-0.4) Neutrophils % (Manual) 79 % (16-70) 81 % (16-70) Lymphocytes % 2 % (9-44) 3 % (9-44) Neutrophils # (Manual) 20.6 TH/MM3 (1.8-7.7) 15.8 TH/MM3 (1.8-7.7) Platelet Estimate HIGH (NORMAL) HIGH (NORMAL) Platelet Morphology Comment ENLARGED (NORMAL) ENLARGED (NORMAL) Ovalocytes 1+ (NORMAL) 1+ (NORMAL) Myelocytes 2 % (0-0) Brian Cells 1+ (NORMAL) Keratocytes OCC (NORMAL) Blood Urea Nitrogen 6 MG/DL (7-18) Calcium Level 8.0 MG/DL (8.5-10.1) Potassium Level 3.4 MEQ/L (3.5-5.1) Vancomycin Level Trough 10.7 MCG/ML (5.0-10.0) Test 10/25/17 03:46 White Blood Count 20.7 TH/MM3 (4.0-11.0) Red Blood Count 6.26 MIL/MM3 (4.00-5.30) Mean Corpuscular Volume 69.7 FL (80.0-100.0) Mean Corpuscular Hemoglobin 21.7 PG (27.0-34.0) Mean Corpuscular Hemoglobin Concent 31.1 % (32.0-36.0) Red Cell Distribution Width 19.3 % (11.6-17.2) Platelet Count 1045 TH/MM3 (150-450) Neutrophils (%) (Auto) 87.8 % (16.0-70.0) Lymphocytes (%) (Auto) 4.1 % (9.0-44.0) Neutrophils # (Auto) 18.1 TH/MM3 (1.8-7.7) Lymphocytes # (Auto) 0.9 TH/MM3 (1.0-4.8) Eosinophils # (Auto) 0.5 TH/MM3 (0-0.4) Blood Urea Nitrogen 5 MG/DL (7-18) Calcium Level 8.2 MG/DL (8.5-10.1) Imaging Last Impressions Chest X-Ray 10/22/17 0000 Signed Impressions: Service Date/Time: Sunday, October 22, 2017 15:44 - CONCLUSION: No significant change in bilateral interstitial opacities suggesting pulmonary edema. Small bilateral pleural effusions. Stalin Murphy MD Myocardial Perfusion Scan Nuc Med 10/18/17 0000 Signed Impressions: Service Date/Time: September 11:26 - CONCLUSION: Suspected infarcts of the right coronary and circumflex global decreased perfusion fixed at rest. No obvious ischemia. RISK CATEGORY: Intermediate (1-3%% Annual Mortality Rate) Jose Luis Ray MD Head CT 10/15/17 0000 Signed Impressions: Service Date/Time: Sunday, October 15, 2017 05:41 - CONCLUSION: 1. Bilateral suspected areas of encephalomalacia being more prominent on the right. 2. Suspected small vessel ischemic change throughout the white matter. 3. Atrophy. 4. Acute area of hemorrhage or mass effect is not seen. Anselmo Mcadams MD Lower Extremity Ultrasound 10/14/17 0000 Signed Impressions: Service Date/Time: Saturday, October 14, 2017 20:48 - CONCLUSION: No DVT. Anselmo Mcadams MD Aorta w/Runoff CTA 10/14/17 0000 Signed Impressions: Service Date/Time: Saturday, October 14, 2017 17:47 - CONCLUSION: 1. 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 2. Atherosclerotic change in the external iliac and common femoral arteries bilaterally as described above. 3. Occlusion of the superficial femoral arteries bilaterally with reconstitution distally. The reconstitution is higher on the left side. 4. Normal trifurcation vessels seen on the left side. 5. Diminished flow seen at the right trifurcation vessels. The vessels can only be well seen on the delayed images. The vessels can not be traced into the foot. Anselmo Mcadams MD PE at Discharge General: Elderly female in no acute distress. Heart: Irregular rhythm. No murmur. Lungs: Scattered rhonchi. Breathing is nonlabored. Abdomen: Soft, nontender, nondistended. Extremities: No lower extremity edema. Psych: Alert and oriented. Pt update on day of discharge Patient seen in follow up for PAD and psychosis Calm but confused d/w RN, Psychiatry,cardiology Hospital Course Patient is a 77-year-old female was admitted to the hospital 10/14 with generalized weakness. Patient has been seen by palliative care, vascular surgery, psychiatry in the meantime. She is a very poor historian and unable to provide significant information. Multiple evaluations were done and patient was found to have sepsis secondary to urinary tract infection and pneumonia. She had abnormal EKG with abnormal stress test and subsequent cardiac catheterization. He is also found to have peripheral artery disease and has now been status post right femoropopliteal bypass and femoral endarterectomy. Patient this time is doing well postsurgically however she still remains quite confused and psychotic. The patient is now recommended for transfer to the psych facility for further treatment of psychosis. She has been Shi acted she is unable to make decisions safely for herself. Pt Condition on Discharge: Good Discharge Disposition: Disc to Psych Care Fac Discharge Time: <= 30 minutes Discharge Instructions DIET: Follow Instructions for: As Tolerated, No Restrictions Activities you can perform: Regular-No Restrictions Follow up Referrals: Vascular Surgery - 2 Weeks with Walter Fernandes MD New Medications: Amoxicillin-Clavulanate (Augmentin) 500-125 mg Tab 500 MG PO BID for Infection, #10 TAB 0 Refills Atorvastatin (Atorvastatin) 80 Mg Tab 80 MG PO HS for Cholesterol Management, #31 TAB Clopidogrel (Plavix) 75 Mg Tab 75 MG PO DAILY for pad, #31 TAB Digoxin (Digoxin) 0.125 Mg Tab 0.125 MG PO DAILY for afib, #31 TAB Metoprolol Tartrate (Metoprolol Tartrate) 25 Mg Tab 25 MG PO Q12HR for afib, #62 TAB Quetiapine (Seroquel) 25 Mg Tab 12.5 MG PO BID@09,12 for psychosis, #62 TAB Temazepam (Restoril) 15 Mg Cap 15 MG PO HS PRN for INSOMNIA, #20 Stephanie Daniel MD Oct 25, 2017 13:40
--- NOTE | 2017-10-25 13:46 | PD.CAR.PN ---
CVT Progress Note Subjective/Hospital Course: Referral received Full consult to follow Severe for peripheral vascular disease will require reconstruction Sol Abdullahi 10/16/17 As noted in my consultation this patient has bilateral severe peripheral vascular disease On top of that she is being treated for urosepsis and general decline Patient has not been in the hospital for 3 days and has gradually improved for her urosepsis based on clinical exam level of alertness and diagnostic studies Despite heparin drip the right leg is looking worse and worse and patient now has ischemia that needs attention in the resolution In the best of worlds I would like to wait another while to do the surgery considering patient's other issues but that this point if surgery is not performed patient is a very high risk of losing her leg I have reviewed patient's echocardiogram and studies and she is at this point moderate risk for vascular surgery but I believe options a limited and we have to go ahead with it. Therefore patient will be scheduled for common femoral endarterectomy and femoropopliteal bypass tomorrow I explained the risks and benefits of the procedure and all patient is very quiet she is clearly awake and alert and understands the discussion Have tried to reach her daughter however number is apparently disconnected 09/2017 Patient originally scheduled for surgery today however EKG reveals some anterior ischemia in addition to inferior ischemia that was noted on previous EKG In discussion with the anesthesiologist the decision is made to postpone the surgery until patient can be worked up cardiac saavedra in more detail so we get a better picture on cardiac risk and possible remedy Right leg and foot are ischemic and the cyanotic however while this surgery is urgent it is not an emergent and cardiac issues trump any other issue right now We'll consult cardiology for full evaluation possible stress test Restart heparin All things equal once cardiac workup completed we'll proceed with vascular bypass and reconstruction on the right leg 10/18/17 Right leg and foot remain ischemic and cyanotic Discussed with Dr. Canales This patient will lose her leg if for no surgery is done in next few days. On the other hand patient has significant coronary artery disease and major other comorbidities and hence the high risk Dr. Canales we'll proceed with cardiac catheterization through the left leg and based on that will decide which way to go There is of course a good chance the patient will be candidate for any surgery and that his then the rendering but we should make every effort to make patient at least be able to sustain a limb saving operation. On the other hand limb saving operation has not much value if patient loses her life in the process and therefore every effort should be made to get patient in shape good enough to tolerate surgery 10/20/17 Patient status post revascularization of the left leg Incision is clean and dry Patient has warm foot with normal capillary refill and strong dopplerable popliteal, dorsalis pedis posterior tibial pulses Right leg is still cyanotic and imminently at risk We'll give patient another day and address this tomorrow. Most likely all patient needs is iliofemoral endarterectomy and patch and during the surgery we will see if she needs a femoropopliteal bypass in addition but I would like to minimize the amount of surgery on this unfortunate lady Transfer to floor today 10/21/17 Patient doing well at this time she is more alert and awake and conversing much better than she did in last few days Left femoral strong palpable pulse strong dopplerable popliteal dissolves pedis and posterior tibial pulses on the left Will give her few days respite between the general anesthesia sessions Patient is to undergo right femoral endarterectomy and possible bypass on Sunday After the surgery patient will probably need some prison/rehabilitation placement because obviously patient cannot go home and take care of herself 10/22/17 Patient doing okay at this time She is more alert and awake and answers questions appropriately and matter-of- fact asking questions about her legs Left leg is well-perfused incision is clean and dry Right leg on the other hand is cyanotic and purple as yesterday For right iliofemoral endarterectomy and possible femoropopliteal bypass tomorrow This lady is fairly significant risk patient however in absence of surgery she will lose right leg and chance of this is 100% 10/24/17 Patient doing very well Status post right external iliac and common femoral endarterectomy and femoropopliteal bypass with a patch graft Incisions are clean and dry and patient is excellent flow to the foot with strong dopplerable pulses Both feet are warm and well perfused at this time We will leave TAD in for another day Transfer patient to floor Aggressive physical therapy out of bed Nothing to add to care from my point 10/25/17 Incisions are clean and dry nothing to add to care Patient is excellent distal pulses and feet are warm DC TAD today Incision skin stay open to air Follow-up with me in about a month Objective: Vital Signs Date Time Temp Pulse Resp B/P (MAP) Pulse Ox O2 Delivery O2 Flow Rate FiO2 10/25/17 12:00 97.3 81 17 140/75 (96) 97 10/25/17 08:03 96 Nasal Cannula 2.00 10/25/17 08:00 97.2 93 18 145/83 (103) 95 10/25/17 00:00 96.4 81 20 110/60 (77) 94 10/24/17 20:05 Nasal Cannula 2.00 10/24/17 20:00 97.9 91 20 124/67 (86) 94 10/24/17 16:00 97.5 100 16 110/65 (80) 90 10/24/17 15:25 91 21 Labs: Laboratory Tests Test 10/25/17 03:46 White Blood Count 20.7 TH/MM3 (4.0-11.0) Red Blood Count 6.26 MIL/MM3 (4.00-5.30) Hemoglobin 13.6 GM/DL (11.6-15.3) Hematocrit 43.6 % (35.0-46.0) Mean Corpuscular Volume 69.7 FL (80.0-100.0) Mean Corpuscular Hemoglobin 21.7 PG (27.0-34.0) Mean Corpuscular Hemoglobin Concent 31.1 % (32.0-36.0) Red Cell Distribution Width 19.3 % (11.6-17.2) Platelet Count 1045 TH/MM3 (150-450) Mean Platelet Volume 8.7 FL (7.0-11.0) Neutrophils (%) (Auto) 87.8 % (16.0-70.0) Lymphocytes (%) (Auto) 4.1 % (9.0-44.0) Monocytes (%) (Auto) 4.6 % (0.0-8.0) Eosinophils (%) (Auto) 2.4 % (0.0-4.0) Basophils (%) (Auto) 1.1 % (0.0-2.0) Neutrophils # (Auto) 18.1 TH/MM3 (1.8-7.7) Lymphocytes # (Auto) 0.9 TH/MM3 (1.0-4.8) Monocytes # (Auto) 0.9 TH/MM3 (0-0.9) Eosinophils # (Auto) 0.5 TH/MM3 (0-0.4) Basophils # (Auto) 0.2 TH/MM3 (0-0.2) CBC Comment DIFF FINAL Differential Comment Blood Urea Nitrogen 5 MG/DL (7-18) Creatinine 0.51 MG/DL (0.50-1.00) Random Glucose 86 MG/DL (74-106) Calcium Level 8.2 MG/DL (8.5-10.1) Sodium Level 139 MEQ/L (136-145) Potassium Level 3.7 MEQ/L (3.5-5.1) Chloride Level 104 MEQ/L (98-107) Carbon Dioxide Level 25.4 MEQ/L (21.0-32.0) Anion Gap 10 MEQ/L (5-15) Estimat Glomerular Filtration Rate 117 ML/MIN (>89) Result Diagram: 10/25/17 0346 10/25/17 0346 (1) Peripheral vascular disease (2) CAD (coronary artery disease) (3) Cardiomyopathy (4) Atrial fibrillation (5) Hypertension Walter Fernandes MD Oct 25, 2017 13:46
--- NOTE | 2017-10-25 14:30 | HHI.HCPN ---
Reason for visit a. To assist with evaluation and management of symptoms including: right lower extremity pain; confusion; generalized weakness b. To assist medical decision maker(s) with: better understanding of current medical conditions; weighing benefits/burdens of medical treatment options; making medical treatment decisions. . Subjective/Interval History Follow up visit for symptom management and clarification of medical treatment goals Patient remains confused status post right femoral-popliteal bypass and femoral endarterectomy. Patient was withdrawn, disorganized and confused on exam. She had no insight or judgment related to her current hospitalization. Patient becomes agitated at times when being asked questions but is not aggressive. Psychiatry was consulted to reevaluate the patient. Given the patient's limited self neglecting behavior and current medical status, psychiatry Jose Guadalupe acted the [facility]. Started on Seroquel 12.5 mg PO 2 times daily. Afebrile. Follow-up chest x-ray on 10/22/2017 showed no significant change in bilateral interstitial opacities suggesting pulmonary edema, small bilateral pleural effusions. Urine culture growing Rae. WBC remains elevated at 20.7- on vancomycin and Zosyn. Patient reporting ongoing mild pain in her right lower extremity. She was unable to describe pain but reported the pain was exacerbated by movement and touch. Physical therapy and occupational therapy continue to follow; she has been [facility]. . Advance Directives Living Will: Never completed Health Care Surrogate: Never completed Durable Power of Apparel Fashion Designer: Never completed Advance Directive Specifics Date completed: According to the patient, she has never completed an advanced directive. . Health Care Surrogate(s): According to patient, she has never designated in writing a health care surrogate. . Documented care wishes: Per the patient, she has no written documentation of her healthcare preferences/ goals/wishes. . Significant change in goals: Psychiatry has Jose Guadalupe acted the [facility] . Objective Vital Signs Date Time Temp Pulse Resp B/P (MAP) Pulse Ox O2 Delivery O2 Flow Rate FiO2 10/25/17 12:00 97.3 81 17 140/75 (96) 97 10/25/17 08:03 96 Nasal Cannula 2.00 10/25/17 08:00 97.2 93 18 145/83 (103) 95 10/25/17 00:00 96.4 81 20 110/60 (77) 94 10/24/17 20:05 Nasal Cannula 2.00 10/24/17 20:00 97.9 91 20 124/67 (86) 94 10/24/17 16:00 97.5 100 16 110/65 (80) 90 10/24/17 15:25 91 21 Intake & Output 10/25/17 10/25/17 07:00 19:00 Intake Total 597.5 ml Output Total 1300 ml 60 ml Balance -702.5 ml -60 ml Intake Oral 240 ml IV Total 357.5 ml Output Urine Total 1300 ml Drainage Total 60 ml # Bowel Movements 0 . Physical Exam CONSTITUTIONAL/GENERAL: This is a thin, pale, elderly female who is in no apparent distress. TUBES/LINES/DRAINS: Catheter; peripheral IV SKIN: No jaundice, rashes, or lesions. Ecchymosis to bilateral upper extremities. Skin temperature appropriate. Not diaphoretic. HEAD: Atraumatic. Normocephalic. EYES: Pupils equal and round and reactive. Extraocular motions intact. No scleral icterus. No injection or drainage. Fundi not examined. ENT: Hearing grossly normal. Nose without bleeding or purulent drainage. NECK: Trachea midline. CARDIOVASCULAR: Regular rate and rhythm. No murmurs, gallops, or rubs. No JVD. RESPIRATORY/CHEST: Symmetric, unlabored respirations. Breath sounds equal bilaterally but diminished throughout. No wheezes, rales, or rhonchi. GASTROINTESTINAL: Abdomen soft, non-tender, nondistended. No guarding. Bowel sounds present. GENITOURINARY: Without palpable bladder distension. Catheter in place. MUSCULOSKELETAL: No obvious deformities. No clubbing, cyanosis or edema NEUROLOGICAL: Awake and alert. Motor and sensory grossly within normal limits. Follows commands. Confused. Moves all extremities. PSYCHIATRIC: Flat affect, disorganized, intermittently agitated . Diagnostic Tests Laboratory Laboratory Tests Test 10/22/17 16:45 10/22/17 18:45 10/23/17 03:42 10/23/17 09:16 Lactic Acid Level 1.5 mmol/L (0.4-2.0) Urine Color YELLOW (YELLW/STRAW) Urine Turbidity HAZY (CLEAR) Urine pH 6.0 (5.0-8.5) Urine Specific [place] 1.012 (1.002-1.035) Urine Protein TRACE mg/dL (NEG-TRACE) Urine Glucose (UA) NEG mg/dL (NEG) Urine Ketones NEG mg/dL (NEG) Urine Occult Blood TRACE (NEG) Urine Nitrite NEG (NEG) Urine Bilirubin NEG (NEG) Urine Urobilinogen LESS THAN 2.0 MG/DL (LESS Urine Leukocyte Esterase LARGE (NEG) Urine RBC 22 /hpf (0-3) Urine WBC 182 /hpf (0-5) Urine WBC Clumps RARE (NONE) Urine Squamous Epithelial Cells <1 /hpf (0-5) Urine Transitional Epithelial Cells <1 /hpf (NONE) Urine Bacteria OCC /hpf (NONE) Urine Mucus FEW /lpf (OCC) Urine Yeast with Hyphae FEW (NONE) Urine Yeast (Budding) MANY (NONE) Microscopic Urinalysis Comment CULTURE INDICATED White Blood Count 17.7 TH/MM3 (4.0-11.0) Red Blood Count 6.11 MIL/MM3 (4.00-5.30) Hemoglobin 13.9 GM/DL (11.6-15.3) Hematocrit 42.2 % (35.0-46.0) Mean Corpuscular Volume 69.1 FL (80.0-100.0) Mean Corpuscular Hemoglobin 22.7 PG (27.0-34.0) Mean Corpuscular Hemoglobin Concent 32.9 % (32.0-36.0) Red Cell Distribution Width 19.4 % (11.6-17.2) Platelet Count 946 TH/MM3 (150-450) Mean Platelet Volume 8.8 FL (7.0-11.0) Neutrophils (%) (Auto) 86.7 % (16.0-70.0) Lymphocytes (%) (Auto) 4.3 % (9.0-44.0) Monocytes (%) (Auto) 5.1 % (0.0-8.0) Eosinophils (%) (Auto) 3.0 % (0.0-4.0) Basophils (%) (Auto) 0.9 % (0.0-2.0) Neutrophils # (Auto) 15.3 TH/MM3 (1.8-7.7) Lymphocytes # (Auto) 0.8 TH/MM3 (1.0-4.8) Monocytes # (Auto) 0.9 TH/MM3 (0-0.9) Eosinophils # (Auto) 0.5 TH/MM3 (0-0.4) Basophils # (Auto) 0.2 TH/MM3 (0-0.2) CBC Comment DIFF FINAL Differential Comment Activated Partial Thromboplast Time 30.2 SEC (24.3-30.1) Potassium Level 3.5 MEQ/L (3.5-5.1) Test 10/23/17 15:36 10/24/17 05:29 10/24/17 22:20 10/25/17 03:46 White Blood Count 24.2 TH/MM3 (4.0-11.0) 18.0 TH/MM3 (4.0-11.0) 20.7 TH/MM3 (4.0-11.0) Red Blood Count 6.22 MIL/MM3 (4.00-5.30) 5.62 MIL/MM3 (4.00-5.30) 6.26 MIL/MM3 (4.00-5.30) Hemoglobin 13.7 GM/DL (11.6-15.3) 12.6 GM/DL (11.6-15.3) 13.6 GM/DL (11.6-15.3) Hematocrit 43.0 % (35.0-46.0) 39.0 % (35.0-46.0) 43.6 % (35.0-46.0) Mean Corpuscular Volume 69.2 FL (80.0-100.0) 69.3 FL (80.0-100.0) 69.7 FL (80.0-100.0) Mean Corpuscular Hemoglobin 22.0 PG (27.0-34.0) 22.4 PG (27.0-34.0) 21.7 PG (27.0-34.0) Mean Corpuscular Hemoglobin Concent 31.8 % (32.0-36.0) 32.3 % (32.0-36.0) 31.1 % (32.0-36.0) Red Cell Distribution Width 18.6 % (11.6-17.2) 18.8 % (11.6-17.2) 19.3 % (11.6-17.2) Platelet Count 1085 TH/MM3 (150-450) 866 TH/MM3 (150-450) 1045 TH/MM3 (150-450) Mean Platelet Volume 8.4 FL (7.0-11.0) 8.4 FL (7.0-11.0) 8.7 FL (7.0-11.0) Neutrophils (%) (Auto) 88.1 % (16.0-70.0) 88.2 % (16.0-70.0) 87.8 % (16.0-70.0) Lymphocytes (%) (Auto) 3.4 % (9.0-44.0) 4.5 % (9.0-44.0) 4.1 % (9.0-44.0) Monocytes (%) (Auto) 5.3 % (0.0-8.0) 4.4 % (0.0-8.0) 4.6 % (0.0-8.0) Eosinophils (%) (Auto) 2.7 % (0.0-4.0) 2.5 % (0.0-4.0) 2.4 % (0.0-4.0) Basophils (%) (Auto) 0.5 % (0.0-2.0) 0.4 % (0.0-2.0) 1.1 % (0.0-2.0) Neutrophils # (Auto) 21.4 TH/MM3 (1.8-7.7) 15.9 TH/MM3 (1.8-7.7) 18.1 TH/MM3 (1.8-7.7) Lymphocytes # (Auto) 0.8 TH/MM3 (1.0-4.8) 0.8 TH/MM3 (1.0-4.8) 0.9 TH/MM3 (1.0-4.8) Monocytes # (Auto) 1.3 TH/MM3 (0-0.9) 0.8 TH/MM3 (0-0.9) 0.9 TH/MM3 (0-0.9) Eosinophils # (Auto) 0.7 TH/MM3 (0-0.4) 0.5 TH/MM3 (0-0.4) 0.5 TH/MM3 (0-0.4) Basophils # (Auto) 0.1 TH/MM3 (0-0.2) 0.1 TH/MM3 (0-0.2) 0.2 TH/MM3 (0-0.2) CBC Comment AUTO DIFF AUTO DIFF DIFF FINAL Differential Total Cells Counted 100 100 Neutrophils % (Manual) 79 % (16-70) 81 % (16-70) Band Neutrophils % 6 % (0-6) 5 % (0-6) Lymphocytes % 2 % (9-44) 3 % (9-44) Monocytes % 8 % (0-8) 3 % (0-8) Eosinophils % 4 % (0-4) 4 % (0-4) Basophils % 1 % (0-2) 2 % (0-2) Neutrophils # (Manual) 20.6 TH/MM3 (1.8-7.7) 15.8 TH/MM3 (1.8-7.7) Differential Comment FINAL DIFF MANUAL FINAL DIFF MANUAL Platelet Estimate HIGH (NORMAL) HIGH (NORMAL) Platelet Morphology Comment ENLARGED (NORMAL) ENLARGED (NORMAL) Ovalocytes 1+ (NORMAL) 1+ (NORMAL) Myelocytes 2 % (0-0) Atypical Lymphocytes % (0-0) Brian Cells 1+ (NORMAL) Keratocytes OCC (NORMAL) Blood Urea Nitrogen 6 MG/DL (7-18) 5 MG/DL (7-18) Creatinine 0.54 MG/DL (0.50-1.00) 0.51 MG/DL (0.50-1.00) Random Glucose 89 MG/DL (74-106) 86 MG/DL (74-106) Calcium Level 8.0 MG/DL (8.5-10.1) 8.2 MG/DL (8.5-10.1) Magnesium Level 2.1 MG/DL (1.5-2.5) Sodium Level 138 MEQ/L (136-145) 139 MEQ/L (136-145) Potassium Level 3.4 MEQ/L (3.5-5.1) 3.7 MEQ/L (3.5-5.1) Chloride Level 104 MEQ/L (98-107) 104 MEQ/L (98-107) Carbon Dioxide Level 27.1 MEQ/L (21.0-32.0) 25.4 MEQ/L (21.0-32.0) Anion Gap 7 MEQ/L (5-15) 10 MEQ/L (5-15) Estimat Glomerular Filtration Rate 110 ML/MIN (>89) 117 ML/MIN (>89) Vancomycin Level Trough 10.7 MCG/ML (5.0-10.0) . Result Diagram: 10/25/17 0346 10/25/17 0346 Microbiology Microbiology Date/Time Source Procedure Growth Status 10/22/17 16:45 Blood Peripheral Aerobic Blood Culture - Preliminary NO GROWTH IN 3 DAYS Resulted 10/22/17 16:45 Blood Peripheral Anaerobic Blood Culture - Preliminary NO GROWTH IN 3 DAYS Resulted 10/22/17 16:40 Blood Peripheral Aerobic Blood Culture - Preliminary NO GROWTH IN 3 DAYS Resulted 10/22/17 16:40 Blood Peripheral Anaerobic Blood Culture - Preliminary NO GROWTH IN 3 DAYS Resulted 10/22/17 18:45 Urine Clean Catch Urine Culture - Final Rae Albicans Complete 10/22/17 18:45 Urine Clean Catch Legionella Antigen - Final PRESUMPTIVE NEGATIVE FOR LEGIONELLA P... Complete 10/22/17 18:45 Urine Clean Catch Streptococcus pneumoniae Antigen (M - Final PRESUMPTIVE NEGATIVE FOR STREPTOCOCCU... Complete Assessment and Plan Disease Oriented Problem List: (1) Sepsis (2) UTI (urinary tract infection) (3) Peripheral vascular disease (4) Microcytosis (5) Polycythemia (6) Thrombocytosis (7) Hypoalbuminemia (8) Elevated brain natriuretic peptide (BNP) level (9) Stroke Symptom Scale: (1) Pain 0-10 Scale: Unable to quantify Comment: See assessment (2) Dyspnea 0-10 Scale: Unable to quantify Comment: See assessment (3) Generalized weakness 0-10 Scale: Unable to quantify Comment: See assessment Pertinent Non-Medical Issues Psychosocial: Reportedly lives with daughter in crowded, cluttered apartment. 6 children altogether but patient can't tell me what state they are in. Spiritual: Taoist. Not particularly interested in full roll inspector visits. Legal: No known advance directives. Ethical issues impacting care: Patient's capacity is questionable. Recommend at least shared decision making until she is cognitively clearer or we see that goals/preferences are consistent. . Important Contacts Yajaira Jung (daughter) : ? phone number . Prognosis It is unclear to what extent patient's current status is due to her peripheral vascular disease and to what extent there are other factors. Some of her confusion be due to vascular dementia (she is post stroke). Patient has been accepted to [facility] for rehab s/p vascular surgery. She risk for continued complications/setbacks. Code Status: Full Code Plan == Decision making: Patient still does not have capacity to make medical decisions. == FULL CODE == AGGRESSIVE goals == Symptoms: * Right lower extremity pain: Patient reporting ongoing mild pain in her right lower extremity. She was unable to describe pain but reported the pain was exacerbated by movement and touch. PT/OT reporting patient having pain with passive ROM but is able to bear weight without pain. * Generalized weakness: Both weakness and right lower extremity pain seemed to make her bedbound in the days leading up to hospital admission. She still has some residual weakness from her stroke in 2011. Physical therapy and occupational therapy continue to follow; she has been accepted for [facility] upon discharge. * Confusion: Unclear to what extent this is acute due to her clinical condition or is more chronic. CT head on 10/15/2017 showed suspected areas of encephalomalacia bilaterally; suspected small vessel ischemic changes throughout the white matter and atrophy. == Patient reportedly lives with her daughter (Yajaira), but she has been unreachable. Accurints report was requested on 10/16/17 for daughter, Yajaira Jung. [place] [employer] did a wellness check but they were unable to locate the patient's daughter. Case management has been requested to rerun an accurints for the patient's daughter under the name Yajaira Thomson. == Patient is withdrawn, disorganized and confused on exam. She had no insight or judgment related to her current hospitalization. Patient becomes agitated at times when being asked questions but is not aggressive. Psychiatry was consulted to reevaluate the patient. Given the patient's limited self neglecting behavior and current medical status, psychiatry Shi acted the [facility]. Started on Seroquel 12.5 mg PO 2 times daily. == If patient becomes cognitively clear, we will try and get her to complete health care surrogate forms and we will re-visit resuscitation wishes. If she doesn't clear, we need to identify the appropriate proxy or proxies and speak to them about resuscitation status and goals. == Palliative care will continue to follow to assist with symptom management and to further clarify goals of medical treatment as the clinical course evolves. Discussed with patient's nurse and Dr. Mckeon. Attestation To help prompt me to consider important information that might be impacting today's encounter and assessment, information from prior notes written by myself or my colleagues may have been "brought forward" into today's note. My signature on this note, however, is an attestation that I personally performed the exam, history, and/or decision-making noted today, and, unless otherwise indicated, the interactions with patient, family, and staff as well as the review of records all occurred today. I also attest that the listed assessment and stated plan reflect my best clinical judgment today based on the combination of historical information, prior notes, and today's exam/ interactions. When time spent is documented, it refers only to time spent today by the signer, or if indicated, combined time spent today by collaborating physician/nurse practitioner. . Edwige Fishman Oct 25, 2017 14:30
--- NOTE | 2017-10-25 14:58 | PD.CARD.PN ---
Subjective Subjective Remarks No SOB or CP, no new c/o Objective Medications Current Medications Medications (Trade) Dose Ordered Sig/Sina Route Start Time Stop Time Status Last Admin (NS Flush) 2 ml UNSCH PRN IV FLUSH 10/14/17 16:00 (NS Flush) 2 ml BID IV FLUSH 10/14/17 21:00 10/25/17 08:30 (Tylenol) 650 mg Q4H PRN PO 10/14/17 16:00 10/24/17 20:01 (Zofran Inj) 4 mg Q6H PRN IVP 10/14/17 16:00 (Restoril) 15 mg HS PRN PO 10/14/17 16:00 (Narcan Inj) 0.4 mg UNSCH PRN IV PUSH 10/14/17 16:00 (Rosalie-Colace) 1 tab BID PO 10/14/17 21:00 10/25/17 08:30 (Milk Of Magnesia Liq) 30 ml Q12H PRN PO 10/14/17 16:00 (Senokot) 17.2 mg Q12H PRN PO 10/14/17 16:00 (Dulcolax Supp) 10 mg DAILY PRN RECTAL 10/14/17 16:00 (Lactulose Liq) 30 ml DAILY PRN PO 10/14/17 16:00 Lactated Ringer's 1,000 ml @ 40 mls/hr Q24H IV 10/17/17 13:00 10/24/17 21:19 (Plavix) 75 mg DAILY PO 10/19/17 17:15 10/25/17 08:29 (Duoneb Neb) 1 ampule QID NEB NEB 10/21/17 16:00 10/25/17 08:01 (Lanoxin) 0.125 mg DAILY PO 10/21/17 17:00 10/25/17 08:29 (Lopressor) 25 mg Q12HR PO 10/22/17 21:00 10/25/17 08:29 Piperacillin Sod/ Tazobactam Sod 100 ml @ 200 mls/hr Q6H IV 10/22/17 15:00 10/25/17 08:30 Pharmacy Profile Note 0 ml @ 0 mls/hr UNSCH OTHER 10/22/17 13:45 (Duoneb Neb) 1 ampule Q4HR NEB PRN INH 10/22/17 13:45 (Lipitor) 80 mg HS PO 10/24/17 21:00 10/24/17 20:00 Vancomycin HCl 1000 mg/Sodium Chloride 250 ml @ 250 mls/hr Q18H IV 10/25/17 11:00 10/25/17 10:17 Miscellaneous Information SPECIFIC LAB TO BE DRAWN:VANCOMYCIN TROUGH DATE TO... ONCE ONCE .XX 10/27/17 16:45 10/27/17 16:46 (SEROquel) 12.5 mg BID@09,12 PO 10/26/17 09:00 (Pill Splitter) 1 ea UNSCH PRN OTHER 10/25/17 13:30 Vital Signs / I&O Vital Signs Date Time Temp Pulse Resp B/P (MAP) Pulse Ox O2 Delivery O2 Flow Rate FiO2 10/25/17 12:00 97.3 81 17 140/75 (96) 97 10/25/17 08:03 96 Nasal Cannula 2.00 10/25/17 08:00 97.2 93 18 145/83 (103) 95 10/25/17 00:00 96.4 81 20 110/60 (77) 94 10/24/17 20:05 Nasal Cannula 2.00 10/24/17 20:00 97.9 91 20 124/67 (86) 94 10/24/17 16:00 97.5 100 16 110/65 (80) 90 10/24/17 15:25 91 21 I/O 10/24/17 10/24/17 10/24/17 10/25/17 10/25/17 10/25/17 06:59 14:59 22:59 06:59 14:59 22:59 Intake Total 802 ml 500 ml 497.5 ml Output Total 345 ml 500 ml 1300 ml 60 ml Balance 457 ml 0 ml -802.5 ml -60 ml Intake Oral 100 ml 300 ml 240 ml IV Total 702 ml 200 ml 257.5 ml Output Urine Total 300 ml 500 ml 1300 ml Drainage Total 45 ml 60 ml # Bowel Movements 0 0 0 Physical Exam GENERAL: In NAD SKIN: Warm and dry. HEAD: Normocephalic. EYES: No scleral icterus. No injection or drainage. NECK: Supple, trachea midline. No JVD or lymphadenopathy. CARDIOVASCULAR: Irregular, without murmurs, gallops, or rubs. RESPIRATORY: Breath sounds equal bilaterally. Few rhonchi. GASTROINTESTINAL: Abdomen soft, non-tender, nondistended. MUSCULOSKELETAL: No cyanosis, or edema. Laboratory Laboratory Tests Test 10/24/17 22:20 10/25/17 03:46 Vancomycin Level Trough 10.7 MCG/ML White Blood Count 20.7 TH/MM3 Red Blood Count 6.26 MIL/MM3 Hemoglobin 13.6 GM/DL Hematocrit 43.6 % Mean Corpuscular Volume 69.7 FL Mean Corpuscular Hemoglobin 21.7 PG Mean Corpuscular Hemoglobin Concent 31.1 % Red Cell Distribution Width 19.3 % Platelet Count 1045 TH/MM3 Mean Platelet Volume 8.7 FL Neutrophils (%) (Auto) 87.8 % Lymphocytes (%) (Auto) 4.1 % Monocytes (%) (Auto) 4.6 % Eosinophils (%) (Auto) 2.4 % Basophils (%) (Auto) 1.1 % Neutrophils # (Auto) 18.1 TH/MM3 Lymphocytes # (Auto) 0.9 TH/MM3 Monocytes # (Auto) 0.9 TH/MM3 Eosinophils # (Auto) 0.5 TH/MM3 Basophils # (Auto) 0.2 TH/MM3 CBC Comment DIFF FINAL Differential Comment Blood Urea Nitrogen 5 MG/DL Creatinine 0.51 MG/DL Random Glucose 86 MG/DL Calcium Level 8.2 MG/DL Sodium Level 139 MEQ/L Potassium Level 3.7 MEQ/L Chloride Level 104 MEQ/L Carbon Dioxide Level 25.4 MEQ/L Anion Gap 10 MEQ/L Estimat Glomerular Filtration Rate 117 ML/MIN Assessment and Plan Problem List: (1) Peripheral vascular disease ICD Codes: I73.9 - Peripheral vascular disease, unspecified Status: Acute (2) CAD (coronary artery disease) ICD Codes: I25.10 - Atherosclerotic heart disease of [place] coronary artery without angina pectoris (3) Cardiomyopathy ICD Codes: I42.9 - Cardiomyopathy, unspecified (4) Atrial fibrillation ICD Codes: I48.91 - Unspecified atrial fibrillation (5) Hypertension ICD Codes: I10 - Essential (primary) hypertension Assessment and Plan No new cardiac issues. Remains stable from cardiac standpoint after surgery. No angina or CHF exacerbation. Continue current program including risk factor modification. Increase activity, PT. Transfer to med/psych as planned. Rodríguez Garza MD Oct 25, 2017 14:58
[2017-10-26] MEDS ORDERED: QUEtiapine FUMARATE 25 MG TAB PO SCH (09:00)
[2017-10-27] MEDS ORDERED: PHARMACY ORDERED LAB ONE (16:45)
== END 2017-10-25 16:27 | DRG 853 ==
LOC: NEPE 11:41 → NEDA 14:44 → N07B 15:39 → HCIS 10-19 09:50 → N03B 10-19 12:00 → N07A 10-20 15:27 → N03B 10-21 16:42 → N07A 10-24 13:15
PROVIDERS: ADMIT Hospitalist; ATTEND Hospitalist
PROC: 04UJ0KZ Supplement Left External Iliac Artery with Nonautologous Tissue Substitute, Open Approach (ICD-10-PCS; 2017-10-19)
PROC: 04UL0KZ Supplement Left Femoral Artery with Nonautologous Tissue Substitute, Open Approach (ICD-10-PCS; 2017-10-19)
PROC: 04CN0ZZ Extirpation of Matter from Left Popliteal Artery, Open Approach (ICD-10-PCS; 2017-10-19)
PROC: 4A023N7 Measurement of Cardiac Sampling and Pressure, Left Heart, Percutaneous Approach (ICD-10-PCS; 2017-10-19)
PROC: B2111ZZ Fluoroscopy of Multiple Coronary Arteries using Low Osmolar Contrast (ICD-10-PCS; 2017-10-19)
PROC: B2151ZZ Fluoroscopy of Left Heart using Low Osmolar Contrast (ICD-10-PCS; 2017-10-19)
PROC: 04CJ0ZZ Extirpation of Matter from Left External Iliac Artery, Open Approach (ICD-10-PCS; principal; 2017-10-19 09:30)
PROC: 04CL0ZZ Extirpation of Matter from Left Femoral Artery, Open Approach (ICD-10-PCS; 2017-10-19 12:42)
PROC: 041K0JL Bypass Right Femoral Artery to Popliteal Artery with Synthetic Substitute, Open Approach (ICD-10-PCS; 2017-10-23)
PROC: 04CH0ZZ Extirpation of Matter from Right External Iliac Artery, Open Approach (ICD-10-PCS; 2017-10-23)
PROC: 04CK0ZZ Extirpation of Matter from Right Femoral Artery, Open Approach (ICD-10-PCS; 2017-10-23)
PROC: 04UH0KZ Supplement Right External Iliac Artery with Nonautologous Tissue Substitute, Open Approach (ICD-10-PCS; 2017-10-23)
PROC: 04UK0KZ Supplement Right Femoral Artery with Nonautologous Tissue Substitute, Open Approach (ICD-10-PCS; 2017-10-23)
DX: A41.9 Sepsis, unspecified organism (principal); J18.9 Pneumonia, unspecified organism; I74.3 Embolism and thrombosis of arteries of the lower extremities; I74.5 Embolism and thrombosis of iliac artery; I25.82 Chronic total occlusion of coronary artery; I48.91 Unspecified atrial fibrillation; E88.09 Other disorders of plasma-protein metabolism, not elsewhere classified; I51.3 Intracardiac thrombosis, not elsewhere classified; N39.0 Urinary tract infection, site not specified; D75.1 Secondary polycythemia; E86.0 Dehydration; I25.5 Ischemic cardiomyopathy; I70.203 Unspecified atherosclerosis of native arteries of extremities, bilateral legs; I25.10 Atherosclerotic heart disease of native coronary artery without angina pectoris; I10 Essential (primary) hypertension; E78.5 Hyperlipidemia, unspecified; R53.1 Weakness; B96.20 Unspecified Escherichia coli [E. coli] as the cause of diseases classified elsewhere; E87.6 Hypokalemia; I70.8 Atherosclerosis of other arteries; I70.0 Atherosclerosis of aorta; I49.3 Ventricular premature depolarization; R26.81 Unsteadiness on feet; F54 Psychological and behavioral factors associated with disorders or diseases classified elsewhere; R09.02 Hypoxemia; R41.0 Disorientation, unspecified; L98.8 Other specified disorders of the skin and subcutaneous tissue; Z86.73 Personal history of transient ischemic attack (TIA), and cerebral infarction without residual deficits; Z87.891 Personal history of nicotine dependence
CPT/HCPCS: 36600; 70450; 71010; 71020; 75635; 76937; 78452; 80048; 80053; 80061; 80202; 81001; 82550; 82805; 83036; 83605; 83735; 83880; 84100; 84132; 84439; 84443; 85002; 85007; 85025; 85027; 85610; 85730; 86850; 86900; 86901; 86920; 87040; 87077; 87086; 87186; 87449; 88304; 88311; 93005; 93017; 93306; 93458; 93970; 94640; 94664; 94668; 96361; 96365; 96367; 99152; A9502; C1757; C1768; C1769; C1893; J0131; J0690; J0696; J1644; J1650; J1940; J2250; J2370; J2405; J2543; J2710; J2720; J2785; J3010; J3370; J7030; J7040; J7050; J7120; P9045; Q9967

== ENCOUNTER 2017-10-25 16:37 | Inpatient (IN) | payer MEDICARE, OTHER ==
[~2017-10-25] VITALS: Ht 152.4 cm; Wt 50.8 kg
[~2017-10-25 16:37] MED LIST changes: -ASPI325T PO; +ATOR80TA45 PO; +AUGM500T7 PO; +DIGO0.12 PO; -HYDR12.57 PO; +METO25TA3 PO; +PLAV75TA29 PO; -PRAV40TA2 PO; +REST15CA PO; +SERO25TA PO
[2017-10-25 16:45] VITALS: BP 168/79; PULSE 98; RESP 17; TEMP 98.2; O2SAT 92
[2017-10-25] MEDS ORDERED: ALUMINUM/MAGNESIUM/SIMETH 30 ML CUP PO PRN (17:30)
[2017-10-25] MEDS: DIGOXIN 0.125 MG TAB PO SCH (17:30)
[2017-10-25] MEDS ORDERED: MAGNESIUM HYDROXIDE SUSP 30 ML CUP PO PRN (17:30)
[2017-10-25] MEDS ORDERED: ACETAMINOPHEN 325 MG TAB PO PRN (17:30)
[2017-10-25] MEDS: CLOPIDOGREL 75 MG TAB PO SCH (17:30)
[2017-10-25] MEDS: AMOXICILLIN/CLAVULANATE K 500 MG TAB PO SCH ×2 (20:56→21:00)
[2017-10-25] MEDS: ATORVASTATIN 80 MG TAB PO SCH ×2 (20:56→21:00)
[2017-10-25] MEDS: METOPROLOL TARTRATE 25 MG TAB PO SCH (20:56)
[2017-10-26 02:00] VITALS: BP 153/70; PULSE 70; RESP 15; TEMP 97.4; O2SAT 98
[2017-10-26 05:40] VITALS: BP 161/82; PULSE 100; RESP 20; TEMP 98.2; O2SAT 93
[2017-10-26] MEDS: QUEtiapine FUMARATE 25 MG TAB PO SCH ×2 (09:00→12:00)
--- NOTE | 2017-10-26 09:44 | HHI.HP ---
Provisional Diagnosis Admission Date Oct 25, 2017 at 16:37 [place] I. 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 Express and informed consent means consent voluntarily given in writing, by a competent person, after sufficient explanation and disclosure of the subject matter involved to enable the person to make a knowing and willful decision without any element of force, fraud, deceit, duress, or other form of constraint or coercion. This person is 18 years of age or older, is not now known to be incompetent to consent to treatment with a guardian advocate, and does not have a health care surrogate or proxy currently making medical treatment decisions. I have found this person to be one of the following: [] Competent to provide express and informed consent, as defined above, for voluntary admission to this facility and is competent to provide express and informed consent for treatment. He/she has the consistent capacity to make well reasoned, willful, and knowing decisions concerning his or her medical or mental health treatment. The person fully and consistently understands the purpose of the admission for examination/placement and is fully capable of personally exercising all rights assured [place]] Incompetent to provide express and informed consent to voluntary admission, and this is incompetent to provide express and informed consent to treatment. The person must be transferred to involuntary status and a petition for a guardian advocate filed with the Circuit Court. [] Refusing to provide express and informed consent to voluntary admission but is competent to provide express and informed consent for treatment. The person must be discharged or transferred to involuntary status. Form shall be completed within 24 hours of a person's arrival at the receiving facility and filed in the clinical record of each person: 1. Admitted on a voluntary basis 2. Permitted to provide express and informed consent to his/her own treatment 3. Allowed to transfer from involuntary to voluntary status 4. Prior to permitting a person to consent to his or her own treatment after having been previously found incompetent to consent to treatment. History of Present Illness Capacity: Lacks Capacity Psych Chief Complaint: patient confused unable to care for self found lying in her own waste produ HPI Patient is a 77-year-old white female who was initially brought to the emergency department on 10/14/17 under she was found be markedly debilitated, significant peripheral vascular problems necessitating femoral-popliteal bypass. Patient is also seen by psychiatry during that visit results he had cognitive issues was unable care for self. Patient seen by both Dr. Odell and Dr. Arcos. Patient was transferred to E. for further care and attention. Dr. Arcos did initiate a Shi act dated 10/25/17 dating unspecified psychosis that document reviewed and agreed with. At the present time patient laying quietly in her bed on 4 E. RN present throughout session. Patient is alert diffusely confused elderly white female she doesn't know she is in the hospital devastated to another batch she does not know the state she is vague about the year does not know the month or the holiday. She states she lives with her daughter but does not know where her daughter is she is vague about the circumstances leading to her being left on the couch for extended period of time in her feces and urine. She states her daughter lives with her. She states she has been 5 or 6 times, has had 5 or 6 children, has grandchildren and great-grandchildren but she has no great great grandchildren yet because "I aint yet". Patient denies suicidality denies voices or visions. Patient denies any prior psychiatric contact hospitalizations his psychotropic medications. She states she is from [place] and as a younger woman worked in "[employer]". Patient denies any alcohol use or drug use, though she did somewhat shyly acknowledge past use of marijuana, also stated she was a cigarette smoker in the past but not in a few months. She does deny any physical or sexual abuse nor her historical accuracy is quite questionable. In any event at the present time patient does meet criteria for inpatient psychiatric assessment and observation. I feel she does not have capacity to make decisions concerning her care or medications thus I'll do first opinion petition supporting Shi act request second opinion. We'll also ask for healthcare surrogate and guardian advocate. We will have a continuation of the hospitalists care for this lady on our med psych unit. Patient did have palliative care orders will continue that also. Will have PT and OT assess this lady. Will have counselor attempt to reach patient's family to discuss further care and attention and possible placement issues we also need to address with family members advanced directives Review of Systems ROS Limitations: Clinical Condition, Altered Mental Status Past Psych History Psychological trauma history Unable to ascertain due to patient's cognitive condition Violence risk - others (6 mos) Low Violence risk - self (6 mos) Low Substance Abuse History Drugs/Alcohol past 12 months Patient denies Past Family Social History Coded Allergies: No Known Allergies (Unverified Allergy, Unknown, 10/14/17) Active Scripts Amoxicillin-Clavulanate (Augmentin) 500-125 mg Tab, 500 MG PO BID for Infection , #10 TAB 0 Refills Prov:Stephanie Fox MD 10/25/17 Temazepam (Restoril) 15 Mg Cap, 15 MG PO HS Y for INSOMNIA, #20 CAP Prov:Stephanie Fox MD 10/25/17 Quetiapine (Seroquel) 25 Mg Tab, 12.5 MG PO BID@09,12 for psychosis, #62 TAB Prov:Stephanie Fox MD 10/25/17 Atorvastatin (Atorvastatin) 80 Mg Tab, 80 MG PO HS for Cholesterol Management, # 31 TAB Prov:Stephanie Fox MD 10/25/17 Metoprolol Tartrate (Metoprolol Tartrate) 25 Mg Tab, 25 MG PO Q12HR for afib, # 62 TAB Prov:Stephanie Fox MD 10/25/17 Digoxin (Digoxin) 0.125 Mg Tab, 0.125 MG PO DAILY for afib, #31 TAB Prov:Stephanie Fox MD 10/25/17 Clopidogrel (Plavix) 75 Mg Tab, 75 MG PO DAILY for pad, #31 TAB Prov:Stephanie Fox MD 10/25/17 Current Medications Medications (Trade) Dose Ordered Sig/Sina Route Start Time Stop Time Status Last Admin (Augmentin) 500 mg BID PO 10/25/17 21:00 (Lipitor) 80 mg HS PO 10/25/17 21:00 (Plavix) 75 mg DAILY PO 10/25/17 17:30 (Lanoxin) 0.125 mg DAILY PO 10/25/17 17:30 (Lopressor) 25 mg Q12HR PO 10/25/17 21:00 10/25/17 20:56 (SEROquel) 12.5 mg BID@,12 PO 10/26/17 09:00 (Tylenol) 650 mg Q4H PRN PO 10/25/17 17:30 (Milk Of Magnesia Liq) 30 ml DAILY PRN PO 10/25/17 17:30 (Mag-Al Plus Susp Liq) 30 ml Q6H PRN PO 10/25/17 17:30 (Atarax) 50 mg Q6H PRN PO 10/26/17 09:15 Family Psych History Unknown at this time due to patient's cognitive condition Social History It appears patient lives in an apartment with her daughter Patient's Strengths (min. 2) Patient verbal able axis health care Physical Exam Patient medically cleared through Vital Signs Vital Signs Date Time Temp Pulse Resp B/P (MAP) Pulse Ox O2 Delivery O2 Flow Rate FiO2 10/26/17 05:40 98.2 100 20 161/82 (108) 93 I/O 10/26/17 10/26/17 10/27/17 08:00 16:00 00:00 Intake Total 0 ml Balance 0 ml Mental Status Examination Appearance: Appropriate Consciousness: Alert Orientation: Person, Place (vaguely) Motor Activity: Other (patient bedridden at this time) Speech: Hesitant Language: Adequate Fund of Knowledge: Inadequate Attention and Concentration: Other (poor) Memory: Impaired Mood: Other (euthymic to somewhat restricted) Affect: Other (decreased range and intensity) Thought Process & Associations: Loose associations Thought Content: Other (disorganized) Hallucination Type: None (denies) Delusion Type: None Suicidal Ideation: No Suicidal Plan: No Suicidal Intention: No Homicidal Ideation: No Homicidal Plan: No Homicidal Intention: No Insight: Poor Judgment: Poor Assessment & Plan Problem List: (1) OTHER ALZHEIMER'S DISEASE ICD Codes: G30.8 - OTHER ALZHEIMER'S DISEASE (2) Dementia associated with other underlying disease without behavioral disturbance ICD Codes: F02.80 - Dementia in other diseases classified elsewhere without behavioral disturbance Assessment & Plan Estimated LOS: 7 days this time patient meets criteria for involuntary psychiatric hospitalization the Shi act I'll do first opinion request second opinion. I will also do health care surrogate and guardian advocate. We'll continue the hospitals consult from the inpatient medical admission, we will continue the palliative care consult. Will also request OT and PT. Will have counselor attempt to reach patient's family to determine further course of action. Discharge Planning Needs to be discussed with patient's family members and/or health care surrogate /guardian advocate Request HC Surrog/Guard Advoc?: Yes Anselmo Gray MD Oct 26, 2017 09:44
[2017-10-26] MEDS ORDERED: PILL SPLITTER OTHER PRN (10:30)
--- NOTE | 2017-10-26 10:55 | PD.CONS ---
History of Present Illness Service Medicine Consult Consult Requested By Psych Reason for Consult Medical Management, Leukocytosis Primary Care Physician No Primary Care Physician Diagnoses: (1) Leukocytosis (2) Confusion History of Present Illness 77F who presented to the ER and admitted under Shi Act for generalized confusion. She has baseline dementia, but apparently had some worsening over the days leading up to admission. She recalls having an "orthopedic surgery" and shows me her scar from her recent Fem/Pop bypass surgery on her medial right thigh. Looking back on her recent labwork, she has marked leukocytosis on admission and Yeast infection with possible UTI on 10/22/17. She is afebrile and is on PO Augmentin without any sign of antifungal coverage. Review of Systems ROS Limitations: Altered Mental Status Respiratory: DENIES: Cough Cardiovascular: DENIES: Chest pain Gastrointestinal: DENIES: Abdominal pain Musculoskeletal: DENIES: Joint pain Psychiatric: COMPLAINS OF: Confusion Past Family Social History Allergies: Coded Allergies: No Known Allergies (Unverified Allergy, Unknown, 10/14/17) Past Medical History Dementia, A Fib, Polycythemia Past Surgical History Recent right Fem/Pop Bypass Social History Unreliable due to confusion and dementia Physical Exam Vital Signs Vital Signs Date Time Temp Pulse Resp B/P (MAP) Pulse Ox O2 Delivery O2 Flow Rate FiO2 10/26/17 05:40 98.2 100 20 161/82 (108) 93 10/25/17 16:45 98.2 98 17 168/79 (108) 92 Physical Exam GENERAL: Elderly woman who is confused, but peaceful in bed SKIN: No rashes, ecchymoses or lesions. Cool and dry. HEAD: Atraumatic. Normocephalic. No temporal or scalp tenderness. EYES: Pupils equal round and reactive. Extraocular motions intact. No scleral icterus. No injection or drainage. ENT: Nose without bleeding, purulent drainage or septal hematoma. Throat without erythema, tonsillar hypertrophy or exudate. Uvula midline. Airway patent. NECK: Trachea midline. No JVD or lymphadenopathy. Supple, nontender, no meningeal signs. CARDIOVASCULAR: Irregular, rate controlled, no gallops, or rubs. RESPIRATORY: Clear to auscultation. Breath sounds equal bilaterally. No wheezes , rales, or rhonchi. GASTROINTESTINAL: Abdomen soft, non-tender, nondistended. No hepato-splenomegaly , or palpable masses. No guarding. MUSCULOSKELETAL: Extremities without clubbing, cyanosis, or edema. No joint tenderness, effusion, or edema noted. NEUROLOGICAL: Awake but confused. Cranial nerves II through XII intact. Motor and sensory grossly within normal limits, no focal deficits. Normal speech. Assessment and Plan Problem List: (1) Confusion ICD Codes: R41.0 - Disorientation, unspecified Status: Acute (2) Leukocytosis ICD Codes: D72.829 - Elevated white blood cell count, unspecified (3) Atrial fibrillation ICD Codes: I48.91 - Unspecified atrial fibrillation (4) Polycythemia ICD Codes: D75.1 - Secondary polycythemia Status: Chronic Assessment and Plan Confusion / Dementia Recent acute exacerbation, admitted under Shi Act Will look further into medical causes, such as UTI, PNA, cardiac, etc. Will order PT to help her ambulate, evaluate Leukocytosis Chronically elevated as part of polycythemia Evidence of UTI and/or yeast infection on last UA Repeat UA Urinary Tract Infection Fungal vs. bacterial No evidence of antifungals since positive on 10/22/17 Start Diflucan, single dose of Rocephin, repeat UA Fem/Pop Bypass Recent, wound appears clean, dry, intact, steri-strips in place Atrial Fibrillation Rate controlled EKG ordered to rule out any acute changes related to confusion (TX, CHF, etc) DVT Prophylaxis On Plavix for atrial fib, recent Fem/Pop Bypass Physical Therapy for Eval & Treat, and ambulation Bhaskar Vernon MD Oct 26, 2017 10:55
[2017-10-26] MEDS ORDERED: FLUCONAZOLE 100 MG TAB PO ONE (11:00)
[2017-10-26] MEDS: DIGOXIN 0.125 MG TAB PO SCH (11:01)
[2017-10-26] MEDS: CLOPIDOGREL 75 MG TAB PO SCH (11:01)
[2017-10-26] MEDS: METOPROLOL TARTRATE 25 MG TAB PO SCH ×2 (11:01→21:00)
[2017-10-26] MEDS: cefTRIAXone INJ 1,000 MG in SODIUM CHLORIDE 0.9% INJ 100 ML IV SCH ×2 (11:03→13:59)
[2017-10-26 12:21] LABS: BILIRUBIN, URINE NEG (NEG); BLOOD, URINE NEG (NEG); GLUCOSE,URINE NEG (NEG); KETONE, URINE 10 mg/dL (NEG); MUCUS URINE FEW /lpf (OCC); NITRITE,URINE NEG (NEG); URINE COLOR YELLOW (YELLW/STRAW); URINE LEUKOCYTE ESTERASE MOD (NEG)
--- NOTE | 2017-10-26 12:32 | PD.PSY.CON ---
Provisional Diagnosis Admission Date Oct 25, 2017 at 16:37 [place] I. 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 Gray Reason for Consult Second opinion Primary Care Physician No Primary Care Physician HPI Patient is a 77-year-old white female who was initially brought to the emergency department on 10/14/17 under she was found be markedly debilitated, significant peripheral vascular problems necessitating femoral-popliteal bypass. Patient is also seen by psychiatry during that visit results he had cognitive issues was unable care for self. Patient seen by both Dr. Odell and Dr. Arcos. Patient was transferred to E for further care and attention. Dr. Arcos did initiate a Shi act dated 10/25/17 dating unspecified psychosis that document reviewed and agreed with. At the present time patient laying quietly in her bed on 4 E. RN present throughout session. Patient is alert diffusely confused elderly white female she doesn't know she is in the hospital devastated to another batch she does not know the state she is vague about the year does not know the month or the holiday. She states she lives with her daughter but does not know where her daughter is she is vague about the circumstances leading to her being left on the couch for extended period of time in her feces and urine. She states her daughter lives with her. She states she has been 5 or 6 times, has had 5 or 6 children, has grandchildren and great-grandchildren but she has no great great grandchildren yet because "I aint yet". Patient denies suicidality denies voices or visions. Patient denies any prior psychiatric contact hospitalizations his psychotropic medications. She states she is from [place] and as a younger woman worked in "[employer]". Patient denies any alcohol use or drug use, though she did somewhat shyly acknowledge past use of marijuana, also stated she was a cigarette smoker in the past but not in a few months. She does deny any physical or sexual abuse nor her historical accuracy is quite questionable. In any event at the present time patient does meet criteria for inpatient psychiatric assessment and observation. I feel she does not have capacity to make decisions concerning her care or medications thus I'll do first opinion petition supporting Shi act request second opinion. We'll also ask for healthcare surrogate and guardian advocate. We will have a continuation of the hospitalists care for this lady on our med psych unit. Patient did have palliative care orders will continue that also. Will have PT and OT assess this lady. Will have counselor attempt to reach patient's family to discuss further care and attention and possible placement issues we also need to address with family members advanced directives. Patient was seen today for psychiatric evaluation for second opinion. She is calm, cooperative, but confused and tangential. Patient reports that she feels much better, but is unable to clarify the reason of her hospitalization and circumstances that brought her to the hospital. Patient says that she is okay and feels safe here, she doesn't know where she is, she doesn't know the date. No agitation or aggressive behavior reported in the last 24 hours. Patient has been compliant with medications, no significant side effects. Review of Systems Except as stated in HPI: all other systems reviewed are Neg Past Family Social History Coded Allergies: No Known Allergies (Unverified Allergy, Unknown, 10/14/17) Active Scripts Amoxicillin-Clavulanate (Augmentin) 500-125 mg Tab, 500 MG PO BID for Infection , #10 TAB 0 Refills Prov:Stephanie Fox MD 10/25/17 Temazepam (Restoril) 15 Mg Cap, 15 MG PO HS Y for INSOMNIA, #20 CAP Prov:Stephanie Fox MD 10/25/17 Quetiapine (Seroquel) 25 Mg Tab, 12.5 MG PO BID@09,12 for psychosis, #62 TAB Prov:Stephanie Fox MD 10/25/17 Atorvastatin (Atorvastatin) 80 Mg Tab, 80 MG PO HS for Cholesterol Management, # 31 TAB Prov:Stephanie Fox MD 10/25/17 Metoprolol Tartrate (Metoprolol Tartrate) 25 Mg Tab, 25 MG PO Q12HR for afib, # 62 TAB Prov:Stephanie Fox MD 10/25/17 Digoxin (Digoxin) 0.125 Mg Tab, 0.125 MG PO DAILY for afib, #31 TAB Prov:Stephanie Fox MD 10/25/17 Clopidogrel (Plavix) 75 Mg Tab, 75 MG PO DAILY for pad, #31 TAB Prov:Stephanie Fox MD 10/25/17 Current Medications Medications (Trade) Dose Ordered Sig/Sina Route Start Time Stop Time Status Last Admin (Lipitor) 80 mg HS PO 10/25/17 21:00 (Plavix) 75 mg DAILY PO 10/25/17 17:30 10/26/17 11:01 (Lanoxin) 0.125 mg DAILY PO 10/25/17 17:30 10/26/17 11:01 (Lopressor) 25 mg Q12HR PO 10/25/17 21:00 10/26/17 11:01 (SEROquel) 12.5 mg BID@09,12 PO 10/26/17 09:00 (Tylenol) 650 mg Q4H PRN PO 10/25/17 17:30 (Milk Of Magnesia Liq) 30 ml DAILY PRN PO 10/25/17 17:30 (Mag-Al Plus Susp Liq) 30 ml Q6H PRN PO 10/25/17 17:30 (Atarax) 50 mg Q6H PRN PO 10/26/17 09:15 Ceftriaxone Sodium 1000 mg/ Sodium Chloride 100 ml @ 200 mls/hr Q24H IV 10/26/17 11:00 (Pill Splitter) 1 ea UNSCH PRN OTHER 10/26/17 10:30 Patient's Strengths (min. 2) Patient verbal able axis health care Physical Exam Vital Signs Vital Signs Date Time Temp Pulse Resp B/P (MAP) Pulse Ox O2 Delivery O2 Flow Rate FiO2 10/26/17 05:40 98.2 100 20 161/82 (108) 93 I/O 10/26/17 10/26/17 10/27/17 08:00 16:00 00:00 Intake Total 240 ml Balance 240 ml Lab Results Test 10/26/17 11:50 Urine Color YELLOW Urine Turbidity HAZY Urine pH 6.0 Urine Specific [place] 1.025 Urine Protein 30 mg/dL Urine Glucose (UA) NEG mg/dL Urine Ketones 10 mg/dL Urine Occult Blood NEG Urine Nitrite NEG Urine Bilirubin NEG Urine Urobilinogen LESS THAN 2.0 MG/DL Urine Leukocyte Esterase MOD Urine RBC 10 /hpf Urine WBC 47 /hpf Urine Mucus FEW /lpf Urine Yeast with Hyphae FEW Urine Yeast (Budding) OCC Microscopic Urinalysis Comment CULTURE INDICATED Date/Time Source Procedure Growth Status 10/26/17 11:50 Urine Other Urine Culture Pending Received Mental Status Examination Appearance: Appropriate Consciousness: Alert Orientation: Person, Place (vaguely) Motor Activity: Other (patient bedridden at this time) Speech: Hesitant Language: Adequate Fund of Knowledge: Inadequate Attention and Concentration: Other (poor) Memory: Impaired Mood: Other (euthymic to somewhat restricted) Affect: Other (decreased range and intensity) Thought Process & Associations: Loose associations Thought Content: Other (disorganized) Hallucination Type: None (denies) Delusion Type: None Suicidal Ideation: No Suicidal Plan: No Suicidal Intention: No Homicidal Ideation: No Homicidal Plan: No Homicidal Intention: No Insight: Poor Judgment: Poor Assessment & Plan Problem List: (1) OTHER ALZHEIMER'S DISEASE ICD Codes: G30.8 - OTHER ALZHEIMER'S DISEASE (2) 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 Gray's assessment and plan. Assessment & Plan Estimated LOS: days Request HC Surrog/Guard Advoc?: Yes Declan Moeller MD Oct 26, 2017 12:31
[2017-10-26] MEDS ORDERED: ONDANSETRON ODT 4 MG TAB PO PRN (13:30)
[2017-10-26] MEDS ORDERED: METOCLOPRAMIDE HCL 10 MG TAB PO PRN (13:30)
[2017-10-26] MEDS ORDERED: methylPREDNISolone SOD SUCC 125 MG/2 ML VIAL IV PUSH ONE (14:00)
--- NOTE | 2017-10-26 14:02 | HHI.HCPN ---
Reason for visit a. To assist with evaluation and management of symptoms including: pain; confusion; generalized weakness, dyspnea b. To assist medical decision maker(s) with: better understanding of current medical conditions; weighing benefits/burdens of medical treatment options; making medical treatment decisions. . Subjective/Interval History . Palliative care is familiar with this patient who was hospitalized 10/14/2017 with sepsis and UTI. The patient was debilitated with significant peripheral vascular disease necessitating femoral-popliteal bypass. Patient reportedly lives with her daughter but she does not know where her daughter is, and the daughter has not visited her mother during this hospitalization. Daughter, Yajaira, has been unreachable. Accurints report was requested on 10/16/17 for daughter, Yajaira Jung. [place] [employer] did a wellness check but they were unable to locate the patient's daughter. Case management has been requested to rerun an accurints for the patient's daughter under the name Yajaira Thomson. Psychiatry was consulted to reevaluate the patient on . Patient was withdrawn, disorganized and confused on exam; she became intermittently agitated but was not aggressive. Patient became agitated at times when being asked questions but is not aggressive. Follow up visit for symptom management and education of medical treatment goals. Patient was Shi acted on 10/25/17 and transferred to the med-psych floor. She remains confused, unable to clarify the reason for her hospitalization. Patient had marked leukocytosis on admission and Yeast infection with possible UTI on . Afebrile. Follow up UA on 10/26/17 suspicious for UTI and/or yeast; urine culture pending. Patient started on Fluconazole and Rocephin. EKG ordered to rule out any acute changes related to confusion. WBC: 35.7, hemoglobin 16.0, hematocrit 51.0, platelets 1674, neutrophils 92.0% Respirations shallow with diminished air exchange, coarse breath sounds. Oxygen saturation is in the low 90s on room air. Patient received furosemide 40mg IV and methylprednisolone 125mg IV 1; DuoNebs ordered every 4 hours PRN or wheezing. Chest x-ray stable appearance of bilateral interstitial infiltrates which may represent pulmonary edema and stable small bilateral pleural effusions. Physical therapy following. Patient presenting with weakness in the right lower extremity including foot drop,impaired mobility. Plan for placement at SNF for rehabilitation upon discharge. . Objective Vital Signs Date Time Temp Pulse Resp B/P (MAP) Pulse Ox O2 Delivery O2 Flow Rate FiO2 10/26/17 05:40 98.2 100 20 161/82 (108) 93 10/25/17 16:45 98.2 98 17 168/79 (108) 92 Intake & Output 10/26/17 10/26/17 06:59 18:59 Intake Total 780 ml 240 ml Balance 780 ml 240 ml Intake Oral 780 ml 240 ml # Voids 4 # Bowel Movements 2 . Physical Exam CONSTITUTIONAL/GENERAL: This is a thin, elderly female who is confused but in no apparent distress TUBES/LINES/DRAINS: PIV SKIN: No jaundice, rashes, or lesions. Ecchymosis to bilateral upper extremities. Skin temperature appropriate. Not diaphoretic. HEAD: Atraumatic. Normocephalic. EYES: Pupils equal and round and reactive. Extraocular motions intact. No scleral icterus. No injection or drainage. Fundi not examined. ENT: Hearing grossly normal. Nose without bleeding or purulent drainage. NECK: Trachea midline. CARDIOVASCULAR: Regular rate and rhythm. No murmurs, gallops, or rubs. No JVD. RESPIRATORY/CHEST: Shallow respirations, dyspnea with minimal exertion Breath sounds equal bilaterally but diminished throughout; scattered rhonchi GASTROINTESTINAL: Abdomen soft, non-tender, nondistended. No guarding. Bowel sounds present. GENITOURINARY: Without palpable bladder distension. MUSCULOSKELETAL: No obvious deformities. No clubbing, cyanosis or edema NEUROLOGICAL: Awake and alert. Follows commands. Confused. Moves all extremities. PSYCHIATRIC: Flat affect, disorganized . Diagnostic Tests Laboratory Laboratory Tests Test 10/26/17 11:50 Urine Color YELLOW (YELLW/STRAW) Urine Turbidity HAZY (CLEAR) Urine pH 6.0 (5.0-8.5) Urine Specific [place] 1.025 (1.002-1.035) Urine Protein 30 mg/dL (NEG-TRACE) Urine Glucose (UA) NEG mg/dL (NEG) Urine Ketones 10 mg/dL (NEG) Urine Occult Blood NEG (NEG) Urine Nitrite NEG (NEG) Urine Bilirubin NEG (NEG) Urine Urobilinogen LESS THAN 2.0 MG/DL (LESS Urine Leukocyte Esterase MOD (NEG) Urine RBC 10 /hpf (0-3) Urine WBC 47 /hpf (0-5) Urine Mucus FEW /lpf (OCC) Urine Yeast with Hyphae FEW (NONE) Urine Yeast (Budding) OCC (NONE) Microscopic Urinalysis Comment CULTURE INDICATED Microbiology Microbiology Date/Time Source Procedure Growth Status 10/26/17 11:50 Urine Other Urine Culture Pending Received Assessment and Plan Disease Oriented Problem List: (1) UTI (urinary tract infection) (2) History of endarterectomy (3) Peripheral vascular disease (4) Leukocytosis (5) Polycythemia (6) Atrial fibrillation Symptom Scale: (1) Pain 0-10 Scale: Unable to quantify (2) Confusion 0-10 Scale: Unable to quantify (3) Generalized weakness 0-10 Scale: Unable to quantify (4) Dyspnea 0-10 Scale: Unable to quantify Pertinent Non-Medical Issues Psychosocial: Reportedly lives with daughter in crowded, cluttered apartment. 6 children altogether but patient can't tell me what state they are in. Spiritual: Voodoo. Not particularly interested in [employer] operations staff officer visits. Legal: No known advance directives. Ethical issues impacting care: Patient's capacity is questionable. Recommend at least shared decision making until she is cognitively clearer or we see that goals/preferences are consistent. . Important Contacts Yajaira Jung (daughter): [phone] . Prognosis It is unclear to what extent patient's current status is due to her peripheral vascular disease and to what extent there are other factors. Some of her confusion be due to vascular dementia (she is post stroke). Patient has been accepted to [facility] for rehab s/p vascular surgery. She risk for continued complications/setbacks. . Code Status: Full Code Plan == Decision making: Patient still does not have capacity to make medical decisions. == FULL CODE == AGGRESSIVE goals == Discussed patient's case with bedside nurse (Rachele) and Denice == Symptoms: * Pain: Patient reporting ongoing mild pain in her right lower extremity. She was unable to describe pain but reported the pain was exacerbated by movement and touch. Possible contributing factors include recent procedures, invasive lines, immobility, bedbound status, dyspnea. * Generalized weakness: Both weakness and right lower extremity pain seemed to make her bedbound in the days leading up to hospital admission. She still has some residual weakness from her stroke in 2011. Physical therapy following. Patient presenting with weakness in the right lower extremity including foot drop,impaired mobility. Plan for placement at SNF for rehabilitation upon discharge. * Confusion: CT head on 10/15/2017 showed suspected areas of encephalomalacia bilaterally; suspected small vessel ischemic changes throughout the white matter and atrophy.Patient was Shi acted on 10/25/17 and transferred to the med-psych floor. She remains confused, unable to clarify the reason for her hospitalization. Patient had marked leukocytosis on admission and Yeast infection with possible UTI on 10/22/17. Afebrile. Follow up UA on 10/26/17 suspicious for UTI and/or yeast; urine culture pending. Patient started on Fluconazole and Rocephin. EKG ordered to rule out any acute changes related to confusion. * Dyspnea: Respirations shallow with diminished air exchange, coarse breath sounds. Oxygen saturation is in the low 90s on room air. Patient received furosemide 40mg IV and methylprednisolone 125mg IV 1; DuoNebs ordered every 4 hours PRN or wheezing. Chest x-ray stable appearance of bilateral interstitial infiltrates which may represent pulmonary edema and stable small bilateral pleural effusions. == Patient reportedly lives with her daughter (Yajaira), but she has been unreachable. Accurints report was requested on 10/16/17 for daughter, Yajaira Jung. [place] [employer] did a wellness check but they were unable to locate the patient's daughter. Case management has been requested to rerun an accurints for the patient's daughter under the name Yajaira Thomson. == If patient becomes cognitively clear, we will try and get her to complete health care surrogate forms and we will re-visit resuscitation wishes. If she doesn't clear, we need to identify the appropriate proxy or proxies and speak to them about resuscitation status and goals. == Palliative care will continue to follow to assist with symptom management and to further clarify goals of medical treatment as the clinical course evolves. Discussed with patient's nurse and Dr. Mckeon. . Attestation To help prompt me to consider important information that might be impacting today's encounter and assessment, information from prior notes written by myself or my colleagues may have been "brought forward" into today's note. My signature on this note, however, is an attestation that I personally performed the exam, history, and/or decision-making noted today, and, unless otherwise indicated, the interactions with patient, family, and staff as well as the review of records all occurred today. I also attest that the listed assessment and stated plan reflect my best clinical judgment today based on the combination of historical information, prior notes, and today's exam/ interactions. When time spent is documented, it refers only to time spent today by the signer, or if indicated, combined time spent today by collaborating physician/nurse practitioner. . Edwige Fishman Oct 26, 2017 14:02
[2017-10-26 14:07] LABS: AUTOMATED NEUTROPHIL # 32.8 TH/MM3 (1.8-7.7); BASOPHIL # 0.1 TH/MM3 (0-0.2); BASOPHIL % 0.3 % (0.0-2.0); EOSINOPHIL # 0.3 TH/MM3 (0-0.4); EOSINOPHIL % 0.9 % (0.0-4.0); LYMPH % 3.2 % (9.0-44.0); LYMPHOCYTE # 1.2 TH/MM3 (1.0-4.8); MEAN CELL VOLUME 70.4 FL (80.0-100.0); MEAN CORPUSCULAR HEMOGLOBIN 22.1 PG (27.0-34.0); MEAN CORPUSCULAR HGB CONC 31.4 % (32.0-36.0); MEAN PLATELET VOLUME 8.6 FL (7.0-11.0); MONO % 3.6 % (0.0-8.0); MONOCYTE # 1.3 TH/MM3 (0-0.9); PLATELET COUNT 1674 TH/MM3 (150-450); RED BLOOD COUNT 7.25 MIL/MM3 (4.00-5.30); RED CELL DISTRIBUTION WIDTH 20.1 % (11.6-17.2); WHITE BLOOD COUNT 35.7 TH/MM3 (4.0-11.0)
[2017-10-26] MEDS ORDERED: FUROSEMIDE 40 MG/4 ML VIAL IV PUSH ONE (14:15)
[2017-10-26 14:47] LABS: BANDS 1 % (0-6); LYMPHOCYTES 1 % (9-44); MONOCYTES 1 % (0-8); POLYS (SEG NEUTROPHILS) 96 % (16-70); PROMYELOCYTES 1 % (0-0)
--- NOTE | 2017-10-26 15:02 | RADRPT ---
EXAM DATE/TIME: 10/26/2017 14:45 [facility] COMPARISON: CHEST PA & LAT, October 22, 2017, 15:44. INDICATIONS : Difficulty breathing, cough MEDICAL HISTORY : Stroke. Hypertension SURGICAL HISTORY : Tonsillectomy. Tubal ligation ENCOUNTER: Subsequent ACUITY: 4 - 6 days PAIN SCORE: Non-responsive. LOCATION: Bilateral chest FINDINGS: AP and lateral views of the chest were obtained and again demonstrate coarse interstitial infiltrates throughout both lungs rest of the lung bases. There are small posterior pleural effusions with blunt ing of the costophrenic angles. The heart size remains within normal limits. Atherosclerotic changes are present in the aorta. CONCLUSION: 1. Stable appearance of the bilateral interstitial infiltrates which may represent pulmonary edema. 2. Stable small bilateral pleural effusions. Vance Del Rosario MD on October 26, 2017 at 14:59 Board Certified Radiologist. This report was verified electronically.
[2017-10-26] MEDS ORDERED: cloNIDine HCL 0.1 MG TAB PO PRN (17:30)
[2017-10-26 17:57] VITALS: BP 192/99; RESP 17; TEMP 97.6; O2SAT 93
[2017-10-26 17:59] VITALS: BP 172/100
[2017-10-26 18:57] VITALS: BP 157/74; PULSE 94
[2017-10-26] MEDS: ATORVASTATIN 80 MG TAB PO SCH (21:00)
[2017-10-27] MEDS: RESP: ALBUTEROL 2.5 MG/IPRATROPIUM 0.5 MG NEB (PRN) NEB (01:04)
[2017-10-27 01:05] VITALS: O2SAT 93
[2017-10-27 06:00] VITALS: BP 143/71; PULSE 79; RESP 16; TEMP 97.3; O2SAT 93
[2017-10-27] MEDS: CLOPIDOGREL 75 MG TAB PO SCH (08:18)
[2017-10-27] MEDS: METOPROLOL TARTRATE 25 MG TAB PO SCH ×2 (08:18→21:43)
[2017-10-27] MEDS: QUEtiapine FUMARATE 25 MG TAB PO SCH ×2 (08:18→11:04)
[2017-10-27] MEDS: DIGOXIN 0.125 MG TAB PO SCH (08:18)
[2017-10-27] MEDS: POTASSIUM CHLORIDE 10 MEQ CAP PO SCH ×2 (09:00→15:15)
[2017-10-27] MEDS: FUROSEMIDE 20 MG/2 ML VIAL IV PUSH SCH ×2 (09:00→15:15)
[2017-10-27] MEDS: cefTRIAXone INJ 1,000 MG in SODIUM CHLORIDE 0.9% INJ 100 ML IV SCH (11:00)
--- NOTE | 2017-10-27 11:25 | PD.CAR.PN ---
CVT Progress Note Subjective/Hospital Course: This 77-year-old lady was admitted through the emergency room yesterday for generalized weakness. The patient is a very poor historian, barely says anything. Apparently, she was at home for the last week or so barely doing anything, too weak to get up or eat or drink. The patient came to the hospital dirty, smelling of feces and urine. She was diagnosed with sepsis based in the urinary tract infection. At the time of arrival she was noted to have cyanotic discoloration of the right foot and hence, the consultation. It should be noted that the patient is not following up with doctors. She apparently smoked about one pack a day since age of 20 and stopped somewhere in the 70s. Course of recent admission As noted above patient was admitted with critical acute, superimposed on chronic ischemia of the right leg and in the process of workup for surgery underwent cardiac catheterization through her left groin. This resulted then the thromboembolic occlusion of the left side circulation and patient underwent emergent reconstruction of the left external iliac, common femoral and superficial femoral arteries first. This was followed few days later with a right sided reconstruction of the external iliac common femoral artery and femoropopliteal bypass Incisions are clean and dry Excellent flow to the both feet Patient remains on Plavix by mouth but from my point can be anticoagulated if so desired by medicine in face of chronic A. fib All the closures are subcuticular and no sutures are to be removed. Nothing to add to care at this time Patient can ambulate as tolerated can take daily showers and leave incisions open to air Objective: Vital Signs Date Time Temp Pulse Resp B/P (MAP) Pulse Ox O2 Delivery O2 Flow Rate FiO2 10/27/17 06:00 97.3 79 16 143/71 (95) 93 10/27/17 01:05 93 Nasal Cannula 2.00 10/26/17 18:57 94 157/74 (101) 10/26/17 17:59 172/100 (124) 10/26/17 17:57 97.6 17 192/99 (130) 93 Result Diagram: 10/26/17 1346 Walter Fernandes MD Oct 27, 2017 11:25
--- NOTE | 2017-10-27 13:32 | HHI.PR ---
Subjective Remarks Follow-up visit dementia, urinary tract infection, status post femoropopliteal bypass. Patient seen and examined today lying in bed. Reports she is doing fine. States that she has no shortness of breath, dyspnea. Reports incisional pain on the right thigh. Denies chest pain, palpitations, headaches, dizziness. Denies fevers, chills, n/v/d. Denies dysuria. Objective Vitals Vital Signs Date Time Temp Pulse Resp B/P (MAP) Pulse Ox O2 Delivery O2 Flow Rate FiO2 10/27/17 06:00 97.3 79 16 143/71 (95) 93 10/27/17 01:05 93 Nasal Cannula 2.00 10/26/17 18:57 94 157/74 (101) 10/26/17 17:59 172/100 (124) 10/26/17 17:57 97.6 17 192/99 (130) 93 I/O 10/26/17 10/26/17 10/26/17 10/27/17 10/27/17 10/27/17 07:00 15:00 23:00 07:00 15:00 23:00 Intake Total 240 ml 240 ml 720 ml Balance 240 ml 240 ml 720 ml Intake Oral 240 ml 240 ml 720 ml # Voids 3 2 2 # Bowel Movements 2 1 Result Diagram: 10/26/17 1346 Imaging Last Impressions Chest X-Ray 10/26/17 0000 Signed Impressions: Service Date/Time: Thursday, October 26, 2017 14:45 - CONCLUSION: 1. Stable appearance of the bilateral interstitial infiltrates which may represent pulmonary edema. 2. Stable small bilateral pleural effusions. Vance Del Rosario MD Objective Remarks GENERAL: This is a well-nourished, well-developed patient, in no apparent distress. SKIN: Warm and dry HEENT: Normocephalic. Pupils equal round and reactive. Nose without bleeding. Airway patent. NECK: Trachea midline. No JVD. Supple. CARDIOVASCULAR: Regular rate and rhythm without murmurs, gallops, or rubs. RESPIRATORY: No wheezes, rales, or rhonchi. Diminished bases. GASTROINTESTINAL: Abdomen soft, non-tender, nondistended. Bowel Sounds normoactive x4. MUSCULOSKELETAL: Extremities without clubbing, cyanosis. RLE trace edema NEUROLOGICAL: Awake and alert. Oriented to place, person. Moves all extremities. Normal speech. A/P Problem List: (1) History of endarterectomy ICD Code: Z98.890 - Other specified postprocedural states (2) Dyspnea ICD Code: R06.00 - Dyspnea, unspecified (3) Pain ICD Code: R52 - Pain, unspecified (4) Thrombocytosis ICD Code: D47.3 - Essential (hemorrhagic) thrombocythemia Status: Chronic (5) UTI (urinary tract infection) ICD Code: N39.0 - Urinary tract infection, site not specified (6) Peripheral vascular disease ICD Code: I73.9 - Peripheral vascular disease, unspecified Status: Acute Assessment and Plan Patient is a 77 Y/O female who presented to the hospital 10/14 with generalized weakness. Patient found to have PAD status post right femoropopliteal bypass and femoral endarterectomy. Her hospitalization was also complicated with sepsis secondary to UTI and pneumonia. Patient continued to have psychosis and confusion. She is now admitted to medical psychiatry unit for further evaluation. Consulted for medical management. Psychosis, Dementia - Managed by psychiatry team Urinary tract infection - Evidence of UTI with Rae. - Continue Diflucan - Patient was also treated with Rocephin Pneumonia Leukocytosis, patient also with history of chronic polycythemia - Had history of sepsis pneumonia, UTI - Patient was started on Augmentin twice a day in inpatient 10/25/17. - Will continue with IV Rocephin for now. Azithromycin by mouth. S/P Fem/Pop Bypass - 10/19/17 exploration of the left groin, left common femoral and external iliac artery. Endarterectomy and patch angioplasty. External and common artery thromboembolectomy, superficial femoral popliteal artery thromboembolectomy, arteriogram. - 10/23/17 Right external iliac-common femoral endarterectomy and patch angioplasty and right femoral-popliteal bypass, PTFE graft - Recent, wound appears clean, dry, intact, steri-strips in place Atrial Fibrillation, Rate controlled HTN, HLD - EKG - Abnormal EKG in inpatient with abnormal stress test and subsequent cardiac catheterization was done. - Continue with Plavix 75 mg daily, metoprolol 25 mg by mouth every 12 hours , atorvastatin 80 mg daily at bedtime, digoxin 0.125 mg daily - Monitor BP trend DVT prop and Plavix for now, early ambulation will consult physical therapy. Isaías Chaparro Oct 27, 2017 13:32
[2017-10-27] MEDS ORDERED: AZITHROMYCIN 250 MG TAB PO ONE (15:15)
[2017-10-27 16:27] LABS: HEMATOCRIT 45.9 % (35.0-46.0); HEMOGLOBIN 15.1 GM/DL (11.6-15.3); MEAN CELL VOLUME 69.1 FL (80.0-100.0); MEAN CORPUSCULAR HEMOGLOBIN 22.8 PG (27.0-34.0); MEAN CORPUSCULAR HGB CONC 32.9 % (32.0-36.0); MEAN PLATELET VOLUME 8.6 FL (7.0-11.0); PLATELET COUNT 1416 TH/MM3 (150-450); RED BLOOD COUNT 6.64 MIL/MM3 (4.00-5.30); RED CELL DISTRIBUTION WIDTH 19.2 % (11.6-17.2); WHITE BLOOD COUNT 36.6 TH/MM3 (4.0-11.0)
[2017-10-27 16:55] LABS: BICARBONATE 24.9 MEQ/L (21.0-32.0); CALCIUM 8.4 MG/DL (8.5-10.1); CREATININE 0.65 MG/DL (0.50-1.00)
[2017-10-27 18:00] VITALS: BP 111/55; PULSE 79; RESP 17; TEMP 97.9; O2SAT 96
[2017-10-27 19:33] VITALS: O2SAT 96
[2017-10-27] MEDS: RESP: ALBUTEROL 2.5 MG/IPRATROPIUM 0.5 MG NEB (SCH) NEB (19:33)
--- NOTE | 2017-10-27 19:57 | HHI.PYPN ---
Subjective Chief Complaint: patient confused unable to care for self found lying in her own waste produ Remarks Pt seen and discussed with staff. She has been pleasant and cooperative. She is confused but today can identify that she is at [facility]. She is cooperative with medication. No SI/HI Mental Status Examination Appearance: Appropriate Consciousness: Alert Orientation: Person, Place ([facility]) Motor Activity: Other (patient bedridden at this time) Speech: Hesitant Language: Adequate Fund of Knowledge: Inadequate Attention and Concentration: Other (poor) Memory: Impaired Mood: Other (euthymic to somewhat restricted) Affect: Other (decreased range and intensity) Thought Process & Associations: Loose associations Thought Content: Other (disorganized) Hallucination Type: None (denies) Delusion Type: None Suicidal Ideation: No Suicidal Plan: No Suicidal Intention: No Homicidal Ideation: No Homicidal Plan: No Homicidal Intention: No Insight: Poor Judgment: Poor Results Labs Test 10/27/17 15:42 White Blood Count 36.6 TH/MM3 Red Blood Count 6.64 MIL/MM3 Hemoglobin 15.1 GM/DL Hematocrit 45.9 % Mean Corpuscular Volume 69.1 FL Mean Corpuscular Hemoglobin 22.8 PG Mean Corpuscular Hemoglobin Concent 32.9 % Red Cell Distribution Width 19.2 % Platelet Count 1416 TH/MM3 Mean Platelet Volume 8.6 FL Blood Urea Nitrogen 16 MG/DL Creatinine 0.65 MG/DL Random Glucose 130 MG/DL Calcium Level 8.4 MG/DL Sodium Level 137 MEQ/L Potassium Level 3.5 MEQ/L Chloride Level 99 MEQ/L Carbon Dioxide Level 24.9 MEQ/L Anion Gap 13 MEQ/L Estimat Glomerular Filtration Rate 89 ML/MIN Date/Time Source Procedure Growth Status 10/26/17 11:50 Urine Other Urine Culture - Preliminary Rae Albicans Resulted Vitals/IOs Vital Signs Date Time Temp Pulse Resp B/P (MAP) Pulse Ox O2 Delivery O2 Flow Rate FiO2 10/27/17 19:33 96 Nasal Cannula 2.00 10/27/17 18:00 97.9 79 17 111/55 (73) Intake and Output 10/27/17 10/27/17 10/28/17 08:00 16:00 00:00 Intake Total 240 ml 720 ml 120 ml Balance 240 ml 720 ml 120 ml Assessment & Plan Problem List: (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 Estimated LOS: days Justification for Cont. Inpt. complicating medical conditions Request HC Surrog/Guard Advoc?: Yes Chantelle Balbuena MD Oct 27, 2017 19:57
[2017-10-27] MEDS ORDERED: AMOXICILLIN/CLAVULANATE K 500 MG TAB PO SCH (21:00)
[2017-10-27] MEDS: ATORVASTATIN 80 MG TAB PO SCH (21:43)
[2017-10-28 06:00] VITALS: BP 129/60; PULSE 90; RESP 16; TEMP 98; O2SAT 92
[2017-10-28] MEDS: RESP: ALBUTEROL 2.5 MG/IPRATROPIUM 0.5 MG NEB (SCH) NEB ×3 (07:25→21:15)
[2017-10-28 07:27] VITALS: O2SAT 94
[2017-10-28] MEDS ORDERED: AZITHROMYCIN 250 MG TAB PO SCH (09:00)
[2017-10-28] MEDS: FUROSEMIDE 20 MG/2 ML VIAL IV PUSH SCH ×2 (09:00→09:21)
[2017-10-28] MEDS: POTASSIUM CHLORIDE 10 MEQ CAP PO SCH ×2 (09:00→09:19)
[2017-10-28] MEDS: QUEtiapine FUMARATE 25 MG TAB PO SCH ×2 (09:00→12:00)
[2017-10-28] MEDS: FLUCONAZOLE 200 MG TAB PO SCH (09:19)
[2017-10-28] MEDS: CLOPIDOGREL 75 MG TAB PO SCH (09:19)
[2017-10-28] MEDS: METOPROLOL TARTRATE 25 MG TAB PO SCH ×2 (09:20→22:03)
[2017-10-28] MEDS: DIGOXIN 0.125 MG TAB PO SCH (09:20)
[2017-10-28] MEDS: cefTRIAXone INJ 1,000 MG in SODIUM CHLORIDE 0.9% INJ 100 ML IV SCH (11:00)
--- NOTE | 2017-10-28 12:33 | HHI.PYPN ---
Subjective Chief Complaint: patient confused unable to care for self found lying in her own waste produ Remarks Pt seen and discussed with staff. She has not been agitated today. She is more oriented today and more lucid. She reports good mood. No SI/HI She is compliant with care. Mental Status Examination Appearance: Appropriate Consciousness: Alert Orientation: Person, Place, Situation (knows why she is in the hospital) Motor Activity: Other (patient bedridden at this time) Speech: Hesitant Language: Adequate Fund of Knowledge: Inadequate Attention and Concentration: Other (poor) Memory: Impaired Mood: Other (euthymic to somewhat restricted) Affect: Other (decreased range and intensity) Thought Process & Associations: Linear Thought Content: Other (disorganized) Hallucination Type: None (denies) Delusion Type: None Suicidal Ideation: No Suicidal Plan: No Suicidal Intention: No Homicidal Ideation: No Homicidal Plan: No Homicidal Intention: No Insight: Poor Judgment: Poor Results Labs Test 10/27/17 15:42 White Blood Count 36.6 TH/MM3 Red Blood Count 6.64 MIL/MM3 Hemoglobin 15.1 GM/DL Hematocrit 45.9 % Mean Corpuscular Volume 69.1 FL Mean Corpuscular Hemoglobin 22.8 PG Mean Corpuscular Hemoglobin Concent 32.9 % Red Cell Distribution Width 19.2 % Platelet Count 1416 TH/MM3 Mean Platelet Volume 8.6 FL Blood Urea Nitrogen 16 MG/DL Creatinine 0.65 MG/DL Random Glucose 130 MG/DL Calcium Level 8.4 MG/DL Sodium Level 137 MEQ/L Potassium Level 3.5 MEQ/L Chloride Level 99 MEQ/L Carbon Dioxide Level 24.9 MEQ/L Anion Gap 13 MEQ/L Estimat Glomerular Filtration Rate 89 ML/MIN Date/Time Source Procedure Growth Status 10/26/17 11:50 Urine Other Urine Culture - Final Rae Albicans Complete Vitals/IOs Vital Signs Date Time Temp Pulse Resp B/P (MAP) Pulse Ox O2 Delivery O2 Flow Rate FiO2 10/28/17 07:27 94 21 10/28/17 06:00 98.0 90 16 129/60 (83) 10/27/17 20:00 Nasal Cannula 2.00 Intake and Output 10/28/17 10/28/17 10/29/17 08:00 16:00 00:00 Intake Total 0 ml 120 ml Balance 0 ml 120 ml Assessment & Plan Problem List: (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 Estimated LOS: days Justification for Cont. Inpt. complicating medical conditions Request HC Surrog/Guard Advoc?: Yes Chantelle Balbuena MD Oct 28, 2017 12:33
--- NOTE | 2017-10-28 13:39 | HHI.PR ---
Subjective Remarks Patient is lying in bed. No complaints overnight. Reports she has not walked much because she had recent surgery pointing to her right lower extremity. Chart review discussed with her nurse. Currently patient does not have any family members that the team was able to reach out to. patient reports that she has no medical issues prior to hospitalization here. She denies having any primary care doctor. when Discussed about her medical conditions including essential thrombocytosis, atrial fibrillation, she is not aware of it at all. Her nurse reported that she is at high risk for falls. She fell while in hospital on October 26, 2017. Objective Vitals Vital Signs Date Time Temp Pulse Resp B/P (MAP) Pulse Ox O2 Delivery O2 Flow Rate FiO2 10/28/17 07:27 94 21 10/28/17 06:00 98.0 90 16 129/60 (83) 92 10/27/17 20:00 Nasal Cannula 2.00 10/27/17 19:33 96 Nasal Cannula 2.00 10/27/17 18:00 97.9 79 17 111/55 (73) 96 10/27/17 16:33 Nasal Cannula 2.00 10/27/17 15:19 Nasal Cannula 2.00 I/O 10/27/17 10/27/17 10/27/17 10/28/17 10/28/17 10/28/17 07:00 15:00 23:00 07:00 15:00 23:00 Intake Total 960 ml 360 ml 0 ml 120 ml Balance 960 ml 360 ml 0 ml 120 ml Intake Oral 960 ml 360 ml 0 ml 120 ml # Voids 2 3 1 2 # Bowel Movements 1 Result Diagram: 10/27/17 1542 10/27/17 1542 Objective Remarks GENERAL: This is an elderly lady, looks quite angry when talking about family support. Flat affect otherwise SKIN: Warm and dry. Small superficial ecchymoses. Right lower extremity distal femoral area with surgical sutures HEENT: Normocephalic. Pupils equal round and reactive. Nose without bleeding. Airway patent. NECK: Trachea midline. No JVD. Supple. CARDIOVASCULAR: Regular rate and rhythm without murmurs, gallops, or rubs. RESPIRATORY: No wheezes, rales, or rhonchi. Diminished bases. Poor inspiratory effort GASTROINTESTINAL: Abdomen soft, non-tender, nondistended. Bowel Sounds normoactive x4. MUSCULOSKELETAL: Extremities without clubbing, cyanosis. RLE trace edema NEUROLOGICAL: Awake and alert. Oriented to place, person. Moves all extremities. Normal speech. A/P Problem List: (1) History of endarterectomy ICD Code: Z98.890 - Other specified postprocedural states (2) Dyspnea ICD Code: R06.00 - Dyspnea, unspecified (3) Pain ICD Code: R52 - Pain, unspecified (4) Thrombocytosis ICD Code: D47.3 - Essential (hemorrhagic) thrombocythemia Status: Chronic (5) UTI (urinary tract infection) ICD Code: N39.0 - Urinary tract infection, site not specified (6) Peripheral vascular disease ICD Code: I73.9 - Peripheral vascular disease, unspecified Status: Acute Assessment and Plan 77 years old female who was admitted to medical service from October 14, 2017 to October 25, 2017. She was found to have severe PAD requiring right femoropopliteal bypass and femoral endarterectomy during that hospitalization. Course was complicated by UTI and pneumonia. Patient reports no primary care doctor in no follow-up with no medications prior to this hospitalization. Nursing staff reported patient has no family members that they were able to reach out to as well. Impression/plan: Dementia. His mental per psychiatry. UTI. Rae growing in cultures. On Diflucan. Was previously on Rocephin. Pneumonia. Resolved. Asymptomatic at present. Continue current antibiotics regimen with Rocephin. Leukocytosis/thrombocytosis/erythrocytosis Patient denies any prior history of this. Previous admission in early September reveals was erythrocytosis in a smoker. Patient has history of CVA, severe PAD, A. fib. High risk for clot formations. S/P Fem/Pop Bypass - 10/19/17 exploration of the left groin, left common femoral and external iliac artery. Endarterectomy and patch angioplasty. External and common artery thromboembolectomy, superficial femoral popliteal artery thromboembolectomy, arteriogram. - 10/23/17 Right external iliac-common femoral endarterectomy and patch angioplasty and right femoral-popliteal bypass, PTFE graft Atrial Fibrillation. Rate controlled. Anticoagulation needs to be discussed. However per nursing staff, patient is a very high risk for falls and she did in fact fell while in hospital on October 26, 2017. Currently patient is on Plavix for severe PAD. Based on her discharge planning and risk of falls, we will reconsider anticoagulation. At this point, anticoagulation with further stronger anticoagulants is contraindicated due to high risk of falls. Was seen by cardiology during this hospitalization. Due to abnormal EKG prior to the OR by vascular surgeon for femoropopliteal, cardiology clearance was obtained. HTN Hyperlipidemia - Abnormal EKG in inpatient with abnormal stress test and subsequent cardia cath was done? - Continue with Plavix 75 mg daily, metoprolol 25 mg by mouth every 12 hours , atorvastatin 80 mg daily at bedtime, digoxin 0.125 mg daily DVT prop and Plavix for now, early ambulation will consult physical therapy. SCD ecoli uti fem pop Discharge Planning per case management and psychiatry team. Danni Boykin MD Oct 28, 2017 13:39
--- NOTE | 2017-10-28 13:58 | EKG ---
Date Performed: 10/26/2017 Time Performed: 12:26:58 PTAGE: 77 years EKG: Sinus rhythm WITH FREQUENT SUPRAVENTRICULAR PREMATURE COMPLEXES BORDERLINE RIGHT AXIS DEVIATION NONSPECIFIC ST & T-WAVE ABNORMALITY Compared to previous tracing, patient is no longer in sinus tachycardia. ST-T wave abnormalities improved ABNORMAL RHYTHM ECG PREVIOUS TRACING : 10/21/2017 15.09 DOCTOR: Red Salcedo Interpretating Date/Time 10/28/2017 13:56:01
[2017-10-28 18:24] VITALS: BP 125/59; PULSE 105; RESP 16; TEMP 98; O2SAT 92
[2017-10-28] MEDS: ATORVASTATIN 80 MG TAB PO SCH (22:03)
--- NOTE | 2017-10-29 05:00 | RADRPT ---
EXAM DATE/TIME: 10/29/2017 03:17 [facility] COMPARISON: CHEST PA & LAT, October 26, 2017, 14:45. CHEST SINGLE AP, October 21, 2017, 15:11. INDICATIONS : Shortness of breath, possible pulmonary disease. MEDICAL HISTORY : Stroke. Hypertension SURGICAL HISTORY : Tonsillectomy. Tubal ligation. ENCOUNTER: Subsequent ACUITY: 1 week PAIN SCORE: Non-responsive. LOCATION: Bilateral chest FINDINGS: A single portable frontal view of the chest shows persistent chronic interstitial changes. Consolidat ion within the right lung base is new. No effusions. Heart normal size. Aorta is calcified. Bony stru ctures are unremarkable. CONCLUSION: New right lower lobe infiltrate. Stable interstitial changes. Garett Delcid Jr., MD on October 29, 2017 at 4:58 Board Certified Radiologist. This report was verified electronically.
[2017-10-29 05:59] LABS: HEMATOCRIT 46.3 % (35.0-46.0); HEMOGLOBIN 15.2 GM/DL (11.6-15.3); MEAN CELL VOLUME 69.4 FL (80.0-100.0); MEAN CORPUSCULAR HEMOGLOBIN 22.7 PG (27.0-34.0); MEAN CORPUSCULAR HGB CONC 32.8 % (32.0-36.0); MEAN PLATELET VOLUME 8.4 FL (7.0-11.0); PLATELET COUNT 1291 TH/MM3 (150-450); RED BLOOD COUNT 6.67 MIL/MM3 (4.00-5.30); RED CELL DISTRIBUTION WIDTH 19.5 % (11.6-17.2); WHITE BLOOD COUNT 27.6 TH/MM3 (4.0-11.0)
[2017-10-29 06:24] LABS: BICARBONATE 27.8 MEQ/L (21.0-32.0); CALCIUM 8.4 MG/DL (8.5-10.1); CREATININE 0.52 MG/DL (0.50-1.00)
[2017-10-29 06:25] VITALS: BP 148/98; PULSE 79; RESP 17; TEMP 97.5; O2SAT 96
[2017-10-29] MEDS: RESP: ALBUTEROL 2.5 MG/IPRATROPIUM 0.5 MG NEB (SCH) NEB ×3 (08:00→19:07)
[2017-10-29] MEDS: POTASSIUM CHLORIDE 10 MEQ CAP PO SCH (09:00)
[2017-10-29] MEDS: QUEtiapine FUMARATE 25 MG TAB PO SCH (09:00)
[2017-10-29] MEDS: DIGOXIN 0.125 MG TAB PO SCH (09:07)
[2017-10-29] MEDS: METOPROLOL TARTRATE 25 MG TAB PO SCH ×2 (09:07→21:35)
[2017-10-29] MEDS: FLUCONAZOLE 200 MG TAB PO SCH (09:07)
[2017-10-29] MEDS: CLOPIDOGREL 75 MG TAB PO SCH (09:07)
[2017-10-29] MEDS: FUROSEMIDE 20 MG/2 ML VIAL IV PUSH SCH (09:08)
--- NOTE | 2017-10-29 10:26 | HHI.PYPN ---
Subjective Chief Complaint: patient confused unable to care for self found lying in her own waste produ Remarks Patient was seen today for psychiatric reevaluation. Patient is agreeable, poorly cooperative, loud, yelling at me, yelling me to leave her alone. She says that she wants to go back home today. Whenever, patient seems to be confused, disoriented, she doesn't remember the reason she is in the hospital. As per week and report, the patient has been quite oppositional and resistant, but compliant with her medications,no significant side effects. Review of Systems Except as stated in HPI: all other systems reviewed are Neg Mental Status Examination Appearance: Appropriate Consciousness: Alert Orientation: Person, Place, Situation (knows why she is in the hospital) Motor Activity: Other (patient bedridden at this time) Speech: Hesitant Language: Adequate Fund of Knowledge: Inadequate Attention and Concentration: Other (poor) Memory: Impaired Mood: Other (euthymic to somewhat restricted) Affect: Other (decreased range and intensity) Thought Process & Associations: Linear Thought Content: Other (disorganized) Hallucination Type: None (denies) Delusion Type: None Suicidal Ideation: No Suicidal Plan: No Suicidal Intention: No Homicidal Ideation: No Homicidal Plan: No Homicidal Intention: No Insight: Poor Judgment: Poor Results Labs Test 10/29/17 05:26 White Blood Count 27.6 TH/MM3 Red Blood Count 6.67 MIL/MM3 Hemoglobin 15.2 GM/DL Hematocrit 46.3 % Mean Corpuscular Volume 69.4 FL Mean Corpuscular Hemoglobin 22.7 PG Mean Corpuscular Hemoglobin Concent 32.8 % Red Cell Distribution Width 19.5 % Platelet Count 1291 TH/MM3 Mean Platelet Volume 8.4 FL Blood Urea Nitrogen 10 MG/DL Creatinine 0.52 MG/DL Random Glucose 109 MG/DL Calcium Level 8.4 MG/DL Sodium Level 136 MEQ/L Potassium Level 3.3 MEQ/L Chloride Level 100 MEQ/L Carbon Dioxide Level 27.8 MEQ/L Anion Gap 8 MEQ/L Estimat Glomerular Filtration Rate 115 ML/MIN Date/Time Source Procedure Growth Status 10/26/17 11:50 Urine Other Urine Culture - Final Rae Albicans Complete Vitals/IOs Vital Signs Date Time Temp Pulse Resp B/P (MAP) Pulse Ox O2 Delivery O2 Flow Rate FiO2 10/29/17 10:18 Nasal Cannula 2.00 21 1/1/18 06:25 97.5 79 17 148/98 (115) 96 Intake and Output 10/29/17 10/29/17 10/30/17 08:00 16:00 00:00 Intake Total 0 ml 240 ml Output Total 400 ml Balance -400 ml 240 ml Assessment & Plan Problem List: (1) OTHER ALZHEIMER'S DISEASE ICD Codes: G30.8 - OTHER ALZHEIMER'S DISEASE (2) Dementia associated with other underlying disease without behavioral disturbance ICD Codes: F02.80 - Dementia in other diseases classified elsewhere without behavioral disturbance Assessment & Plan: We'll increase Seroquel to 25 mg twice a day to help with irritability and behavioral dysregulation. Assessment & Plan Estimated LOS: days Justification for Cont. Inpt. Patient continues to be episodically agitated, very irritable, verbally hostile , she needs to continue psychiatric hospitalization for stabilization. Request HC Surrog/Guard Advoc?: Yes Declan Moeller MD Oct 29, 2017 10:26
[2017-10-29] MEDS: cefTRIAXone INJ 1,000 MG in SODIUM CHLORIDE 0.9% INJ 100 ML IV SCH (11:00)
[2017-10-29] MEDS ORDERED: QUEtiapine FUMARATE 25 MG TAB PO SCH (12:00)
--- NOTE | 2017-10-29 12:16 | HHI.PR ---
Subjective Remarks no complaints has not gotten up from bed much looks depressed but also stated she has this catheter for urine- which was why she did not get up has external cath in labia for urine collection afebrile Objective Vitals Vital Signs Date Time Temp Pulse Resp B/P (MAP) Pulse Ox O2 Delivery O2 Flow Rate FiO2 10/29/17 10:18 Nasal Cannula 2.00 21 10/29/17 06:25 97.5 79 17 148/98 (115) 96 10/28/17 20:00 Nasal Cannula 2.00 10/28/17 18:24 98.0 105 16 125/59 (81) 92 I/O 10/28/17 10/28/17 10/28/17 10/29/17 10/29/17 10/29/17 07:00 15:00 23:00 07:00 15:00 23:00 Intake Total 0 ml 120 ml 480 ml 0 ml 240 ml Output Total 800 ml 400 ml Balance 0 ml 120 ml -320 ml -400 ml 240 ml Intake Oral 0 ml 120 ml 480 ml 0 ml 240 ml Output Urine Total 800 ml 400 ml # Voids 2 Result Diagram: 10/29/17 0526 10/29/17 0526 Objective Remarks GENERAL: This is an elderly lady, looks quite angry when talking about family support. Flat affect otherwise SKIN: Warm and dry. Small superficial ecchymoses. Right lower extremity distal femoral area with surgical sutures HEENT: Normocephalic. Pupils equal round and reactive. Nose without bleeding. Airway patent. NECK: Trachea midline. No JVD. Supple. CARDIOVASCULAR: Regular rate and rhythm without murmurs, gallops, or rubs. RESPIRATORY: No wheezes, rales, or rhonchi. Diminished bases. Poor inspiratory effort GASTROINTESTINAL: Abdomen soft, non-tender, nondistended. significant suprapubic distension and pain on exam. Has external cath by labia area to catch urine and drained about 300cc in canister MUSCULOSKELETAL: Extremities without clubbing, cyanosis. RLE trace edema NEUROLOGICAL: Awake and alert. Oriented to place, person. Moves all extremities. Normal speech. A/P Problem List: (1) History of endarterectomy ICD Code: Z98.890 - Other specified postprocedural states (2) Dyspnea ICD Code: R06.00 - Dyspnea, unspecified (3) Pain ICD Code: R52 - Pain, unspecified (4) Thrombocytosis ICD Code: D47.3 - Essential (hemorrhagic) thrombocythemia Status: Chronic (5) UTI (urinary tract infection) ICD Code: N39.0 - Urinary tract infection, site not specified (6) Peripheral vascular disease ICD Code: I73.9 - Peripheral vascular disease, unspecified Status: Acute Assessment and Plan 77 years old female who was admitted to medical service from October 14, 2017 to October 25, 2017. She was found to have severe PAD requiring right femoropopliteal bypass and femoral endarterectomy during that hospitalization. Course was complicated by UTI and pneumonia. Patient reports no primary care doctor in no follow-up with no medications prior to this hospitalization. Nursing staff reported patient has no family members that they were able to reach out to as well. Impression/plan: Suprapubic tenderness on exam today has external cath for urine collection will do bladder scan to r/o retention if retention, then to insert duggan Dementia. His mental per psychiatry. UTI. Rae growing in cultures. On Diflucan. Was previously on Rocephin. On pick wick cath as external cath for urine collection Pneumonia. Resolved. Asymptomatic at present. Continue current antibiotics regimen with Rocephin. Leukocytosis/thrombocytosis/erythrocytosis Patient denies any prior history of this. Previous admission in early September reveals was erythrocytosis in a smoker. Patient has history of CVA, severe PAD, A. fib. High risk for clot formations. S/P Fem/Pop Bypass - 10/19/17 exploration of the left groin, left common femoral and external iliac artery. Endarterectomy and patch angioplasty. External and common artery thromboembolectomy, superficial femoral popliteal artery thromboembolectomy, arteriogram. - 10/23/17 Right external iliac-common femoral endarterectomy and patch angioplasty and right femoral-popliteal bypass, PTFE graft Atrial Fibrillation. Rate controlled. Anticoagulation needs to be discussed. However per nursing staff, patient is a very high risk for falls and she did in fact fell while in hospital on October 26, 2017. Currently patient is on Plavix for severe PAD. Based on her discharge planning and risk of falls, we will reconsider anticoagulation. At this point, anticoagulation with further stronger anticoagulants is contraindicated due to high risk of falls. Was seen by cardiology during this hospitalization. Due to abnormal EKG prior to the OR by vascular surgeon for femoropopliteal, cardiology clearance was obtained. HTN Hyperlipidemia - Abnormal EKG in inpatient with abnormal stress test and subsequent cardia cath was done? - Continue with Plavix 75 mg daily, metoprolol 25 mg by mouth every 12 hours , atorvastatin 80 mg daily at bedtime, digoxin 0.125 mg daily DVT prop and Plavix for now, early ambulation will consult physical therapy. SCD Discharge Planning per case management and psychiatry team. Danni Boykin MD Oct 29, 2017 12:16
--- NOTE | 2017-10-29 13:40 | MB ---
cc: HESHAM MAK MD DATE OF CONSULTATION 10/29/2017 CHIEF COMPLAINT 1. Leukocytosis 2. Erythrocytosis 3. Bandemia HISTORY OF PRESENT ILLNESS Ms. Escobar is a 77-year-old lady who initially presented to the hospital in September 2017 with severe peripheral arterial disease requiring right femoropopliteal bypass and femoral endarterectomy. Postoperative course was complicated by urinary tract infection and pneumonia. She initially presented with generalized weakness. REVIEW OF SYSTEMS Limited as the patient is not forthcoming with information. The majority of the history and physical is obtained from chart review. PAST MEDICAL HISTORY 1. Hyperlipidemia 2. Hypertension PAST SURGICAL HISTORY 1. Tubal ligation in 1981 2. Tonsillectomy as a child ALLERGIES No known drug allergies. FAMILY HISTORY Unable to obtain. SOCIAL HISTORY Per chart review, longstanding smoking history. Intermittent alcohol. No current drug use. PHYSICAL EXAM GENERAL: Frail lady in no distress laying in bed CV: RRR with no murmurs Lungs: CTA bilaterally Abdomen: soft, nontender, nondistended, bowel sounds present Ext: no edema Neuro: grossly nonfocal LABORATORY STUDIES Currently with white blood cell count of 27.6, a hemoglobin of 15.2, a platelet count of 1,291,000 last differential was done on October 26 and it showed bandemia and a neutrophilia, early cells vitreous promyelocytes were also present on the differential. Chemistry studies with a normal creatinine. Previous LFTs within normal limits. On trending her white blood cell count, previous values that we have were from 2012 which were normal. Trending hemoglobin, previous values from 2011 showed a hemoglobin of 15.6 which was elevated and trending values of platelet count show again at elevated back in 2011 and elevated during this hospitalization. I do not have any other platelet counts to document how her counts have trended when she is not inpatient or presenting to the emergency room with an acute problem. Back in 2011, she was admitted for a stroke. ASSESSMENT/PLAN Leukocytosis and thrombocytosis, certainly some degree of reactive elevation is present given recent major surgical procedures including endarterectomy and bypass surgery as well as urinary tract infection and pneumonia. We will check iron profile, vitamin B1 and folate. Early cells are present on the differential which can be present in a reactive process, but also can be present if there is an underlying myeloproliferative neoplasm. As this had been elevated in the past, this is certainly suspicious and at this point in time, I do not have CBC trends as an outpatient. We will follow up on the above vitamin studies and if unrevealing, we will consider ordering an ultrasound of the spleen and liver as well as JAK2 and BCR/ABL. MD MARION Garber/JUVENCIO /12:56 PM /1:10 PM [id number]
[2017-10-29 14:05] LABS: TOTAL IRON BINDING CAPACITY 193 MCG/DL (250-450)
[2017-10-29 14:30] LABS: % SATURATION IRON PROFILE 17.6 % (20-50); FERRITIN 90 NG/ML (8-252); FOLATE 3.8 NG/ML (3.1-17.5); IRON (FE) 34 MCG/DL (50-170)
--- NOTE | 2017-10-29 15:21 | HHI.HCPN ---
Reason for visit a. To assist with evaluation and management of symptoms including: pain; confusion; generalized weakness b. To assist medical decision maker(s) with: better understanding of current medical conditions; weighing benefits/burdens of medical treatment options; making medical treatment decisions. . Subjective/Interval History . Palliative care is familiar with this patient who was admitted to medical services from 10/14/2017 through 10/25/2017. The patient has severe PAD necessitating a right femoral-popliteal bypass and femoral endarterectomy. Her hospital course has been complicated by UTI and pneumonia. Psychiatry was following this patient who was Shi acted the patient on 10/25/2017; she was then transferred to the [facility] floor. Of note, patient reportedly lives with her daughter but she does not know where her daughter (Yajaira) is and the daughter has not been located during this hospitalization. An accurints report was done for daughter (Yajaira Jung) on 10/16/17 and [employer] did a wellness check at the home address but neither were productive. Case management had been requested to rerun an accurints for the patient's daughter under the name of Yajaira Thomson before the patient was transferred to [facility]; it is unclear if any information was obtained. Patient is pleasant but does not want to converse, hesitant toward physical examination. Patient remains intermittently confused at which time she does not remember why she is hospitalized. Per psychiatry notes, patient continues to be episodically agitated, very irritable, verbally hostile and requires continued psychiatric hospitalization for stabilization. Plan to increase Seroquel to 25 mg PO 2 times daily. Urine culture 10/26/2017 with Rae. Chest x-ray this morning showing new right lower lobe infiltrate, stable interstitial changes. On Rocephin and DiflucanWBC: 27.6, hemoglobin 15.2, hematocrit 46.3, platelets 1291. Hematology consulted for evaluation of leukocytosis and thrombocytosis. Patient presenting with weakness in the right lower extremity including foot drop. She is currently maximum assist for all transfers and ADLs. Plan for placement at SNF for rehabilitation upon discharge. . Objective Vital Signs Date Time Temp Pulse Resp B/P (MAP) Pulse Ox O2 Delivery O2 Flow Rate FiO2 10/29/17 10:18 Nasal Cannula 2.00 21 10/29/17 06:25 97.5 79 17 148/98 (115) 96 10/28/17 20:00 Nasal Cannula 2.00 10/28/17 18:24 98.0 105 16 125/59 (81) 92 Intake & Output 10/29/17 10/29/17 07:00 19:00 Intake Total 360 ml 580 ml Output Total 1200 ml 750 ml Balance -840 ml -170 ml Intake Oral 360 ml 480 ml IV Total 100 ml Output Urine Total 1200 ml 750 ml Bladder Scan Volume Amount 999 ml # Voids 1 . Physical Exam CONSTITUTIONAL/GENERAL: This is a thin, elderly female who is confused but in no apparent distress TUBES/LINES/DRAINS: PIV, Ext catheter. SKIN: No jaundice, rashes, or lesions. Ecchymosis to bilateral upper extremities. Skin temperature appropriate. Not diaphoretic. HEAD: Atraumatic. Normocephalic. EYES: Pupils equal and round and reactive. Extraocular motions intact. No scleral icterus. No injection or drainage. Fundi not examined. ENT: Hearing grossly normal. Nose without bleeding or purulent drainage. NECK: Trachea midline. CARDIOVASCULAR: Regular rate and rhythm. No murmurs, gallops, or rubs. No JVD. RESPIRATORY/CHEST: Oxygenation stable on 2L vis nc. Breath sounds diminished bilaterally. GASTROINTESTINAL: Abdomen soft, non-tender, nondistended. No guarding. Bowel sounds present. GENITOURINARY: Without palpable bladder distension. MUSCULOSKELETAL: No obvious deformities. No clubbing, cyanosis or edema NEUROLOGICAL: Awake. Confused, intermittently agitated. Moves all extremities. PSYCHIATRIC: Flat affect, disorganized . Diagnostic Tests Laboratory Laboratory Tests Test 10/27/17 15:42 10/29/17 05:26 White Blood Count 36.6 TH/MM3 (4.0-11.0) 27.6 TH/MM3 (4.0-11.0) Red Blood Count 6.64 MIL/MM3 (4.00-5.30) 6.67 MIL/MM3 (4.00-5.30) Hemoglobin 15.1 GM/DL (11.6-15.3) 15.2 GM/DL (11.6-15.3) Hematocrit 45.9 % (35.0-46.0) 46.3 % (35.0-46.0) Mean Corpuscular Volume 69.1 FL (80.0-100.0) 69.4 FL (80.0-100.0) Mean Corpuscular Hemoglobin 22.8 PG (27.0-34.0) 22.7 PG (27.0-34.0) Mean Corpuscular Hemoglobin Concent 32.9 % (32.0-36.0) 32.8 % (32.0-36.0) Red Cell Distribution Width 19.2 % (11.6-17.2) 19.5 % (11.6-17.2) Platelet Count 1416 TH/MM3 (150-450) 1291 TH/MM3 (150-450) Mean Platelet Volume 8.6 FL (7.0-11.0) 8.4 FL (7.0-11.0) Blood Urea Nitrogen 16 MG/DL (7-18) 10 MG/DL (7-18) Creatinine 0.65 MG/DL (0.50-1.00) 0.52 MG/DL (0.50-1.00) Random Glucose 130 MG/DL (74-106) 109 MG/DL (74-106) Calcium Level 8.4 MG/DL (8.5-10.1) 8.4 MG/DL (8.5-10.1) Sodium Level 137 MEQ/L (136-145) 136 MEQ/L (136-145) Potassium Level 3.5 MEQ/L (3.5-5.1) 3.3 MEQ/L (3.5-5.1) Chloride Level 99 MEQ/L (98-107) 100 MEQ/L (98-107) Carbon Dioxide Level 24.9 MEQ/L (21.0-32.0) 27.8 MEQ/L (21.0-32.0) Anion Gap 13 MEQ/L (5-15) 8 MEQ/L (5-15) Estimat Glomerular Filtration Rate 89 ML/MIN (>89) 115 ML/MIN (>89) Blood Smear Pathologist Review Iron Level 34 MCG/DL (50-170) Total Iron Binding Capacity 193 MCG/DL (250-450) Percent Iron Saturation 17.6 % (20-50) Ferritin 90 NG/ML (8-252) Vitamin B12 Level 1242 PG/ML (193-986) Folate 3.8 NG/ML (3.1-17.5) Result Diagram: 10/29/17 0526 10/29/17525 Assessment and Plan Disease Oriented Problem List: (1) UTI (urinary tract infection) (2) History of endarterectomy (3) Peripheral vascular disease (4) Leukocytosis (5) Polycythemia (6) Atrial fibrillation Symptom Scale: (1) Pain 0-10 Scale: Unable to quantify (2) Confusion 0-10 Scale: Unable to quantify (3) Generalized weakness 0-10 Scale: Unable to quantify Pertinent Non-Medical Issues Psychosocial: Reportedly lives with daughter in crowded, cluttered apartment. 6 children altogether but patient can't tell me what state they are in. Spiritual: Mosque. Not particularly interested in map clerk visits. Legal: No known advance directives. Ethical issues impacting care: Patient's capacity is questionable. Recommend at least shared decision making until she is cognitively clearer or we see that goals/preferences are consistent. . Important Contacts Yajaira Jung (daughter): [phone] . Prognosis It is unclear to what extent patient's current status is due to her peripheral vascular disease and to what extent there are other factors. Some of her confusion be due to vascular dementia (she is post stroke). Patient has been accepted to [facility] for rehab s/p vascular surgery. She risk for continued complications/setbacks. . Code Status: Full Code Plan == Decision making: Patient still does not have capacity to make medical decisions. == FULL CODE == AGGRESSIVE goals == Discussed patient's case with bedside nurse (Rachele) and Denice == Symptoms: * Pain: Patient reporting ongoing mild pain in her right lower extremity. She was unable to describe pain but reported the pain was exacerbated by movement and touch. Possible contributing factors include recent procedures, invasive lines, immobility, bedbound status, dyspnea. * Generalized weakness: Both weakness and right lower extremity pain seemed to make her bedbound in the days leading up to hospital admission. She still has some residual weakness from her stroke in 2011. Physical therapy following. Patient presenting with weakness in the right lower extremity including foot drop,impaired mobility. Plan for placement at SNF for rehabilitation upon discharge. * Confusion: CT head on 10/15/2017 showed suspected areas of encephalomalacia bilaterally; suspected small vessel ischemic changes throughout the white matter and atrophy.Patient was Shi acted on 10/25/17 and transferred to the [facility] floor. She remains confused, unable to clarify the reason for her hospitalization. Patient had marked leukocytosis on admission and Yeast infection with possible UTI on 10/22/17. Afebrile. Follow up urine culture on Rae. Patient started on Fluconazole and Rocephin. == Patient reportedly lives with her daughter but she does not know where her daughter (Yajaira) is and the daughter has not been located during this hospitalization. An accurints report was done for daughter (Yajaira Jung) on 10/16/17 and [employer] did a wellness check at the home address but neither were productive. Case management had been requested to rerun an accurints for the patient's daughter under the name of Yajaira Thomson before the patient was transferred to [facility]; it is unclear if any information was obtained. == If patient becomes cognitively clear, we will try and get her to complete health care surrogate forms and we will re-visit resuscitation wishes. If she doesn't clear, we need to identify the appropriate proxy or proxies and speak to them about resuscitation status and goals. == Palliative care will continue to follow to assist with symptom management and to further clarify goals of medical treatment as the clinical course evolves. . Edwige Fishman Oct 29, 2017 15:21
[2017-10-29 18:00] VITALS: BP 148/62; PULSE 82; RESP 16; TEMP 97.3; O2SAT 95
[2017-10-29] MEDS: ATORVASTATIN 80 MG TAB PO SCH (21:35)
[2017-10-30 06:11] VITALS: BP 111/68; PULSE 72; RESP 15; TEMP 98.1; O2SAT 96
[2017-10-30] MEDS: RESP: ALBUTEROL 2.5 MG/IPRATROPIUM 0.5 MG NEB (SCH) NEB ×3 (07:15→19:37)
[2017-10-30] MEDS: FUROSEMIDE 20 MG/2 ML VIAL IV PUSH SCH (09:00)
--- NOTE | 2017-10-30 10:19 | HHI.PYPN ---
Subjective Chief Complaint: patient confused unable to care for self found lying in her own waste produ Remarks Patient seen in her room the floor staff, chart reviewed, patient compliant medication. Patient laying quietly in bed though somewhat irritable with me saying she wants to go home, while to send me home, patient showed some increased irritability lability towards later afternoon and evening. The was slight increase in cervical yesterday to 25 mg twice a day. Will increase Seroquel to 25 mg 8 AM 2 PM and 8 PM Review of Systems Except as stated in HPI: all other systems reviewed are Neg Mental Status Examination Appearance: Appropriate Consciousness: Alert Orientation: Person, Place, Situation (knows why she is in the hospital) Motor Activity: Other (patient bedridden at this time) Speech: Hesitant Language: Adequate Fund of Knowledge: Inadequate Attention and Concentration: Other (poor) Memory: Impaired Mood: Other (euthymic to somewhat restricted) Affect: Other (decreased range and intensity) Thought Process & Associations: Linear Thought Content: Other (disorganized) Hallucination Type: None (denies) Delusion Type: None Suicidal Ideation: No Suicidal Plan: No Suicidal Intention: No Homicidal Ideation: No Homicidal Plan: No Homicidal Intention: No Insight: Poor Judgment: Poor Results Labs Date/Time Source Procedure Growth Status 10/26/17 11:50 Urine Other Urine Culture - Final Rae Albicans Complete Vitals/IOs Vital Signs Date Time Temp Pulse Resp B/P (MAP) Pulse Ox O2 Delivery O2 Flow Rate FiO2 10/30/17 06:11 98.1 72 15 111/68 (82) 96 10/29/17 21:59 21 10/29/17 19:11 Nasal Cannula 2.00 Intake and Output 10/30/17 10/30/17 10/31/17 08:00 16:00 00:00 Intake Total 120 ml Output Total 700 ml Balance -580 ml Assessment & Plan Problem List: (1) OTHER ALZHEIMER'S DISEASE ICD Codes: G30.8 - OTHER ALZHEIMER'S DISEASE (2) 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 Inpt. At this time patient will decompensate placed in a lower level of care Discharge Planning Placement may become somewhat problematic Request HC Surrog/Guard Advoc?: Yes Anselmo Gray MD Oct 30, 2017 10:19
--- NOTE | 2017-10-30 10:22 | PD.ONC.PN ---
Subjective Subjective Remarks Afebrile overnight. Patient resting in room. Does not remember why she is in the hospital. "I get asked that every day!. I dont' know!" Denies pain. No bleeding. Objective Data Date Time Temp Pulse Resp B/P (MAP) Pulse Ox O2 Delivery O2 Flow Rate FiO2 10/30/17 06:11 98.1 72 15 111/68 (82) 96 10/29/17 21:59 21 10/29/17 19:11 Nasal Cannula 2.00 21 10/29/17 18:00 97.3 82 16 148/62 (90) 95 10/29/17 10:18 Nasal Cannula 2.00 21 10/30/17 10/30/17 10/30/17 07:00 15:00 23:00 Intake Total 120 ml Output Total 700 ml Balance -700 ml 120 ml Result Diagram: 10/29/1752510/29/17525 Administered Medications Medications (Trade) Dose Ordered Sig/Sina Route PRN Reason Start Time Stop Time Status Last Admin Dose Admin Atorvastatin Calcium (Lipitor) 80 mg HS PO 10/25/17 21:00 10/29/17 21:35 Clopidogrel Bisulfate (Plavix) 75 mg DAILY PO 10/25/17 17:30 10/29/17 09:07 Digoxin (Lanoxin) 0.125 mg DAILY PO 10/25/17 17:30 10/29/17 09:07 Metoprolol Tartrate (Lopressor) 25 mg Q12HR PO 10/25/17 21:00 10/29/17 21:35 Acetaminophen (Tylenol) 650 mg Q4H PRN PO Pain 1-5 or Temp >101F 10/25/17 17:30 10/29/17 09:17 Ceftriaxone Sodium 1000 mg/ Sodium Chloride 100 ml @ 200 mls/hr Q24H IV 10/26/17 11:00 10/29/17 11:00 Albuterol/ Ipratropium (Duoneb Neb) 1 ampule Q4HR NEB PRN NEB wheezing 10/26/17 13:45 10/27/17 01:04 Clonidine (Catapres) 0.1 mg Q6H PRN PO SBP > 160 10/26/17 17:30 10/26/17 18:14 Albuterol/ Ipratropium (Duoneb Neb) 1 ampule Q6HR WHILE AWAKE NEB NEB 10/27/17 20:00 10/28/17 11:04 Furosemide (Lasix Inj) 20 mg DAILY IV PUSH 10/27/17 15:15 10/30/17 15:14 10/29/17 09:08 Potassium Chloride (KCl) 10 meq DAILY PO 10/27/17 15:15 10/30/17 15:14 10/29/17 09:00 Fluconazole (Diflucan) 200 mg DAILY PO 10/28/17 09:00 10/31/17 08:59 10/29/17 09:07 Objective Remarks GENERAL: Frail elderly female, lying in bed. she is sleeping in approach, but awakens when I speak to her. SKIN: Warm and dry. healing incisions along bilateral inguinal creases. no petechiae. HEAD: Normocephalic. EYES: No injection or drainage. NECK: Supple, trachea midline. CARDIOVASCULAR: +S1/S2 RESPIRATORY: diminished at bases, anterior manzano clear. GASTROINTESTINAL: Abdomen soft, non-tender, nondistended. EXTREMITIES: No cyanosis, or edema. no calf tenderness. distal extremities warm and well perfused. MUSCULOSKELETAL: Adequate muscle tone. NEUROLOGICAL: awake. oriented to self. does not know date. does not know name of where she is. Assessment/Plan Problem List: (1) Leukocytosis ICD Codes: D72.829 - Elevated white blood cell count, unspecified Plan: --likely reactive d/t recent major surgical procedures including endarterectomy and bypass surgery as well as urinary tract infection and pneumonia. --b12/folate ENL --iron studies show low TIBC, serum iron % saturation and ferritin, usually with iron deficiency anemia TIBC is normal or elevated--may indicate a mixed picture. --will obtain U/S spleen and Jak2, BCR/ABL (2) Thrombocytosis ICD Codes: D47.3 - Essential (hemorrhagic) thrombocythemia Status: Chronic Plan: --likely reactive d/t recent major surgical procedures including endarterectomy and bypass surgery as well as urinary tract infection and pneumonia. --b12/folate ENL --iron studies show low TIBC, serum iron % saturation and ferritin, usually with iron deficiency anemia TIBC is normal or elevated--may indicate a mixed picture. --will obtain U/S spleen and Jak2, BCR/ABL Assessment 77-year-old lady admitted in September 2017 with severe peripheral arterial disease requiring right femoropopliteal bypass and femoral endarterectomy. Postoperative course was complicated by urinary tract infection and pneumonia. Hematology consulted for leukocytosis and thrombocytosis. h/o Hyperlipidemia, Hypertension Plan 1. check BCR/ABL + JAK2 2. obtain u/s liver/spleen 3. obtain ESR/CRP 4. await peripheral smear review. Attending Statement The exam, history, and the medical decision-making described in the above note were completed with the assistance of the mid-level provider. I reviewed and agree with the findings presented. I attest that I had a [id number] encounter with the patient on the same day, and personally performed and documented my assessment and findings in the medical record. 77 yoF with PAD s/ p surgical repair with post operative course complicated by infection currently hospitalized in psychiatry grajeda. Iron profile, B12, folate unrevealing. No evidence of acute blood loss, hemolysis, vasculitis, rheumatologic condition. Will evaluate for underlying myeloproliferative neoplasm with JAK2, BCRABL, abdominal u/s. Lovneox for VTE ppx. Tomeka Saldivar Oct 30, 2017 10:22 Nallely Francois MD Oct 31, 2017 00:21
[2017-10-30] MEDS: cefTRIAXone INJ 1,000 MG in SODIUM CHLORIDE 0.9% INJ 100 ML IV SCH (11:00)
[2017-10-30 11:54] LABS: AUTOMATED NEUTROPHIL # 20.9 TH/MM3 (1.8-7.7); BASOPHIL # 0.3 TH/MM3 (0-0.2); BASOPHIL % 1.1 % (0.0-2.0); EOSINOPHIL # 0.5 TH/MM3 (0-0.4); EOSINOPHIL % 2.2 % (0.0-4.0); HEMATOCRIT 46.9 % (35.0-46.0); HEMOGLOBIN 14.9 GM/DL (11.6-15.3); LYMPH % 3.9 % (9.0-44.0); LYMPHOCYTE # 0.9 TH/MM3 (1.0-4.8); MEAN CELL VOLUME 68.9 FL (80.0-100.0); MEAN CORPUSCULAR HEMOGLOBIN 21.9 PG (27.0-34.0); MEAN CORPUSCULAR HGB CONC 31.8 % (32.0-36.0); MEAN PLATELET VOLUME 8.1 FL (7.0-11.0); MONOCYTE # 0.9 TH/MM3 (0-0.9); NEUT % 88.8 % (16.0-70.0); PLATELET COUNT 1080 TH/MM3 (150-450); RED BLOOD COUNT 6.82 MIL/MM3 (4.00-5.30); RED CELL DISTRIBUTION WIDTH 19.4 % (11.6-17.2); WHITE BLOOD COUNT 23.5 TH/MM3 (4.0-11.0)
[2017-10-30] MEDS: CLOPIDOGREL 75 MG TAB PO SCH (11:54)
[2017-10-30] MEDS: DIGOXIN 0.125 MG TAB PO SCH (11:55)
[2017-10-30] MEDS: POTASSIUM CHLORIDE 10 MEQ CAP PO SCH (11:56)
[2017-10-30] MEDS: FLUCONAZOLE 200 MG TAB PO SCH (11:56)
[2017-10-30] MEDS: METOPROLOL TARTRATE 25 MG TAB PO SCH ×2 (11:58→21:19)
[2017-10-30 12:20] LABS: BANDS 14 % (0-6); LYMPHOCYTES 6 % (9-44); MONOCYTES 2 % (0-8); MYELOCYTES 1 % (0-0); NEUTROPHIL # MANUAL DIFF 21.6 TH/MM3 (1.8-7.7); POLYS (SEG NEUTROPHILS) 77 % (16-70)
[2017-10-30 12:22] LABS: OVALOCYTES 1+ (NORMAL)
[2017-10-30] MEDS: QUEtiapine FUMARATE 25 MG TAB PO SCH ×2 (14:00→21:17)
--- NOTE | 2017-10-30 14:42 | HHI.PR ---
Subjective Remarks pt seen about an hour ago lying in bed sleeping not answering questions much but during the morning, as I was rounding on other patients in the units, she was much more awake, alert, and talking to nurse still has duggan afebrile falt affect,not ambulating much Objective Vitals Vital Signs Date Time Temp Pulse Resp B/P (MAP) Pulse Ox O2 Delivery O2 Flow Rate FiO2 10/30/17 06:11 98.1 72 15 111/68 (82) 96 10/29/17 21:59 21 10/29/17 19:11 Nasal Cannula 2.00 21 10/29/17 18:00 97.3 82 16 148/62 (90) 95 I/O 10/29/17 10/29/17 10/29/17 10/30/17 10/30/17 10/30/17 07:00 15:00 23:00 07:00 15:00 23:00 Intake Total 0 ml 580 ml 960 ml 120 ml Output Total 400 ml 750 ml 700 ml Balance -400 ml -170 ml 960 ml -700 ml 120 ml Intake Oral 0 ml 480 ml 960 ml 120 ml IV Total 100 ml Output Urine Total 400 ml 750 ml 700 ml Bladder Scan Volume Amount 999 ml # Voids 1 3 Result Diagram: 10/30/17 1128 10/29/17 0526 Objective Remarks GENERAL: This is an elderly lady, sleeping during my interview and exam. Would not wake up. However she was noted to be much more awake talking to the nurse during the morning before her lunch time. SKIN: Warm and dry. Small superficial ecchymoses. Right lower extremity distal femoral area with surgical sutures HEENT: Normocephalic. . Airway patent. NECK: Trachea midline. No JVD. Supple. CARDIOVASCULAR: Regular rate and rhythm without murmurs, gallops, or rubs. RESPIRATORY: No wheezes, rales, or rhonchi. Diminished bases. Poor inspiratory effort GASTROINTESTINAL: Abdomen soft, non-tender, nondistended. now with duggan, no suprapubic tenderness MUSCULOSKELETAL: Extremities without clubbing, cyanosis. RLE trace edema NEUROLOGICAL: Mostly sleeping through my exam.. Oriented to place, person. Moves all extremities. Normal speech. A/P Problem List: (1) History of endarterectomy ICD Code: Z98.890 - Other specified postprocedural states (2) Dyspnea ICD Code: R06.00 - Dyspnea, unspecified (3) Pain ICD Code: R52 - Pain, unspecified (4) Thrombocytosis ICD Code: D47.3 - Essential (hemorrhagic) thrombocythemia Status: Chronic (5) UTI (urinary tract infection) ICD Code: N39.0 - Urinary tract infection, site not specified (6) Peripheral vascular disease ICD Code: I73.9 - Peripheral vascular disease, unspecified Status: Acute Assessment and Plan 77 years old female who was admitted to medical service from October 14, 2017 to October 25, 2017. She was found to have severe PAD requiring right femoropopliteal bypass and femoral endarterectomy during that hospitalization. Course was complicated by UTI and pneumonia. Patient reports no primary care doctor in no follow-up with no medications prior to this hospitalization. Nursing staff reported patient has no family members that they were able to reach out to as well. Impression/plan: Suprapubic tenderness on 10/29/17 bladder scan showing >900cc duggan inserted likely from not ambulating Dementia. management per psychiatry. UTI. Rae growing in cultures. On Diflucan. Pneumonia. Resolved. Asymptomatic at present. Continue current antibiotics regimen with Rocephin. Leukocytosis/thrombocytosis/erythrocytosis Patient denies any prior history of this. Previous admission in early September reveals was erythrocytosis in a smoker. Patient has history of CVA, severe PAD, A. fib. High risk for clot formations. hematology was consulted, recommendations reviewed- will fu workup S/P Fem/Pop Bypass - 10/19/17 exploration of the left groin, left common femoral and external iliac artery. Endarterectomy and patch angioplasty. External and common artery thromboembolectomy, superficial femoral popliteal artery thromboembolectomy, arteriogram. - 10/23/17 Right external iliac-common femoral endarterectomy and patch angioplasty and right femoral-popliteal bypass, PTFE graft Atrial Fibrillation. Rate controlled. Anticoagulation needs to be discussed. However per nursing staff, patient is a very high risk for falls and she did in fact fell while in hospital on October 26, 2017. Currently patient is on Plavix for severe PAD. Based on her discharge planning and risk of falls, we will reconsider anticoagulation. At this point, anticoagulation with further stronger anticoagulants is contraindicated due to high risk of falls. Was seen by cardiology during this hospitalization. Due to abnormal EKG prior to the OR by vascular surgeon for femoropopliteal, cardiology clearance was obtained. HTN Hyperlipidemia - Abnormal EKG in inpatient with abnormal stress test and subsequent cardia cath was done? - Continue with Plavix 75 mg daily, metoprolol 25 mg by mouth every 12 hours , atorvastatin 80 mg daily at bedtime, digoxin 0.125 mg daily DVT prop - start lovenox, early ambulation PT Discharge Planning per case management and psychiatry team. Danni Boykin MD Oct 30, 2017 14:42
[2017-10-30 18:00] VITALS: BP 101/59; PULSE 74; RESP 18; TEMP 97.6; O2SAT 95
[2017-10-30] MEDS: hydrOXYzine HCL 50 MG TAB PO PRN (21:17)
[2017-10-30] MEDS: ATORVASTATIN 80 MG TAB PO SCH (21:17)
--- NOTE | 2017-10-30 21:33 | RADRPT ---
EXAM DATE/TIME: 10/30/2017 20:54 [facility] COMPARISON: No previous studies available for comparison. INDICATIONS : Increased lab values. MEDICAL HISTORY : Hypercholesterolemia. Hypertension. A-fib. Cerebrovascular accident. Peripheral vascular disease. SURGICAL HISTORY : Tonsillectomy. Tubal ligation. Cardiac catheterization. Femoral bypass. ENCOUNTER: Initial ACUITY: 1 day PAIN SCORE: 0/10 LOCATION: Bilateral upper quadrant MEASUREMENTS: LIVER: 13.4 cm length COMMON DUCT: 3 mm RIGHT KIDNEY: 9.8 x 4.0 x 3.9 cm SPLEEN: 12.5 cm length FINDINGS: LIVER: Normal echotexture without focal lesion or ductal dilatation. Hepatopedal flow. COMMON DUCT: No intraluminal mass or stone visualized. GALLBLADDER: Contains no stones, demonstrates no wall thickening or pericholecystic fluid. PANCREAS: The visualized portions are within normal limits. RIGHT KIDNEY: No hydronephrosis, stone or mass. Minimal perinephric fluid. Diffusely echogenic. SPLEEN: No focal lesion. CONCLUSION: 1. Echogenic right kidney which can be seen with medical renal disease. 2. Minimal nonspecific perinephric fluid. 3. Spleen is at the upper limits of normal in size. 4. No evidence for cholelithiasis. Vincent Spence MD on October 30, 2017 at 21:29 Board Certified Radiologist. This report was verified electronically.
[2017-10-30] MEDS: RESP: ALBUTEROL 2.5 MG/IPRATROPIUM 0.5 MG NEB (PRN) NEB (22:41)
[2017-10-30 22:43] VITALS: O2SAT 92
[2017-10-31 05:12] LABS: BASOPHIL % 0.2 % (0.0-2.0); EOSINOPHIL # 0.5 TH/MM3 (0-0.4); EOSINOPHIL % 2.5 % (0.0-4.0); HEMATOCRIT 44.8 % (35.0-46.0); HEMOGLOBIN 14.4 GM/DL (11.6-15.3); LYMPHOCYTE # 1.1 TH/MM3 (1.0-4.8); MEAN CELL VOLUME 69.4 FL (80.0-100.0); MEAN CORPUSCULAR HEMOGLOBIN 22.3 PG (27.0-34.0); MEAN CORPUSCULAR HGB CONC 32.1 % (32.0-36.0); MEAN PLATELET VOLUME 8.5 FL (7.0-11.0); MONO % 4.3 % (0.0-8.0); MONOCYTE # 0.9 TH/MM3 (0-0.9); PLATELET COUNT 1038 TH/MM3 (150-450); RED BLOOD COUNT 6.46 MIL/MM3 (4.00-5.30); RED CELL DISTRIBUTION WIDTH 19.2 % (11.6-17.2); WHITE BLOOD COUNT 21.6 TH/MM3 (4.0-11.0)
[2017-10-31 06:00] VITALS: BP 120/65; PULSE 81; RESP 16; TEMP 97.3; O2SAT 97
[2017-10-31 07:12] LABS: BANDS 3 % (0-6); BASOPHILS 1 % (0-2); LYMPHOCYTES 4 % (9-44); MONOCYTES 6 % (0-8); NEUTROPHIL # MANUAL DIFF 19.2 TH/MM3 (1.8-7.7); POLYS (SEG NEUTROPHILS) 86 % (16-70)
[2017-10-31 07:13] LABS: OVALOCYTES 1+ (NORMAL)
[2017-10-31] MEDS: QUEtiapine FUMARATE 25 MG TAB PO SCH ×3 (08:00→20:00)
[2017-10-31] MEDS: CLOPIDOGREL 75 MG TAB PO SCH (09:00)
[2017-10-31] MEDS: METOPROLOL TARTRATE 25 MG TAB PO SCH ×2 (09:00→20:47)
[2017-10-31] MEDS ORDERED: ENOXAPARIN SODIUM 30 MG/0.3 ML SYRINGE SQ SCH (09:00)
[2017-10-31] MEDS: DIGOXIN 0.125 MG TAB PO SCH (09:00)
[2017-10-31] MEDS: RESP: ALBUTEROL 2.5 MG/IPRATROPIUM 0.5 MG NEB (SCH) NEB ×2 (10:09→13:55)
[2017-10-31 10:10] VITALS: O2SAT 93
--- NOTE | 2017-10-31 10:45 | HHI.PYPN ---
Subjective Chief Complaint: patient confused unable to care for self found lying in her own waste produ Remarks Patient seen in her room with nurse rosa castillo and counselor Denice. Patient still medically fragile getting breathing treatments and her pulmonary issues addressed, her urinary tract issue addressed recovering from the the peripheral bypass surgery. Patient though overall is alert fairly well oriented denies suicidality denies voices or visions. Patient is aware of the fact that she is unable to live independently at this time is willing to go into a rehabilitation placement type tissue. Patient still here under the [employer] act. She is scheduled for [facility] tomorrow. I do question whether the patient really meets criteria to be retained under the [facility] act. I'll attempt to call the medical service. (Patient may be better treated under a medical admission. At that time I would consider perhaps lift the [facility] act allow him slated routine care of medically. Review of Systems Except as stated in HPI: all other systems reviewed are Neg Mental Status Examination Appearance: Appropriate Consciousness: Alert Orientation: Person, Place, Situation (knows why she is in the hospital) Motor Activity: Other (patient bedridden at this time) Speech: Hesitant Language: Adequate Fund of Knowledge: Inadequate Attention and Concentration: Other (poor) Memory: Impaired Mood: Other (euthymic to somewhat restricted) Affect: Other (decreased range and intensity) Thought Process & Associations: Linear Thought Content: Other (disorganized) Hallucination Type: None (denies) Delusion Type: None Suicidal Ideation: No Suicidal Plan: No Suicidal Intention: No Homicidal Ideation: No Homicidal Plan: No Homicidal Intention: No Insight: Poor Judgment: Poor Results Labs Test 10/30/17 11:28 10/31/17 04:45 White Blood Count 23.5 TH/MM3 21.6 TH/MM3 Red Blood Count 6.82 MIL/MM3 6.46 MIL/MM3 Hemoglobin 14.9 GM/DL 14.4 GM/DL Hematocrit 46.9 % 44.8 % Mean Corpuscular Volume 68.9 FL 69.4 FL Mean Corpuscular Hemoglobin 21.9 PG 22.3 PG Mean Corpuscular Hemoglobin Concent 31.8 % 32.1 % Red Cell Distribution Width 19.4 % 19.2 % Platelet Count 1080 TH/MM3 1038 TH/MM3 Mean Platelet Volume 8.1 FL 8.5 FL Neutrophils (%) (Auto) 88.8 % 88.0 % Lymphocytes (%) (Auto) 3.9 % 5.0 % Monocytes (%) (Auto) 4.0 % 4.3 % Eosinophils (%) (Auto) 2.2 % 2.5 % Basophils (%) (Auto) 1.1 % 0.2 % Neutrophils # (Auto) 20.9 TH/MM3 19.0 TH/MM3 Lymphocytes # (Auto) 0.9 TH/MM3 1.1 TH/MM3 Monocytes # (Auto) 0.9 TH/MM3 0.9 TH/MM3 Eosinophils # (Auto) 0.5 TH/MM3 0.5 TH/MM3 Basophils # (Auto) 0.3 TH/MM3 0.0 TH/MM3 CBC Comment AUTO DIFF AUTO DIFF Differential Total Cells Counted 100 100 Neutrophils % (Manual) 77 % 86 % Band Neutrophils % 14 % 3 % Lymphocytes % 6 % 4 % Monocytes % 2 % 6 % Neutrophils # (Manual) 21.6 TH/MM3 19.2 TH/MM3 Myelocytes 1 % Differential Comment FINAL DIFF MANUAL FINAL DIFF MANUAL Platelet Estimate HIGH HIGH Platelet Morphology Comment ENLARGED ENLARGED Ovalocytes 1+ 1+ Erythrocyte Sedimentation Rate 1 mm/hr C-Reactive Protein 8.93 MG/DL Basophils % 1 % Date/Time Source Procedure Growth Status 10/26/17 11:50 Urine Other Urine Culture - Final Rae Albicans Complete Vitals/IOs Vital Signs Date Time Temp Pulse Resp B/P (MAP) Pulse Ox O2 Delivery O2 Flow Rate FiO2 10/31/17 10:10 93 Nasal Cannula 2.00 10/31/17 06:00 97.3 81 16 120/65 (83) 10/29/17 21:59 21 Intake and Output 10/31/17 10/31/17 11/01/17 08:00 16:00 00:00 Intake Total 0 ml Output Total 100 ml Balance -100 ml Assessment & Plan Problem List: (1) OTHER ALZHEIMER'S DISEASE ICD Codes: G30.8 - OTHER ALZHEIMER'S DISEASE (2) 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 She denies suicidality voices or visions. An attempt to his reach medical service to discuss possibility of her transfer to the medicine service with multiple call of perhaps a senior living facility versus rehabilitation type facility Justification for Cont. Inpt. This time patient will decompensate and placed a lower level of care more prepped with her medical issues the mental health issues Discharge Planning To be determined and need for the consultation with the medical service Request HC Surrog/Guard Advoc?: Yes Anselmo Gray MD Oct 31, 2017 10:45
[2017-10-31] MEDS: cefTRIAXone INJ 1,000 MG in SODIUM CHLORIDE 0.9% INJ 100 ML IV SCH (11:00)
--- NOTE | 2017-10-31 12:06 | HHI.PR ---
Subjective Remarks denies any symptoms as usual today is much more awake, wanted to have her food and asking for coffee however, on exam, seems to have pain on her RLE upper thigh down to knees - she admantly refused pain but was grimacing on exam - more so than yesterday Objective Vitals Vital Signs Date Time Temp Pulse Resp B/P (MAP) Pulse Ox O2 Delivery O2 Flow Rate FiO2 10/31/17 10:10 93 Nasal Cannula 2.00 10/31/17 09:05 Room Air 10/31/17 06:00 97.3 81 16 120/65 (83) 97 10/31/17 02:24 90 Nasal Cannula 2.00 10/30/17 22:43 92 Nasal Cannula 2.00 10/30/17 18:00 97.6 74 18 101/59 (73) 95 I/O 10/30/17 10/30/17 10/30/17 10/31/17 10/31/17 10/31/17 07:00 15:00 23:00 07:00 15:00 23:00 Intake Total 480 ml 0 ml 480 ml Output Total 700 ml 1000 ml 100 ml Balance -700 ml -520 ml -100 ml 480 ml Intake Oral 480 ml 0 ml 480 ml Output Urine Total 700 ml 1000 ml 100 ml Result Diagram: 10/31/17 0445 10/29/17 0526 Objective Remarks GENERAL: This is an elderly lady, awake, wanted to eat, SKIN: Warm and dry. Small superficial ecchymoses. Right lower extremity distal femoral area with surgical steristrips on HEENT: Normocephalic. . Airway patent. NECK: Trachea midline. No JVD. Supple. CARDIOVASCULAR: Regular rate and rhythm without murmurs, gallops, or rubs. RESPIRATORY: No wheezes, rales, or rhonchi. Diminished bases. Poor inspiratory effort GASTROINTESTINAL: Abdomen soft, non-tender, nondistended. now with duggan, no suprapubic tenderness MUSCULOSKELETAL: Extremities without clubbing, cyanosis. RLE trace edema. pain worse than yesterday on palpation of right UE and surgical site areas NEUROLOGICAL: Mostly sleeping through my exam.. Oriented to place, person. Moves all extremities minimally though with pain on right side. Normal speech. A/P Problem List: (1) History of endarterectomy ICD Code: Z98.890 - Other specified postprocedural states (2) Dyspnea ICD Code: R06.00 - Dyspnea, unspecified (3) Pain ICD Code: R52 - Pain, unspecified (4) Thrombocytosis ICD Code: D47.3 - Essential (hemorrhagic) thrombocythemia Status: Chronic (5) UTI (urinary tract infection) ICD Code: N39.0 - Urinary tract infection, site not specified (6) Peripheral vascular disease ICD Code: I73.9 - Peripheral vascular disease, unspecified Status: Acute Assessment and Plan 77 years old female who was admitted to medical service from October 14, 2017 to October 25, 2017. She was found to have severe PAD requiring right femoropopliteal bypass and femoral endarterectomy during that hospitalization. Course was complicated by UTI and pneumonia. Patient reports no primary care doctor in no follow-up with no medications prior to this hospitalization. Nursing staff reported patient has no family members that they were able to reach out to as well. Impression/plan: Suprapubic tenderness on 10/29/17 bladder scan showing >900cc duggan inserted likely from not ambulating will dc duggan today 10/31/17 to give her trial of void- if retain again, then will dc to Rehab/ NH with duggan - fu with urology as outpatient Dementia. management per psychiatry. UTI. Rae growing in cultures. On Diflucan. Pneumonia. Asymptomatic at present. On Rocephin started 10/26/17. Will dc tomorrow 11/01/17 to complete 7 days course. Leukocytosis/thrombocytosis/erythrocytosis Patient denies any prior history of this. Previous admission in early September reveals was erythrocytosis in a smoker. Patient has history of CVA, severe PAD, A. fib. High risk for clot formations. hematology was consulted, recommendations reviewed- will fu workup- need outpatient hematology follow up S/P Fem/Pop Bypass - 10/19/17 exploration of the left groin, left common femoral and external iliac artery. Endarterectomy and patch angioplasty. External and common artery thromboembolectomy, superficial femoral popliteal artery thromboembolectomy, arteriogram. - 10/23/17 Right external iliac-common femoral endarterectomy and patch angioplasty and right femoral-popliteal bypass, PTFE graft - pt seems to have more pain on exam today- nursing order written to f/u with vascular sx on discharge planning care and to report of pt's symptoms- will also obtain CT RLE to make sure no hematoma/ post op complication Atrial Fibrillation. Rate controlled. Anticoagulation needs to be discussed. However per nursing staff, patient is a very high risk for falls and she did in fact fell while in hospital on October 26, 2017. Currently patient is on Plavix for severe PAD. Based on her discharge planning and risk of falls, we will reconsider anticoagulation. At present high risk of falls due to pt's prolonged hospitalization/ recent surgery and not ambulating. However, discussed with psychiatry team- pt is planned for dc to Rehab or NH- thus would be able to anticoagulate under monitored setting- I do think that pt is a candidate for anticoagulation. Was seen by cardiology during this hospitalization. Due to abnormal EKG prior to the OR by vascular surgeon for femoropopliteal, cardiology clearance was obtained. 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 Will follow up. HTN - controlled Hyperlipidemia - Abnormal EKG in inpatient with abnormal stress test and subsequent cardia cath was done? - Continue with Plavix 75 mg daily, metoprolol 25 mg by mouth every 12 hours , atorvastatin 80 mg daily at bedtime, digoxin 0.125 mg daily DVT prop - on lovenox, early ambulation PT Discharge Planning per case management and psychiatry team. Danni Boykin MD Oct 31, 2017 12:06
--- NOTE | 2017-10-31 14:20 | PD.CARD.PN ---
Subjective Subjective Remarks Discussed with the RN. No acute cardiac events. Hemodynamically stable. We were reconsulted for anticoagulation recommendations. (Michelle Quijano) Objective Medications Current Medications Medications (Trade) Dose Ordered Sig/Sina Route Start Time Stop Time Status Last Admin (Lipitor) 80 mg HS PO 10/25/17 21:00 10/30/17 21:17 (Plavix) 75 mg DAILY PO 10/25/17 17:30 10/31/17 09:00 (Lanoxin) 0.125 mg DAILY PO 10/25/17 17:30 10/31/17 09:00 (Lopressor) 25 mg Q12HR PO 10/25/17 21:00 10/31/17 09:00 (Tylenol) 650 mg Q4H PRN PO 10/25/17 17:30 10/29/17 09:17 (Milk Of Magnesia Liq) 30 ml DAILY PRN PO 10/25/17 17:30 (Mag-Al Plus Susp Liq) 30 ml Q6H PRN PO 10/25/17 17:30 (Atarax) 50 mg Q6H PRN PO 10/26/17 09:15 10/30/17 21:17 Ceftriaxone Sodium 1000 mg/ Sodium Chloride 100 ml @ 200 mls/hr Q24H IV 10/26/17 11:00 10/31/17 11:00 (Pill Splitter) 1 ea UNSCH PRN OTHER 10/26/17 10:30 (Reglan) 10 mg ACHS PRN PO 10/26/17 13:30 Future Hold (Zofran Odt) 4 mg Q6H PRN PO 10/26/17 13:30 Future Hold (Duoneb Neb) 1 ampule Q4HR NEB PRN NEB 10/26/17 13:45 10/30/17 22:41 (Catapres) 0.1 mg Q6H PRN PO 10/26/17 17:30 10/26/17 18:14 (Duoneb Neb) 1 ampule Q6HR WHILE AWAKE NEB NEB 10/27/17 20:00 10/31/17 13:55 (SEROquel) 25 mg TID@0800,1400,2000 PO 10/30/17 14:00 10/30/17 21:17 (Lovenox Inj) 30 mg Q24H SQ 10/31/17 09:00 10/31/17 09:00 Vital Signs / I&O Vital Signs Date Time Temp Pulse Resp B/P (MAP) Pulse Ox O2 Delivery O2 Flow Rate FiO2 10/31/17 10:10 93 Nasal Cannula 2.00 10/31/17 09:05 Room Air 10/31/17 06:00 97.3 81 16 120/65 (83) 97 10/31/17 02:24 90 Nasal Cannula 2.00 10/30/17 22:43 92 Nasal Cannula 2.00 10/30/17 18:00 97.6 74 18 101/59 (73) 95 I/O 10/30/17 10/30/17 10/30/17 10/31/17 10/31/17 10/31/17 07:00 15:00 23:00 07:00 15:00 23:00 Intake Total 480 ml 0 ml 480 ml Output Total 700 ml 1000 ml 100 ml Balance -700 ml -520 ml -100 ml 480 ml Intake Oral 480 ml 0 ml 480 ml Output Urine Total 700 ml 1000 ml 100 ml Physical Exam GENERAL: Nonverbal female in rm 402 SKIN: Warm and dry. HEAD: Normocephalic. EYES: No scleral icterus. No injection or drainage. NECK: Supple, trachea midline. CARDIOVASCULAR: Irreg irreg, reg rate RESPIRATORY: Breath sounds equal bilaterally. No accessory muscle use. GASTROINTESTINAL: Abdomen soft, non-tender, nondistended. thin MUSCULOSKELETAL: No cyanosis, or edema. BACK: Nontender without obvious deformity. Laboratory Laboratory Tests Test 10/31/17 04:45 White Blood Count 21.6 TH/MM3 Red Blood Count 6.46 MIL/MM3 Hemoglobin 14.4 GM/DL Hematocrit 44.8 % Mean Corpuscular Volume 69.4 FL Mean Corpuscular Hemoglobin 22.3 PG Mean Corpuscular Hemoglobin Concent 32.1 % Red Cell Distribution Width 19.2 % Platelet Count 1038 TH/MM3 Mean Platelet Volume 8.5 FL Neutrophils (%) (Auto) 88.0 % Lymphocytes (%) (Auto) 5.0 % Monocytes (%) (Auto) 4.3 % Eosinophils (%) (Auto) 2.5 % Basophils (%) (Auto) 0.2 % Neutrophils # (Auto) 19.0 TH/MM3 Lymphocytes # (Auto) 1.1 TH/MM3 Monocytes # (Auto) 0.9 TH/MM3 Eosinophils # (Auto) 0.5 TH/MM3 Basophils # (Auto) 0.0 TH/MM3 CBC Comment AUTO DIFF Differential Total Cells Counted 100 Neutrophils % (Manual) 86 % Band Neutrophils % 3 % Lymphocytes % 4 % Monocytes % 6 % Basophils % 1 % Neutrophils # (Manual) 19.2 TH/MM3 Differential Comment FINAL DIFF MANUAL Platelet Estimate HIGH Platelet Morphology Comment ENLARGED Ovalocytes 1+ Imaging Last 72 hours Impressions Liver Ultrasound 10/30/17 0000 Signed Impressions: Service Date/Time: Monday, October 30, 2017 20:54 - CONCLUSION: 1. Echogenic right kidney which can be seen with medical renal disease. 2. Minimal nonspecific perinephric fluid. 3. Spleen is at the upper limits of normal in size. 4. No evidence for cholelithiasis. Vincent Spence MD Chest X-Ray 10/29/17 0600 Signed Impressions: Service Date/Time: Sunday, October 29, 2017 03:17 - CONCLUSION: New right lower lobe infiltrate. Stable interstitial changes. Garett Delcid Jr., MD (Michelle Quijano) Assessment and Plan Problem List: (1) CAD (coronary artery disease) ICD Codes: I25.10 - Atherosclerotic heart disease of [place] coronary artery without angina pectoris (2) Cardiomyopathy ICD Codes: I42.9 - Cardiomyopathy, unspecified (3) Hypertension ICD Codes: I10 - Essential (primary) hypertension (4) Atrial fibrillation ICD Codes: I48.91 - Unspecified atrial fibrillation (5) History of endarterectomy ICD Codes: Z98.890 - Other specified postprocedural states (6) Thrombocytosis ICD Codes: D47.3 - Essential (hemorrhagic) thrombocythemia Status: Chronic (7) Peripheral vascular disease ICD Codes: I73.9 - Peripheral vascular disease, unspecified Status: Acute Assessment and Plan Based on high CHADSVAC score (age, vascular disease, gender, CVA history, HTN) we will start Eliquis 5 mg BID and ASA 81 mg. We will stop Lovenox and Plavix. The patient will be receiving her medications in a controlled setting. The patient was seen and evaluated by Dr Cabrera who completed face to face encounter and physical exam and participated in evaluation and management. (Michelle Quijano) Problem List: (1) CAD (coronary artery disease) ICD Codes: I25.10 - Atherosclerotic heart disease of [place] coronary artery without angina pectoris (2) Cardiomyopathy ICD Codes: I42.9 - Cardiomyopathy, unspecified (3) Hypertension ICD Codes: I10 - Essential (primary) hypertension (4) Atrial fibrillation ICD Codes: I48.91 - Unspecified atrial fibrillation Plan: Will plan to start anticoagulants as she is going to a supervised facility. FU with Dr Garza as o/p. (5) History of endarterectomy ICD Codes: Z98.890 - Other specified postprocedural states (6) Thrombocytosis ICD Codes: D47.3 - Essential (hemorrhagic) thrombocythemia Status: Chronic (7) Peripheral vascular disease ICD Codes: I73.9 - Peripheral vascular disease, unspecified Status: Acute (Brianna Cabrera MD) Michelle Quijano Oct 31, 2017 14:20 Brianna Cabrera MD Oct 31, 2017 17:19
--- NOTE | 2017-10-31 16:13 | RADRPT ---
EXAM DATE/TIME: 10/31/2017 15:52 [facility] COMPARISON: No previous studies available for comparison. INDICATIONS : Post-op hematoma right femur vascular surgery. RADIATION DOSE: 10.47 CTDIvol (mGy) MEDICAL HISTORY : Cardiovascular disease. Cerebrovascular disease. Hypertension. SURGICAL HISTORY : vascular surgery right femur ENCOUNTER: Initial ACUITY: 1 day PAIN SCALE: 0/10 LOCATION: Right femur TECHNIQUE: Volumetric scanning of the femur was performed. Using automated exposure control and adjustment of t he mA and/or kV according to patient size, radiation dose was kept as low as reasonably achievable to obtain optimal diagnostic quality images. DICOM format image data is available electronically for review and comparison. FINDINGS: Femoropopliteal bypass graft is evident without significant seroma or inflammatory changes. In spite of clinical findings there is only minimal deep hematoma just above the distal anastomosis a nd tibia small amount of air. Bony skeleton is intact. There is no joint effusion. CONCLUSION: Minimal deep hematoma distal anastomosis measuring 3.2 cm x 1.7 cm. Kuldeep Radford MD FACR on October 31, 2017 at 16:09 Board Certified Radiologist. This report was verified electronically.
--- NOTE | 2017-10-31 17:36 | PD.CAR.PN ---
CVT Progress Note Subjective/Hospital Course: This 77-year-old lady was admitted through the emergency room yesterday for generalized weakness. The patient is a very poor historian, barely says anything. Apparently, she was at home for the last week or so barely doing anything, too weak to get up or eat or drink. The patient came to the hospital dirty, smelling of feces and urine. She was diagnosed with sepsis based in the urinary tract infection. At the time of arrival she was noted to have cyanotic discoloration of the right foot and hence, the consultation. It should be noted that the patient is not following up with doctors. She apparently smoked about one pack a day since age of 20 and stopped somewhere in the 70s. Course of recent admission As noted above patient was admitted with critical acute, superimposed on chronic ischemia of the right leg and in the process of workup for surgery underwent cardiac catheterization through her left groin. This resulted then the thromboembolic occlusion of the left side circulation and patient underwent emergent reconstruction of the left external iliac, common femoral and superficial femoral arteries first. This was followed few days later with a right sided reconstruction of the external iliac common femoral artery and femoropopliteal bypass Incisions are clean and dry Excellent flow to the both feet Patient remains on Plavix by mouth but from my point can be anticoagulated if so desired by medicine in face of chronic A. fib All the closures are subcuticular and no sutures are to be removed. Nothing to add to care at this time Patient can ambulate as tolerated can take daily showers and leave incisions open to air 10/30/17 Called by the RN taking care of the patient re. discharge. Patient had successful reconstruction of the flow to both legs. CT ordered by hospitalist today shows expected post-op changes. No abnormal findings. I have not seen patient today, but she can be DC to SNF from my point. Objective: Vital Signs Date Time Temp Pulse Resp B/P (MAP) Pulse Ox O2 Delivery O2 Flow Rate FiO2 10/31/17 10:10 93 Nasal Cannula 2.00 10/31/17 09:05 Room Air 10/31/17 06:00 97.3 81 16 120/65 (83) 97 10/31/17 02:24 90 Nasal Cannula 2.00 10/30/17 22:43 92 Nasal Cannula 2.00 10/30/17 18:00 97.6 74 18 101/59 (73) 95 Result Diagram: 10/31/17 0445 10/29/17 0526 (1) CAD (coronary artery disease) (2) Cardiomyopathy (3) Hypertension (4) Atrial fibrillation Plan: Will plan to start anticoagulants as she is going to a supervised facility. FU with Dr Garza as o/p. (5) History of endarterectomy (6) Thrombocytosis (7) Peripheral vascular disease Walter Fernandes MD Oct 31, 2017 17:36
[2017-10-31 18:00] VITALS: BP 134/59; PULSE 86; RESP 17; TEMP 97.7; O2SAT 95
[2017-10-31 20:03] VITALS: O2SAT 92
[2017-10-31] MEDS: RESP: ALBUTEROL 2.5 MG/IPRATROPIUM 0.5 MG NEB (PRN) NEB (20:03)
[2017-10-31] MEDS: APIXABAN 5 MG TABLET PO SCH (20:46)
[2017-10-31] MEDS: ATORVASTATIN 80 MG TAB PO SCH (20:46)
[2017-11-01 06:09] LABS: AUTOMATED NEUTROPHIL # 19.4 TH/MM3 (1.8-7.7); BASOPHIL # 0.2 TH/MM3 (0-0.2); BASOPHIL % 0.9 % (0.0-2.0); EOSINOPHIL # 0.6 TH/MM3 (0-0.4); EOSINOPHIL % 2.5 % (0.0-4.0); HEMATOCRIT 43.3 % (35.0-46.0); HEMOGLOBIN 14.3 GM/DL (11.6-15.3); LYMPHOCYTE # 1.3 TH/MM3 (1.0-4.8); MEAN CELL VOLUME 69.2 FL (80.0-100.0); MEAN CORPUSCULAR HEMOGLOBIN 22.9 PG (27.0-34.0); MEAN CORPUSCULAR HGB CONC 33.1 % (32.0-36.0); MEAN PLATELET VOLUME 8.9 FL (7.0-11.0); MONOCYTE # 0.9 TH/MM3 (0-0.9); NEUT % 86.6 % (16.0-70.0); PLATELET COUNT 1146 TH/MM3 (150-450); RED BLOOD COUNT 6.26 MIL/MM3 (4.00-5.30); RED CELL DISTRIBUTION WIDTH 19.9 % (11.6-17.2); WHITE BLOOD COUNT 22.5 TH/MM3 (4.0-11.0)
[2017-11-01 06:13] VITALS: BP 144/70; PULSE 82; RESP 18; TEMP 98.4; O2SAT 95
[2017-11-01] MEDS: QUEtiapine FUMARATE 25 MG TAB PO SCH ×3 (08:00→20:00)
[2017-11-01 08:01] LABS: BANDS 16 % (0-6); LYMPHOCYTES 5 % (9-44); MONOCYTES 2 % (0-8); MYELOCYTES 1 % (0-0); NEUTROPHIL # MANUAL DIFF 20.7 TH/MM3 (1.8-7.7); POLYS (SEG NEUTROPHILS) 75 % (16-70)
[2017-11-01 08:02] LABS: TOXIC VACUOLATION PRESENT (NONE SEEN)
[2017-11-01 08:33] VITALS: O2SAT 95
[2017-11-01] MEDS: DIGOXIN 0.125 MG TAB PO SCH (09:12)
[2017-11-01] MEDS: METOPROLOL TARTRATE 25 MG TAB PO SCH ×2 (09:12→21:11)
[2017-11-01] MEDS: ASPIRIN 81 MG CHEW TAB CHEW SCH (09:12)
[2017-11-01] MEDS: APIXABAN 5 MG TABLET PO SCH ×3 (09:12→21:12)
--- NOTE | 2017-11-01 09:16 | HHI.PR ---
Subjective Remarks CARDIOLOGY AND VASCULAR BOTH AGREE THAT PATIENT NEEDS TO BE ON ANTICOAGULATION WITH ELIQUIS 5MG PO BID DW RN AND PT NO NEW COMPLAINTS AT THIS TIME Objective Vitals Vital Signs Date Time Temp Pulse Resp B/P (MAP) Pulse Ox O2 Delivery O2 Flow Rate FiO2 11/01/17 08:33 95 21 11/01/17 06:13 98.4 82 18 144/70 (94) 95 10/31/17 20:03 92 21 10/31/17 18:00 97.7 86 17 134/59 (84) 95 10/31/17 10:10 93 Nasal Cannula 2.00 I/O 10/31/17 10/31/17 10/31/17 11/01/17 11/01/17 11/01/17 07:00 15:00 23:00 07:00 15:00 23:00 Intake Total 0 ml 720 ml 960 ml 0 ml Output Total 100 ml 4 ml Balance -100 ml 720 ml 956 ml 0 ml Intake Oral 0 ml 720 ml 960 ml 0 ml Output Urine Total 100 ml 4 ml # Voids 1 Result Diagram: 11/01/17 0505 10/29/17 0526 Other Results Laboratory Tests Test 10/30/17 11:28 10/31/17 04:45 11/01/17 05:05 White Blood Count 23.5 TH/MM3 21.6 TH/MM3 22.5 TH/MM3 Red Blood Count 6.82 MIL/MM3 6.46 MIL/MM3 6.26 MIL/MM3 Hemoglobin 14.9 GM/DL 14.4 GM/DL 14.3 GM/DL Hematocrit 46.9 % 44.8 % 43.3 % Mean Corpuscular Volume 68.9 FL 69.4 FL 69.2 FL Mean Corpuscular Hemoglobin 21.9 PG 22.3 PG 22.9 PG Mean Corpuscular Hemoglobin Concent 31.8 % 32.1 % 33.1 % Red Cell Distribution Width 19.4 % 19.2 % 19.9 % Platelet Count 1080 TH/MM3 1038 TH/MM3 1146 TH/MM3 Mean Platelet Volume 8.1 FL 8.5 FL 8.9 FL Neutrophils (%) (Auto) 88.8 % 88.0 % 86.6 % Lymphocytes (%) (Auto) 3.9 % 5.0 % 6.0 % Monocytes (%) (Auto) 4.0 % 4.3 % 4.0 % Eosinophils (%) (Auto) 2.2 % 2.5 % 2.5 % Basophils (%) (Auto) 1.1 % 0.2 % 0.9 % Neutrophils # (Auto) 20.9 TH/MM3 19.0 TH/MM3 19.4 TH/MM3 Lymphocytes # (Auto) 0.9 TH/MM3 1.1 TH/MM3 1.3 TH/MM3 Monocytes # (Auto) 0.9 TH/MM3 0.9 TH/MM3 0.9 TH/MM3 Eosinophils # (Auto) 0.5 TH/MM3 0.5 TH/MM3 0.6 TH/MM3 Basophils # (Auto) 0.3 TH/MM3 0.0 TH/MM3 0.2 TH/MM3 CBC Comment AUTO DIFF AUTO DIFF AUTO DIFF Differential Total Cells Counted 100 100 100 Neutrophils % (Manual) 77 % 86 % 75 % Band Neutrophils % 14 % 3 % 16 % Lymphocytes % 6 % 4 % 5 % Monocytes % 2 % 6 % 2 % Neutrophils # (Manual) 21.6 TH/MM3 19.2 TH/MM3 20.7 TH/MM3 Myelocytes 1 % 1 % Differential Comment FINAL DIFF MANUAL FINAL DIFF MANUAL FINAL DIFF MANUAL Platelet Estimate HIGH HIGH HIGH Platelet Morphology Comment ENLARGED ENLARGED NORMAL Ovalocytes 1+ 1+ Erythrocyte Sedimentation Rate 1 mm/hr C-Reactive Protein 8.93 MG/DL Basophils % 1 % Eosinophils % 1 % Toxic Vacuolation PRESENT Imaging Last Impressions Lower Extremity CT 10/31/17 1226 Signed Impressions: Service Date/Time: Tuesday, October 31, 2017 15:52 - CONCLUSION: Minimal deep hematoma distal anastomosis measuring 3.2 cm x 1.7 cm. uKldeep Radford MD FACR Liver Ultrasound 10/30/17 0000 Signed Impressions: Service Date/Time: Monday, October 30, 2017 20:54 - CONCLUSION: 1. Echogenic right kidney which can be seen with medical renal disease. 2. Minimal nonspecific perinephric fluid. 3. Spleen is at the upper limits of normal in size. 4. No evidence for cholelithiasis. Vincent Spence MD Chest X-Ray 10/29/17 0600 Signed Impressions: Service Date/Time: Sunday, October 29, 2017 03:17 - CONCLUSION: New right lower lobe infiltrate. Stable interstitial changes. Garett Delcid Jr., MD Objective Remarks GENERAL: AWAKE ALERT AND SOMEWHAT ORIENTED TO PERSON AND PLACE- FOLLOWS COMMANDS FOR ME SKIN: Warm and dry. HEAD: Atraumatic. Normocephalic. EYES: Pupils equal and round. No scleral icterus. No injection or drainage. EOMI ENT: No nasal bleeding or discharge. Mucous membranes pink and moist. TONGUE MIDLINE NECK: Trachea midline. No JVD. SUPPLE CARDIOVASCULAR: IRRegular rate and rhythm. S1, S2 NO S3 OR S4 RESPIRATORY: No accessory muscle use. Clear to auscultation. Breath sounds equal bilaterally. GASTROINTESTINAL: Abdomen soft, non-tender, nondistended. Hepatic and splenic margins not palpable. MUSCULOSKELETAL: Extremities without clubbing, cyanosis, or edema. No obvious deformities. NEUROLOGICAL: Awake and alert. No obvious cranial nerve deficits. Motor grossly within normal limits. 4 out of 5 muscle strength in the arms and legs. Normal speech. PSYCHIATRIC: INAppropriate mood and affect; insight and judgment ABnormal. Procedures NONE Medications and IVs Current Medications Amoxicillin/ Clavulanate Potassium (Augmentin) 500 mg BID PO ; Start 10/25/17 at 21:00; Stop 10/26/17 at 10:31; Status DC Atorvastatin Calcium (Lipitor) 80 mg HS PO Last administered on 10/31/17 20:46 ; Start 10/25/17 at 21:00 Clopidogrel Bisulfate (Plavix) 75 mg DAILY PO Last administered on 10/31/17 09: 00; Start 10/25/17 at 17:30; Stop 10/31/17 at 14:12; Status DC Digoxin (Lanoxin) 0.125 mg DAILY PO Last administered on 10/31/17 09:00; Start 10/25/17 at 17:30 Metoprolol Tartrate (Lopressor) 25 mg Q12HR PO Last administered on 10/31/17 20 :47; Start 10/25/17 at 21:00 Quetiapine Fumarate (SEROquel) 12.5 mg BID@09,12 PO ; Start 10/26/17 at 09:00; Stop 10/29/17 at 10:24; Status DC Acetaminophen (Tylenol) 650 mg Q4H PRN PO Pain 1-5 or Temp >101F Last administered on 10/29/17 09:17; Start 10/25/17 at 17:30 Magnesium Hydroxide (Milk Of Magnesia Liq) 30 ml DAILY PRN PO CONSTIPATION; Start 10/25/17 at 17:30 Al Hydrox/Mg Hydrox/Simethicone (Mag-Al Plus Susp Liq) 30 ml Q6H PRN PO DYSPEPSIA; Start 10/25/17 at 17:30 Hydroxyzine HCl (Atarax) 50 mg Q6H PRN PO ANXIETY Last administered on 21:17; Start 10/26/17 at 09:15 Fluconazole (Diflucan) 150 mg ONCE ONCE PO Last administered on 10/26/17 11: 01; Start 10/26/17 at 11:00; Stop 10/26/17 at 11:01; Status DC Ceftriaxone Sodium 1000 mg/ Sodium Chloride 100 ml @ 200 mls/hr Q24H IV Last administered on 10/31/17 11:00; Start 10/26/17 at 11:00 Miscellaneous (Pill Splitter) 1 ea UNSCH PRN OTHER SEE LABEL COMMENTS; Start 10/26/17 at 10:30 Metoclopramide HCl (Reglan) 10 mg ACHS PRN PO Digestive Aid; Start 10/26/17 at 13:30; Status Future Hold Ondansetron HCl (Zofran Odt) 4 mg Q6H PRN PO nausea; Start 10/26/17 at 13:30 ; Status Future Hold Albuterol/ Ipratropium (Duoneb Neb) 1 ampule Q4HR NEB PRN NEB wheezing Last administered on 10/31/17 20:03; Start 10/26/17 at 13:45 Methylprednisolone Sodium Succinate (SoluMEDROL INJ) 125 mg ONCE ONCE IV PUSH Last administered on 10/26/17 13:57; Start 10/26/17 at 14:00; Stop 10/26/17 at 14:01; Status DC Furosemide (Lasix Inj) 40 mg ONCE ONCE IV PUSH Last administered on 14:33; Start 10/26/17 at 14:15; Stop 10/26/17 at 14:16; Status DC Clonidine (Catapres) 0.1 mg Q6H PRN PO SBP > 160 Last administered on 18:14; Start 10/26/17 at 17:30 Furosemide (Lasix Inj) 20 mg DAILY IV PUSH Last administered on 10/27/17 09: 00; Start 10/27/17 at 09:00; Stop 10/28/17 at 09:43; Status DC Potassium Chloride (KCl) 10 meq DAILY PO Last administered on 10/27/17t 09:00 ; Start 10/27/17 at 09:00; Stop 10/28/17 at 09:43; Status DC Albuterol/ Ipratropium (Duoneb Neb) 1 ampule Q6HR WHILE AWAKE NEB NEB Last administered on 10/31/17at 13:55; Start 10/27/17 at 20:00; Stop 10/31/17 at 19:59 ; Status DC Azithromycin (Zithromax) 250 mg DAILY PO ; Start 10/28/17 at 09:00; Stop 10/28 at 09:00; Status DC Azithromycin (Zithromax) 500 mg ONCE ONCE PO ; Start 10/27/17 at 15:15; Stop 10/27/17 at 15:15; Status DC Furosemide (Lasix Inj) 20 mg DAILY IV PUSH Last administered on 10/30/17at 09:00 ; Start 10/27/17 at 15:15; Stop 10/30/17 at 15:14; Status DC Potassium Chloride (KCl) 10 meq DAILY PO Last administered on 10/30/17at 11:56; Start 10/27/17 at 15:15; Stop 10/30/17 at 15:14; Status DC Amoxicillin/ Clavulanate Potassium (Augmentin) 500 mg Q12HR PO Last administered on 10/27/17 21:43; Start 10/27/17 at 21:00; Stop 10/28/17 at 08 :06; Status DC Fluconazole (Diflucan) 200 mg DAILY PO Last administered on 10/30/17at 11:56; Start 10/28/17 at 09:00; Stop 10/31/17 at 08:59; Status DC Quetiapine Fumarate (SEROquel) 25 mg BID@09,12 PO ; Start 10/29/17 at 12:00; Stop 10/30/17 at 10:16; Status DC Quetiapine Fumarate (SEROquel) 25 mg TID@0800,1400,2000 PO Last administered on 10/30/17at 21:17; Start 10/30/17 at 14:00 Enoxaparin Sodium (Lovenox Inj) 30 mg Q24H SQ Last administered on 10/31/17at 09: 00; Start 10/31/17 at 09:00; Stop 10/31/17 at 14:12; Status DC Aspirin (Aspirin Chew) 81 mg DAILY CHEW ; Start 11/01/17 at 09:00 Apixaban (Eliquis) 5 mg BID PO Last administered on 10/31/17at 20:46; Start at 21:00 A/P Problem List: (1) History of endarterectomy ICD Code: Z98.890 - Other specified postprocedural states (2) Dyspnea ICD Code: R06.00 - Dyspnea, unspecified (3) Pain ICD Code: R52 - Pain, unspecified (4) Thrombocytosis ICD Code: D47.3 - Essential (hemorrhagic) thrombocythemia Status: Chronic (5) UTI (urinary tract infection) ICD Code: N39.0 - Urinary tract infection, site not specified (6) Peripheral vascular disease ICD Code: I73.9 - Peripheral vascular disease, unspecified Status: Acute Assessment and Plan Assessment and Plan 77 years old female who was admitted to medical service from October 14, 2017 to October 25, 2017. She was found to have severe PAD requiring right femoropopliteal bypass and femoral endarterectomy during that hospitalization. Course was complicated by UTI and pneumonia. Patient reports no primary care doctor in no follow-up with no medications prior to this hospitalization. Nursing staff reported patient has no family members that they were able to reach out to as well. Impression/plan: Suprapubic tenderness on 10/29/17 bladder scan showing >900cc duggan inserted likely from not ambulating will dc duggan today 10/31/17 to give her trial of void- if retain again, then will dc to Rehab/ NH with duggan - fu with urology as outpatient Dementia. management per psychiatry. UTI. Rae growing in cultures. On Diflucan. Pneumonia. Asymptomatic at present. On Rocephin started 10/26/17. Will dc tomorrow 11/01/17 to complete 7 days course. Leukocytosis/thrombocytosis/erythrocytosis Patient denies any prior history of this. Previous admission in early September reveals was erythrocytosis in a smoker. Patient has history of CVA, severe PAD, A. fib. High risk for clot formations. hematology was consulted, recommendations reviewed- will fu workup- need outpatient hematology follow up CONTINUE ON ELIQUIS 5MG PO BID S/P Fem/Pop Bypass - 10/19/17 exploration of the left groin, left common femoral and external iliac artery. Endarterectomy and patch angioplasty. External and common artery thromboembolectomy, superficial femoral popliteal artery thromboembolectomy, arteriogram. - 10/23/17 Right external iliac-common femoral endarterectomy and patch angioplasty and right femoral-popliteal bypass, PTFE graft - pt seems to have more pain on exam today- nursing order written to f/u with vascular sx on discharge planning care and to report of pt's symptoms- will also obtain CT RLE to make sure no hematoma/ post op complication CONTINUE ON ELIQUIS 5MG PO BID Atrial Fibrillation. Rate controlled. Anticoagulation needs to be discussed. However per nursing staff, patient is a very high risk for falls and she did in fact fell while in hospital on October 26, 2017. Currently patient is on Plavix for severe PAD. Based on her discharge planning and risk of falls, we will reconsider anticoagulation. At present high risk of falls due to pt's prolonged hospitalization/ recent surgery and not ambulating. However, discussed with psychiatry team- pt is planned for dc to Rehab or NH- thus would be able to anticoagulate under monitored setting- I do think that pt is a candidate for anticoagulation. Was seen by cardiology during this hospitalization. Due to abnormal EKG prior to the OR by vascular surgeon for femoropopliteal, cardiology clearance was obtained. CARDIOLOGY WANTS ON ANTICOAGULATION CONTINUE ON ELIQUIS 5MG PO BID HTN - controlled Hyperlipidemia - Abnormal EKG in inpatient with abnormal stress test and subsequent cardia cath was done? - Continue with ELIQUIS 5MG BID, metoprolol 25 mg by mouth every 12 hours, atorvastatin 80 mg daily at bedtime, digoxin 0.125 mg daily ASA 81MG PO DAILY DVT prop - on ELIQUIS 5MG BID Discharge Planning PENDING PSYCHIATRY PLACEMENT Kuldeep Lyn DO Nov 01, 2017 09:16
[2017-11-01] MEDS: cefTRIAXone INJ 1,000 MG in SODIUM CHLORIDE 0.9% INJ 100 ML IV SCH (11:00)
--- NOTE | 2017-11-01 15:44 | HHI.PYPN ---
Subjective Chief Complaint: patient confused unable to care for self found lying in her own waste produ Remarks Patient seen in her room with nurse elvira chart reviewed, patient compliant medication. Patient laying flat on her back in bed covers to her chin markedly psychomotor retarded while appearing melancholic patient does respond well verbally if somewhat slowly. Though it is goal oriented. She denies suicidality denies voices or visions. However she is very passive complacent with no behavioral issues. I think there is a significant underlying depression. Will add Lexapro 10 mg daily to her regimen. I think we need to be more aggressive looking at placement other with palliative care perhaps home though we've had little success reaching any family members. Review of Systems Except as stated in HPI: all other systems reviewed are Neg Mental Status Examination Appearance: Appropriate Consciousness: Alert Orientation: Person, Place, Situation (knows why she is in the hospital) Motor Activity: Other (patient bedridden at this time) Speech: Hesitant Language: Adequate Fund of Knowledge: Inadequate Attention and Concentration: Other (poor) Memory: Impaired Mood: Other (euthymic to somewhat restricted) Affect: Other (decreased range and intensity) Thought Process & Associations: Linear Thought Content: Other (disorganized) Hallucination Type: None (denies) Delusion Type: None Suicidal Ideation: No Suicidal Plan: No Suicidal Intention: No Homicidal Ideation: No Homicidal Plan: No Homicidal Intention: No Insight: Poor Judgment: Poor Results Labs Test 11/01/17 05:05 White Blood Count 22.5 TH/MM3 Red Blood Count 6.26 MIL/MM3 Hemoglobin 14.3 GM/DL Hematocrit 43.3 % Mean Corpuscular Volume 69.2 FL Mean Corpuscular Hemoglobin 22.9 PG Mean Corpuscular Hemoglobin Concent 33.1 % Red Cell Distribution Width 19.9 % Platelet Count 1146 TH/MM3 Mean Platelet Volume 8.9 FL Neutrophils (%) (Auto) 86.6 % Lymphocytes (%) (Auto) 6.0 % Monocytes (%) (Auto) 4.0 % Eosinophils (%) (Auto) 2.5 % Basophils (%) (Auto) 0.9 % Neutrophils # (Auto) 19.4 TH/MM3 Lymphocytes # (Auto) 1.3 TH/MM3 Monocytes # (Auto) 0.9 TH/MM3 Eosinophils # (Auto) 0.6 TH/MM3 Basophils # (Auto) 0.2 TH/MM3 CBC Comment AUTO DIFF Differential Total Cells Counted 100 Neutrophils % (Manual) 75 % Band Neutrophils % 16 % Lymphocytes % 5 % Monocytes % 2 % Eosinophils % 1 % Neutrophils # (Manual) 20.7 TH/MM3 Myelocytes 1 % Differential Comment FINAL DIFF MANUAL Toxic Vacuolation PRESENT Platelet Estimate HIGH Platelet Morphology Comment NORMAL Date/Time Source Procedure Growth Status 10/26/17 11:50 Urine Other Urine Culture - Final Rae Albicans Complete Vitals/IOs Vital Signs Date Time Temp Pulse Resp B/P (MAP) Pulse Ox O2 Delivery O2 Flow Rate FiO2 11/01/17 08:33 95 21 11/01/17 06:13 98.4 82 18 144/70 (94) 10/31/17 10:10 Nasal Cannula 2.00 Intake and Output 11/01/17 11/01/17 11/02/17 08:00 16:00 00:00 Intake Total 0 ml 300 ml Balance 0 ml 300 ml Assessment & Plan Problem List: (1) OTHER ALZHEIMER'S DISEASE ICD Codes: G30.8 - OTHER ALZHEIMER'S DISEASE (2) Dementia associated with other underlying disease without behavioral disturbance ICD Codes: F02.80 - Dementia in other diseases classified elsewhere without behavioral disturbance Assessment & Plan Estimated LOS: days patient remains psychomotor retarded docile with a somewhat sad face. Will add Lexapro 10 mg daily to the regimen. [place] perhaps with palliative care counselors to find an appropriate placement for this lady Justification for Cont. Inpt. At this time patient decompensate if placed a lower level of care Discharge Planning Need to work with palliative care per counselors and if possible family members for come to an appropriate discharge plan Request HC Surrog/Guard Advoc?: Yes Anselmo Gray MD Nov 01, 2017 15:44
[2017-11-01] MEDS: ESCITALOPRAM OXALATE 10 MG TAB PO SCH (15:45)
[2017-11-01 17:39] VITALS: BP 129/61; PULSE 77; RESP 15; TEMP 98.9; O2SAT 94
[2017-11-01] MEDS: hydrOXYzine HCL 50 MG TAB PO PRN (21:10)
[2017-11-01] MEDS: ATORVASTATIN 80 MG TAB PO SCH (21:11)
[2017-11-02 06:08] VITALS: BP 145/70; PULSE 80; RESP 18; TEMP 98.1; O2SAT 94
[2017-11-02 08:01] LABS: BASOPHIL # 0.1 TH/MM3 (0-0.2); BASOPHIL % 0.5 % (0.0-2.0); EOSINOPHIL # 0.5 TH/MM3 (0-0.4); EOSINOPHIL % 2.4 % (0.0-4.0); HEMATOCRIT 46.6 % (35.0-46.0); HEMOGLOBIN 14.7 GM/DL (11.6-15.3); LYMPH % 4.2 % (9.0-44.0); LYMPHOCYTE # 0.9 TH/MM3 (1.0-4.8); MEAN CELL VOLUME 69.2 FL (80.0-100.0); MEAN CORPUSCULAR HEMOGLOBIN 21.9 PG (27.0-34.0); MEAN CORPUSCULAR HGB CONC 31.6 % (32.0-36.0); MEAN PLATELET VOLUME 8.5 FL (7.0-11.0); MONOCYTE # 0.9 TH/MM3 (0-0.9); NEUT % 88.9 % (16.0-70.0); PLATELET COUNT 1035 TH/MM3 (150-450); RED BLOOD COUNT 6.74 MIL/MM3 (4.00-5.30); RED CELL DISTRIBUTION WIDTH 19.5 % (11.6-17.2); WHITE BLOOD COUNT 21.4 TH/MM3 (4.0-11.0)
[2017-11-02 08:27] LABS: ALT (GPT) 13 U/L (10-53)
[2017-11-02 08:29] LABS: ALBUMIN 2.1 GM/DL (3.4-5.0); AST (GOT) 26 U/L (15-37); BICARBONATE 25.3 MEQ/L (21.0-32.0); BLOOD UREA NITROGEN 8 MG/DL (7-18); CALCIUM 8.3 MG/DL (8.5-10.1); CHLORIDE 101 MEQ/L (98-107); CREATININE 0.45 MG/DL (0.50-1.00); GLOMERULAR FILTRATION RATE 135 ML/MIN (>89); GLUCOSE,RANDOM 87 MG/DL (74-106); MAGNESIUM 2.1 MG/DL (1.5-2.5); SODIUM (NA) 138 MEQ/L (136-145)
[2017-11-02 08:30] LABS: ALKALINE PHOSPHATASE 89 U/L (45-117); PHOSPHORUS 2.6 MG/DL (2.5-4.9); TOTAL BILIRUBIN ADULT 0.4 MG/DL (0.2-1.0); TOTAL PROTEIN 5.7 GM/DL (6.4-8.2)
[2017-11-02] MEDS: ESCITALOPRAM OXALATE 10 MG TAB PO SCH (09:00)
--- NOTE | 2017-11-02 09:28 | HHI.PYPN ---
Subjective Chief Complaint: patient confused unable to care for self found lying in her own waste produ Remarks Patient seen in her room with counselor Denice. Chart reviewed. Patient compliant medication. Patient continues no behavioral problem she is calm pleasant with me with fair eye contact occasional small smile today. She is more verbal today. She is well oriented. Attempted to discuss with patient also discharge plans. There is a note from 10/29/17 from palliative care referral to a SNF. I agree with that. The liver counselor start working on that issue. The patient is involuntary at this time I feel that the Shi act maybe lifted if appropriate placement is found Review of Systems Except as stated in HPI: all other systems reviewed are Neg Mental Status Examination Appearance: Appropriate Consciousness: Alert Orientation: Person, Place, Situation (knows why she is in the hospital) Motor Activity: Other (patient bedridden at this time) Speech: Hesitant Language: Adequate Fund of Knowledge: Inadequate Attention and Concentration: Other (poor) Memory: Impaired Mood: Other (euthymic to somewhat restricted) Affect: Other (decreased range and intensity) Thought Process & Associations: Linear Thought Content: Other (disorganized) Hallucination Type: None (denies) Delusion Type: None Suicidal Ideation: No Suicidal Plan: No Suicidal Intention: No Homicidal Ideation: No Homicidal Plan: No Homicidal Intention: No Insight: Poor Judgment: Poor Results Labs Test 11/02/17 07:35 White Blood Count 21.4 TH/MM3 Red Blood Count 6.74 MIL/MM3 Hemoglobin 14.7 GM/DL Hematocrit 46.6 % Mean Corpuscular Volume 69.2 FL Mean Corpuscular Hemoglobin 21.9 PG Mean Corpuscular Hemoglobin Concent 31.6 % Red Cell Distribution Width 19.5 % Platelet Count 1035 TH/MM3 Mean Platelet Volume 8.5 FL Neutrophils (%) (Auto) 88.9 % Lymphocytes (%) (Auto) 4.2 % Monocytes (%) (Auto) 4.0 % Eosinophils (%) (Auto) 2.4 % Basophils (%) (Auto) 0.5 % Neutrophils # (Auto) 19.0 TH/MM3 Lymphocytes # (Auto) 0.9 TH/MM3 Monocytes # (Auto) 0.9 TH/MM3 Eosinophils # (Auto) 0.5 TH/MM3 Basophils # (Auto) 0.1 TH/MM3 CBC Comment AUTO DIFF Blood Urea Nitrogen 8 MG/DL Creatinine 0.45 MG/DL Random Glucose 87 MG/DL Total Protein 5.7 GM/DL Albumin 2.1 GM/DL Calcium Level 8.3 MG/DL Phosphorus Level 2.6 MG/DL Magnesium Level 2.1 MG/DL Alkaline Phosphatase 89 U/L Aspartate Amino Transf (AST/SGOT) 26 U/L Alanine Aminotransferase (ALT/SGPT) 13 U/L Total Bilirubin 0.4 MG/DL Sodium Level 138 MEQ/L Potassium Level 3.6 MEQ/L Chloride Level 101 MEQ/L Carbon Dioxide Level 25.3 MEQ/L Anion Gap 12 MEQ/L Estimat Glomerular Filtration Rate 135 ML/MIN Date/Time Source Procedure Growth Status 10/26/17 11:50 Urine Other Urine Culture - Final Rae Albicans Complete Vitals/IOs Vital Signs Date Time Temp Pulse Resp B/P (MAP) Pulse Ox O2 Delivery O2 Flow Rate FiO2 11/02/17 06:08 98.1 80 18 145/70 (95) 94 11/01/17 08:33 21 10/31/17 10:10 Nasal Cannula 2.00 Intake and Output 11/02/17 11/02/17 11/03/17 08:00 16:00 00:00 Intake Total 240 ml Balance 240 ml Assessment & Plan Problem List: (1) OTHER ALZHEIMER'S DISEASE ICD Codes: G30.8 - OTHER ALZHEIMER'S DISEASE (2) Dementia associated with other underlying disease without behavioral disturbance ICD Codes: F02.80 - Dementia in other diseases classified elsewhere without behavioral disturbance Assessment & Plan Estimated LOS: days patient showing some increased focus and processing. She is pleasant denying suicidality voices or visions. There have the counselor continue to work on finding an appropriate SNF for this lady Justification for Cont. Inpt. If this time patient decompensate if not placed at an appropriate level of care Discharge Planning We need to work with medicine and palliative care to finding appropriate SNF Request HC Surrog/Guard Advoc?: Yes Anselmo Gray MD Nov 02, 2017 09:28
[2017-11-02 09:35] LABS: BANDS 11 % (0-6); LYMPHOCYTES 6 % (9-44); METAMYELOCYTES 1 % (0-1); MONOCYTES 8 % (0-8); MYELOCYTES 2 % (0-0); NEUTROPHIL # MANUAL DIFF 18.4 TH/MM3 (1.8-7.7); POLYS (SEG NEUTROPHILS) 72 % (16-70)
--- NOTE | 2017-11-02 09:35 | HHI.PR ---
Subjective Remarks 1-4 CARDIOLOGY AND VASCULAR BOTH AGREE THAT PATIENT NEEDS TO BE ON ANTICOAGULATION WITH ELIQUIS 5MG PO BID DW RN AND PT NO NEW COMPLAINTS AT THIS TIME 1-5 no new complaints today started on Eliquis yesterday We'll monitor for any other issues Discussed with patient and RN Objective Vitals Vital Signs Date Time Temp Pulse Resp B/P (MAP) Pulse Ox O2 Delivery O2 Flow Rate FiO2 11/02/17 06:08 98.1 80 18 145/70 (95) 94 11/01/17 17:39 98.9 77 15 129/61 (83) 94 I/O 11/01/17 11/01/17 11/01/17 11/02/17 11/02/17 11/02/17 07:00 15:00 23:00 07:00 15:00 23:00 Intake Total 0 ml 300 ml 300 ml 0 ml 240 ml Output Total 700 ml Balance 0 ml 300 ml -400 ml 0 ml 240 ml Intake Oral 0 ml 300 ml 300 ml 0 ml 240 ml Output Urine Total 700 ml Bladder Scan Volume Amount 800 ml # Voids 1 1 0 Result Diagram: 11/02/17 0735 11/02/17 0735 Other Results Laboratory Tests Test 10/30/17 11:28 10/31/17 04:45 11/01/17 05:05 11/02/17 07:35 White Blood Count 23.5 TH/MM3 21.6 TH/MM3 22.5 TH/MM3 21.4 TH/MM3 Red Blood Count 6.82 MIL/MM3 6.46 MIL/MM3 6.26 MIL/MM3 6.74 MIL/MM3 Hemoglobin 14.9 GM/DL 14.4 GM/DL 14.3 GM/DL 14.7 GM/DL Hematocrit 46.9 % 44.8 % 43.3 % 46.6 % Mean Corpuscular Volume 68.9 FL 69.4 FL 69.2 FL 69.2 FL Mean Corpuscular Hemoglobin 21.9 PG 22.3 PG 22.9 PG 21.9 PG Mean Corpuscular Hemoglobin Concent 31.8 % 32.1 % 33.1 % 31.6 % Red Cell Distribution Width 19.4 % 19.2 % 19.9 % 19.5 % Platelet Count 1080 TH/MM3 1038 TH/MM3 1146 TH/MM3 1035 TH/MM3 Mean Platelet Volume 8.1 FL 8.5 FL 8.9 FL 8.5 FL Neutrophils (%) (Auto) 88.8 % 88.0 % 86.6 % 88.9 % Lymphocytes (%) (Auto) 3.9 % 5.0 % 6.0 % 4.2 % Monocytes (%) (Auto) 4.0 % 4.3 % 4.0 % 4.0 % Eosinophils (%) (Auto) 2.2 % 2.5 % 2.5 % 2.4 % Basophils (%) (Auto) 1.1 % 0.2 % 0.9 % 0.5 % Neutrophils # (Auto) 20.9 TH/MM3 19.0 TH/MM3 19.4 TH/MM3 19.0 TH/MM3 Lymphocytes # (Auto) 0.9 TH/MM3 1.1 TH/MM3 1.3 TH/MM3 0.9 TH/MM3 Monocytes # (Auto) 0.9 TH/MM3 0.9 TH/MM3 0.9 TH/MM3 0.9 TH/MM3 Eosinophils # (Auto) 0.5 TH/MM3 0.5 TH/MM3 0.6 TH/MM3 0.5 TH/MM3 Basophils # (Auto) 0.3 TH/MM3 0.0 TH/MM3 0.2 TH/MM3 0.1 TH/MM3 CBC Comment AUTO DIFF AUTO DIFF AUTO DIFF AUTO DIFF Differential Total Cells Counted 100 100 100 Neutrophils % (Manual) 77 % 86 % 75 % Band Neutrophils % 14 % 3 % 16 % Lymphocytes % 6 % 4 % 5 % Monocytes % 2 % 6 % 2 % Neutrophils # (Manual) 21.6 TH/MM3 19.2 TH/MM3 20.7 TH/MM3 Myelocytes 1 % 1 % Differential Comment FINAL DIFF MANUAL FINAL DIFF MANUAL FINAL DIFF MANUAL Platelet Estimate HIGH HIGH HIGH Platelet Morphology Comment ENLARGED ENLARGED NORMAL Ovalocytes 1+ 1+ Erythrocyte Sedimentation Rate 1 mm/hr C-Reactive Protein 8.93 MG/DL Basophils % 1 % Eosinophils % 1 % Toxic Vacuolation PRESENT Blood Urea Nitrogen 8 MG/DL Creatinine 0.45 MG/DL Random Glucose 87 MG/DL Total Protein 5.7 GM/DL Albumin 2.1 GM/DL Calcium Level 8.3 MG/DL Phosphorus Level 2.6 MG/DL Magnesium Level 2.1 MG/DL Alkaline Phosphatase 89 U/L Aspartate Amino Transf (AST/SGOT) 26 U/L Alanine Aminotransferase (ALT/SGPT) 13 U/L Total Bilirubin 0.4 MG/DL Sodium Level 138 MEQ/L Potassium Level 3.6 MEQ/L Chloride Level 101 MEQ/L Carbon Dioxide Level 25.3 MEQ/L Anion Gap 12 MEQ/L Estimat Glomerular Filtration Rate 135 ML/MIN Imaging Last Impressions Lower Extremity CT 10/31/17 1226 Signed Impressions: Service Date/Time: Tuesday, October 31, 2017 15:52 - CONCLUSION: Minimal deep hematoma distal anastomosis measuring 3.2 cm x 1.7 cm. Kuldeep Radford MD FACR Liver Ultrasound 10/30/17 0000 Signed Impressions: Service Date/Time: Monday, October 30, 2017 20:54 - CONCLUSION: 1. Echogenic right kidney which can be seen with medical renal disease. 2. Minimal nonspecific perinephric fluid. 3. Spleen is at the upper limits of normal in size. 4. No evidence for cholelithiasis. Vincent Spence MD Chest X-Ray 10/29/17 0600 Signed Impressions: Service Date/Time: Sunday, October 29, 2017 03:17 - CONCLUSION: New right lower lobe infiltrate. Stable interstitial changes. Garett Delcid Jr., MD Objective Remarks GENERAL: AWAKE ALERT AND SOMEWHAT ORIENTED TO PERSON AND PLACE- FOLLOWS COMMANDS FOR ME SKIN: Warm and dry. HEAD: Atraumatic. Normocephalic. EYES: Pupils equal and round. No scleral icterus. No injection or drainage. EOMI ENT: No nasal bleeding or discharge. Mucous membranes pink and moist. TONGUE MIDLINE NECK: Trachea midline. No JVD. SUPPLE CARDIOVASCULAR: IRRegular rate and rhythm. S1, S2 NO S3 OR S4 RESPIRATORY: No accessory muscle use. Clear to auscultation. Breath sounds equal bilaterally. GASTROINTESTINAL: Abdomen soft, non-tender, nondistended. Hepatic and splenic margins not palpable. MUSCULOSKELETAL: Extremities without clubbing, cyanosis, or edema. No obvious deformities. NEUROLOGICAL: Awake and alert. No obvious cranial nerve deficits. Motor grossly within normal limits. 4 out of 5 muscle strength in the arms and legs. Normal speech. PSYCHIATRIC: INAppropriate mood and affect; insight and judgment ABnormal. Procedures NONE Medications and IVs Current Medications Amoxicillin/ Clavulanate Potassium (Augmentin) 500 mg BID PO ; Start 10/25/17 at 21:00; Stop 10/26/17 at 10:31; Status DC Atorvastatin Calcium (Lipitor) 80 mg HS PO Last administered on 11/01/17 21:11 ; Start 10/25/17 at 21:00 Clopidogrel Bisulfate (Plavix) 75 mg DAILY PO Last administered on 10/31/17 09: 00; Start 10/25/17 at 17:30; Stop 10/31/17 at 14:12; Status DC Digoxin (Lanoxin) 0.125 mg DAILY PO Last administered on 11/01/17 09:12; Start 10/25/17 at 17:30 Metoprolol Tartrate (Lopressor) 25 mg Q12HR PO Last administered on 11/01/17 21 :11; Start 10/25/17 at 21:00 Quetiapine Fumarate (SEROquel) 12.5 mg BID@09,12 PO ; Start 10/26/17 at 09:00; Stop 10/29/17 at 10:24; Status DC Acetaminophen (Tylenol) 650 mg Q4H PRN PO Pain 1-5 or Temp >101F Last administered on 10/29/17 09:17; Start 10/25/17 at 17:30 Magnesium Hydroxide (Milk Of Magnesia Liq) 30 ml DAILY PRN PO CONSTIPATION; Start 10/25/17 at 17:30 Al Hydrox/Mg Hydrox/Simethicone (Mag-Al Plus Susp Liq) 30 ml Q6H PRN PO DYSPEPSIA; Start 10/25/17 at 17:30 Hydroxyzine HCl (Atarax) 50 mg Q6H PRN PO ANXIETY Last administered on 21:10; Start 10/26/17 at 09:15 Fluconazole (Diflucan) 150 mg ONCE ONCE PO Last administered on 10/26/17t 11: 01; Start 10/26/17 at 11:00; Stop 10/26/17 at 11:01; Status DC Ceftriaxone Sodium 1000 mg/ Sodium Chloride 100 ml @ 200 mls/hr Q24H IV Last administered on 11/01/17 11:00; Start 10/26/17 at 11:00 Miscellaneous (Pill Splitter) 1 ea UNSCH PRN OTHER SEE LABEL COMMENTS; Start 10/26/17 at 10:30 Metoclopramide HCl (Reglan) 10 mg ACHS PRN PO Digestive Aid; Start 10/26/17 at 13:30; Status Future Hold Ondansetron HCl (Zofran Odt) 4 mg Q6H PRN PO nausea; Start 10/26/17 at 13:30 ; Status Future Hold Albuterol/ Ipratropium (Duoneb Neb) 1 ampule Q4HR NEB PRN NEB wheezing Last administered on 10/31/17 20:03; Start 10/26/17 at 13:45 Methylprednisolone Sodium Succinate (SoluMEDROL INJ) 125 mg ONCE ONCE IV PUSH Last administered on 10/26/17 13:57; Start 10/26/17 at 14:00; Stop 10/26/17 at 14:01; Status DC Furosemide (Lasix Inj) 40 mg ONCE ONCE IV PUSH Last administered on 14:33; Start 10/26/17 at 14:15; Stop 10/26/17 at 14:16; Status DC Clonidine (Catapres) 0.1 mg Q6H PRN PO SBP > 160 Last administered on 18:14; Start 10/26/17 at 17:30 Furosemide (Lasix Inj) 20 mg DAILY IV PUSH Last administered on 10/27/17 09: 00; Start 10/27/17 at 09:00; Stop 10/28/17 at 09:43; Status DC Potassium Chloride (KCl) 10 meq DAILY PO Last administered on 10/27/17 09:00 ; Start 10/27/17 at 09:00; Stop 10/28/17 at 09:43; Status DC Albuterol/ Ipratropium (Duoneb Neb) 1 ampule Q6HR WHILE AWAKE NEB NEB Last administered on 10/31/17 13:55; Start 10/27/17 at 20:00; Stop 10/31/17 at 19:59 ; Status DC Azithromycin (Zithromax) 250 mg DAILY PO ; Start 10/28/17 at 09:00; Stop 10/28 at 09:00; Status DC Azithromycin (Zithromax) 500 mg ONCE ONCE PO ; Start 10/27/17 at 15:15; Stop 10/27/17 at 15:15; Status DC Furosemide (Lasix Inj) 20 mg DAILY IV PUSH Last administered on 10/30/17 09:00 ; Start 10/27/17 at 15:15; Stop 10/30/17 at 15:14; Status DC Potassium Chloride (KCl) 10 meq DAILY PO Last administered on 10/30/17at 11:56; Start 10/27/17 at 15:15; Stop 10/30/17 at 15:14; Status DC Amoxicillin/ Clavulanate Potassium (Augmentin) 500 mg Q12HR PO Last administered on 10/27/17t 21:43; Start 10/27/17 at 21:00; Stop 10/28/17 at 08 :06; Status DC Fluconazole (Diflucan) 200 mg DAILY PO Last administered on 10/30/17at 11:56; Start 10/28/17 at 09:00; Stop 10/31/17 at 08:59; Status DC Quetiapine Fumarate (SEROquel) 25 mg BID@09,12 PO ; Start 10/29/17 at 12:00; Stop 10/30/17 at 10:16; Status DC Quetiapine Fumarate (SEROquel) 25 mg TID@0800,1400,2000 PO Last administered on 11/01/17at 14:00; Start 10/30/17 at 14:00 Enoxaparin Sodium (Lovenox Inj) 30 mg Q24H SQ Last administered on 10/31/17at 09: 00; Start 10/31/17 at 09:00; Stop 10/31/17 at 14:12; Status DC Aspirin (Aspirin Chew) 81 mg DAILY CHEW Last administered on 11/01/17at 09:12; Start 11/01/17 at 09:00 Apixaban (Eliquis) 5 mg BID PO Last administered on 11/01/17at 09:12; Start at 21:00 Escitalopram Oxalate (Lexapro) 10 mg DAILY PO ; Start 11/01/17 at 15:45 A/P Problem List: (1) History of endarterectomy ICD Code: Z98.890 - Other specified postprocedural states (2) Dyspnea ICD Code: R06.00 - Dyspnea, unspecified (3) Pain ICD Code: R52 - Pain, unspecified (4) Thrombocytosis ICD Code: D47.3 - Essential (hemorrhagic) thrombocythemia Status: Chronic (5) UTI (urinary tract infection) ICD Code: N39.0 - Urinary tract infection, site not specified (6) Peripheral vascular disease ICD Code: I73.9 - Peripheral vascular disease, unspecified Status: Acute Assessment and Plan Assessment and Plan 77 years old female who was admitted to medical service from October 14, 2017 to October 25, 2017. She was found to have severe PAD requiring right femoropopliteal bypass and femoral endarterectomy during that hospitalization. Course was complicated by UTI and pneumonia. Patient reports no primary care doctor in no follow-up with no medications prior to this hospitalization. Nursing staff reported patient has no family members that they were able to reach out to as well. Impression/plan: Suprapubic tenderness on 10/29/17 bladder scan showing >900cc duggan inserted likely from not ambulating will dc duggan today 10/31/17 to give her trial of void- if retain again, then will dc to Rehab/ NH with duggan - fu with urology as outpatient CONTINUE DIFLUCAN 200MG DAILY Dementia. management per psychiatry. UTI. Rae growing in cultures. On Diflucan CONTINUE Pneumonia. Asymptomatic at present. On Rocephin started 10/26/17. Will dc tomorrow 11/01/17 to complete 7 days course. Leukocytosis/thrombocytosis/erythrocytosis Patient denies any prior history of this. Previous admission in early September reveals was erythrocytosis in a smoker. Patient has history of CVA, severe PAD, A. fib. High risk for clot formations. hematology was consulted, recommendations reviewed- will fu workup- need outpatient hematology follow up CONTINUE ON ELIQUIS 5MG PO BID S/P Fem/Pop Bypass - 10/19/17 exploration of the left groin, left common femoral and external iliac artery. Endarterectomy and patch angioplasty. External and common artery thromboembolectomy, superficial femoral popliteal artery thromboembolectomy, arteriogram. - 10/23/17 Right external iliac-common femoral endarterectomy and patch angioplasty and right femoral-popliteal bypass, PTFE graft - pt seems to have more pain on exam today- nursing order written to f/u with vascular sx on discharge planning care and to report of pt's symptoms- will also obtain CT RLE to make sure no hematoma/ post op complication CONTINUE ON ELIQUIS 5MG PO BID Atrial Fibrillation. Rate controlled. Anticoagulation needs to be discussed. However per nursing staff, patient is a very high risk for falls and she did in fact fell while in hospital on October 26, 2017. Currently patient is on Plavix for severe PAD. Based on her discharge planning and risk of falls, we will reconsider anticoagulation. At present high risk of falls due to pt's prolonged hospitalization/ recent surgery and not ambulating. However, discussed with psychiatry team- pt is planned for dc to Rehab or NH- thus would be able to anticoagulate under monitored setting- I do think that pt is a candidate for anticoagulation. Was seen by cardiology during this hospitalization. Due to abnormal EKG prior to the OR by vascular surgeon for femoropopliteal, cardiology clearance was obtained. CARDIOLOGY WANTS ON ANTICOAGULATION CONTINUE ON ELIQUIS 5MG PO BID HTN - controlled Hyperlipidemia - Abnormal EKG in inpatient with abnormal stress test and subsequent cardia cath was done? - Continue with ELIQUIS 5MG BID, metoprolol 25 mg by mouth every 12 hours, atorvastatin 80 mg daily at bedtime, digoxin 0.125 mg daily ASA 81MG PO DAILY DVT prop - on ELIQUIS 5MG BID Discharge Planning PENDING PSYCHIATRY PLACEMENT Kuldeep Lyn DO Nov 02, 2017 09:35
[2017-11-02 09:36] LABS: OVALOCYTES 1+ (NORMAL)
[2017-11-02] MEDS: METOPROLOL TARTRATE 25 MG TAB PO SCH ×2 (09:39→21:25)
[2017-11-02] MEDS: APIXABAN 5 MG TABLET PO SCH ×2 (09:40→21:25)
[2017-11-02] MEDS: ASPIRIN 81 MG CHEW TAB CHEW SCH (09:40)
[2017-11-02] MEDS: DIGOXIN 0.125 MG TAB PO SCH (09:40)
[2017-11-02] MEDS: QUEtiapine FUMARATE 25 MG TAB PO SCH ×3 (09:42→21:27)
[2017-11-02] MEDS: FLUCONAZOLE 200 MG TAB PO SCH (10:15)
[2017-11-02] MEDS: cefTRIAXone INJ 1,000 MG in SODIUM CHLORIDE 0.9% INJ 100 ML IV SCH (11:00)
--- NOTE | 2017-11-02 16:22 | PD.ONC.PN ---
Subjective Subjective Remarks Afebrile overnight. Patient resting in bed in nad. No complaints. Watching TV. Objective Data Date Time Temp Pulse Resp B/P (MAP) Pulse Ox O2 Delivery O2 Flow Rate FiO2 11/02/17 06:08 98.1 80 18 145/70 (95) 94 11/01/17 17:39 98.9 77 15 129/61 (83) 94 11/02/17 11/02/17 11/02/17 07:00 15:00 23:00 Intake Total 0 ml 240 ml Balance 0 ml 240 ml Result Diagram: 11/02/17 0735 11/02/17 0735 Laboratory Results Laboratory Tests Test 11/02/17 07:35 White Blood Count 21.4 TH/MM3 Red Blood Count 6.74 MIL/MM3 Hemoglobin 14.7 GM/DL Hematocrit 46.6 % Mean Corpuscular Volume 69.2 FL Mean Corpuscular Hemoglobin 21.9 PG Mean Corpuscular Hemoglobin Concent 31.6 % Red Cell Distribution Width 19.5 % Platelet Count 1035 TH/MM3 Mean Platelet Volume 8.5 FL Neutrophils (%) (Auto) 88.9 % Lymphocytes (%) (Auto) 4.2 % Monocytes (%) (Auto) 4.0 % Eosinophils (%) (Auto) 2.4 % Basophils (%) (Auto) 0.5 % Neutrophils # (Auto) 19.0 TH/MM3 Lymphocytes # (Auto) 0.9 TH/MM3 Monocytes # (Auto) 0.9 TH/MM3 Eosinophils # (Auto) 0.5 TH/MM3 Basophils # (Auto) 0.1 TH/MM3 CBC Comment AUTO DIFF Differential Total Cells Counted 100 Neutrophils % (Manual) 72 % Band Neutrophils % 11 % Lymphocytes % 6 % Monocytes % 8 % Neutrophils # (Manual) 18.4 TH/MM3 Metamyelocytes 1 % Myelocytes 2 % Differential Comment FINAL DIFF MANUAL Platelet Estimate HIGH Platelet Morphology Comment NORMAL Ovalocytes 1+ Blood Urea Nitrogen 8 MG/DL Creatinine 0.45 MG/DL Random Glucose 87 MG/DL Total Protein 5.7 GM/DL Albumin 2.1 GM/DL Calcium Level 8.3 MG/DL Phosphorus Level 2.6 MG/DL Magnesium Level 2.1 MG/DL Alkaline Phosphatase 89 U/L Aspartate Amino Transf (AST/SGOT) 26 U/L Alanine Aminotransferase (ALT/SGPT) 13 U/L Total Bilirubin 0.4 MG/DL Sodium Level 138 MEQ/L Potassium Level 3.6 MEQ/L Chloride Level 101 MEQ/L Carbon Dioxide Level 25.3 MEQ/L Anion Gap 12 MEQ/L Estimat Glomerular Filtration Rate 135 ML/MIN Administered Medications Medications (Trade) Dose Ordered Sig/Sina Route PRN Reason Start Time Stop Time Status Last Admin Dose Admin Atorvastatin Calcium (Lipitor) 80 mg HS PO 10/25/17 21:00 11/01/17 21:11 Digoxin (Lanoxin) 0.125 mg DAILY PO 10/25/17 17:30 11/02/17 09:40 Metoprolol Tartrate (Lopressor) 25 mg Q12HR PO 10/25/17 21:00 11/02/17 09:39 Acetaminophen (Tylenol) 650 mg Q4H PRN PO Pain 1-5 or Temp >101F 10/25/17 17:30 10/29/17 09:17 Hydroxyzine HCl (Atarax) 50 mg Q6H PRN PO ANXIETY 10/26/17 09:15 11/01/17 21:10 Ceftriaxone Sodium 1000 mg/ Sodium Chloride 100 ml @ 200 mls/hr Q24H IV 10/26/17 11:00 11/02/17 11:00 Albuterol/ Ipratropium (Duoneb Neb) 1 ampule Q4HR NEB PRN NEB wheezing 10/26/17 13:45 10/31/17 20:03 Clonidine (Catapres) 0.1 mg Q6H PRN PO SBP > 160 10/26/17 17:30 10/26/17 18:14 Quetiapine Fumarate (SEROquel) 25 mg TID@0800,1400,2000 PO 10/30/17 14:00 11/02/17 14:00 Aspirin (Aspirin Chew) 81 mg DAILY CHEW 11/01/17 09:00 11/02/17 09:40 Apixaban (Eliquis) 5 mg BID PO 10/31/17 21:00 11/02/17 09:40 Escitalopram Oxalate (Lexapro) 10 mg DAILY PO 11/01/17 15:45 11/02/17 09:00 Objective Remarks GENERAL: Frail elderly female, supine in bed watching TV SKIN: Warm and dry. no rash. HEAD: Normocephalic. EYES: No injection or drainage. NECK: Supple, trachea midline. CARDIOVASCULAR: +S1/S2 RESPIRATORY: anterior manzano clear. GASTROINTESTINAL: Abdomen soft, non-tender, nondistended. EXTREMITIES: No cyanosis, or edema. MUSCULOSKELETAL: Adequate muscle tone. NEUROLOGICAL: awake. following commands. answering questions appropriately. Assessment/Plan Problem List: (1) Leukocytosis ICD Codes: D72.829 - Elevated white blood cell count, unspecified Plan: --likely reactive d/t recent major surgical procedures including endarterectomy and bypass surgery as well as urinary tract infection and pneumonia. --b12/folate WNL --iron studies show low TIBC, serum iron % saturation and ferritin, usually with iron deficiency anemia TIBC is normal or elevated--may indicate a mixed picture. --Jak2, BCR/ABL pending (2) Thrombocytosis ICD Codes: D47.3 - Essential (hemorrhagic) thrombocythemia Status: Chronic Plan: --likely reactive d/t recent major surgical procedures including endarterectomy and bypass surgery as well as urinary tract infection and pneumonia. --b12/folate WNL --iron studies show low TIBC, serum iron % saturation and ferritin, usually with iron deficiency anemia TIBC is normal or elevated--may indicate a mixed picture. --Jak2, BCR/ABL pending. Assessment 77-year-old lady admitted in September 2017 with severe peripheral arterial disease requiring right femoropopliteal bypass and femoral endarterectomy. Postoperative course was complicated by urinary tract infection and pneumonia. Hematology consulted for leukocytosis and thrombocytosis. h/o Hyperlipidemia, Hypertension Plan 1. monitor CBC 2. await JAK2, BCRABL 3. ok to d/c and follow up in oncology clinic for results of above. Attending Statement The exam, history, and the medical decision-making described in the above note were completed with the assistance of the mid-level provider. I reviewed and agree with the findings presented. I attest that I had a [id number] encounter with the patient on the same day, and personally performed and documented my assessment and findings in the medical record. 77 yoF with severe PAD s/p vascular surgery and recent UTI/pneumonia. Following for leukocytosis and thrombocytosis. Likely reactive due to recent surgical procedure and infection. Abdominal ultrasound WNL. Previously elevated during past hospital stay. Will follow up BCRABL and JAK2. Tomeka Saldivar Nov 02, 2017 16:22 Nallely Francois MD Nov 02, 2017 19:19
[2017-11-02 18:00] VITALS: BP 137/75; PULSE 82; RESP 17; TEMP 97.8; O2SAT 94
[2017-11-02] MEDS: ATORVASTATIN 80 MG TAB PO SCH (21:25)
[2017-11-02] MEDS: hydrOXYzine HCL 50 MG TAB PO PRN (21:25)
[2017-11-03 05:42] VITALS: BP 133/67; PULSE 76; RESP 14; TEMP 98.5; O2SAT 95
[2017-11-03] MEDS: QUEtiapine FUMARATE 25 MG TAB PO SCH ×3 (08:00→20:00)
--- NOTE | 2017-11-03 08:08 | HHI.PR ---
Subjective Remarks Patient in bed appears in nad. Says she is not eating much. No chest pain or sob. No suprapubic pain.No fever or chills. No n/v/d/c. Has a duggan now . Objective Vitals Vital Signs Date Time Temp Pulse Resp B/P (MAP) Pulse Ox O2 Delivery O2 Flow Rate FiO2 11/03/17 05:42 98.5 76 14 133/67 (89) 95 11/02/17 18:00 97.8 82 17 137/75 (95) 94 I/O 11/02/17 11/02/17 11/02/17 11/03/17 11/03/17 11/03/17 07:00 15:00 23:00 07:00 15:00 23:00 Intake Total 0 ml 240 ml 240 ml Balance 0 ml 240 ml 240 ml Intake Oral 0 ml 240 ml 240 ml Bladder Scan Volume Amount 801 ml # Voids 0 Result Diagram: 11/02/17 0735 11/02/17 0735 Imaging Last Impressions Lower Extremity CT 10/31/17 1226 Signed Impressions: Service Date/Time: Tuesday, October 31, 2017 15:52 - CONCLUSION: Minimal deep hematoma distal anastomosis measuring 3.2 cm x 1.7 cm. Kuldeep Radford MD FACR Liver Ultrasound 10/30/17 0000 Signed Impressions: Service Date/Time: Monday, October 30, 2017 20:54 - CONCLUSION: 1. Echogenic right kidney which can be seen with medical renal disease. 2. Minimal nonspecific perinephric fluid. 3. Spleen is at the upper limits of normal in size. 4. No evidence for cholelithiasis. Vincent Spence MD Chest X-Ray 10/29/17 0600 Signed Impressions: Service Date/Time: Sunday, October 29, 2017 03:17 - CONCLUSION: New right lower lobe infiltrate. Stable interstitial changes. Garett Delcid Jr., MD Objective Remarks GENERAL: Awake and alert. CARDIOVASCULAR: Irregular rate and rhythm. S1, S2 NO S3 OR S4 RESPIRATORY: No accessory muscle use. Clear to auscultation. Breath sounds equal bilaterally. GASTROINTESTINAL: Abdomen soft, non-tender, nondistended. Hepatic and splenic margins not palpable. MUSCULOSKELETAL: Extremities without clubbing, cyanosis, or edema. No obvious deformities. NEUROLOGICAL: Awake and alert. No obvious cranial nerve deficits. Motor grossly within normal limits. 4 out of 5 muscle strength in the arms and legs. Normal speech. PSYCHIATRIC: Inappropriate mood and affect; insight and judgment abnormal. Procedures NONE A/P Problem List: (1) History of endarterectomy ICD Code: Z98.890 - Other specified postprocedural states (2) Dyspnea ICD Code: R06.00 - Dyspnea, unspecified (3) Pain ICD Code: R52 - Pain, unspecified (4) Thrombocytosis ICD Code: D47.3 - Essential (hemorrhagic) thrombocythemia Status: Chronic (5) UTI (urinary tract infection) ICD Code: N39.0 - Urinary tract infection, site not specified (6) Peripheral vascular disease ICD Code: I73.9 - Peripheral vascular disease, unspecified Status: Acute Assessment and Plan 77 years old female who was admitted to medical service from October 14, 2017 to October 25, 2017. She was found to have severe PAD requiring right femoropopliteal bypass and femoral endarterectomy during that hospitalization. Course was complicated by UTI and pneumonia. Patient reports no primary care doctor in no follow-up with no medications prior to this hospitalization. Nursing staff reported patient has no family members that they were able to reach out to as well. Suprapubic tenderness on 10/29/17 bladder scan showing >900cc duggan inserted , monitor UOP likely from not ambulating will dc duggan today 10/31/17 to give her trial of void- if retain again, then will dc to Rehab/ NH with duggan - fu with urology as outpatient CONTINUE DIFLUCAN 200MG DAILY Dementia. management per psychiatry. UTI. Rae growing in cultures. On Diflucan CONTINUE Pneumonia. Asymptomatic at present. On Rocephin started 10/26/17. Will dc tomorrow 11/01/17 to complete 7 days course. Leukocytosis/thrombocytosis/erythrocytosis Patient denies any prior history of this. Previous admission in early September reveals was erythrocytosis in a smoker. Patient has history of CVA, severe PAD, A. fib. High risk for clot formations. hematology was consulted, recommendations reviewed- will fu workup- need outpatient hematology follow up CONTINUE ON ELIQUIS 5MG PO BID S/P Fem/Pop Bypass - 10/19/17 exploration of the left groin, left common femoral and external iliac artery. Endarterectomy and patch angioplasty. External and common artery thromboembolectomy, superficial femoral popliteal artery thromboembolectomy, arteriogram. - 10/23/17 Right external iliac-common femoral endarterectomy and patch angioplasty and right femoral-popliteal bypass, PTFE graft - pt seems to have more pain on exam today- nursing order written to f/u with vascular sx on discharge planning care and to report of pt's symptoms- will also obtain CT RLE to make sure no hematoma/ post op complication CONTINUE ON ELIQUIS 5MG PO BID Atrial Fibrillation. Rate controlled. Anticoagulation needs to be discussed. However per nursing staff, patient is a very high risk for falls and she did in fact fell while in hospital on October 26, 2017. Currently patient is on Plavix for severe PAD. Based on her discharge planning and risk of falls, we will reconsider anticoagulation. At present high risk of falls due to pt's prolonged hospitalization/ recent surgery and not ambulating. However, discussed with psychiatry team- pt is planned for dc to Rehab or NH- thus would be able to anticoagulate under monitored setting- I do think that pt is a candidate for anticoagulation. Was seen by cardiology during this hospitalization. Due to abnormal EKG prior to the OR by vascular surgeon for femoropopliteal, cardiology clearance was obtained. CARDIOLOGY WANTS ON ANTICOAGULATION CONTINUE ON ELIQUIS 5MG PO BID HTN - controlled Hyperlipidemia - Abnormal EKG in inpatient with abnormal stress test and subsequent cardia cath was done? - Continue with ELIQUIS 5MG BID, metoprolol 25 mg by mouth every 12 hours, atorvastatin 80 mg daily at bedtime, digoxin 0.125 mg daily ASA 81MG PO DAILY DVT prop - on ELIQUIS 5MG BID Discharge Planning per psych, pending placement Sruthi Liao MD Nov 03, 2017 08:08
[2017-11-03 08:17] LABS: AUTOMATED NEUTROPHIL # 19.6 TH/MM3 (1.8-7.7); BASOPHIL # 0.2 TH/MM3 (0-0.2); EOSINOPHIL # 0.5 TH/MM3 (0-0.4); EOSINOPHIL % 2.2 % (0.0-4.0); HEMATOCRIT 45.4 % (35.0-46.0); HEMOGLOBIN 14.6 GM/DL (11.6-15.3); LYMPH % 3.8 % (9.0-44.0); LYMPHOCYTE # 0.8 TH/MM3 (1.0-4.8); MEAN CELL VOLUME 69.2 FL (80.0-100.0); MEAN CORPUSCULAR HEMOGLOBIN 22.2 PG (27.0-34.0); MEAN CORPUSCULAR HGB CONC 32.1 % (32.0-36.0); MEAN PLATELET VOLUME 8.6 FL (7.0-11.0); MONO % 4.3 % (0.0-8.0); MONOCYTE # 0.9 TH/MM3 (0-0.9); NEUT % 88.7 % (16.0-70.0); PLATELET COUNT 1075 TH/MM3 (150-450); RED BLOOD COUNT 6.55 MIL/MM3 (4.00-5.30); RED CELL DISTRIBUTION WIDTH 19.8 % (11.6-17.2); WHITE BLOOD COUNT 22.1 TH/MM3 (4.0-11.0)
[2017-11-03 08:59] LABS: BANDS 9 % (0-6); BASOPHILS 1 % (0-2); LYMPHOCYTES 1 % (9-44); MONOCYTES 2 % (0-8); MYELOCYTES 1 % (0-0); NEUTROPHIL # MANUAL DIFF 20.8 TH/MM3 (1.8-7.7); POLYS (SEG NEUTROPHILS) 84 % (16-70)
[2017-11-03 09:00] LABS: ACANTHOCYTES OCC (NORMAL); OVALOCYTES 1+ (NORMAL)
[2017-11-03] MEDS: ASPIRIN 81 MG CHEW TAB CHEW SCH (09:00)
[2017-11-03] MEDS: APIXABAN 5 MG TABLET PO SCH ×2 (09:00→21:32)
[2017-11-03] MEDS: METOPROLOL TARTRATE 25 MG TAB PO SCH ×2 (09:00→21:32)
[2017-11-03] MEDS: FLUCONAZOLE 200 MG TAB PO SCH (09:00)
[2017-11-03] MEDS: DIGOXIN 0.125 MG TAB PO SCH (09:00)
[2017-11-03] MEDS: ESCITALOPRAM OXALATE 10 MG TAB PO SCH (09:00)
[2017-11-03] MEDS: cefTRIAXone INJ 1,000 MG in SODIUM CHLORIDE 0.9% INJ 100 ML IV SCH (11:00)
--- NOTE | 2017-11-03 13:20 | HHI.PYPN ---
Subjective Remarks No changes Review of Systems ROS Limitations: Clinical Condition Except as stated in HPI: all other systems reviewed are Neg Mental Status Examination Appearance: Appropriate Consciousness: Alert Orientation: Person, Place, Situation (knows why she is in the hospital) Motor Activity: Other (patient bedridden at this time) Speech: Hesitant Language: Adequate Fund of Knowledge: Inadequate Attention and Concentration: Other (poor) Memory: Impaired Mood: Other (euthymic to somewhat restricted) Affect: Other (decreased range and intensity) Thought Process & Associations: Linear Thought Content: Other (disorganized) Hallucination Type: None (denies) Delusion Type: None Suicidal Ideation: No Suicidal Plan: No Suicidal Intention: No Homicidal Ideation: No Homicidal Plan: No Homicidal Intention: No Insight: Poor Judgment: Poor Results Labs Test 11/03/17 07:40 White Blood Count 22.1 TH/MM3 Red Blood Count 6.55 MIL/MM3 Hemoglobin 14.6 GM/DL Hematocrit 45.4 % Mean Corpuscular Volume 69.2 FL Mean Corpuscular Hemoglobin 22.2 PG Mean Corpuscular Hemoglobin Concent 32.1 % Red Cell Distribution Width 19.8 % Platelet Count 1075 TH/MM3 Mean Platelet Volume 8.6 FL Neutrophils (%) (Auto) 88.7 % Lymphocytes (%) (Auto) 3.8 % Monocytes (%) (Auto) 4.3 % Eosinophils (%) (Auto) 2.2 % Basophils (%) (Auto) 1.0 % Neutrophils # (Auto) 19.6 TH/MM3 Lymphocytes # (Auto) 0.8 TH/MM3 Monocytes # (Auto) 0.9 TH/MM3 Eosinophils # (Auto) 0.5 TH/MM3 Basophils # (Auto) 0.2 TH/MM3 CBC Comment AUTO DIFF Differential Total Cells Counted 100 Neutrophils % (Manual) 84 % Band Neutrophils % 9 % Lymphocytes % 1 % Monocytes % 2 % Eosinophils % 2 % Basophils % 1 % Neutrophils # (Manual) 20.8 TH/MM3 Myelocytes 1 % Differential Comment FINAL DIFF MANUAL Platelet Estimate HIGH Platelet Morphology Comment ENLARGED Ovalocytes 1+ Acanthocytes OCC Date/Time Source Procedure Growth Status 10/26/17 11:50 Urine Other Urine Culture - Final Rae Albicans Complete Vitals/IOs Vital Signs Date Time Temp Pulse Resp B/P (MAP) Pulse Ox O2 Delivery O2 Flow Rate FiO2 11/03/17 05:42 98.5 76 14 133/67 (89) 95 11/01/17 08:33 21 10/31/17 10:10 Nasal Cannula 2.00 Intake and Output 11/03/17 11/03/17 11/04/17 08:00 16:00 00:00 Intake Total 240 ml Balance 240 ml Assessment & Plan Problem List: (1) OTHER ALZHEIMER'S DISEASE ICD Codes: G30.8 - OTHER ALZHEIMER'S DISEASE (2) Dementia associated with other underlying disease without behavioral disturbance ICD Codes: F02.80 - Dementia in other diseases classified elsewhere without behavioral disturbance Assessment & Plan Estimated LOS: days. Continue to monitor for effectiveness of treatment plan. Justification for Cont. Inpt. Likely to decompensate at lower level of care Request HC Surrog/Guard Advoc?: Yes Singh Cruz MD Nov 03, 2017 13:20
[2017-11-03 18:00] VITALS: BP 131/63; PULSE 73; RESP 16; TEMP 97.9; O2SAT 94
[2017-11-03] MEDS: ATORVASTATIN 80 MG TAB PO SCH (21:32)
[2017-11-04] VITALS: BP 93/54; PULSE 111; RESP 18; TEMP 98.2; O2SAT 95
[2017-11-04 07:03] VITALS: BP 150/74; PULSE 73; RESP 16; TEMP 97.5; O2SAT 95
[2017-11-04] MEDS: ESCITALOPRAM OXALATE 10 MG TAB PO SCH (10:09)
[2017-11-04] MEDS: DIGOXIN 0.125 MG TAB PO SCH (10:09)
[2017-11-04] MEDS: METOPROLOL TARTRATE 25 MG TAB PO SCH ×2 (10:09→21:21)
[2017-11-04] MEDS: APIXABAN 5 MG TABLET PO SCH ×2 (10:09→21:21)
[2017-11-04] MEDS: FLUCONAZOLE 200 MG TAB PO SCH (10:09)
[2017-11-04] MEDS: ASPIRIN 81 MG CHEW TAB CHEW SCH (10:10)
[2017-11-04] MEDS: QUEtiapine FUMARATE 25 MG TAB PO SCH ×3 (10:13→21:21)
[2017-11-04] MEDS: cefTRIAXone INJ 1,000 MG in SODIUM CHLORIDE 0.9% INJ 100 ML IV SCH (11:00)
--- NOTE | 2017-11-04 12:05 | HHI.PR ---
Subjective Remarks Follow-up visit dementia, urinary tract infection, status post femoropopliteal bypass. Patient seen and examined today lying in bed. Drowsy. As per nurse, patient just had her psych meds. Patient states she is doing well and goes back to sleep. Denies pain or discomfort. Objective Vitals Vital Signs Date Time Temp Pulse Resp B/P (MAP) Pulse Ox O2 Delivery O2 Flow Rate FiO2 11/04/17 07:03 97.5 73 16 150/74 (99) 95 11/04/17 00:00 98.2 111 18 93/54 (67) 95 11/03/17 18:00 97.9 73 16 131/63 (85) 94 I/O 11/03/17 11/03/17 11/03/17 11/04/17 11/04/17 11/04/17 07:00 15:00 23:00 07:00 15:00 23:00 Intake Total 600 ml 140 ml 100 ml 360 ml Output Total 1000 ml 750 ml 400 ml Balance -1000 ml 600 ml -610 ml -300 ml 360 ml Intake Oral 600 ml 140 ml 100 ml 360 ml Output Urine Total 1000 ml 750 ml 400 ml Bladder Scan Volume Amount 801 ml # Voids 1 Result Diagram: 11/03/17 0740 11/02/17 0735 Objective Remarks GENERAL: This is a thin-appearing, well-developed patient, in no apparent distress. SKIN: Warm and dry HEENT: Normocephalic. Pupils equal round and reactive. Nose without bleeding. Airway patent. NECK: Trachea midline. No JVD. Supple. CARDIOVASCULAR: Regular rate and rhythm without murmurs, gallops, or rubs. RESPIRATORY: No wheezes, rales, or rhonchi. Diminished bases. GASTROINTESTINAL: Abdomen soft, non-tender, nondistended. Bowel Sounds normoactive x4. MUSCULOSKELETAL: Extremities without clubbing, cyanosis. RLE trace edema NEUROLOGICAL: Awake and alert. Oriented to place, person. Moves all extremities. Normal speech. Procedures S/P Fem/Pop Bypass 10/23/17 A/P Problem List: (1) History of endarterectomy ICD Code: Z98.890 - Other specified postprocedural states (2) Dyspnea ICD Code: R06.00 - Dyspnea, unspecified (3) Pain ICD Code: R52 - Pain, unspecified (4) Thrombocytosis ICD Code: D47.3 - Essential (hemorrhagic) thrombocythemia Status: Chronic (5) UTI (urinary tract infection) ICD Code: N39.0 - Urinary tract infection, site not specified (6) Peripheral vascular disease ICD Code: I73.9 - Peripheral vascular disease, unspecified Status: Acute Assessment and Plan Patient is a 77 Y/O female who presented to the hospital 10/14 with generalized weakness. Patient found to have PAD status post right femoropopliteal bypass and femoral endarterectomy. Her hospitalization was also complicated with sepsis secondary to UTI and pneumonia. Patient continued to have psychosis and confusion. She is now admitted to medical psychiatry unit for further evaluation. Consulted for medical management. Psychosis, Dementia - Managed by psychiatry team Urinary tract infection Urinary retention - Evidence of UTI with Rae. Repeat UA shows continued Rae. - Continue Diflucan until stop date. - Patient may DC to [facility], rehabilitation center with [facility]. Urology as an outpatient if continues to have retention. Pneumonia Leukocytosis, thrombocytosis - Had history of sepsis pneumonia, UTI - Hematology following. Thinks that leukocytosis and thrombocytosis are both reactive secondary to history of sepsis pneumonia, UTI. Pending JAK2/BCR. - Ceftriaxone IV x7 days. Will repeat CXR tomorrow. Follow up result. - DuoNeb's scheduled and when necessary - Monitor respiratory status S/P Fem/Pop Bypass - 10/19/17 exploration of the left groin, left common femoral and external iliac artery. Endarterectomy and patch angioplasty. External and common artery thromboembolectomy, superficial femoral popliteal artery thromboembolectomy, arteriogram. - 10/23/17 Right external iliac-common femoral endarterectomy and patch angioplasty and right femoral-popliteal bypass, PTFE graft - CT right lower extremity showed minimal deep hematoma distal anastomosis measuring 3.2 cm x 1.7 cm. As per vascular these are expected postop changes. - Recent, wound appears clean, dry, intact, steri-strips in place Atrial Fibrillation, Rate controlled HTN, HLD - EKG - Abnormal EKG in inpatient with abnormal stress test and subsequent cardiac catheterization was done. - Continue with aspirin 81 mg daily, metoprolol 25 mg by mouth every 12 hours , atorvastatin 80 mg daily at bedtime, digoxin 0.125 mg daily - On Eliquis 5 mg twice a day - Monitor BP trend DVT prop Eliquis. Discharge Planning Recommend to discharged to SNF. Isaías Chaparro Nov 04, 2017 12:05
[2017-11-04 18:52] VITALS: BP 142/82; PULSE 75; RESP 16; TEMP 97.5; O2SAT 93
[2017-11-04] MEDS: ATORVASTATIN 80 MG TAB PO SCH (21:21)
[2017-11-04] MEDS: RESP: ALBUTEROL 2.5 MG/IPRATROPIUM 0.5 MG NEB (SCH) NEB (23:16)
[2017-11-05] MEDS ORDERED: MORPHINE SULFATE 2 MG/ML INJ IV PUSH ONE (02:30)
--- NOTE | 2017-11-05 04:13 | RADRPT ---
EXAM DATE/TIME: 11/05/2017 03:30 [facility] COMPARISON: CHEST SINGLE AP, October 29, 2017, 3:17. INDICATIONS : Shortness of breath, possible pulmonary disease. MEDICAL HISTORY : Hypercholesterolemia. Hypertension Cerebrovascular disease. PVD A-fib SURGICAL HISTORY : Tonsillectomy. Tubal ligation. Fem pop ENCOUNTER: Subsequent ACUITY: 1 week PAIN SCORE: 0/10 LOCATION: Bilateral chest FINDINGS: The cardiac silhouette is normal in transverse diameter. There is prominence of the aortic knob is wi th calcification characteristic of atherosclerotic vascular disease. There is improving pulmonary [place] maA small right sided effusion is present. CONCLUSION: 1. Improving pulmonary edema. Craig Headley MD on November 05, 2017 at 4:11 Board Certified Radiologist. This report was verified electronically.
[2017-11-05 06:16] VITALS: BP 135/68; PULSE 69; RESP 16; TEMP 98.1; O2SAT 92
[2017-11-05 06:57] LABS: BASOPHIL % 0.2 % (0.0-2.0); EOSINOPHIL # 0.5 TH/MM3 (0-0.4); EOSINOPHIL % 2.5 % (0.0-4.0); HEMATOCRIT 42.9 % (35.0-46.0); HEMOGLOBIN 14.2 GM/DL (11.6-15.3); LYMPH % 6.2 % (9.0-44.0); LYMPHOCYTE # 1.3 TH/MM3 (1.0-4.8); MEAN CELL VOLUME 68.6 FL (80.0-100.0); MEAN CORPUSCULAR HEMOGLOBIN 22.7 PG (27.0-34.0); MEAN CORPUSCULAR HGB CONC 33.1 % (32.0-36.0); MEAN PLATELET VOLUME 8.7 FL (7.0-11.0); MONO % 4.3 % (0.0-8.0); MONOCYTE # 0.9 TH/MM3 (0-0.9); NEUT % 86.8 % (16.0-70.0); PLATELET COUNT 1128 TH/MM3 (150-450); RED BLOOD COUNT 6.26 MIL/MM3 (4.00-5.30); RED CELL DISTRIBUTION WIDTH 19.9 % (11.6-17.2); WHITE BLOOD COUNT 20.7 TH/MM3 (4.0-11.0)
[2017-11-05 07:36] LABS: BICARBONATE 24.8 MEQ/L (21.0-32.0); CALCIUM 8.3 MG/DL (8.5-10.1); CREATININE 0.49 MG/DL (0.50-1.00)
[2017-11-05] MEDS: RESP: ALBUTEROL 2.5 MG/IPRATROPIUM 0.5 MG NEB (SCH) NEB ×3 (07:57→20:45)
[2017-11-05] MEDS: ESCITALOPRAM OXALATE 10 MG TAB PO SCH (09:00)
[2017-11-05] MEDS: FUROSEMIDE 20 MG/2 ML VIAL IV PUSH SCH ×2 (09:00→17:21)
[2017-11-05 09:30] LABS: BANDS 7 % (0-6); BASOPHILS 2 % (0-2); LYMPHOCYTES 1 % (9-44); METAMYELOCYTES 1 % (0-1); MONOCYTES 3 % (0-8); NEUTROPHIL # MANUAL DIFF 19.3 TH/MM3 (1.8-7.7); POLYS (SEG NEUTROPHILS) 85 % (16-70)
--- NOTE | 2017-11-05 09:58 | HHI.PR ---
Subjective Remarks Follow-up visit dementia, pneumonia, urinary tract infection, status post femoropopliteal bypass. Patient seen and examined today. She states she is doing okay. Denies pain and discomfort. Denies SOB/ dyspnea. Denies chest pain , palpitations, headaches, dizziness. Denies fevers, chills, n/v/d. Denies dysuria. Objective Vitals Vital Signs Date Time Temp Pulse Resp B/P (MAP) Pulse Ox O2 Delivery O2 Flow Rate FiO2 11/05/17 06:16 98.1 69 16 135/68 (90) 92 11/05/17 00:14 Room Air 11/04/17 18:52 97.5 75 16 142/82 (102) 93 I/O 11/04/17 11/04/17 11/04/17 11/05/17 11/05/17 11/05/17 07:00 15:00 23:00 07:00 15:00 23:00 Intake Total 100 ml 360 ml 521 ml Output Total 400 ml 950 ml Balance -300 ml 360 ml -429 ml Intake Oral 100 ml 360 ml 521 ml Output Urine Total 400 ml 950 ml # Bowel Movements 1 Result Diagram: 11/05/1724 11/05/17 0624 Objective Remarks GENERAL: This is a thin-appearing, well-developed patient, in no apparent distress. SKIN: Warm and dry HEENT: Normocephalic. Pupils equal round and reactive. Nose without bleeding. Airway patent. NECK: Trachea midline. No JVD. Supple. CARDIOVASCULAR: Regular rate and rhythm without murmurs, gallops, or rubs. RESPIRATORY: No wheezes, rales, or rhonchi. Diminished bases. GASTROINTESTINAL: Abdomen soft, non-tender, nondistended. Bowel Sounds normoactive x4. MUSCULOSKELETAL: Extremities without clubbing, cyanosis. RLE trace edema. Right inner thigh incision site Steri-Strips intact. NEUROLOGICAL: Awake and alert. Oriented to place, person. Moves all extremities. Normal speech. Procedures S/P Fem/Pop Bypass 10/23/17 A/P Problem List: (1) History of endarterectomy ICD Code: Z98.890 - Other specified postprocedural states (2) Dyspnea ICD Code: R06.00 - Dyspnea, unspecified (3) Pain ICD Code: R52 - Pain, unspecified (4) Thrombocytosis ICD Code: D47.3 - Essential (hemorrhagic) thrombocythemia Status: Chronic (5) UTI (urinary tract infection) ICD Code: N39.0 - Urinary tract infection, site not specified (6) Peripheral vascular disease ICD Code: I73.9 - Peripheral vascular disease, unspecified Status: Acute Assessment and Plan Patient is a 77 Y/O female who presented to the hospital 10/14 with generalized weakness. Patient found to have PAD status post right femoropopliteal bypass and femoral endarterectomy. Her hospitalization was also complicated with sepsis secondary to UTI and pneumonia. Patient continued to have psychosis and confusion. She is now admitted to medical psychiatry unit for further evaluation. Consulted for medical management. Psychosis, Dementia - Managed by psychiatry team Urinary tract infection Urinary retention - Evidence of UTI with Rae. Repeat UA shows continued Rae. - Continue Diflucan until stop date. - Patient may DC to correction facility, rehabilitation center with [facility]. Urology as an outpatient if continues to have retention. Pneumonia Leukocytosis, thrombocytosis - Had history of sepsis pneumonia, UTI - Hematology following. Thinks that leukocytosis and thrombocytosis are both reactive secondary to history of sepsis pneumonia, UTI. Pending JAK2/BCR. - Ceftriaxone IV x7 days completed. - DuoNeb's scheduled and when necessary - Repeat chest x-ray showed improving pulmonary edema. Lasix twice a day 3 days with KCl supplements. Monitor electrolytes. - Monitor respiratory status S/P Fem/Pop Bypass - 10/19/17 exploration of the left groin, left common femoral and external iliac artery. Endarterectomy and patch angioplasty. External and common artery thromboembolectomy, superficial femoral popliteal artery thromboembolectomy, arteriogram. - 10/23/17 Right external iliac-common femoral endarterectomy and patch angioplasty and right femoral-popliteal bypass, PTFE graft - CT right lower extremity showed minimal deep hematoma distal anastomosis measuring 3.2 cm x 1.7 cm. As per vascular these are expected postop changes. - Recent, wound appears clean, dry, intact, steri-strips in place Atrial Fibrillation, Rate controlled HTN, HLD - Abnormal EKG in inpatient with abnormal stress test and subsequent cardiac catheterization was done. - Continue with aspirin 81 mg daily, metoprolol 25 mg by mouth every 12 hours , atorvastatin 80 mg daily at bedtime, digoxin 0.125 mg daily - On Eliquis 5 mg twice a day. - Monitor BP trend DVT prop Eliquis. Discharge Planning Recommend to discharged to SNF. Isaías Chaparro Nov 05, 2017 09:58
[2017-11-05] MEDS: APIXABAN 5 MG TABLET PO SCH ×2 (10:42→21:46)
[2017-11-05] MEDS: METOPROLOL TARTRATE 25 MG TAB PO SCH ×2 (10:42→21:46)
[2017-11-05] MEDS: DIGOXIN 0.125 MG TAB PO SCH (10:42)
[2017-11-05] MEDS: POTASSIUM CHLORIDE 20 MEQ CONTROLLED RELEASE TAB PO SCH (10:42)
[2017-11-05] MEDS: FLUCONAZOLE 200 MG TAB PO SCH (10:43)
[2017-11-05] MEDS: ASPIRIN 81 MG CHEW TAB CHEW SCH (10:43)
[2017-11-05] MEDS: QUEtiapine FUMARATE 25 MG TAB PO SCH ×3 (10:46→20:00)
--- NOTE | 2017-11-05 10:56 | HHI.PYPN ---
Subjective Remarks Progress note for November 04, 2017. Patient seen briefly. No complaints. Discuss case with nurse and reviewed electronic medical record. Review of Systems ROS Limitations: Clinical Condition Except as stated in HPI: all other systems reviewed are Neg Mental Status Examination Appearance: Appropriate Consciousness: Alert Orientation: Person, Place, Situation (knows why she is in the hospital) Motor Activity: Other (patient bedridden at this time) Speech: Hesitant Language: Adequate Fund of Knowledge: Inadequate Attention and Concentration: Other (poor) Memory: Impaired Mood: Other (euthymic to somewhat restricted) Affect: Other (decreased range and intensity) Thought Process & Associations: Linear Thought Content: Other (disorganized) Hallucination Type: None (denies) Delusion Type: None Suicidal Ideation: No Suicidal Plan: No Suicidal Intention: No Homicidal Ideation: No Homicidal Plan: No Homicidal Intention: No Insight: Poor Judgment: Poor Results Labs Test 11/05/17 06:24 White Blood Count 20.7 TH/MM3 Red Blood Count 6.26 MIL/MM3 Hemoglobin 14.2 GM/DL Hematocrit 42.9 % Mean Corpuscular Volume 68.6 FL Mean Corpuscular Hemoglobin 22.7 PG Mean Corpuscular Hemoglobin Concent 33.1 % Red Cell Distribution Width 19.9 % Platelet Count 1128 TH/MM3 Mean Platelet Volume 8.7 FL Neutrophils (%) (Auto) 86.8 % Lymphocytes (%) (Auto) 6.2 % Monocytes (%) (Auto) 4.3 % Eosinophils (%) (Auto) 2.5 % Basophils (%) (Auto) 0.2 % Neutrophils # (Auto) 18.0 TH/MM3 Lymphocytes # (Auto) 1.3 TH/MM3 Monocytes # (Auto) 0.9 TH/MM3 Eosinophils # (Auto) 0.5 TH/MM3 Basophils # (Auto) 0.0 TH/MM3 CBC Comment AUTO DIFF Differential Total Cells Counted 100 Neutrophils % (Manual) 85 % Band Neutrophils % 7 % Lymphocytes % 1 % Monocytes % 3 % Eosinophils % 1 % Basophils % 2 % Neutrophils # (Manual) 19.3 TH/MM3 Metamyelocytes 1 % Differential Comment FINAL DIFF MANUAL Platelet Estimate HIGH Platelet Morphology Comment ENLARGED Red Cell Morphology Comment NORMAL Blood Urea Nitrogen 7 MG/DL Creatinine 0.49 MG/DL Random Glucose 84 MG/DL Calcium Level 8.3 MG/DL Sodium Level 135 MEQ/L Potassium Level 3.4 MEQ/L Chloride Level 101 MEQ/L Carbon Dioxide Level 24.8 MEQ/L Anion Gap 9 MEQ/L Estimat Glomerular Filtration Rate 123 ML/MIN Date/Time Source Procedure Growth Status 10/26/17 11:50 Urine Other Urine Culture - Final Rae Albicans Complete Vitals/IOs Vital Signs Date Time Temp Pulse Resp B/P (MAP) Pulse Ox O2 Delivery O2 Flow Rate FiO2 11/05/17 06:16 98.1 69 16 135/68 (90) 92 11/05/17 00:14 Room Air 11/01/17 08:33 21 Intake and Output 11/05/17 11/05/17 11/06/17 08:00 16:00 00:00 Intake Total 120 ml Output Total 500 ml Balance -380 ml Assessment & Plan Problem List: (1) OTHER ALZHEIMER'S DISEASE ICD Codes: G30.8 - OTHER ALZHEIMER'S DISEASE (2) Dementia associated with other underlying disease without behavioral disturbance ICD Codes: F02.80 - Dementia in other diseases classified elsewhere without behavioral disturbance Assessment & Plan Estimated LOS: days. Continue current treatment plan. Justification for Cont. Inpt. Likely to decompensate at lower level of care. Request HC Surrog/Guard Advoc?: Yes Singh Cruz MD Nov 05, 2017 10:56
[2017-11-05] MEDS ORDERED: POTASSIUM CHLORIDE 20 MEQ CONTROLLED RELEASE TAB PO ONE (13:45)
--- NOTE | 2017-11-05 16:35 | HHI.PYPN ---
Subjective Remarks Patient seen in her room floor staff, chart reviewed, patient compliant medications. Patient continues calm cooperative with fair eye contact, somewhat sad but oriented. Continues to be willing to look at SNF Review of Systems Except as stated in HPI: all other systems reviewed are Neg Mental Status Examination Appearance: Appropriate Consciousness: Alert Orientation: Person, Place, Situation (knows why she is in the hospital) Motor Activity: Other (patient bedridden at this time) Speech: Hesitant Language: Adequate Fund of Knowledge: Inadequate Attention and Concentration: Other (poor) Memory: Impaired Mood: Other (euthymic to somewhat restricted) Affect: Other (decreased range and intensity) Thought Process & Associations: Linear Thought Content: Other (disorganized) Hallucination Type: None (denies) Delusion Type: None Suicidal Ideation: No Suicidal Plan: No Suicidal Intention: No Homicidal Ideation: No Homicidal Plan: No Homicidal Intention: No Insight: Poor Judgment: Poor Results Labs Test 11/05/17 06:24 White Blood Count 20.7 TH/MM3 Red Blood Count 6.26 MIL/MM3 Hemoglobin 14.2 GM/DL Hematocrit 42.9 % Mean Corpuscular Volume 68.6 FL Mean Corpuscular Hemoglobin 22.7 PG Mean Corpuscular Hemoglobin Concent 33.1 % Red Cell Distribution Width 19.9 % Platelet Count 1128 TH/MM3 Mean Platelet Volume 8.7 FL Neutrophils (%) (Auto) 86.8 % Lymphocytes (%) (Auto) 6.2 % Monocytes (%) (Auto) 4.3 % Eosinophils (%) (Auto) 2.5 % Basophils (%) (Auto) 0.2 % Neutrophils # (Auto) 18.0 TH/MM3 Lymphocytes # (Auto) 1.3 TH/MM3 Monocytes # (Auto) 0.9 TH/MM3 Eosinophils # (Auto) 0.5 TH/MM3 Basophils # (Auto) 0.0 TH/MM3 CBC Comment AUTO DIFF Differential Total Cells Counted 100 Neutrophils % (Manual) 85 % Band Neutrophils % 7 % Lymphocytes % 1 % Monocytes % 3 % Eosinophils % 1 % Basophils % 2 % Neutrophils # (Manual) 19.3 TH/MM3 Metamyelocytes 1 % Differential Comment FINAL DIFF MANUAL Platelet Estimate HIGH Platelet Morphology Comment ENLARGED Red Cell Morphology Comment NORMAL Blood Urea Nitrogen 7 MG/DL Creatinine 0.49 MG/DL Random Glucose 84 MG/DL Calcium Level 8.3 MG/DL Sodium Level 135 MEQ/L Potassium Level 3.4 MEQ/L Chloride Level 101 MEQ/L Carbon Dioxide Level 24.8 MEQ/L Anion Gap 9 MEQ/L Estimat Glomerular Filtration Rate 123 ML/MIN Date/Time Source Procedure Growth Status 10/26/17 11:50 Urine Other Urine Culture - Final Rae Albicans Complete Vitals/IOs Vital Signs Date Time Temp Pulse Resp B/P (MAP) Pulse Ox O2 Delivery O2 Flow Rate FiO2 11/05/17 06:16 98.1 69 16 135/68 (90) 92 11/05/17 00:14 Room Air 11/01/17 08:33 21 Intake and Output 11/05/17 11/05/17 11/06/17 08:00 16:00 00:00 Intake Total 120 ml 480 ml Output Total 500 ml 150 ml Balance -380 ml 330 ml Assessment & Plan Problem List: (1) OTHER ALZHEIMER'S DISEASE ICD Codes: G30.8 - OTHER ALZHEIMER'S DISEASE (2) Dementia associated with other underlying disease without behavioral disturbance ICD Codes: F02.80 - Dementia in other diseases classified elsewhere without behavioral disturbance Assessment & Plan Estimated LOS: days patient continues calm cooperative is somewhat depressed. It appears to cope with medical issues Justification for Cont. Inpt. At this time patient decompensated placed in a lower level of care Discharge Planning To be determined with medical staff Request HC Surrog/Guard Advoc?: Yes Anselmo Gray MD Nov 05, 2017 16:35
--- NOTE | 2017-11-05 16:46 | PD.TTN ---
Patient Problems 1. Discharge planning 2. Medication compliance 3. Knowledge deficit 4. Lack of coping skills Progress Toward Goals Provider Present: Dr. Farooq Gray Provider Input: 11/05/2017; per doctor patient is being monitor with medication and medical treatment Nurse(s) Present: RN Nurse(s) Input: Patient is taking her medicaton with coaching as well as coaching with medication Psychiatric Counselors Present: MARCY Suarez Psych Therapist Input: 11/05/2017; patient is accepted at [facility] when stable Group Spec/RT/OT/CAREY Present: Stalin De Luna OT Group Spec/RT/OT/CAREY Input: 11/05/2017; patient lacks insight or ability to participate with groups or activities Documentation Scribe: MARCY Suarez Sandra LMHC Nov 05, 2017 16:46
[2017-11-05 18:00] VITALS: BP 120/61; PULSE 69; RESP 16; TEMP 97.9; O2SAT 94
[2017-11-05] MEDS: ATORVASTATIN 80 MG TAB PO SCH (21:46)
[2017-11-05] MEDS: hydrOXYzine HCL 50 MG TAB PO PRN (21:46)
[2017-11-06 06:25] VITALS: BP 144/76; PULSE 82; RESP 16; TEMP 97.8; O2SAT 94
[2017-11-06] MEDS: RESP: ALBUTEROL 2.5 MG/IPRATROPIUM 0.5 MG NEB (SCH) NEB (07:46)
[2017-11-06] MEDS ORDERED: ASPI81 CHEW (08:46)
[2017-11-06] MEDS ORDERED: SERO25TA PO (08:46)
[2017-11-06] MEDS ORDERED: METO25TA3 PO (08:46)
[2017-11-06] MEDS ORDERED: APIX5TAB PO (08:46)
[2017-11-06] MEDS ORDERED: Albuterol-Ipratropium Neb NEB ×2 (08:46)
[2017-11-06] MEDS ORDERED: Furosemide IV PUSH (08:46)
[2017-11-06] MEDS ORDERED: POTA20TA5 PO (08:46)
[2017-11-06] MEDS ORDERED: ATOR80TA45 PO (08:46)
[2017-11-06] MEDS ORDERED: ESCI10TA PO (08:46)
[2017-11-06] MEDS ORDERED: DIFL200T PO (08:46)
[2017-11-06] MEDS ORDERED: DIGO0.12 PO (08:46)
--- NOTE | 2017-11-06 08:52 | HHI.DS ---
Psychiatry Discharge Summary Inpatient Psychiatric care?: Yes Advance Directive: No Reason Not Provided: Due to Patient Condition Mental Health AdvanceDirective: No Health Care Proxy: No Admission Admission Date Oct 25, 2017 at 16:37 Admission Diagnosis: (1) OTHER ALZHEIMER'S DISEASE ICD Code: G30.8 - OTHER ALZHEIMER'S DISEASE (2) Dementia associated with other underlying disease without behavioral disturbance ICD Code: F02.80 - Dementia in other diseases classified elsewhere without behavioral disturbance Brief History Patient is a 77-year-old white female who was initially brought to the emergency department on 10/14/17 under she was found be markedly debilitated, significant peripheral vascular problems necessitating femoral-popliteal bypass. Patient is also seen by psychiatry during that visit results he had cognitive issues was unable care for self. Patient seen by both Dr. Odell and Dr. Arcos. Patient was transferred to [facility] for further care and attention. Dr. Arcos did initiate a Shi act dated 10/25/17 dating unspecified psychosis that document reviewed and agreed with. At the present time patient laying quietly in her bed on E. RN present throughout session. Patient is alert diffusely confused elderly white female she doesn't know she is in the hospital devastated to another batch she does not know the state she is vague about the year does not know the month or the holiday. She states she lives with her daughter but does not know where her daughter is she is vague about the circumstances leading to her being left on the couch for extended period of time in her feces and urine. She states her daughter lives with her. She states she has been 5 or 6 times, has had 5 or 6 children, has grandchildren and great-grandchildren but she has no great great grandchildren yet because "I aint yet". Patient denies suicidality denies voices or visions. Patient denies any prior psychiatric contact hospitalizations his psychotropic medications. She states she is from [place] and as a younger woman worked in "[employer] Patient denies any alcohol use or drug use, though she did somewhat shyly acknowledge past use of marijuana, also stated she was a cigarette smoker in the past but not in a few months. She does deny any physical or sexual abuse nor her historical accuracy is quite questionable. In any event at the present time patient does meet criteria for inpatient psychiatric assessment and observation. I feel she does not have capacity to make decisions concerning her care or medications thus I'll do first opinion petition supporting Shi act request second opinion. We'll also ask for healthcare surrogate and guardian advocate. We will have a continuation of the hospitalists care for this lady on our med psych unit. Patient did have palliative care orders will continue that also. Will have PT and OT assess this lady. Will have counselor attempt to reach patient's family to discuss further care and attention and possible placement issues we also need to address with family members advanced directives. Patient was seen today for psychiatric evaluation for second opinion. She is calm, cooperative, but confused and tangential. Patient reports that she feels much better, but is unable to clarify the reason of her hospitalization and circumstances that brought her to the hospital. Patient says that she is okay and feels safe here, she doesn't know where she is, she doesn't know the date. No agitation or aggressive behavior reported in the last 24 hours. Patient has been compliant with medications, no significant side effects. Tobacco Use In Past 30 Days: No Tobacco Past 30 Days Alcohol Use: Never Hospital Course Patient's hospital course showed her cooperation and compliance with treatment. Plans with medication. She remained quite fragile medically throughout her stay with the medicine service being active in her treatment. Her cognitive abilities showed some improvement as she became more trustworthy of the milieu. Her sad mood improved. Her affect focus and processing also did improve somewhat. However we did realize the patient will need extended intense assisted facility treatment. We've had various facilities out. [facility] and rehabilitation was not here yesterday in the felt she would be appropriate for their facility. At this time patient longer meets Shi act criteria I will lift the Shi act. Will have patient discharged today to that facility with continuation of her psychotropic and medical medications to be followed up through [facility]. Patient also does denies suicidality homicidality voices or visions. Is willing to be transferred to that facility Results Blood Pressure 144 / 76 Vital Signs Date Time Temp Pulse Resp B/P (MAP) Pulse Ox O2 Delivery O2 Flow Rate FiO2 11/06/17 06:25 97.8 82 16 144/76 (98) 94 11/05/17 00:14 Room Air Laboratory Tests Test 11/05/17 06:24 White Blood Count 20.7 TH/MM3 (4.0-11.0) Red Blood Count 6.26 MIL/MM3 (4.00-5.30) Mean Corpuscular Volume 68.6 FL (80.0-100.0) Mean Corpuscular Hemoglobin 22.7 PG (27.0-34.0) Red Cell Distribution Width 19.9 % (11.6-17.2) Platelet Count 1128 TH/MM3 (150-450) Neutrophils (%) (Auto) 86.8 % (16.0-70.0) Lymphocytes (%) (Auto) 6.2 % (9.0-44.0) Neutrophils # (Auto) 18.0 TH/MM3 (1.8-7.7) Eosinophils # (Auto) 0.5 TH/MM3 (0-0.4) Neutrophils % (Manual) 85 % (16-70) Band Neutrophils % 7 % (0-6) Lymphocytes % 1 % (9-44) Neutrophils # (Manual) 19.3 TH/MM3 (1.8-7.7) Platelet Estimate HIGH (NORMAL) Platelet Morphology Comment ENLARGED (NORMAL) Creatinine 0.49 MG/DL (0.50-1.00) Calcium Level 8.3 MG/DL (8.5-10.1) Sodium Level 135 MEQ/L (136-145) Potassium Level 3.4 MEQ/L (3.5-5.1) Summary of Procedures None done Imaging Last Impressions Chest X-Ray 11/05/17 0600 Signed Impressions: Service Date/Time: Sunday, November 05, 2017 03:30 - CONCLUSION: 1. Improving pulmonary edema. Craig Headley MD Lower Extremity CT 10/31/17 1226 Signed Impressions: Service Date/Time: Tuesday, October 31, 2017 15:52 - CONCLUSION: Minimal deep hematoma distal anastomosis measuring 3.2 cm x 1.7 cm. Kuldeep Radford MD FACR Liver Ultrasound 10/30/17 0000 Signed Impressions: Service Date/Time: Monday, October 30, 2017 20:54 - CONCLUSION: 1. Echogenic right kidney which can be seen with medical renal disease. 2. Minimal nonspecific perinephric fluid. 3. Spleen is at the upper limits of normal in size. 4. No evidence for cholelithiasis. Vincent Spence MD Pending results at discharge: No Medications # of Antipsychotic meds at D/C: 1 Approp Antipsych med options 1 - Minimum of three failed multiple trials of monotherapy. 2 - Documented plan to taper to monotherapy due to previous use of multiple meds OR cross-taper in progress at D/C. 3 - Documentation of augmentation of Clozapine. 4 - Justification other than those listed in allowable values 1-3, document here : Discharge Discharge Date: Nov 06, 2017 Discharge Diagnosis: (1) Dementia associated with other underlying disease without behavioral disturbance Diagnosis: Principal ICD Code: F02.80 - Dementia in other diseases classified elsewhere without behavioral disturbance (2) OTHER ALZHEIMER'S DISEASE Diagnosis: Principal ICD Code: G30.8 - OTHER ALZHEIMER'S DISEASE Pt Condition on Discharge: Stable Discharge Disposition: Discharge to SNF Discharge Instructions Diet Instructions: As Tolerated, No Restrictions Activities you can perform: See Additionl Instruction Other Activity Instructions: Per PT/OT evaluation Scheduled Appointment: [facility] and rehabilitation Discharge Time > 30 minutes Mental Status Examination Appearance: Appropriate Consciousness: Alert Orientation: Person, Place, Situation (knows why she is in the hospital) Motor Activity: Other (patient bedridden at this time) Speech: Hesitant Language: Adequate Fund of Knowledge: Inadequate Attention and Concentration: Other (poor) Memory: Impaired Mood: Other (euthymic to somewhat restricted) Affect: Other (decreased range and intensity) Thought Process & Associations: Linear Thought Content: Other (disorganized) Hallucination Type: None (denies) Delusion Type: None Suicidal Ideation: No Suicidal Plan: No Suicidal Intention: No Homicidal Ideation: No Homicidal Plan: No Homicidal Intention: No Insight: Poor Judgment: Poor Discharge/Advance Care Plan Health Problems: (1) OTHER ALZHEIMER'S DISEASE (2) Dementia associated with other underlying disease without behavioral disturbance Goals to promote your health * To prevent worsening of your condition and complications * To maintain your health at the optimal level Directions to meet your goals Take your medications as prescribed Follow your dietary instruction Follow activity as directed Keep your appointments as scheduled Take your immunizations and boosters as scheduled If your symptoms worsen call your PCP, if no PCP go to Urgent Care Center or Emergency Room For 21/05 questions related to your inpatient stay or results of tests pending at discharge, please contact Dr. Anselmo Gray at Smoking is Dangerous to Your Health. Avoid second hand smoking Anselmo Gray MD Nov 06, 2017 08:52
[2017-11-06] MEDS ORDERED: FURO1TAB62 PO (08:58)
[2017-11-06] MEDS: FUROSEMIDE 20 MG/2 ML VIAL IV PUSH SCH (09:00)
--- NOTE | 2017-11-06 10:17 | HHI.PR ---
Subjective Remarks Follow-up visit dementia, pneumonia, urinary tract infection, status post femoropopliteal bypass. Patient seen and examined today. She states she is doing well. Discuss with patient plan for DC to rehab. Denies pain and discomfort. Denies SOB/ dyspnea. Denies chest pain, palpitations, headaches, dizziness. Denies fevers, chills, n/v/d. Denies dysuria. Objective Vitals Vital Signs Date Time Temp Pulse Resp B/P (MAP) Pulse Ox O2 Delivery O2 Flow Rate FiO2 11/06/17 06:25 97.8 82 16 144/76 (98) 94 11/05/17 18:00 97.9 69 16 120/61 (80) 94 I/O 11/05/17 11/05/17 11/05/17 11/06/17 11/06/17 11/06/17 06:59 14:59 22:59 06:59 14:59 22:59 Intake Total 521 ml 120 ml 360 ml 100 ml Output Total 950 ml 150 ml 1851 ml Balance -429 ml 120 ml 210 ml -1851 ml 100 ml Intake Oral 521 ml 120 ml 360 ml 100 ml Output Urine Total 950 ml 150 ml 1850 ml Stool Total 1 ml # Bowel Movements 1 Result Diagram: 11/05/17 0624 11/05/17 0624 Imaging Last Impressions Chest X-Ray 11/05/17 0600 Signed Impressions: Service Date/Time: Sunday, November 05, 2017 03:30 - CONCLUSION: 1. Improving pulmonary edema. Craig Headley MD Lower Extremity CT 10/31/17 1226 Signed Impressions: Service Date/Time: Tuesday, October 31, 2017 15:52 - CONCLUSION: Minimal deep hematoma distal anastomosis measuring 3.2 cm x 1.7 cm. Kuldeep Radford MD FACR Liver Ultrasound 10/30/17 0000 Signed Impressions: Service Date/Time: Monday, October 30, 2017 20:54 - CONCLUSION: 1. Echogenic right kidney which can be seen with medical renal disease. 2. Minimal nonspecific perinephric fluid. 3. Spleen is at the upper limits of normal in size. 4. No evidence for cholelithiasis. Vincent Spence MD Objective Remarks GENERAL: This is a thin-appearing, well-developed patient, in no apparent distress. SKIN: Warm and dry HEENT: Normocephalic. Pupils equal round and reactive. Nose without bleeding. Airway patent. NECK: Trachea midline. No JVD. Supple. CARDIOVASCULAR: Regular rate and rhythm without murmurs, gallops, or rubs. RESPIRATORY: No wheezes, rales, or rhonchi. Diminished bases. GASTROINTESTINAL: Abdomen soft, non-tender, nondistended. Bowel Sounds normoactive x4. MUSCULOSKELETAL: Extremities without clubbing, cyanosis. RLE trace edema. Right inner thigh incision site Steri-Strips intact. NEUROLOGICAL: Awake and alert. Oriented to place, person. Moves all extremities. Normal speech. Procedures S/P Fem/Pop Bypass 10/23/17 A/P Problem List: (1) History of endarterectomy ICD Code: Z98.890 - Other specified postprocedural states (2) Dyspnea ICD Code: R06.00 - Dyspnea, unspecified (3) Pain ICD Code: R52 - Pain, unspecified (4) Thrombocytosis ICD Code: D47.3 - Essential (hemorrhagic) thrombocythemia Status: Chronic (5) UTI (urinary tract infection) ICD Code: N39.0 - Urinary tract infection, site not specified (6) Peripheral vascular disease ICD Code: I73.9 - Peripheral vascular disease, unspecified Status: Acute Assessment and Plan Patient is a 77 Y/O female who presented to the hospital 10/14 with generalized weakness. Patient found to have PAD status post right femoropopliteal bypass and femoral endarterectomy. Her hospitalization was also complicated with sepsis secondary to UTI and pneumonia. Patient continued to have psychosis and confusion. She is now admitted to medical psychiatry unit for further evaluation. Consulted for medical management. Psychosis, Dementia - Managed by psychiatry team Urinary tract infection Urinary retention - Evidence of UTI with Rae. Repeat UA shows continued Rae. - Continue Diflucan until stop date. - Patient may DC to custodial facility, rehabilitation center with [facility] if urinary retention continues. Urology as an outpatient if continues to have retention. Pneumonia Leukocytosis, thrombocytosis - Had history of sepsis pneumonia, UTI - Hematology following. Thinks that leukocytosis and thrombocytosis are both reactive secondary to history of sepsis pneumonia, UTI. Pending JAK2/BCR. - Ceftriaxone IV x7 days completed. - DuoNeb's scheduled and when necessary - Repeat chest x-ray showed improving pulmonary edema. Patient was given lasix. Will not DC with LAsix. Follow up with PCP. - Monitor respiratory status S/P Fem/Pop Bypass - 10/19/17 exploration of the left groin, left common femoral and external iliac artery. Endarterectomy and patch angioplasty. External and common artery thromboembolectomy, superficial femoral popliteal artery thromboembolectomy, arteriogram. - 10/23/17 Right external iliac-common femoral endarterectomy and patch angioplasty and right femoral-popliteal bypass, PTFE graft - CT right lower extremity showed minimal deep hematoma distal anastomosis measuring 3.2 cm x 1.7 cm. As per vascular these are expected postop changes. - Wound appears clean, dry, intact, steri-strips in place Atrial Fibrillation, Rate controlled HTN, HLD - Abnormal EKG in inpatient with abnormal stress test and subsequent cardiac catheterization was done. - Continue with aspirin 81 mg daily, metoprolol 25 mg by mouth every 12 hours , atorvastatin 80 mg daily at bedtime, digoxin 0.125 mg daily - On Eliquis 5 mg twice a day. - Monitor BP trend DVT prop Eliquis. Discharge Planning Recommend to discharged to SNF. Isaías Chaparro Nov 06, 2017 10:17
[2017-11-06] MEDS: ESCITALOPRAM OXALATE 10 MG TAB PO SCH (10:22)
[2017-11-06] MEDS: METOPROLOL TARTRATE 25 MG TAB PO SCH (10:22)
[2017-11-06] MEDS: POTASSIUM CHLORIDE 20 MEQ CONTROLLED RELEASE TAB PO SCH (10:22)
[2017-11-06] MEDS: QUEtiapine FUMARATE 25 MG TAB PO SCH (10:22)
[2017-11-06] MEDS: FLUCONAZOLE 200 MG TAB PO SCH (10:22)
[2017-11-06] MEDS: APIXABAN 5 MG TABLET PO SCH (10:23)
[2017-11-06] MEDS: ASPIRIN 81 MG CHEW TAB CHEW SCH (10:23)
[2017-11-06] MEDS: DIGOXIN 0.125 MG TAB PO SCH (10:23)
--- NOTE | 2017-11-06 18:59 | PD.ONC.PN ---
Subjective Subjective Remarks Delayed note entry. Patient seen at 9 AM at bedside. Patient resting comfortably in bed in no distress. Plan for discharge to facility today. Objective Data Date Time Temp Pulse Resp B/P (MAP) Pulse Ox O2 Delivery O2 Flow Rate FiO2 11/06/17 06:25 97.8 82 16 144/76 (98) 94 11/06/17 11/06/17 11/06/17 06:59 14:59 22:59 Intake Total 100 ml Output Total 1851 ml Balance -1851 ml 100 ml Result Diagram: 11/05/1762311/05/17623 Objective Remarks GENERAL: thin, chronically ill appearing lady in no distress SKIN: Warm and dry. HEAD: Normocephalic. EYES: No scleral icterus. No injection or drainage. RESPIRATORY: No accessory muscle use. NEUROLOGICAL: No obvious focal deficit. Awake, alert, and oriented x3. PSYCHIATRIC: poor insight and judgement Assessment/Plan Problem List: (1) Leukocytosis ICD Codes: D72.829 - Elevated white blood cell count, unspecified Plan: --likely reactive d/t recent major surgical procedures including endarterectomy and bypass surgery as well as urinary tract infection and pneumonia. --b12/folate WNL --iron studies show low TIBC, serum iron % saturation and ferritin, usually with iron deficiency anemia TIBC is normal or elevated--may indicate a mixed picture. --Jak2, BCR/ABL pending (2) Thrombocytosis ICD Codes: D47.3 - Essential (hemorrhagic) thrombocythemia Status: Chronic Plan: --likely reactive d/t recent major surgical procedures including endarterectomy and bypass surgery as well as urinary tract infection and pneumonia. --b12/folate WNL --iron studies show low TIBC, serum iron % saturation and ferritin, usually with iron deficiency anemia TIBC is normal or elevated--may indicate a mixed picture. --Jak2, BCR/ABL pending. Assessment 77-year-old lady admitted in September 2017 with severe peripheral arterial disease requiring right femoropopliteal bypass and femoral endarterectomy. Postoperative course was complicated by urinary tract infection and pneumonia. She also has atrial fibrillation. Hematology consulted for leukocytosis and thrombocytosis. h/o Hyperlipidemia, Hypertension Plan 1. Leukocytosis and thrombocytosis: BCR-ABL mutation not detected, however JAK2 mutation is present. She is currently on apixaban therapy for anticoagulation under the management of the cardiology service due to known atrial fibrillation. Will arrange close follow up in clinic for following CBC, consideration of bone marrow biopsy. Patient has poor insight into disease process and into medical care. Nallely Francois MD Nov 06, 2017 18:59
== END 2017-11-06 11:30 | DRG 56 ==
LOC: H4EA 16:37
PROVIDERS: ADMIT Psychiatry & Neurology Psychiatry; ATTEND Psychiatry & Neurology Psychiatry
DX: G30.9 Alzheimer's disease, unspecified (principal); J18.9 Pneumonia, unspecified organism; J81.1 Chronic pulmonary edema; I48.91 Unspecified atrial fibrillation; I42.9 Cardiomyopathy, unspecified; D75.1 Secondary polycythemia; F02.80 Dementia in other diseases classified elsewhere, unspecified severity, without behavioral disturbance, psychotic disturbance, mood disturbance, and anxiety; B37.49 Other urogenital candidiasis; I25.10 Atherosclerotic heart disease of native coronary artery without angina pectoris; I10 Essential (primary) hypertension; D47.3 Essential (hemorrhagic) thrombocythemia; E78.5 Hyperlipidemia, unspecified; I73.9 Peripheral vascular disease, unspecified; R26.9 Unspecified abnormalities of gait and mobility; M21.379 Foot drop, unspecified foot; Z86.73 Personal history of transient ischemic attack (TIA), and cerebral infarction without residual deficits; Z87.891 Personal history of nicotine dependence
CPT/HCPCS: 71020; 71045; 73700; 76705; 80048; 80053; 81001; 81206; 81207; 81270; 82607; 82728; 82746; 83540; 83550; 83735; 84100; 85007; 85027; 85060; 85652; 86140; 87086; 93005; 94640; 94664; J0696; J1650; J1940; J2930